=== PATIENT | male | born 1945 | race Caucasian/White ===

== ENCOUNTER 2016-07-24 05:51 | Inpatient (IN) | payer MEDICARE, OTHER ==
[2016-07-24] VITALS (7 sets, daily range): BP systolic 111–135; BP diastolic 58–72; PULSE 68–130; RESP 18–24; O2SAT 92–99
[~2016-07-24] VITALS: Ht 170.2 cm; Wt 80.7 kg
[~2016-07-24 05:51] MED LIST: ASPI-973 PO; CALC0.257 PO; CYCL25CA PO; ENAL5TAB PO; ERGO500050 PO; FUR20 PO; GABA-500 PO; MAGN133T3 PO; METO25TA6 PO; MULT-666 PO; MYCO250C4 PO; NORT10CA PO; OMEP20CA11 PO; PRD1T PO; PRD5T PO; PRV40T PO; ZYL100 PO
--- NOTE | 2016-07-24 06:07 | ED.REPORT ---
HPI-General Illness Date of Service Jul 24, 2016 ED Provider: Dr. Valadez Pt is a 70 y/o male on immunosuppressants w/ a hx of recurrent C. diff, renal transplant, CKD, presenting to the ED via EMS from [facility] due to dehydration and not feeling well. He was sent in with concern for sepsis due to tachycardia and fever of 38 C. He is unable to provide much history today due to somnolence. He is confused as to when he was last in the hospital. He states that he last received dialysis 23 years ago. He was recently admitted July 04- for acute on chronic kidney injury in the setting of kidney transplant as well as C. difficile and Norovirus diarrhea. During hospitalization, his creatinine improved to 2.03 on day of discharge which was near his regular baseline. He was treated with IV hydrocortisone which was tapered down. Cyclosporin and CellCept was also administered. It was felt that his acute on chronic kidney injury was related to pre-renal hypocalcemia in the setting of C. diff diarrhea nad dehydration. His diarrhea improved during hospitalization. His oral Vancomycin was stopped. He was discharged with plan for follow-up with Dr. Duenas. He was noted to have possible bilateral lower lobe pneumonia although clinically this did not seem to be the case. Nursing Notes Stated Complaint: LATHARGY,SEPSIS Chief Complaint: Male Abdominal Pain Nursing Notes Reviewed: Yes Allergies: Coded Allergies: iodine (Unverified Allergy, Severe, purple blistering, 07/24/16) povidone (Unverified Allergy, Severe, purple blistering, 07/24/16) Scheduled Allopurinol (Allopurinol) 100 Mg Tablet 200 MG PO QAM Aspirin (Aspirin) 81 Mg Tablet 81 MG PO HS Calcitriol (Rocaltrol) 0.25 Mcg Capsule 0.25 MCG PO QAM Cyclosporine, Modified (Gengraf) 25 Mg Cap 50 MG PO BID Enalapril Maleate (Enalapril Maleate) 5 Mg Tablet 2.5 MG PO DAILY Ergocalciferol (Vitamin D2) (Drisdol) 50,000 Unit Capsule 50,000 UNIT PO monthly Furosemide (Furosemide) 20 Mg Tab 10 MG PO DAILY Gabapentin (Gabapentin) 100 Mg Capsule 100 MG PO BID Magnesium Oxide/Mag Aa Chelate (uk-Vjrk-Kipfutu Tablet) 133 Mg Tablet 133 MG PO TID Metoprolol Tartrate (Metoprolol Tartrate) 25 Mg Tablet 12.5 MG PO BID Multivitamin (Once Daily) 1 Each Tablet 1 EACH PO HS Mycophenolate Mofetil (Mycophenolate Mofetil) 250 Mg Capsule 750 MG PO BID Nortriptyline (Nortriptyline) 10 Mg Capsule 10 MG PO BID Omeprazole (Omeprazole) 20 Mg Capsule.dr 20 MG PO HS Pravastatin (Pravachol) 40 Mg Tablet 40 MG PO HS PredniSONE (PredniSONE) 1 Mg Tab 3 MG PO QAM Prednisone (PredniSONE) 5 Mg Tab 5 MG PO QAM General Time Seen by MD: 06:06 Chief Complaint Not feeling well Hx Obtained From: Patient, EMS Unable to Obtain Hx: Patient condition Arrived By: Ambulance Sudden in Onset?: No Past Medical History Past Medical History Notes: Admitted September 2015 for volume depletion 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 diff Coma following splenectomy Hx Kidney cancer s/p transplant History renal insufficiency Immunosuppressant following kidney transplants [facility] Hx of Hemodialysis 23 years ago Anxiety Reports: Hyperlipidemia Past Surgical History Hernia Splenectomy kidney transplant x3 (last one 20 years ago) Hip replacement x7 Family History noncontributory Smoking History Current Every Day Smoker Social History Alcohol Use: Denies alcohol use Drug Use: Denies drug use Other Social History: Lives alone, Local resident Ambulatory Status Independent Review of Systems Unable to Obtain ROS Patient condition Full Review of Systems Constitutional: Reports: Fever, Lethargy Physical Exam Exam limited due to somnolence Vital Signs Vital Signs Date Time Temp Pulse Resp B/P Pulse Ox O2 Delivery O2 Flow Rate FiO2 07/24/16 06:07 38.2 130 24 114/58 99 Nasal Cannula 2 Initial VS: Reviewed, Vital signs abnormal Neck: Supple, Non-tender, Full range of motion Respiratory: Breath sounds normal, Clear to auscultation, No respiratory distress Extremities: Vascular intact, No swelling Skin: Warm, Dry Psychiatric: Behavior normal General/Constitutional: Awake, Alert Somnolent Confused as to when he was in the hospital last and in regards to his medical history Head / Eyes: Atraumatic, PERRL, EOMI 2x3 cm tumor-like growth on the left forehead ENT: Atraumatic, Airway patent Mouth: Positive: Mucous membranes dry Cardiovascular: Regular rhythm, Heart sounds NL, No gallop, No murmurs, No rubs , Cap refill not delayed, Peripheral circulation NL Heart Rate / Rhythm: Positive: Tachycardia Abdomen: Atraumatic, Soft, Non-tender, No guarding, No rebound, No distention Well healed midline surgical scar Back: Full range of motion, Painless range of motion Neurologic: Speech NL Mental Status: Positive: Confused Moving all extremities No obvious neurological deficits Interpretation & Diagnostics Lab Results Interpretation Result Diagram: 07/24/16 0605 07/24/16 0605 Test 07/24/16 06:05 07/24/16 07:32 07/24/16 08:07 White Blood Count 8.2th/mm3 (3.8-10.1) Red Blood Count 3.47mil/mm3 (4.40-5.80) Hemoglobin 10.5g/dL (13.8-17.2) Hematocrit 33.9% (41.0-50.0) Mean Corpuscular Volume 97.7fL (81-100) Mean Corpuscular Hemoglobin 30.3pg (27.0-35.0) Mean Corpuscular Hemoglobin Concent 31.0% (32.0-37.0) Red Cell Distribution Width 15.6% (12.3-15.4) Platelet Count 300bil/L (150-400) Neutrophils (%) (Auto) 60.9% (40-74) Lymphocytes (%) (Auto) 15.8% (14-46) Monocytes (%) (Auto) 21.5% (4-12) Eosinophils (%) (Auto) 0.9% (0-5) Basophils (%) (Auto) 0.2% (0-3) Hold Purple Top Tube Received (Received) Prothrombin Time 11.3sec (8.1-12.5) Prothromb Time International Ratio 1.05ratio Hold Blue Top Tube Received (Received) Sodium Level 133mEq/L (134-144) Potassium Level 4.5mEq/L (3.5-5.2) Chloride Level 94mEq/L (97-108) Carbon Dioxide Level 22mmol/L (18-29) Blood Urea Nitrogen 42mg/dL (8-27) Creatinine 2.79mg/dL (0.76-1.27) Estimat Glomerular Filtration Rate 24mL/min (>59) Glucose Level 55mg/dL (60-99) Calcium Level 8.5mg/dL (8.5-10.1) Magnesium Level 1.5mg/dL (1.6-2.6) Total Bilirubin 0.8mg/dL (0.0-1.2) Aspartate Amino Transf (AST/SGOT) 11U/L (0-50) Alanine Aminotransferase (ALT/SGPT) 6U/L (0-44) Alkaline Phosphatase 100U/L (25-160) Total Protein 5.6g/dL (6.4-8.4) Albumin 2.9g/dL (3.4-5.0) Hold Red Top Tube Received (Received) Hold Garrard Top Tube Received (Received) Urine Color Yellow (YELLOW) Urine Appearance Clear (CLEAR,HAZY) Urine pH 6.0 (5.0-8.0) Urine Specific [place] 1.010 (1.003-1.035) Urine Protein 30mg/dL (NEG,TRACE) Urine Glucose (UA) Negativemg/dL (NEGATIVE) Urine Ketones Tracemg/dL (NEGATIVE) Urine Occult Blood Negative (NEGATIVE) Urine Nitrite Negative (NEGATIVE) Urine Bilirubin Negative (NEGATIVE) Urine Urobilinogen Normalmg/dL (NORMAL) Urine Leukocyte Esterase Negative (NEGATIVE) Urine RBC 0-2/hpf (0-2) Urine WBC 0-5/hpf (0-5) Urine Epithelial Cells Occasional/hpf (NONE-MOD) Urine Crystals None seen (NONE SEEN) Urine Bacteria None/hpf (NONE-FEW) Urine Hyaline Casts None/lpf (NONE) Urine Granular Casts None seen (NONE SEEN) Urine Waxy Casts None seen (NONE SEEN) Urine Red Blood Cell Casts None seen (NONE SEEN) Urine White Blood Cell Casts None seen (NONE SEEN) Urine Mucus None seen (None Seen) Urine Trichomonas None seen (NONE SEEN) Urine Yeast None (NONE SEEN) Urinalysis Comment None Urine Culture Reflexed Not indicated Lactic Acid Level 0.8mmol/L (0.4-2.0) ECG Interpretation ECG Interpretation: A-fib vs flutter with a RBBB at a rate of 127 bpm Diffuse T wave abnormalities COmpared to prior 07/05/16, pt is now tachycardic and in atrial fibrillation. RBBB is not new. Time: 06:16 Interpreted by: ED physician Normal ECG Interpretation: No acute ischemic changes X-Ray Chest Interpretation Chest Xray Interpretation: IMPRESSION: Improved, although incompletely resolved appearance of bibasilar opacities suggestive of improving pneumonia. Minimal trace effusions are also noted. Dictated by: Mary Foote M.D. on 07/24/2016 at 8:33 Approved by: Mary Foote M.D. on 07/24/2016 at 8:33 View: Portable, 1 view Interpretation / Wet Read by: Interpret - Radiologist CT Head Interpretation Conclusion: Mild to moderate age-related change. No acute intracranial abnormality. Transmitted to the ED via night-shift radiologist Dr. Consuelo Santamaria 0710. Study: Head CT no contrast Interpretation / Wet Read by: Interpret - Radiologist Re-Eval/Medical Decision Med Decision/Clinical Course Pt is a 70 y/o male on immunosuppressants w/ a hx of recurrent C. diff, renal transplant, CKD, presenting to the ED via EMS from [facility] due to dehydration and not feeling well. He was sent in with concern for sepsis due to tachycardia and fever of 38 C. He is unable to provide much history today due to somnolence. He is confused as to when he was last in the hospital. Upon arrival he is febrile with a temperature of 38.3 and tachycardic with EKGs demonstrate atrial fibrillation with a rate in the 130s. He is hemodynamically stable though somnolent and unable to provide any significant history. EKG was obtained interpreted by myself as documented above. Chest x-ray: improved but incompletely resolved bibasilar opacities Labs notable as below: CBC: No leukocytosis, HCT of 33.9 CMP: BUN of 42, creatinine of 2.79 which is significantly elevated from discharge, potassium of 4.5, sodium of 133, lactate WNL UA: Unremarkable Given the patient's fever of unclear etiology we opted to initiate broad spectrum antibiotics. The patient was initially placed just on Zosyn due to concern about nephrotoxicity from vancomycin. Discussed with the admitting hospitalist and antibiotics will be broadened as needed in consultation with nephrology. The patient received IV fluids with improvement in his tachycardia. He reportedly still makes urine and at this time I am not immediately concerned about fluid overload. No other obvious source of infection at this time. Patient appears profoundly dehydrated with acutely elevated renal function testing. Patient was admitted in stable condition for further management and workup. Given his hemodynamic stability I have opted to not immediately attempt rate control and see how he responds to fluids. Time of Eval: 06:44 Re-Evaluation/Progress Note: Pt rechecked. Informed pt of need for admission. Pt understands and agrees with plan for admission. All questions addressed. 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: Will see patient, Agrees with eval, Agrees with plan, Accepts admit Counseled Regarding: Diagnosis, Lab results, Need for admission Discharge & Departure Primary Impression: Altered mental status Altered mental status type: unspecified Qualified Code: R41.82 - Altered mental status, unspecified Additional Impressions: Atrial fibrillation with RVR Renal failure Dehydration Disposition: ADMITTED TO HOSPITAL Discharge Condition All VS Reviewed: Yes Condition: Stable Referrals: Kobe Tom MD (PCP) Crit Care Except Billable Proc Time Spent: 105-134 minutes Services Performed: Patient management by me, Time spent at bedside, Reviewing test results, Reviewing imaging, Discussing patient care, Documentation in record, Time with fam/surrogate Scribe Attestation Portions of this note were transcribed by Cesar Kahn. I, Dr. Valadez personally performed the history, physical exam and medical decision-making; I reviewed and confirmed the accuracy of the information in the transcribed note. Signed by Cesar Kahn - Scribe - 07/24/16 - 0611 copies to: Kobe Tom MD, Beck O MD Jul 24, 2016 06:07 CESAR KAHN Jul 24, 2016 06:19
[2016-07-24] MEDS ORDERED: 0.9% Sodium Chloride 1,000 ML IV ONE ×2 (06:39→11:45)
[2016-07-24] MEDS ORDERED: Alum-Mag Hydrox-Simeth 30 mL Suspension PO PRN (06:40)
[2016-07-24] MEDS ORDERED: Ondansetron 2 mg/mL 2 mL Inj IVPUSH PRN (06:40)
[2016-07-24 07:08] LABS: INR 1.05 ratio
[2016-07-24] MEDS ORDERED: Lidocaine 2% 6mL Topical Jelly ONE (07:10)
[2016-07-24 07:15] LABS: BASOPHILS % (AUTO) 0.2 % (0-3); EOSINOPHILS % (AUTO) 0.9 % (0-5); MONOCYTES % (AUTO) 21.5 % (4-12); Mean Corpuscular Hemoglobin 30.3 pg (27.0-35.0); Mean Corpuscular Volume 97.7 fL (81-100); NEUTROPHILS % (AUTO) 60.9 % (40-74); Platelet Count 300 bil/L (150-400)
[2016-07-24 07:18] LABS: Magnesium 1.5 mg/dL (1.6-2.6)
[2016-07-24 08:13] LABS: APPEARANCE,URINE CLEAR (CLEAR,HAZY); COLOR,URINE YELLOW (YELLOW); OCCULT BLOOD,URINE NEGATIVE (NEGATIVE); UROBILINOGEN,URINE NORMAL (NORMAL)
--- NOTE | 2016-07-24 08:35 | DRSVH ---
PROCEDURE: X-RAY CHEST ONE VIEW, PORTABLE ([id number]) INDICATIONS: ALTERED MENTAL STATUS TECHNIQUE: One view of the chest was acquired. COMPARISON: [facility], CR, XR CHEST 1VW (PORTABLE), 07/08/2016, 10:42. FINDINGS: Surgical changes and devices: None. Lungs and pleura: There is mild residual opacity within the bases bilaterally, although improved comp ared to prior exam. Minimal trace effusions are noted. Mediastinum: Mediastinal contours appear normal. Heart size is normal. Bones and chest wall: No suspicious bony lesions. Overlying soft tissues appear unremarkable. IMPRESSION: Improved, although incompletely resolved appearance of bibasilar opacities suggestive of improving pneumonia. Minimal trace effusions are also noted. Dictated by: Mary Foote M.D. on 07/24/2016 at 8:33 Approved by: Mary Foote M.D. on 07/24/2016 at 8:33
[2016-07-24] MEDS ORDERED: Piperacillin-Tazo 3.375 Gm Inj 3.375 GM in Dextrose 5% Minibag Plus 50 ML IV ONE (09:00)
--- NOTE | 2016-07-24 10:11 | DRSVH ---
PROCEDURE: CT BRAIN WITHOUT CONTRAST ([id number]) INDICATIONS: Acute mental status changes. TECHNIQUE: Noncontrast 4.5 mm thick angled axial sections acquired from the foramen magnum to the vertex, with c oronal reformats. COMPARISON: None. FINDINGS: Image quality: Excellent. CSF spaces: Basal cisterns are patent. No extra-axial fluid collections. The ventricles are symmet lynda in size and shape. Brain: No intracranial bleeds or masses. There is cerebral volume loss for age, with resultant vent ricular and sulcal prominence. There are periventricular and deep white matter chronic small vessel ischemic changes. There is intracranial internal carotid artery atherosclerosis. Skull and face: Calvarium and visualized facial bones appear intact, without suspicious lesions. Irr egular density noted in the left frontal scalp history related to trauma or neoplastic process. Sinuses: Visualized sinuses and mastoids are clear. IMPRESSION: 1. No acute intracranial disease process. 2. Irregular density in the left frontal scalp which could be related to trauma versus neoplastic pro cess. Please correlate with clinical data. Dictated by: Yeni Haynes MD, PhD on 07/24/2016 at 10:09 Approved by: Yeni Haynes MD, PhD on 07/24/2016 at 10:09
[2016-07-24] MEDS ORDERED: Magnesium Sulf 2 Gm/50mL Water 2 GM in IV Premix 1 EACH IV ONE (11:20)
[2016-07-24] MEDS ORDERED: metroNIDAZOLE Inj 500 MG in IV Premix 1 EACH IV SCH ×2 (11:20→20:30)
--- NOTE | 2016-07-24 12:12 | DRSVH ---
PROCEDURE: X-RAY KUB ([id number]) INDICATIONS: recurrent c.diff r/o toxic megacolon TECHNIQUE: One view of the abdomen acquired. COMPARISON: [facility], CR, XR KUB, 04/21/2016, 16:20. FINDINGS: Surgical changes and devices: Bilateral hip arthroplasties are intact. Multiple surgical clips are pr ojected over the midabdomen. Bowel: Bowel gas pattern is normal. Soft tissues: No suspicious abdominal calcifications. Visualized solid organ contours appear normal in size. Calcified iliac vessels are present bilaterally. Bones: Severe degenerative changes are present the visualized portions of the spine. IMPRESSION: No bowel dilatation to suggest obstruction, ileus, or megacolon. Dictated by: Maryan Villagomez M.D. on 07/24/2016 at 12:10 Approved by: Maryan Villagomez M.D. on 07/24/2016 at 12:10
--- NOTE | 2016-07-24 12:33 | PCM.HPMED ---
Subjective Date of Service Jul 24, 2016 Primary Provider: Admitting Physician: Ekta Menendez MD Primary Care Physician: Kobe Tom MD Attending Physician: Ekta Menendez MD Chief Complaint: Loose stools, increasingly lethargy History of Present Illness: 70yo M w/ hx of KT/splenectomy on chronic steroid/immunosuppressives, hx of c.diff infection in treated with oral vanc, another hospitalization in [id number] for c.diff/noro virus infection, FLOYD on CKD Patient was sent from alf for loose stools, increasingly lethargic. Aspart a alf chart, patient developed loose stools on 07/23 and v/s were 101/56, [id number], 91% on Spo2, looked dehydrated, vancomycin 125mg po given for presumed recurrent c.diff. Today BP remained stable 130-150s, still [id number], had tiix802.6 at 5am, received third dose of po vanc. Pt was noted to be more lethargic so brought to the hospital. In ED, VS [id number], LE319d, EKG showed aflutter with known RBBB. CTH neg for bleeding, one dose of zosyn given, 1liter NS given. labs showed normal wbc8.2, h /h at baseline, FLOYD on CKD, low magnesium, procalcitonin0.75. During the interview on [facility], pt was drowsy, but oriented to place/name. Pt thinks he has "c.diff", admitted that he had multiple diarrhea, doesn't speak much, fell back to sleep. c/o RLQ pain, thinks it's similar to pain from previous c.diff. denied n/v. pt wants to drink water, c/o being thirsty ROS: denied dysuria/frequency, chest pain/palpitation Review of Systems: Pertinent positives as noted in history of present illness. All other systems were reviewed and are negative Allergies Coded Allergies: iodine (Unverified Allergy, Severe, purple blistering, 07/24/16) povidone (Unverified Allergy, Severe, purple blistering, 07/24/16) Home Medications VERIFIED WITH [place] MED LIST Allopurinol (Allopurinol) 100 Mg Tablet 200 MG PO QAM (Reported) Aspirin (Aspirin) 81 Mg Tablet 81 MG PO HS (Reported) Calcitriol (Rocaltrol) 0.25 Mcg Capsule 0.25 MCG PO QAM (Reported) Cyclosporine, Modified (Gengraf) 25 Mg Cap 50 MG PO BID (Reported) Enalapril Maleate (Enalapril Maleate) 5 Mg Tablet 2.5 MG PO DAILY d/codi Ergocalciferol (Vitamin D2) (Drisdol) 50,000 Unit Capsule 50,000 UNIT PO monthly (Reported) Furosemide (Furosemide) 20 Mg Tab 10 MG PO DAILY (Reported) Gabapentin (Gabapentin) 100 Mg Capsule 100 MG PO BID (Reported) Magnesium Oxide/Mag Aa Chelate (at-Jzgu-Xuchixn Tablet) 133 Mg Tablet 133 MG PO TID (Reported) Metoprolol Tartrate (Metoprolol Tartrate) 25 Mg Tablet 12.5 MG PO BID Prescribed by: CASSANDRA COUGHLIN, Multivitamin (Once Daily) 1 Each Tablet 1 EACH PO HS (Reported) Mycophenolate Mofetil (Mycophenolate Mofetil) 250 Mg Capsule 750 MG PO BID ( Reported) NOT ON THE LIST Nortriptyline (Nortriptyline) 10 Mg Capsule 10 MG PO BID ( Reported) Omeprazole (Omeprazole) 20 Mg Capsule.dr 20 MG PO HS (Reported) Pravastatin (Pravachol) 40 Mg Tablet 40 MG PO HS (Reported) PredniSONE (PredniSONE) 1 Mg Tab 3 MG PO QAM (Reported) Prednisone (PredniSONE) 5 Mg Tab 5 MG PO QAM (Reported) PMH FAMILY HX brother kidney disease SOCIAL HX smoking hx Past Medical/Surgical HX Pneumonia December 2015, diverticulitis/C. difficile February 2016 Chronic tachycardia Diverticulosis multiple kidney transplants 20 years ago, kidney failure. Kidney cancer Chronic kidney disease, stage 3. Immunosuppressed.Splenectomy Hypertension.Dyslipidemia Bilateral knee osteoarthritis. multiple hip replacements. Social History Hx Alcohol Use: No Hx Substance Use: No Hx Tobacco Use: Yes Smoking Status: Current Every Day Smoker Exam Vital Signs Vital Sign - Last Date Time Temp Pulse Resp B/P Pulse Ox O2 Delivery O2 Flow Rate FiO2 07/24/16 10:12 121 07/24/16 09:58 36.8 18 127/67 97 Nasal Cannula 3.00 Exam looked very weak, followed some commands, easily fell asleep no JVD, dry MM, no LAD RRR, nl s1, s2 no mrg CTAB, no w,c S,ND,mild RLQ td, hypoactive BS+ warm, no edema, pulses 2/2 Lab and Diagnostics Result Diagram: 07/24/1660407/24/16604 Assessment & Plan 70yo M w/ hx of KT/splenectomy on chronic steroid/immunosuppressives, hx of c.diff infection in Feb, treated with oral vanc, another hospitalization in [id number] for c.diff/noro virus infection, FLOYD on CKD p/w episode of loose stools, lethargy acute, active #Diarrhea, lethargy presumably due to recurrent c.diff colitis, POA, pt carry dx of Diverticulosis as well. it's possible other infectious organisms causing colitis given unremarkable wbc. Of note this tis four episode of similar presentation / treated for c.diff infection. flu swab neg. CXR unremarkable for new infiltrate. -appreciate ID input regarding abx regimen, started vanc po/flagy iv for now -IVF 1liters bolus followed by 150cc/hr -will send stool c.diff/PCR STAT -KUB stat to rule out toxic megacolon,although exam was benign addendum>[facility] reported later today that stool was positive for Noro virus #new onset aflutter RVR, POA, precipitated in the setting of dehydration/ infection, TTE showed EF 55-60, unchanged RWMA, moderate dilated LA, no severe valvular dz, mild AR/TR -will see whether pt needs AVN agent after hydration, consider cardiology consult if not controlled -will consider systemic AC [id number] :2, pt doesn't seem to be good candidate at the moment. -continue telemetry #Increased lethargy, POA, likely septic encephalopathy, CTH neg for stroke, will observe for now. 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, repeat CMP showed worsening eGFR -trends cr, avoid renal toxin, i/o, daily wt, adjust med renally -will consult nephrology AM chronic, stable Immunosuppressed state hx of KT/Splenectomy, will give stress dose of hydrocortisone then resume prednisone, continue other immunosuppressives Hypertension.Dyslipidemia , hold BP meds in the setting of infection Bilateral knee osteoarthritis, not active gout, continue allopurinol once pt is more stable vitD def, continue vitD, calcitriol once pt is more stable dispo:Patient will be admitted with inpatient status with expectation of inpatient therapy for more than 2 midnights diet:NPO for now dvt ppx:heparin SQ Full Code, will likely benefit from palliative care eval given recurrent hospitalization, multiple comorbidities Time spent 35min Ekta Menendez MD Jul 24, 2016 12:14
[2016-07-24] MEDS ORDERED: HYDROmorphone 1 mg/mL Inj IVPUSH PRN (14:00)
[2016-07-24] MEDS: Vancomycin 125 mg Oral Capsule PO SCH ×2 (14:12→14:30)
[2016-07-24] MEDS: 0.9% Sodium Chloride 1,000 ML IV SCH ×2 (14:14→22:31)
[2016-07-24] MEDS ORDERED: CHOL500050 PO (15:25)
[2016-07-24] MEDS ORDERED: VANC125C3 PO (15:32)
[2016-07-24 17:06] LABS: BASOPHILS % (AUTO) 0.3 % (0-3); EOSINOPHILS % (AUTO) 1.1 % (0-5); MONOCYTES % (AUTO) 18.5 % (4-12); Mean Corpuscular Hemoglobin 30.3 pg (27.0-35.0); Mean Corpuscular Volume 98.1 fL (81-100); NEUTROPHILS % (AUTO) 66.7 % (40-74); Platelet Count 270 bil/L (150-400)
[2016-07-24] MEDS: Hydrocortisone 50 mg/mL 2 mL Inj IVPUSH SCH (17:36)
[2016-07-24 17:40] LABS: Magnesium 2.1 mg/dL (1.6-2.6); Phosphorus 4.6 mg/dL (2.5-4.9)
--- NOTE | 2016-07-24 19:49 | CONS ---
[address] [address] CONSULTATION REPORT PATIENT: NINA VALENTIN : 1945 MR#: [id number] ADMIT: 07/24/2016 JOB ID: [id number] DATE OF SERVICE: 07/24/2016 INFECTIOUS DISEASE CONSULTATION: I thank Dr. Menendez for this timely consult. 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 HISTORY OF PRESENT ILLNESS: The patient is a 70-year-old gentleman well known to me from a number of visits over the past two years. The patient has had recurrent issues during the latter half of 2014 with C. difficile colitis. I saw this patient back in December of this year with pneumonia. Given the patient's underlying immunosuppression we treated him aggressively and he improved and resolved, but unfortunately then embarked on a long series of episodes of C. difficile colitis. The first of these C. difficile episodes was documented in February and he subsequently returned with C. difficile again in April and most recently in mid June. During both the june episodes and the April episodes his stool was also PCR positive for Norovirus, so it was a bit difficult to tell what was going on. Following his June admission, the patient was sent out without treatment apparently for C. diff because it was thought that his stool was simply chronically colonized with C. diff as his diarrhea rapidly resolved. Following his return to the longterm where he resides in late June, the patient did well for about two weeks, only to develop loose stools and a single fever within the past 48 hours. The longterm started him on vancomycin yesterday, but he only received a couple of doses of oral vanco before the decision was made to send him back to the hospital. This afternoon the patient is seen in his hospital room. He tells us that he has been quite sleepy and he is a little bit tough to arouse, but once he is aroused, he is awake, his usual self, and very lucid. He tells us he has not had any significant fever or chills, save that one temperature spike documented at the longterm. He is not having any significant pulmonary complaints and notes that aside the diarrhea he feels normal except fatigue. PAST MEDICAL HISTORY: 1. Left-sided pneumonia in January 2016. 2. Chronic renal insufficiency, status post three renal transplants, and currently on immunosuppressive drugs. 3. History of 7 hip transplants; four on the right and three on the left. 4. Cigarette smoking. 5. Bilateral knee arthritis. 6. Hypertension. 7. Status post splenectomy. SOCIAL HISTORY: The patient is a heavy cigarette smoker. He does not drink alcohol. FAMILY HISTORY: Negative for tuberculosis, but there are a number of people in his family who receive dialysis. REVIEW OF SYSTEMS: Was done. Today he has no significant headache. 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 No acute visual or oral symptoms. No cough, shortness of breath, chest pain. No nausea or vomiting. Some diarrhea. A single fever spike, without significant chills. He does note fatigue, which has been worse for the past few days. PHYSICAL EXAMINATION: Reveals an afebrile gentleman, temp 37, pulse 71, respiratory rate 19, blood pressure 112/59. He is saturating well on 3 L. As noted, he is awake and alert, and able to discuss events. He still has the exophytic lesion which is about 3 or 4 cm across. It appears to be in a shape generally of a mushroom or a cauliflower growing out of the left side of his skull and does not appear greatly changed from what I have seen before. On examination of the eyes, no conjunctivitis or scleral icterus. Oral cavity unremarkable. Lungs clear. Cardiac tones irregular rate and rhythm. Abdomen soft and nontender. He does have a Richey catheter; he did not come with one from the longterm, so I am not certain that it is actually indicated. His extremities without edema or cellulitis. LABORATORIES: Include white count 9800, platelet count 270,000. Creatinine 2.79, which is above his baseline. LFTs are normal. Procalcitonin 0.75, which is probably normal considering his renal insufficiency. Previous serologies were negative for CMV in the blood in June, interestingly. A BK virus was also negative. Micro studies include a recent influenza rapid screen negative and blood cultures obtained this morning which are negative so far. The PCR for stool that was ordered has not been collected yet. His last stool PCR was positive in June. There is a report that the longterm has a positive stool PCR for Norovirus, but it is unknown if that was also checked for C. diff. A KUB of the abdomen shows no megacolon. Brain CT shows the mass which we see, which seems to be invading the skull, but no change. A chest x-ray shows resolving pneumonia as compared to one done a month ago. IMPRESSION: 1. It is unclear to me if this patient has had a recurrence of his Clostridium difficile or not, but it has been confused over the past couple of months by the continued positivity of stool Clostridium difficile assays even at times when he has had a minimal amount of symptoms such as in June. This raises the possibility that some of these are falsely positive as he continues to have an organism capable of producing a Clostridium difficile toxin but is not actively producing it. Given the patient's fragilely compensated status, renal failure, immunosuppression, and other issues, I think it is appropriate to aggressively treat possible Clostridium difficile until we know that it is not a significant player here. Given his history of multiple recurrences, I think I would treat the patient with a fidaxomicin as there is some literature evidence to suggest this is associated with less recurrences and this patient could certainly benefit from avoiding future recurrences of Clostridium difficile. 2. I would withhold other antibiotics while we wait for the stool results and also just observe his progress.
[2016-07-24] MEDS: Pantoprazole 40 mg ER24 Tablet PO SCH (22:34)
[2016-07-25] VITALS (8 sets, daily range): BP systolic 108–144; BP diastolic 57–73; PULSE 50–104; RESP 18–21; O2SAT 92–98
[2016-07-25] MEDS: 0.9% Sodium Chloride 1,000 ML IV SCH ×2 (00:35→04:56)
[2016-07-25] MEDS: Hydrocortisone 50 mg/mL 2 mL Inj IVPUSH SCH ×2 (00:37→08:17)
[2016-07-25 06:05] LABS: BASOPHILS % (AUTO) 0.1 % (0-3); EOSINOPHILS % (AUTO) 0 % (0-5); MONOCYTES % (AUTO) 4.3 % (4-12); Mean Corpuscular Hemoglobin 30.4 pg (27.0-35.0); Mean Corpuscular Volume 97.7 fL (81-100); NEUTROPHILS % (AUTO) 91.5 % (40-74); Platelet Count 287 bil/L (150-400)
[2016-07-25 06:29] LABS: Phosphorus 6.2 mg/dL (2.5-4.9)
--- NOTE | 2016-07-25 11:24 | PCM.CONPAL ---
Date of Service Jul 25, 2016 Date of Hospital Admission: Jul 24, 2016 at 09:33 Date of Palliative Consult: Jul 25, 2016 Requesting Provider: Ekta Menendez MD Reason Palliative Care Consult: Goals of Care Discussion Reason for Consultation Palliative Care received verbal order from Dr Genie Menendez 07/25/16 to assist with goals of care. Patient is a 70 year old man with frequent admits (12/2015, 02/2016 , 04/2016, 06/2016, 07/2016/current admission). He was re-admitted 07/24/16 and is receiving care for lethargy, loose stools, Afib with RVR, AMS and renal failure. He discharged from [facility] to [facility] for rehab in 06/2016. Per RN, [facility] called [facility] 07/24/16 to report patient has + Norovirus test result. Patient is full code with recurrent hospitalizations and with multiple comorbidities. Patient has been living at [facility] for rehab recently. Was living home alone prior to SNF. Rolanda Rushing (sister) [phone] Maida Isaura (sister) [phone] Palliative Care Recommendation Patient has had frequent admits (12/2015, 02/2016, 04/2016, 06/2016, and current admission) and Palliative Care asked to discuss goals of care with him. Summary of palliative recommendations: Patient has had frequent admits (12/2015, 02/2016, 04/2016, 06/2016, and current admission) and Palliative Care asked to discuss goals of care with him. This will be the first time we have been involved in his care. Symptom management (Pain/other): per Attending Dr. Menendez ([facility] team) DPOA/Advanced Directives/POLST: 1. Code: Full per EMR. 2. POLST: no prior paperwork. He completed a POLST today with Dr. Crum. He confirms his wish to be FULL code with all interventions. It is important to him that he is not kept alive on machines if his brain is no longer awake and able to interact meaningfully with others. He values having a good brain. 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 He is content to be restricted to a wheelchair, but would abhor needing to be fed by others or fed (permanently) by a tube. 3. HCPOA: no prior paperwork. He has a good relationship with his sisters, but doesn't really want to pick one of them to be HCPOA. He would rather they follow his directives on a POLST and act as advisors to a medical team, using the POLST he signed today. Patient's Baseline Function: Pt states he lives in a single story home alone, and had no problems getting around his house with a W/C, but was at [facility] prior to admission for rehab. Pt states he is willing to return there at d/ c. Pt states he typically uses a wheel chair, does not drive. Family/emotional support: Rolanda Сергей (sister) [phone] Maida Isaura ( sister) [phone] As goals are now clear and POLST completed (and in paper chart), Palliative Care Team will sign off the case. Thank you for the consult with this eloquent gentleman. Problems: Pt History History of Present Illness This is a 70 year old man with past medical history significant for ESRD unknown etiology, status post donor kidney transplant x3, recurrent C. difficile infection, presented to the hospital due to weakness. The patient was sent to the ED from a [facility]pc due to loose stools and worsening lethargy and confusion. Per H and P the patient developed loose stools on 07/23 and subsequently developed tachycardia with HR into the 140s and appeared very dehydrated. The patient is taking prednisone 8 mg daily, cyclosporine 50 mg twice a day and CellCept 750 mg b.i.d. The patient reported having only one episode of rejection after transplant. 70yo M w/ hx of Kidney Transplant/splenectomy on chronic steroid/ immunosuppressives, hx of c.diff infection in treated with oral vancomycin, then another hospitalization in [id number] for c.diff/noro virus infection, FLOYD on chronic kidney dialysis admitted on 07/24 from [facility] for loose stools beginning 07/23, lethargy. Hospital Course: He was started on vancomycin 125mg po given for presumed recurrent c.diff. and subsequently his stool culture on admission was positive for norovirus. Subjective: Mr. Brar is awake and alert, finishing lunch when I stop in to see him. He feels much better, and knows that he has norovirus, is waiting to find out if C.difficile is back. He is mentally and cognitively fully intact and able to answer all questions on his past medical history. He has no pain or discomfort. He is breathing easily and has no problem with nausea, vomiting or lack of appetite. Past Medical History Significant PMH Noted: 1. End-stage renal disease, unknown etiology. 2. s/p Kidney Cancer 3. Chronic kidney disease stage 3 in the setting of kidney transplant. Baseline serum Cr is about 2. 4. Hypertension. 5. Dyslipidemia. 6. Bilateral knee osteoarthritis. 7. Diverticulosis. 8. Recent history of diverticulitis and C. difficile colitis. 9. Recent history of pneumonia. 10. Diverticulosis 11. Chronic tachycardia 12. Pneumonia December 2015, diverticulitis/C. difficile February 2016 Surgical History 1. Status post kidney transplant x3. 2. Multiple hip replacements x7 according to the patient due to osteoporosis. 3. Splenectomy. 4. The patient had three kidney transplants. First kidney transplant was in 1960s, lasted less than two months. The second kidney transplant was done in and the second one lasted quite some time. The patient received the third kidney transplant in 1993. Family History: Brother of kidney failure, Mother of cancer of billiary tract, Father of stomach cancer. Social History: was still working up to 9 months ago when he started to get frequent illness. 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 Medications Current Medications: Current Medications Al Hydrox/Mg Hydrox/Simethicone 30 ml Q6 PRN PO; Start 07/24/16 at 06:40 Ondansetron HCl Dose range: 4 mg to 8 mg Q4H PRN IVPUSH; Start 07/24/16 at 06:40 Acetaminophen 975 mg 975 mg Q6H PRN PO; Start 07/24/16 at 06:40 Sodium Chloride 1,000 ml @ 150 mls/hr Q6H40M IV Last administered on 07/25/16 04:56; Admin Dose 150 MLS/HR; Start 07/24/16 at 11:15; Stop 07/25/16 at 10:05; Status DC Vancomycin HCl 125 mg 125 mg Q6 PO Last administered on 07/24/16 14:12; Admin Dose 125 MG; Start 07/24/16 at 11:15; Stop 07/24/16 at 17:41; Status DC Metronidazole/ Sodium Chloride 500 mg/Premix 100 ml @ 200 mls/hr Q12 IV; Start 07/24/16 at 20:30; Stop 07/24/16 at 20:30; Status DC Metronidazole/ Sodium Chloride/ Premix 100 ml @ 200 mls/hr Q12 IV Last administered on 07/24/16 14:15; Admin Dose 200 MLS/HR; Start 07/24/16 at 11:20; Stop 07/24/16 at 17:41; Status DC Hydromorphone HCl 1 mg Q4H PRN IVPUSH; Start 07/24/16 at 14:00 Hydrocortisone Sodium Succinate 100 mg Q8H IVPUSH Last administered on 07/25/16 08:17; Admin Dose 100 MG; Start 07/24/16 at 15:40 Allopurinol 200 mg DAILY PO Last administered on 07/25/16 08:21; Admin Dose 200 MG; Start 07/25/16 at 08:30 Aspirin 81 mg HS PO Last administered on 07/24/16 22:33; Admin Dose 81 MG; Start 07/24/16 at 21:00 Calcitriol 0.25 mcg DAILY PO Last administered on 07/25/16 08:20; Admin Dose 0.25 MCG; Start 07/25/16 at 08:30 Cyclosporine 50 mg BID PO Last administered on 07/25/16 08:20; Admin Dose 50 MG ; Start 07/24/16 at 20:30; Stop 07/25/16 at 09:56; Status DC Metoprolol Tartrate 12.5 mg BID PO Last administered on 07/25/16 08:19; Admin Dose 12.5 MG; Start 07/24/16 at 20:30 Mycophenolate Mofetil 750 mg BID PO Last administered on 07/25/16 08:18; Admin Dose 750 MG; Start 07/24/16 at 20:30; Stop 07/25/16 at 09:56; Status DC Patient Own Medication 50,000 ea monthly PO; Start 08/10/16 at 08:30 Magnesium Oxide 400 mg TID PO Last administered on 07/25/16 08:19; Admin Dose 400 MG; Start 07/24/16 at 20:30 Multivitamins/ Minerals Therapeutic 1 tablet DAILY PO Last administered on 08:21; Admin Dose 1 TABLET; Start 07/25/16 at 08:30 Pantoprazole 40 mg HS PO Last administered on 07/24/16 22:34; Admin Dose 40 MG; Start 07/24/16 at 21:00 Pravastatin Sodium 40 mg HS PO Last administered on 07/24/16 22:35; Admin Dose 40 MG; Start 07/24/16 at 21:00 Nortriptyline HCl 10 mg BID PO Last administered on 07/25/16 08:20; Admin Dose 10 MG; Start 07/24/16 at 20:30 Fidaxomicin 200 mg BID PO Last administered on 07/25/16 08:18; Admin Dose 200 MG ; Start 07/24/16 at 17:40 Sodium Bicarbonate 650 mg 650 mg BID PO; Start 07/25/16 at 09:55; Stop 07/26/16 at 22:00 Sodium Chloride 1,000 ml @ 100 mls/hr Q10H IV; Start 07/25/16 at 10:05 Scheduled Allopurinol (Allopurinol) 100 Mg Tablet 200 MG PO QAM Aspirin (Aspirin) 81 Mg Tablet 81 MG PO HS Calcitriol (Rocaltrol) 0.25 Mcg Capsule 0.25 MCG PO QAM Cholecalciferol (Vitamin D3) (Vitamin D) 50,000 Unit Capsule 50,000 UNIT PO monthly Cyclosporine, Modified (Gengraf) 25 Mg Cap 50 MG PO BID Enalapril Maleate (Enalapril Maleate) 5 Mg Tablet 2.5 MG PO DAILY Furosemide (Furosemide) 20 Mg Tab 10 MG PO DAILY Gabapentin (Gabapentin) 100 Mg Capsule 100 MG PO BID Magnesium Oxide/Mag Aa Chelate (ut-Lvwd-Gclfjcd Tablet) 133 Mg Tablet 133 MG PO TID Metoprolol Tartrate (Metoprolol Tartrate) 25 Mg Tablet 12.5 MG PO BID Multivitamin (Once Daily) 1 Each Tablet 1 EACH PO HS Mycophenolate Mofetil (Mycophenolate Mofetil) 250 Mg Capsule 750 MG PO BID Nortriptyline (Nortriptyline) 10 Mg Capsule 10 MG PO BID Omeprazole (Omeprazole) 20 Mg Capsule.dr 20 MG PO HS Pravastatin (Pravachol) 40 Mg Tablet 40 MG PO HS PredniSONE (PredniSONE) 1 Mg Tab 3 MG PO QAM Prednisone (PredniSONE) 5 Mg Tab 5 MG PO QAM Vancomycin (Vancomycin) 125 Mg Capsule 125 MG PO Q6H Objective Findings Exam Vital Sign - Last Date Time Temp Pulse Resp B/P Pulse Ox O2 Delivery O2 Flow Rate FiO2 07/25/16 08:48 36.7 72 19 144/73 92 Room Air 07/24/16 16:23 3.00 Intake and Output 07/24/16 07/24/16 07/25/16 Cumulative From/Thru 15:00 23:00 07:00 07/24/16 06:07 - 07/25/16 06:57 Intake Total 1405 ml 1394 ml 2799 ml Output Total 500 ml 200 ml 700 ml Balance 905 ml 1194 ml 2099 ml Intake Oral 0 ml 0 ml 0 ml IV Total 1405 ml 1394 ml 2799 ml Output Urine Total 500 ml 200 ml 700 ml # Bowel Movements 2 1 3 General: Alert, Oriented, Person, Place, Time, Situation, No acute distress, Other (fungating mass on left forehead, 3x3 cm, no bleeding.) HEENT: Atraumatic, PERRLA, EOMI, Scleral Anicteric, Mucous Membr Moist/[place] Neuro: Exam Intact Lab/Diagnostics Lab and Diagnostics 07/25/16 0510 Patient/Family Conference Discussion/Goals of Care Please see PLAN section above for goals of care summary. Time spent Total time 70 minutes; >50% face to face with patient and/or family, providing counselling regarding plans and recommendations, and in care coordination with his/her medical teams. I also spent an additional 30 minutes counseling for advanced care planning with the patient. copies to: Kobe Tom MD, Cynthia MD Jul 25, 2016 11:24
--- NOTE | 2016-07-25 11:44 | PCM.CHPMED ---
Subjective Date of Service: Jul 25, 2016 Provider requesting consult: Ekta Menendez MD Primary Physician: Admitting Physician: Ekta Menendez MD Primary Care Physician: Kobe Tom MD Attending Physician: Ekta Menendez MD Chief Complaint: Chief Complaint: NEPHROLOGY CONSULTATION FLOYD on CKD in renal transplant patient History of Present Illness: This is a 70 year old man well known to the nephrology service with past medical history significant for ESRD unknown etiology, status post donor kidney transplant x3, recurrent C. difficile infection, presented to the hospital due to weakness. The patient was sent to the ED from a snf due to loose stools and worsening lethargy and confusion. Per H and P the patient developed loose stools on 07/23 and subsequently developed tachycardia with HR into the 140s and appeared very dehydrated and was started on PO vancomycin for presumed recurrent C Diff. The patient himself states the he does not remember feeling confused but does remember feeling very thirsty and feeling his mouth so dry that it was difficult to talk. The patient had three kidney transplants. First kidney transplant was in 1960s, lasted less than two months. The second kidney transplant was done in and the second one lasted quite some time. The patient received the third kidney transplant in 1993. He stated that his baseline serum creatinine is around 2. The patient is taking prednisone 8 mg daily, cyclosporine 50 mg twice a day and CellCept 750 mg b.i.d. The patient reported having only one episode of rejection after transplant. Review of Systems: A comprehensive review of systems was completed and is negative except as noted in the HPI. PMH Past Medical History 1. End-stage renal disease, unknown etiology. 2. Status post donor kidney transplant x3, last one was in 1993. 3. Chronic kidney disease stage 3 in the setting of kidney transplant. 4. Hypertension. 5. Dyslipidemia. 6. Bilateral knee osteoarthritis. 7. Diverticulosis. 8. Recent history of diverticulitis and C. difficile colitis. 9. Recent history of pneumonia. Bedside Blood Glucose: 51 Surgical History 1. Status post kidney transplant x3. 2. Multiple hip replacements x7 according to the patient due to osteoporosis. 3. Splenectomy. Home Medications Allopurinol (Allopurinol) 200 MG PO BID Aspirin (Aspirin) 81 Mg Tablet 81 MG PO DAILY Calcitriol (Rocaltrol) 0.25 Mcg Capsule 0.25 MCG PO QAM Cholecalciferol (Vitamin D3) (Vitamin D3) 50,000 Unit Capsule 50,000 UNIT PO monthly on the of each month Cyclosporine, Modified (Gengraf) 25 Mg Cap 50 MG PO BID Enalapril Maleate (Enalapril Maleate) 5 Mg Tablet 5 MG PO DAILY Furosemide (Furosemide) 20 Mg Tab 10 MG PO DAILY Gabapentin (Gabapentin) 100 Mg Capsule 100 MG PO BID Magnesium Oxide/Mag Aa Chelate (pb-Mryx-Azniyhq Tablet) 133 Mg Tablet 13 MG PO TID Multivitamin (Once Daily) 1 Each Tablet 1 EACH PO HS Mycophenolate Mofetil (Mycophenolate Mofetil) 250 Mg Capsule 750 MG PO BID Nortriptyline (Nortriptyline) 10 Mg Capsule 10 MG PO BID Omeprazole (Omeprazole) 20 Mg Capsule.dr 20 MG PO HS Pravastatin (Pravachol) 40 Mg Tablet 40 MG PO HS PredniSONE (PredniSONE) 1 Mg Tab 3 MG PO QAM Prednisone (PredniSONE) 5 Mg Tab 5 MG PO QAM Allergies: Coded Allergies: iodine (Unverified Allergy, Severe, purple blistering, 07/24/16) povidone (Unverified Allergy, Severe, purple blistering, 07/24/16) Family History Family History No history of kidney disease Social History Hx Alcohol Use: NoHx Substance Use: NoHx Tobacco Use: Yes Smoking Status: Current Every Day Smoker Exam Vital Signs Vital Sign - Last Date Time Temp Pulse Resp B/P Pulse Ox O2 Delivery O2 Flow Rate FiO2 07/25/16 08:48 36.7 72 19 144/73 92 Room Air 07/24/16 16:23 3.00 Intake and Output 07/24/16 07/24/16 07/25/16 Cumulative From/Thru 15:00 23:00 07:00 07/24/16 06:07 - 07/25/16 06:57 Intake Total 1405 ml 1394 ml 2799 ml Output Total 500 ml 200 ml 700 ml Balance 905 ml 1194 ml 2099 ml Intake Oral 0 ml 0 ml 0 ml IV Total 1405 ml 1394 ml 2799 ml Output Urine Total 500 ml 200 ml 700 ml # Bowel Movements 2 1 3 Additional Information: GEN: Chronically ill looking, in no acute distress, alert and oriented, cooperative HEENT: Dry mucous membranes. Mild pallor. No jaundice. No JVD. No lymphadenopathy. No thyroid enlargement. Atraumatic. PERRLA. CV: Regular rhythm. Normal S1, S2. No murmurs, rubs, or gallops. RESP: Clear to auscultation bilaterally. No wheezing. No rhonchi. Abdomen: Soft, nontender, nondistended. No hepatosplenomegaly. Bowel sounds present and normoactive. Extremities: No edema, cyanosis or clubbing of fingers. Skin: fungating mass on left frontal area, 3x3 cm, no bleeding. Lab and Diagnostics Result Diagram: 07/25/1650907/25/16509 Assessment & Plan Assessment 1. Acute kidney injury on chronic kidney disease stage 3 in the setting of kidney transplant. -Etiology is likely due to prerenal azotemia -hold cyclosporine and CellCept -check stat levels -continue IVF with 1/2 NS at 100 ml/hr. -Encourage PO fluid intake 2. Anion Gap Metabolic Acidosis -AG 23 -Likely due to CKD compounded with FLOYD -Sodium Bicarb PO 650 BID x 4 doses -Repeat BMP in AM 2. Watery diarrhea positive for Norovirus. 3. Status post donor kidney transplant x3, last one in 1993. 4. h/o hypertension. 5. Multiple hip replacement with history of osteoporosis. 6. Normocytic normochromic anemia, secondary to CKD -Once patient's renal function has stabilized will consider EPO for Hgb <10 7. Skin cancer on left frontal area, evaluated, pending for excision. Problems: Haley Webster DO Jul 25, 2016 11:44
--- NOTE | 2016-07-25 13:46 | PCM.PNMED ---
Subjective Date of Service Jul 25, 2016 Subjective pt is more awake, responsive, oriented had one BM yesterday diarrhea denied abdominal pain abx regimen changed per ID Exam Vital Signs Vital Sign - Last Date Time Temp Pulse Resp B/P Pulse Ox O2 Delivery O2 Flow Rate FiO2 07/25/16 13:26 36.6 97 21 119/70 95 Room Air 07/24/16 16:23 3.00 Intake and Output 07/24/16 07/24/16 07/25/16 Cumulative From/Thru 15:00 23:00 07:00 07/24/16 06:07 - 07/25/16 06:57 Intake Total 1405 ml 1394 ml 2799 ml Output Total 500 ml 200 ml 700 ml Balance 905 ml 1194 ml 2099 ml Intake Oral 0 ml 0 ml 0 ml IV Total 1405 ml 1394 ml 2799 ml Output Urine Total 500 ml 200 ml 700 ml # Bowel Movements 2 1 3 Exam NAD, comfortable, no JVD, dry MM, no LAD RRR, nl s1, s2 no mrg CTAB, no w,c S,ND,mild RLQ td, normoactive BS+ warm, no edema, pulses 2/2 IVs and Medications Medications Reviewed: Medications were reviewed in detail Lab and Diagnostics Result Diagram: 07/25/16 0510 07/25/16 0510 Assessment & Plan 70yo M w/ hx of KT/splenectomy on chronic steroid/immunosuppressives, hx of c.diff infection in Feb, treated with oral vanc, another hospitalization in [id number] for c.diff/noro virus infection, FLOYD on CKD p/w episode of loose stools, lethargy acute, active #Diarrhea, lethargy presumably due to recurrent c.diff colitis + Norovirus( positive in [place]), POA, pt carry dx of Diverticulosis as well. it's possible other infectious organisms causing colitis given unremarkable wbc. Of note this tis four episode of similar presentation Feb/Apr/ treated for c.diff infection. flu swab neg. CXR unremarkable for new infiltrate. KUB showed no signs of toxic megacolon, abdomen remained benign, -appreciate ID input regarding abx regimen, started vanc po/flagy iv on adm, switched to fidaxomicin 07/25 -s/p IVF 1liters bolus followed by 150cc/hr, stopped today changed to 1/2 100cc per renal -send stool c.diff/PCR #new onset aflutter RVR, POA, precipitated in the setting of dehydration/ infection, TTE showed EF 55-60, unchanged RWMA, moderate dilated LA, no severe valvular dz, mild AR/TR, converted to sinus 07/25 -will see whether pt needs AVN agent after hydration, consider cardiology consult if not controlled -will consider systemic AC [id number] :2, pt doesn't seem to be good candidate at the moment. 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 AAOx3 Immunosuppressed state hx of KT/Splenectomy, s/p stress dose of hydrocortisone, resume home dose prednisone, held other immunosuppressives per renal today Hypertension.Dyslipidemia , hold BP meds in the setting of infection Bilateral knee osteoarthritis, not active gout, continue allopurinol once pt is more stable vitD def, continue vitD, calcitriol once pt is more stable dispo:1-2more days diet:renal, advance as tolerate dvt ppx:heparin SQ Full CodeRAQUEL singed per palliative care, greatly appreciated Time spent 35min Ekta Menendez MD Jul 25, 2016 13:46
[2016-07-25] MEDS: Pantoprazole 40 mg ER24 Tablet PO SCH (20:18)
[2016-07-25] MEDS: predniSONE 5 mg Tablet PO SCH (20:24)
[2016-07-26] VITALS (8 sets, daily range): BP systolic 107–157; BP diastolic 63–83; PULSE 47–115; RESP 2–22; O2SAT 95–98
[2016-07-26 06:22] LABS: BASOPHILS % (AUTO) 0 % (0-3); EOSINOPHILS % (AUTO) 0 % (0-5); MONOCYTES % (AUTO) 7.2 % (4-12); Mean Corpuscular Hemoglobin 30.1 pg (27.0-35.0); Mean Corpuscular Volume 93.9 fL (81-100); NEUTROPHILS % (AUTO) 88.6 % (40-74); Platelet Count 287 bil/L (150-400)
[2016-07-26 06:28] LABS: Magnesium 2.1 mg/dL (1.6-2.6); Phosphorus 5.2 mg/dL (2.5-4.9)
[2016-07-26] MEDS: predniSONE 1 mg Tablet PO SCH (08:36)
--- NOTE | 2016-07-26 09:54 | PCM.PNMED ---
Subjective Date of Service Jul 26, 2016 Subjective Patient's diarrhea has lessened considerably however he has not had much urine output. His creatinine continues to rise and I feel that this is part lag in his recovery. He denies any nausea vomiting fever or chills. Exam Vital Signs Vital Sign - Last Date Time Temp Pulse Resp B/P Pulse Ox O2 Delivery O2 Flow Rate FiO2 07/26/16 05:53 115 07/26/16 05:24 36.7 18 136/83 97 Room Air 07/24/16 16:23 3.00 Intake and Output 07/25/16 07/25/16 07/26/16 Cumulative From/Thru 15:00 23:00 07:00 07/24/16 06:07 - 07/26/16 05:56 Intake Total 768 ml 768 ml 4335 ml Output Total 200 ml 900 ml Balance 568 ml 768 ml 3435 ml Intake Oral 768 ml 768 ml IV Total 768 ml 3567 ml Output Urine Total 200 ml 900 ml # Bowel Movements 6 9 Exam Neck is supple without adenopathy thyromegaly or jugular venous distention. Lungs clear to auscultation. Heart is regular rhythm with a soft systolic murmur. Abdomen soft without tenderness rebound guarding masses or hepatosplenomegaly. Extremities no transient clubbing cyanosis or edema. Skin turgor is slightly diminished and additional evidence of any rashes. Lab and Diagnostics Result Diagram: 07/26/16 0520 07/26/16 0520 Assessment & Plan Impression #1 acute kidney injury secondary to dehydration from diarrhea #2 status post renal transplant number metabolic acidosis Recommendations #1 I would like to continue to give IV hydration and closely follow his lab and I&O's. Kobe Marcos DO Jul 26, 2016 09:54
--- NOTE | 2016-07-26 12:02 | DRSVH ---
PROCEDURE: X-RAY CHEST ONE VIEW, PORTABLE ([id number]) INDICATIONS: pulmonary edema vs PNA TECHNIQUE: One view of the chest was acquired. COMPARISON: [facility], CR, XR CHEST 1VW (PORTABLE), 07/24/2016, 6:58. FINDINGS: Surgical changes and devices: None. Lungs and pleura: No pleural effusions or pneumothorax. . Patchy right midlung consolidation Mediastinum: Mediastinal contours appear normal. Heart size is normal. Bones and chest wall: No suspicious bony lesions. Overlying soft tissues appear unremarkable. IMPRESSION: Mild patchy right midlung consolidation possibly early/mild bronchopneumonia although rec ommend followup with chest radiographs to document resolution. Dictated by: Mark Santana M.D. on 07/26/2016 at 12:00 Approved by: Mark Santana M.D. on 07/26/2016 at 12:00
--- NOTE | 2016-07-26 12:32 | PCM.PNMED ---
Subjective Date of Service Jul 26, 2016 Subjective pt denied abdominal pain, had more formed stool this AM, no n/v however, started coughing with minimal sputum-swallowed, thinks it's thick c/o mild SOB, cough more on sitting up Exam Vital Signs Vital Sign - Last Date Time Temp Pulse Resp B/P Pulse Ox O2 Delivery O2 Flow Rate FiO2 07/26/16 11:24 36.3 47 22 109/64 95 Room Air 07/24/16 16:23 3.00 Intake and Output 07/25/16 07/25/16 07/26/16 Cumulative From/Thru 15:00 23:00 07:00 07/24/16 06:07 - 07/26/16 05:56 Intake Total 768 ml 768 ml 4335 ml Output Total 200 ml 900 ml Balance 568 ml 768 ml 3435 ml Intake Oral 768 ml 768 ml IV Total 768 ml 3567 ml Output Urine Total 200 ml 900 ml # Bowel Movements 6 9 Exam NAD, comfortable, no JVD, dry MM, no LAD RRR, nl s1, s2 no mrg diffuse wheezing, no crackles S,ND,mild RLQ td, normoactive BS+ warm, no edema, pulses 2/2 IVs and Medications Medications Reviewed: Medications were reviewed in detail Lab and Diagnostics Result Diagram: 07/26/16 0520 07/26/16 0520 Assessment & Plan 70yo M w/ hx of KT/splenectomy on chronic steroid/immunosuppressives, hx of c.diff infection in Feb, treated with oral vanc, another hospitalization in [id number] for c.diff/noro virus infection, FLOYD on CKD p/w episode of loose stools, lethargy acute, active #acute dyspnea, developed 07/25-, likely developing PNA, CXR 07/25-early consolidation in RML compared to on admission, wbc-increasing, neutrophil dominant. -will start zosyn for presumed HCAP -trends fever curve, procalcitonin, wbc, FU BCX, resp PCR, MRSA swab, sputum cx -O2 supplement target >95% #Diarrhea, lethargy presumably due to recurrent c.diff colitis + Norovirus( positive in [place]), POA, pt carry dx of Diverticulosis as well. it's possible other infectious organisms causing colitis given unremarkable wbc. Of note this tis four episode of similar presentation Feb/Apr/ treated for c.diff infection. flu swab neg. KUB showed no signs of toxic megacolon, abdomen remained benign, -appreciate ID input regarding abx regimen, started vanc po/flagy iv on adm, switched to fidaxomicin 07/25 -s/p IVF 1liters bolus followed by 150cc/hr, stopped 07/25 changed to 1/2 100cc per renal, monitor respiratory status closely #new onset aflutter RVR, POA, precipitated in the setting of dehydration/ infection, TTE showed EF 55-60, unchanged RWMA, moderate dilated LA, no severe valvular dz, mild AR/TR, converted to sinus 07/25 -will see whether pt needs AVN agent after hydration, consider cardiology consult if not controlled -will consider systemic AC [id number] :2, pt doesn't seem to be good candidate at the moment. -continue telemetry #FLOYD on CKDIII, POA, likely prerenal from GI loss vs ?cyclosporin toxicity given out of tx level, worsening -trends cr, avoid renal toxin, i/o, daily wt, adjust med renally -appreciate nephrology input, continue bicarb, IVF chronic, stable #Increased lethargy, POA, likely septic encephalopathy, CTH neg for stroke, greatly improved. AAOx3 Immunosuppressed state hx of KT/Splenectomy, s/p stress dose of hydrocortisone, resume home dose prednisone, held other immunosuppressives per renal today Hypertension.Dyslipidemia , hold BP meds in the setting of infection Bilateral knee osteoarthritis, not active gout, continue allopurinol once pt is more stable vitD def, continue vitD, calcitriol once pt is more stable dispo likely early -mid next week. diet:renal, advance as tolerate dvt ppx:heparin SQ Full Code, POLST singed per palliative care, greatly appreciated Time spent 35min Ekta Menendez MD Jul 26, 2016 12:25
[2016-07-26] MEDS: Piperacillin-Tazo 3.375 Gm Inj 3.375 GM in Dextrose 5% Minibag Plus 50 ML IV SCH ×2 (13:03→20:01)
[2016-07-26] MEDS: predniSONE 5 mg Tablet PO SCH (20:04)
[2016-07-26] MEDS: Pantoprazole 40 mg ER24 Tablet PO SCH (20:04)
[2016-07-27] VITALS (11 sets, daily range): BP systolic 92–156; BP diastolic 52–91; PULSE 69–125; RESP 16–24; O2SAT 93–99
[2016-07-27] MEDS ORDERED: MeTOProlol 1 mg/mL 5 mL Inj IV ONE (02:40)
[2016-07-27 06:49] LABS: Phosphorus 3.5 mg/dL (2.5-4.9)
[2016-07-27 06:50] LABS: BASOPHILS % (AUTO) 0.1 % (0-3); EOSINOPHILS % (AUTO) 0.1 % (0-5); MONOCYTES % (AUTO) 4.2 % (4-12); Mean Corpuscular Volume 94.1 fL (81-100); NEUTROPHILS % (AUTO) 92.6 % (40-74); Platelet Count 302 bil/L (150-400)
[2016-07-27] MEDS: Piperacillin-Tazo 3.375 Gm Inj 3.375 GM in Dextrose 5% Minibag Plus 50 ML IV SCH ×2 (07:57→20:46)
[2016-07-27] MEDS: predniSONE 1 mg Tablet PO SCH (07:57)
--- NOTE | 2016-07-27 09:41 | PCM.PNMED ---
Subjective Date of Service Jul 27, 2016 Subjective Patient's renal function is beginning to improve with reduction in his creatinine to 3.1 and also some increased urine output. She states this is much more formed and he denies any nausea or vomiting. Exam Vital Signs Vital Sign - Last Date Time Temp Pulse Resp B/P Pulse Ox O2 Delivery O2 Flow Rate FiO2 07/27/16 08:37 38.9 125 20 148/82 94 Nasal Cannula 3.00 Intake and Output 07/26/16 07/26/16 07/27/16 Cumulative From/Thru 15:00 23:00 07:00 07/24/16 06:07 - 07/27/16 06:46 Intake Total 729 ml 1634 ml 1517 ml 8215 ml Output Total 2 ml 700 ml 1000 ml 2602 ml Balance 727 ml 934 ml 517 ml 5613 ml Intake Oral 290 ml 636 ml 450 ml 2144 ml IV Total 439 ml 998 ml 1067 ml 6071 ml Output Urine Total 2 ml 700 ml 1000 ml 2602 ml # Bowel Movements 2 11 Exam Lungs are clear to auscultation. Heart is regular with soft systolic murmur. Abdomen soft without any tenderness or rebound guarding masses or hepatosplenomegaly. Extremities show significant clubbing cyanosis or edema. Skin turgor is good. Lab and Diagnostics Result Diagram: 07/27/16 0607 07/27/16 0607 Assessment & Plan Impression #1 acute kidney injury secondary to dehydration from diarrhea #2 status post renal transplant #3 metabolic acidosis Recommendations #1 over to continue his IV hydration and continue to follow his lab. Overall systolic to check a cyclosporine level today. Once his renal function is back to his baseline we can restart his cyclosporine and CellCept Kobe Marcos DO Jul 27, 2016 09:41
[2016-07-27] MEDS ORDERED: 0.9% Sodium Chloride 1,000 ML IV ONE (10:30)
[2016-07-27] MEDS: Vancomycin Dose per Pharmacist XX SCH (10:30)
--- NOTE | 2016-07-27 11:11 | PCM.CONPHA ---
Subjective Date of Service: Jul 27, 2016 Vancomycin Reason for Pharmacy Consult: Vancomycin Dosing Assessment/Plan Assessment/Plan Patient is a 70 y.o. male receiving vancomycin for pneumonia. Concurrent abx include: zosyn. WBC count is 9.6 and the patient is febrile. Patient is 77 kg, 67 inches tall with CKD, hx of renal transplant and currrent FLOYD Based on patient parameters vancomycin will be dosed at 1250mg one time then redosed based on daily random levels <20. Next random level will be 07/28 @0500. Pharmacy will follow daily and adjust as appropriate. Thank you for the consult in the care of this patient. P Javi Abbasi Jul 27, 2016 11:11
--- NOTE | 2016-07-27 11:12 | PCM.PNMED ---
Subjective Date of Service Jul 27, 2016 Subjective pt was anuric yesterday so checked PVR>700cc, only voided half so raphael was inserted UOP/Cr improved this AM pt looked lethargic, c/o warmness this AM, breathing fast, drowsy, developed fever38.9, also tachycardic to 120s bolus 1liter NS will be given intermittently coughing no sputum pt became tachy 120s with afib/aflutter, partially responded to metoprolol 5mg iv overnight Exam Vital Signs Vital Sign - Last Date Time Temp Pulse Resp B/P Pulse Ox O2 Delivery O2 Flow Rate FiO2 07/27/16 10:08 88 07/27/16 08:37 38.9 20 148/82 94 Nasal Cannula 3.00 Intake and Output 07/26/16 07/26/16 07/27/16 Cumulative From/Thru 15:00 23:00 07:00 07/24/16 06:07 - 07/27/16 06:46 Intake Total 729 ml 1634 ml 1517 ml 8215 ml Output Total 2 ml 700 ml 1000 ml 2602 ml Balance 727 ml 934 ml 517 ml 5613 ml Intake Oral 290 ml 636 ml 450 ml 2144 ml IV Total 439 ml 998 ml 1067 ml 6071 ml Output Urine Total 2 ml 700 ml 1000 ml 2602 ml # Bowel Movements 2 11 Exam NAD, comfortable, no JVD, dry MM, no LAD RRR, nl s1, s2 no mrg diffuse wheezing, no crackles S,ND,mild RLQ td, normoactive BS+ warm, no edema, pulses 2/2 IVs and Medications Medications Reviewed: Medications were reviewed in detail Lab and Diagnostics Result Diagram: 07/27/16 0607 07/27/16 0607 Assessment & Plan 70yo M w/ hx of KT/splenectomy on chronic steroid/immunosuppressives, hx of c.diff infection in Feb, treated with oral vanc, another hospitalization in [id number] for c.diff/noro virus infection, FLOYD on CKD p/w episode of loose stools, lethargy acute, active #sepsis, acute dyspnea, developed 07/25-, likely developing PNA, SIRS+wbc/fever/ RR/HR, CXR 07/25-early consolidation in RML compared to on admission, wbc- increasing, neutrophil dominant. Today procalcitonin /wbc trending down with zosyn. -continue zosyn for presumed HCAP, will add vancomycin iv until MRSA comes back. -trends fever curve, procalcitonin, wbc, FU BCX, resp PCR, MRSA swab, sputum cx -O2 supplement target >95% #Diarrhea, lethargy presumably due to recurrent c.diff colitis + Norovirus( positive in [place]), POA, pt carry dx of Diverticulosis as well. it's possible other infectious organisms causing colitis given unremarkable wbc. Of note this tis four episode of similar presentation Feb/Apr/ treated for c.diff infection. flu swab neg. KUB showed no signs of toxic megacolon, abdomen remained benign, reported multiple diarrhea. -appreciate ID input regarding abx regimen, started vanc po/flagy iv on adm, switched to fidaxomicin 07/25 -s/p IVF 1liters bolus followed by 150cc/hr, stopped 07/25 changed to 1/ 100cc per renal, given ongoing sepsis, will bolus 1liter now. #new onset aflutter RVR, POA, precipitated in the setting of dehydration/ infection, TTE showed EF 55-60, unchanged RWMA, moderate dilated LA, no severe valvular dz, mild AR/TR, converted to sinus 07/25, today pt still has paroxysmal afib/aflutter. -metoprolol increased from 12.5 to 50mg q12h, low threshold to hold given sepsis. -will consider systemic AC [id number] :2,although pt doesn't seem to be good candidate at the moment. -continue telemetry #FLOYD on CKDIII, POA, likely prerenal from GI loss vs ?cyclosporin toxicity given out of tx level, postobstructive uropathy given urinary retention, improving. -trends cr, avoid renal toxin, i/o, daily wt, adjust med renally -appreciate nephrology input, continue bicarb, IVF #Increased lethargy, POA, likely septic encephalopathy, CTH neg for stroke, greatly improved then worsen again with ongoing sepsis, monitor for now chronic, stable Immunosuppressed state hx of KT/Splenectomy, s/p stress dose of hydrocortisone, resume home dose prednisone, held other immunosuppressives per renal today Hypertension.Dyslipidemia , hold BP meds in the setting of infection Bilateral knee osteoarthritis, not active gout, continue allopurinol once pt is more stable vitD def, continue vitD, calcitriol once pt is more stable dispo likely 3-4more days at least, pt is not clinically doing well. diet:renal, advance as tolerate dvt ppx:heparin SQ Full Code, POLST singed per palliative care, greatly appreciated Time spent 35min Ekta Menendez MD Jul 27, 2016 11:12
[2016-07-27 16:11] LABS: BASOPHILS % (AUTO) 0.1 % (0-3); EOSINOPHILS % (AUTO) 0.2 % (0-5); MONOCYTES % (AUTO) 3.6 % (4-12); Mean Corpuscular Hemoglobin 29.9 pg (27.0-35.0); Mean Corpuscular Volume 95.8 fL (81-100); Platelet Count 224 bil/L (150-400)
[2016-07-27 16:36] LABS: Magnesium 1.9 mg/dL (1.6-2.6)
[2016-07-27] MEDS: Pantoprazole 40 mg ER24 Tablet PO SCH (20:47)
[2016-07-27] MEDS: predniSONE 5 mg Tablet PO SCH (20:51)
[2016-07-28] VITALS (9 sets, daily range): BP systolic 116–162; BP diastolic 76–89; PULSE 79–123; RESP 16–22; O2SAT 97–99
[2016-07-28 03:11] LABS: BASOPHILS % (AUTO) 0.1 % (0-3); EOSINOPHILS % (AUTO) 0.3 % (0-5); MONOCYTES % (AUTO) 2.1 % (4-12); Mean Corpuscular Hemoglobin 29.6 pg (27.0-35.0); Mean Corpuscular Volume 95.4 fL (81-100); Platelet Count 235 bil/L (150-400)
[2016-07-28 03:29] LABS: Magnesium 1.9 mg/dL (1.6-2.6); Phosphorus 4.4 mg/dL (2.5-4.9)
[2016-07-28] MEDS ORDERED: Vancomycin Serum Trough XX ONE (05:00)
[2016-07-28] MEDS: Vancomycin Dose per Pharmacist XX SCH (08:30)
[2016-07-28] MEDS: Piperacillin-Tazo 3.375 Gm Inj 3.375 GM in Dextrose 5% Minibag Plus 50 ML IV SCH (09:28)
[2016-07-28] MEDS: predniSONE 1 mg Tablet PO SCH (09:29)
--- NOTE | 2016-07-28 11:32 | PCM.PNMED ---
Subjective Date of Service Jul 28, 2016 Subjective Diarrhea is improving. He denies bowel pain fevers chills nausea or anorexia. He denies rhinorrhea throat. He has a dry cough but no dyspnea. Flu A+. No palpitations. Exam Vital Signs Vital Sign - Last Date Time Temp Pulse Resp B/P Pulse Ox O2 Delivery O2 Flow Rate FiO2 07/28/16 09:19 36.4 118 16 151/87 98 Nasal Cannula 3.00 Intake and Output 07/27/16 07/27/16 07/28/16 Cumulative From/Thru 15:00 23:00 07:00 07/24/16 06:07 - 07/28/16 05:54 Intake Total 1879 ml 1263 ml 12322 ml Output Total 500 ml 750 ml 3852 ml Balance 1379 ml 513 ml 7505 ml Intake Oral 200 ml 2344 ml IV Total 1879 ml 1063 ml 9013 ml Output Urine Total 500 ml 750 ml 3852 ml # Bowel Movements 2 1 14 Exam Alert oriented 3, fluent speech no distress Anicteric sclera. Neck is supple. Lungs are normal for expiratory wheezing but good air movement. Scattered rhonchi, normal effort right. Heart is regular without murmur gallop or rub. Nondistended focal tenderness. Extremities are free of edema. Skin is free of rash or lesions Good pedal pulses Lab and Diagnostics Result Diagram: 07/28/16 02407/28/16 0240 Assessment & Plan 70yo M w/ hx of KT/splenectomy on chronic steroid/immunosuppressives, hx of c.diff infection in Feb, treated with oral vanc, another hospitalization in [id number] for c.diff/noro virus infection, FLOYD on CKD p/w episode of loose stools, lethargy 1. Influenza A. POA. We will continue Tamiflu. 2. Possible healthcare associated pneumonia, with reactive airways. POA. Continue bronchodilators and empiric antibiotics. 3. C. 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 This is improving continue current therapy which is dictated by infectious disease. 4. Atrial fibrillation with rapid ventricular response, better rate control and current regimen. Will continue this without change. We expect that this will improve this patient's pulmonary status improves. 5. Nasal swab positive for MRSA. POA. Contact isolation.. 6. Acute kidney injury in context of chronic kidney disease stage III. POA. Patient is likely volume depleted as a contributor given his diarrhea secondary to C. difficile toxin colitis. Continue volume repletion recheck laboratories today. Avoid nephrotoxins. 7. Sepsis, likely secondary to patient's combination of flu a, possible pneumonia, and recurrent C. difficile toxin colitis. Patient is improving, will continue fluid resuscitation as well as reconsideration of reinstitution of stress dose hydrocortisone. Chronic and stable conditions Immunosuppressed state hx of KT/Splenectomy, s/p stress dose of hydrocortisone, resume home dose prednisone, held other immunosuppressives per renal today Hypertension.Dyslipidemia , hold BP meds in the setting of infection Bilateral knee osteoarthritis, not active gout, continue allopurinol once pt is more stable vitD def, continue vitD, calcitriol once pt is more stable dispo likely 3-4more days at least, pt is not clinically doing well. diet:renal, advance as tolerate dvt ppx:heparin SQ Full Code, POLST singed per palliative care, greatly appreciated Pain Evaluation: Adequate Pain Control Time spent 25 minutes Stiven Aguilera MD Jul 28, 2016 11:32
--- NOTE | 2016-07-28 11:50 | PROG NOTE ---
[address] [address] PROGRESS NOTE PATIENT: NINA VALENTIN : 1945 MR#: [id number] ADMIT: 07/24/2016 JOB ID: [id number] DATE: 07/28/2016 REASON FOR FOLLOWUP: C. difficile colitis with influenza A. INTERVAL HISTORY: Over the past couple days, the patient tells me he has actually felt somewhat better. His diarrhea has gradually resolved. He has continued to have a dry nonproductive cough without fever or chills. Overall, he states he is feeling better but still not well enough to go home and thinks he needs another day or two of inpatient care and close observation. PHYSICAL EXAMINATION: Reveals an afebrile gentleman, temperature 36.4. He did spike once since admission. Recall that he came in on July 24 with temperature of 38. He was then afebrile for three days and spiked to 38.9 early yesterday morning. Since that time, he has once again been afebrile. Pulse has bounced between 80 and 118. Respiratory rate is in the mid teens and unlabored. Blood pressure 151/87. Patient is saturating well on 3 L nasal cannula. Physical exam reveals an awake, alert, and very comfortable-looking gentleman. 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 His oral cavity without pharyngitis. Lungs notable for some crackles at the bases but without much focality. Cardiac tones without change. Abdomen is soft and nontender today. No skin rash noted. LABORATORIES: Include a white count of 12,200, which is relatively stable. Platelet count 235. He has 94% segs. His creatinine is 2.89, which is in keeping with his baseline since admission. LFTs are normal. Procalcitonin 2.06, which is down slightly. Micro studies include the admission blood cultures which were negative. Stool PCR on admission was positive for both C. diff and Norovirus. A respiratory multiplex PCR panel done on the was positive for influenza A, and a nasal swab for MRSA. Streptococcal urine antigen and Legionella were negative, and blood cultures were repeated yesterday and are negative. Chest x-ray done on the 7th shows some patchy right mid lung infiltrate which I do not think is impressive. In comparison to a film done some months ago, it does not look all that much different. 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 He comes in this time with what sounds like another episode of Clostridium difficile, but of course, it is difficult to tell that in that he also had Norovirus in his stool. In any event, he was started on Dificid, and we were attempting to avoid other antibiotics to avoid exacerbating his Clostridium difficile. Over the weekend, because of concerns he might have worsening bacterial pneumonia, vancomycin and Zosyn were added to his oral fidaxomicin for Clostridium difficile. In addition, once the PCR came back for flu, he was started on Tamiflu. The main issues here for this patient are recurrent Clostridium difficile which has been an ongoing problem and what appears to be a superimposed influenza A. I see little or no evidence that he has an acute bacterial pneumonia, as the patient appears nontoxic, he is afebrile, and he is nontoxic. His chest x-ray is not all that impressive, and he has no sputum production. His overall picture is much more consistent with a combination of influenza and Clostridium difficile than it is an acute or hospital-acquired nosocomial pneumonia. RECOMMENDATIONS: 1. I would discontinue vancomycin and Zosyn in this case. Vancomycin is especially problematic, as it is dangerous to use in a patient with impaired renal function such as this. I would discontinue the Zosyn because I do not think it adds much, and it will increase his risk of ongoing C. difficile. 2. Will continue with the oseltamivir and the Dificid at this point. 3. I will continue to closely follow this patient with you.
--- NOTE | 2016-07-28 13:35 | PCM.PNMED ---
Subjective Date of Service Jul 28, 2016 Subjective He stated that he is feeling better. Thus far, he has only one episode of BM. He has no N/V/F/C. Serum cr is trending down. Exam Vital Signs Vital Sign - Last Date Time Temp Pulse Resp B/P Pulse Ox O2 Delivery O2 Flow Rate FiO2 07/28/16 12:48 36.8 122 20 162/89 97 Room Air 07/28/16 09:19 3.00 Intake and Output 07/27/16 07/27/16 07/28/16 Cumulative From/Thru 15:00 23:00 07:00 07/24/16 06:07 - 07/28/16 05:54 Intake Total 1879 ml 1263 ml 95382 ml Output Total 500 ml 750 ml 3852 ml Balance 1379 ml 513 ml 7505 ml Intake Oral 200 ml 2344 ml IV Total 1879 ml 1063 ml 9013 ml Output Urine Total 500 ml 750 ml 3852 ml # Bowel Movements 2 1 14 Exam GA: AAOx3, NAD. HHENT: mild pallor, no icteric sclerae, no JVD, dry MM, no LAD. Heart: RRR, nl s1, s2, systolic murmur noted. Lungs: CTA B/L, no wheezing and rhonchi. Abd: soft, ND, NT, hypoactive BS+. Ext: warm, no edema, no rash. Lab and Diagnostics Result Diagram: 07/28/1623907/28/16239 Assessment & Plan 1. FLOYD on CKD in the setting of kidney transplant. - Ddx: intravascular volume depletion, ATN, CNI toxicity. - CMR PCR was negative. 2. Influenza A infection. 3. Recurrent C.diff colitis. 4. Afib. 5. Immunocompromised host. 6. HTN Plan: resume cyclosporine 25 mg BID tonight. continue prednisone. once more stable will resume MMF. continue 1/2 NS 60 ml/hr. Rosa Brown MD Jul 28, 2016 13:35
[2016-07-28] MEDS: Pantoprazole 40 mg ER24 Tablet PO SCH (20:54)
[2016-07-28] MEDS ORDERED: MeTOProlol 1 mg/mL 5 mL Inj IV ONE (22:00)
[2016-07-28] MEDS: predniSONE 5 mg Tablet PO SCH (22:20)
[2016-07-29] VITALS (7 sets, daily range): BP systolic 124–144; BP diastolic 80–91; PULSE 49–120; RESP 18–20; O2SAT 93–100
[2016-07-29 02:34] LABS: BASOPHILS % (AUTO) 0.1 % (0-3); EOSINOPHILS % (AUTO) 2.4 % (0-5); MONOCYTES % (AUTO) 1.6 % (4-12); Mean Corpuscular Hemoglobin 30.4 pg (27.0-35.0); Mean Corpuscular Volume 94.9 fL (81-100); NEUTROPHILS % (AUTO) 92.1 % (40-74); Platelet Count 242 bil/L (150-400)
[2016-07-29 08:14] LABS: Mycophenolic Acid 1.5 ug/mL (1.0-3.5)
[2016-07-29] MEDS: predniSONE 1 mg Tablet PO SCH (08:31)
--- NOTE | 2016-07-29 10:44 | PROG NOTE ---
[address] [address] PROGRESS NOTE PATIENT: NINA VALENTIN : 1945 MR#: [id number] ADMIT: 07/24/2016 JOB ID: [id number] DATE: 07/29/2016 INFECTIOUS DISEASE FOLLOW UP NOTE: REASON FOR FOLLOWUP: Influenza A, C difficile colitis recurrence and possible drug rash. INTERVAL HISTORY: Overnight, the patient reports his diarrhea has largely stopped. He has continued to have a dry cough without shortness of breath. No fevers, no chills. No sweats. Note that his vanc and Zosyn have been stopped and the patient is remaining on oseltamivir as well as fidaxomicin. PHYSICAL EXAMINATION: Reveals an afebrile gentleman, in no acute distress. Temperature 36.4. He has been afebrile now since July 27. Blood pressure 143/87, pulse 112, respiratory rate about 16, saturating well on 3 L. Examination of the oral cavity negative. Lungs: Scattered rhonchi at the bases. Abdomen is completely benign. The patient has a new diffuse erythematous rash and it has a typical appearance of a drug rash. It does not bother him in any way. LABORATORIES: Include a white count of 11,800. There is 2% eosinophilia. Creatinine 2.74. Liver function tests basically normal. Procalcitonin yesterday 2.06. Micro studies include nasal screen positive for MRSA. Blood cultures negative. Respiratory PCR positive for flu A. Stool positive for C. difficile. No recent imaging has been done. IMPRESSION: This is a complex patient with renal insufficiency and recurrent C. difficile. This seems to be improved from a clinical point of view. His diarrhea is now coming to a halt and his respiratory status is quite stable. We stopped the vanc and Zosyn just in the past 24 hours or so out of concern for renal impairment and the lack of evidence that he had in the underlying bacterial infection beyond the C. difficile colitis. At this point, the patient has developed a drug rash which is likely due to the vanc or Zosyn, both of which have been stopped. Drug rash due to oseltamivir has been reported though it is fairly uncommon. Likewise drug rash due to fidaxomicin would be even less likely as this would be a positively rare event. Note that the patient is being given very low doses of oseltamivir because of his impaired renal function. This was started at a dose of only 30 mg a day which would be continued for only five days because of his renal impairment rather than the 10 days which it was written for. RECOMMENDATIONS: 1. Will continue with the oseltamivir for one more day and then go ahead and discontinue it. 2. Will continue to observe the patient in the hospital given the development of this very significant rash. Even though he is fairly asymptomatic, I think we should watch him and make sure it improves or resolves. 3. Will continue with the fidaxomicin. No other antibiotics are indicated. MTDD
--- NOTE | 2016-07-29 11:38 | PCM.PNMED ---
Subjective Date of Service Jul 29, 2016 Subjective Aflutter noted, resolved, on metoprolol 50 mg BID. serum creatinine is trending down. skin rash noted. watery diarrhea has stopped. Exam Vital Signs Vital Sign - Last Date Time Temp Pulse Resp B/P Pulse Ox O2 Delivery O2 Flow Rate FiO2 07/29/16 08:26 36.4 112 18 143/87 94 Room Air 07/29/16 03:14 3.00 Intake and Output 07/28/16 07/28/16 07/29/16 Cumulative From/Thru 15:00 23:00 07:00 07/24/16 06:07 - 07/29/16 06:08 Intake Total 815 ml 619 ml 47086 ml Output Total 1000 ml 300 ml 5152 ml Balance -185 ml 319 ml 7639 ml Intake Oral 260 ml 0 ml 2604 ml IV Total 555 ml 619 ml 01046 ml Output Urine Total 1000 ml 300 ml 5152 ml # Bowel Movements 14 Exam GA: AAOx3, NAD. HHENT: mild pallor, no icteric sclerae, no JVD, dry MM, no LAD. Heart: RRR, nl s1, s2, systolic murmur noted. Lungs: wheezing and coarse crackles noted, B/L. Abd: soft, ND, NT, hypoactive BS+. Ext: warm, no edema, no rash. Lab and Diagnostics Result Diagram: 07/29/1622307/29/16223 Assessment & Plan 1. FLOYD on CKD in the setting of kidney transplant. - Ddx: intravascular volume depletion, ATN, CNI toxicity. - CMR PCR was negative. 2. Influenza A infection. 3. Recurrent C.diff colitis. 4. Afib. 5. Immunocompromised host. 6. HTN Plan: increase cyclosporine to 50 mg BID tonight. continue prednisone. d/c IVF. resume MMF in am. Rosa Brown MD Jul 29, 2016 11:37
[2016-07-29] MEDS: Mupirocin 2% 22 Gm Ointment TOPICAL SCH ×2 (13:02→21:10)
--- NOTE | 2016-07-29 15:27 | PCM.PNMED ---
Subjective Date of Service Jul 29, 2016 Subjective No rhinorrhea, or cough. No dyspnea. No abdomen pain, nausea, or vomiting. Better appetite No diarrhea No skin rash. Exam Vital Signs Vital Sign - Last Date Time Temp Pulse Resp B/P Pulse Ox O2 Delivery O2 Flow Rate FiO2 07/29/16 12:03 36.4 49 18 136/86 97 Room Air 07/29/16 03:14 3.00 Intake and Output 07/28/16 07/28/16 07/29/16 Cumulative From/Thru 15:00 23:00 07:00 07/24/16 06:07 - 07/29/16 06:08 Intake Total 815 ml 619 ml 11514 ml Output Total 1000 ml 300 ml 5152 ml Balance -185 ml 319 ml 7639 ml Intake Oral 260 ml 0 ml 2604 ml IV Total 555 ml 619 ml 74434 ml Output Urine Total 1000 ml 300 ml 5152 ml # Bowel Movements 14 Exam NAD, fluent speech Anicteric sclera Lungs clear with normal effort CV regular and no murmur Abdomen Soft, NT No edema. No rashes. IVs and Medications Medications Reviewed: Medications were reviewed in detail Lab and Diagnostics Result Diagram: 07/29/1622307/29/16223 Assessment & Plan 70yo M w/ hx of KT/splenectomy on chronic steroid/immunosuppressives, hx of c.diff infection in Feb, treated with oral vanc, another hospitalization in [id number] for c.diff/noro virus infection, FLOYD on CKD p/w episode of loose stools, lethargy 1. Influenza A. POA. We will continue Tamiflu.Clinically he is beter 2. Possible healthcare associated pneumonia, with reactive airways. POA. Continue bronchodilators and empiric antibiotics. All culture data negative. 3. C. 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 This is improving continue current therapy which is dictated by infectious disease. 4. Atrial fibrillation with rapid ventricular response, better rate control and current regimen. Will continue this without change. We expect that this will improve this patient's pulmonary status improves. 5. Nasal swab positive for MRSA. POA. Contact isolation. 6. Acute kidney injury in context of chronic kidney disease stage III. POA. Patient is likely volume depleted as a contributor given his diarrhea secondary to C. difficile toxin colitis. Continue volume repletion recheck laboratories today. Avoid nephrotoxins. 7. Sepsis, likely secondary to patient's combination of flu a, possible pneumonia, and recurrent C. difficile toxin colitis. Patient is improving, will continue fluid resuscitation as well as reconsideration of reinstitution of stress dose hydrocortisone. 8. Renal transplant. Increasing immunosuppressants per renal. Chronic and stable conditions Immunosuppressed state hx of KT/Splenectomy, s/p stress dose of hydrocortisone, resume home dose prednisone, held other immunosuppressives per renal today Hypertension.Dyslipidemia , hold BP meds in the setting of infection Bilateral knee osteoarthritis, not active gout, continue allopurinol once pt is more stable vitD def, continue vitD, calcitriol once pt is more stable dispo likely 3-4more days at least, pt is not clinically doing well. diet:renal, advance as tolerate dvt ppx:heparin SQ Full Code, POLST singed per palliative care, greatly appreciated Pain Evaluation: Adequate Pain Control Time spent 25 minutes Pain Evaluation: Adequate Pain Control Time spent 25 minutes Stiven Aguilera MD Jul 29, 2016 15:27
[2016-07-29] MEDS: Pantoprazole 40 mg ER24 Tablet PO SCH (21:11)
[2016-07-29] MEDS: predniSONE 5 mg Tablet PO SCH (21:11)
[2016-07-30] VITALS (8 sets, daily range): BP systolic 133–151; BP diastolic 79–101; PULSE 54–116; RESP 15–22; O2SAT 93–97
[2016-07-30 03:24] LABS: BASOPHILS % (AUTO) 0.1 % (0-3); EOSINOPHILS % (AUTO) 2.3 % (0-5); MONOCYTES % (AUTO) 1.8 % (4-12); Mean Corpuscular Hemoglobin 30.1 pg (27.0-35.0); Mean Corpuscular Volume 94.3 fL (81-100); NEUTROPHILS % (AUTO) 90.7 % (40-74); Platelet Count 258 bil/L (150-400)
[2016-07-30 03:42] LABS: Magnesium 2.1 mg/dL (1.6-2.6); Phosphorus 3.8 mg/dL (2.5-4.9)
[2016-07-30] MEDS: predniSONE 1 mg Tablet PO SCH (09:18)
[2016-07-30] MEDS: Mupirocin 2% 22 Gm Ointment TOPICAL SCH ×2 (09:18→19:47)
--- NOTE | 2016-07-30 10:41 | PROG NOTE ---
[address] [address] PROGRESS NOTE PATIENT: NINA VALENTIN : 1945 MR#: [id number] ADMIT: 07/24/2016 JOB ID: [id number] DATE: 07/30/2016 INFECTIOUS DISEASE FOLLOW UP NOTE: REASON FOR FOLLOWUP: Influenza A, recurrent C. difficile colitis and MRSA colonization. INTERVAL HISTORY: The nurses report that overnight the patient was confused at times which is unusual for him. This morning he is awake, bright and lucid. He denies significant shortness of breath or cough. No fevers, chills or sweats. He notes he is still having frequent bowel movements but they seem a bit better. He denies abdominal pain. PHYSICAL EXAMINATION: Reveals an afebrile gentleman, temperature 36.6, pulse 112, respiratory rate 16, blood pressure 151/88, saturating well on room air and in no acute distress. Oral cavity negative. Lungs: A few crackles at the bases but improving. Abdomen: Soft and nontender, though slightly distended. Extremities perfused and without abnormality. The rash which was so prominent yesterday over the entire torso has faded considerably overnight with our stopping of Zosyn. LABORATORIES: Include a white count now normal 9600, still with left shift, 90% segs, but, of course, he is on steroids and other immunosuppressives because of his transplanted kidney. Creatinine is down to 2.63, which is improving. Blood cultures have been negative. His stool panel was positive for C difficile as well as Norovirus. His respiratory viral panel positive for influenza A and his nasal screen positive for MRSA. IMPRESSION: This is a complex case of an elderly gentleman with multiple joint replacements, multiple kidney replacements and multiple episodes of C difficile. He now presents with a combined presentation of both influenza A and respiratory complaints as well as recurrent C. difficile. Both problems seem to be improving somewhat on a combination of oseltamivir and DIFICID with some additional nasal Bactroban. He was on broad-spectrum antibiotics earlier in his hospital stay but these were stopped because we felt there was no underlying severe bacterial pulmonary infection and also because of what appeared to be a drug rash. RECOMMENDATIONS: 1. Oseltamivir should end today and I have wrote the order to discontinue that as he has finished five days. It is possible though unlikely that some of his delirium is due to this agent and renal failure. 2. Will continue with the DIFICID for his C. difficile. 3. Will continue with nasal Bactroban for his colonization. 4. The patient is doing reasonably well and I think might be considered for discharge on DIFICID if he continues to improve over the next day or two. This case discussed in person with the nephrology attending.
--- NOTE | 2016-07-30 11:50 | PCM.DIMED ---
Stiven Aguilera MD 07/30/16 1150: Discharge Instructions Date of Service Jul 30, 2016 Dates of Hospitalization Jul 24, 2016 at 09:33 Discharge Diagnosis Discharge Diagnosis 1. Influenza A. Improved. 2. Possible healthcare associated pneumonia, resolved 3. C. difficile toxin colitis, POA. Improved 4. Atrial fibrillation with rapid ventricular response, better rate control and current regimen. Will continue this without change. We expect that this will improve this patient's pulmonary status improves. 5. Nasal swab positive for MRSA. Decolonize regimen 6. Acute kidney injury in context of chronic kidney disease stage III. Improved, 7. Sepsis, likely secondary to patient's combination of flu a, possible pneumonia, and recurrent C. difficile toxin colitis. Resolved. 8. Renal transplant. I. 9. Hypertension. 10. Previous splenectomy 11. Dyslipidemia , Diet Heart Healthy Activity No restrictions Call your provider Fever or Chills, Shortness of breath Patient Instructions BMP in 5 days and send to PCP and his regular [employer] Follow-up with PCP in: 2 weeks Luis Eduardo Cisse MD 08/02/16 1458: Stiven Aguilera MD Jul 30, 2016 11:50 Luis Eduardo Cisse MD Aug 02, 2016 14:58
--- NOTE | 2016-07-30 13:03 | PCM.PNMED ---
Subjective Date of Service Jul 30, 2016 Subjective loose BM x 3 yesterday. no fever/chills. feeling better overall. Exam Vital Signs Vital Sign - Last Date Time Temp Pulse Resp B/P Pulse Ox O2 Delivery O2 Flow Rate FiO2 07/30/16 11:25 36.9 78 15 133/101 95 Room Air 07/29/16 03:14 3.00 Intake and Output 07/29/16 07/29/16 07/30/16 Cumulative From/Thru 15:00 23:00 07:00 07/24/16 06:07 - 07/30/16 06:17 Intake Total 600 ml 400 ml 45996 ml Output Total 800 ml 400 ml 6352 ml Balance -200 ml 0 ml 7439 ml Intake Oral 360 ml 400 ml 3364 ml IV Total 240 ml 19817 ml Output Urine Total 800 ml 400 ml 6352 ml # Bowel Movements 2 16 Exam GA: AAOx3, NAD. HHENT: mild pallor, no icteric sclerae, no JVD, dry MM, no LAD. Heart: RRR, nl s1, s2, systolic murmur noted. Lungs: coarse crackles at bases. Abd: soft, ND, NT, hypoactive BS+. Ext: warm, no edema, no rash. Lab and Diagnostics Result Diagram: 07/30/16 0306 07/30/16 0306 Assessment & Plan 1. FLOYD on CKD in the setting of kidney transplant. - Ddx: intravascular volume depletion, ATN, CNI toxicity. - improving slowly. - 2. Influenza A infection. 3. Recurrent C.diff colitis. 4. Afib. 5. Immunocompromised host. 6. HTN. 7. Anemia of chronic kidney disease. Plan: cyclosporine to 50 mg BID. continue prednisone and cyclosporine. resume cellcept 250 mg BID. add aranesp 60 mcg subQ x1. VTE Mechanical Devices: Intermittant Pneumatic CD Rosa Brown MD Jul 30, 2016 13:03
[2016-07-30] MEDS ORDERED: Darbepoetin Alfa 60 mCg/0.3 mL Inj SUBQ ONE (13:05)
--- NOTE | 2016-07-30 14:31 | PCM.PNMED ---
Subjective Date of Service Jul 30, 2016 Subjective He is doing well. He denies any chest pain or dyspnea. He has a dry cough. No rhinorrhea. He also has had a multi multiple loose stools but overall is much improved. No abdominal pain, fevers or chills. He does have a positive nares MRSA is doing mupirocin twice a day. No difficulty with urination. He does have a Richey. This was placed for urinary retention is now on Flomax. Exam Vital Signs Vital Sign - Last Date Time Temp Pulse Resp B/P Pulse Ox O2 Delivery O2 Flow Rate FiO2 07/30/16 11:25 36.9 78 15 133/101 95 Room Air 07/29/16 03:14 3.00 Intake and Output 07/29/16 07/29/16 07/30/16 Cumulative From/Thru 15:00 23:00 07:00 07/24/16 06:07 - 07/30/16 06:17 Intake Total 600 ml 400 ml 36572 ml Output Total 800 ml 400 ml 6352 ml Balance -200 ml 0 ml 7439 ml Intake Oral 360 ml 400 ml 3364 ml IV Total 240 ml 09767 ml Output Urine Total 800 ml 400 ml 6352 ml # Bowel Movements 2 16 Exam Alert and oriented 3, in no distress. Fluent speech. Anicteric sclerae. Neck supple. Lungs are clear, normal effort. Heart is regular without murmur gallop or rub. Abdomen soft nondistended. Extremities are free of edema good pedal pulses. Patient does have a Richey catheter in place IVs and Medications Medications Reviewed: Medications were reviewed in detail Lab and Diagnostics Result Diagram: 07/30/16 0306 07/30/16 0306 Assessment & Plan 70yo M w/ hx of KT/splenectomy on chronic steroid/immunosuppressives, hx of c.diff infection in Feb, treated with oral vanc, another hospitalization in [id number] for c.diff/noro virus infection, FLOYD on CKD p/w episode of loose stools, lethargy 1. Influenza A. POA. We will continue Tamiflu.Clinically he is better. Today 's last day of Tamiflu. 2. Possible healthcare associated pneumonia, with reactive airways. POA. Bronchodilator bronchodilators, empiric antibiotics have been stopped per recommendation of ID. 3. C. 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 This is improving continue current therapy which is dictated by infectious disease. Fidaxomicin twice a day for a total of 10 days, which leaves about 3 more days. This drug costs about $3000 visit barrier to [facility] back [facility] from where he came. 4. Atrial fibrillation with rapid ventricular response, better rate control. Continue current regimen. 5. Nasal swab positive for MRSA. POA. Contact isolation. Sodium cream twice a day for 14 days for decolonization. 6. Acute kidney injury in context of chronic kidney disease stage III. POA. Patient is likely volume depleted as a contributor given his diarrhea secondary to C. difficile toxin colitis. Continue volume repletion recheck laboratories today. Avoid nephrotoxins. 7. Sepsis, likely secondary to patient's combination of flu a, possible pneumonia, and recurrent C. difficile toxin colitis. Patient is improving, will continue fluid resuscitation as well as reconsideration of reinstitution of stress dose hydrocortisone. 8. Renal transplant. Increasing immunosuppressants per renal. At this point the patient is back at his baseline immunosuppressive regimen with a normalization of his creatinine back daily 2.4 range. He is on prednisone 8 mg daily, Micophenolate 250 mg twice a day and cyclosporine at 50 mg twice a day. 9. Urinary retention. He has been on Flomax and had a Richey placed, taken out , and then replace. Will again take the Richey out today and see if he is able to urinate without difficulty or not. If he fails to have this replaced and follow up with urology after hospitalization likely. Chronic and stable conditions Immunosuppressed state hx of KT/Splenectomy, Hypertension.Dyslipidemia , hold BP meds in the setting of infection Bilateral knee osteoarthritis, not active gout, continue allopurinol once pt is more stable vitD def, continue vitD, calcitriol once pt is more stable V[employer] Mechanical Devices: Intermittant Pneumatic CD Time spent 35 minutes Stiven Aguilera MD Jul 30, 2016 14:31
[2016-07-30] MEDS: Pantoprazole 40 mg ER24 Tablet PO SCH (19:45)
[2016-07-30] MEDS: predniSONE 5 mg Tablet PO SCH (19:45)
[2016-07-31] VITALS (8 sets, daily range): BP systolic 138–156; BP diastolic 91–109; PULSE 55–125; RESP 16–20; O2SAT 93–98
[2016-07-31] MEDS: predniSONE 1 mg Tablet PO SCH (09:38)
[2016-07-31] MEDS: Mupirocin 2% 22 Gm Ointment TOPICAL SCH ×2 (09:40→21:19)
--- NOTE | 2016-07-31 10:27 | PROG NOTE ---
[address] [address] PROGRESS NOTE PATIENT: NINA VALENTIN : 1945 MR#: [id number] ADMIT: 07/24/2016 JOB ID: [id number] DATE: 07/31/2016 INFECTIOUS DISEASE FOLLOWUP NOTE: REASON FOR FOLLOWUP: Influenza, C. difficile colitis, and confusion. INTERVAL HISTORY: Yesterday, I was called again by the nurse to report that the patient had developed a sudden onset of delirium. This lasted for a period of hours and then resolved. The patient tells me this morning he awoke at 5 a.m. and was completely confused about who he was, what was going on and his circumstances. This gradually resolved and this morning the patient is completely appropriate and sitting up and having his breakfast. He read tells me that these recurrent episodes of confusion are not typical to him in any way. Additionally, this morning the patient tells me he has no fevers, chills, sweats, or headache. His breathing is returning to normal following his influenza, and his diarrhea has essentially resolved. PHYSICAL EXAMINATION: Reveals a gentleman sitting up having breakfast, in no acute distress. Temp 36.4, pulse varies between 80 and 120, blood pressure 151/91, respiratory rate about 16. He is saturating well on room air. He is awake and alert as noted. His lungs are relatively clear this morning. Cardiac tones are regular rate and rhythm. Abdomen is soft and nontender. No new skin rash. LABORATORIES: Include white count yesterday 9600, not repeated today. Creatinine 2.63 yesterday which is slowly improving, actually. Micro studies include negative blood cultures from July 27. He earlier had a positive MRSA screen, which is something he has chronically. Recall that his sputum on the was positive for influenza, and his stool on the positive for C. diff and norovirus. Blood cultures from admission on the were negative. IMAGING: No recent imaging has been performed. IMPRESSION: In multiple ways the patient seems improved over admission and the main problem now is the confusion. The patient was diagnosed with both Clostridium difficile recurrence, as well as influenza, and was treated with oseltamivir and is currently being treated with fidaxomicin for the recurrent Clostridium difficile. I had been concerned yesterday that oseltamivir might be contributing to his abnormal mental status even though he was receiving a renally adjusted dose. Oseltamivir has been associated with delirium, but this has been primarily been in young [place] people, which would not be this patient's demographic segment. Nonetheless, I think it is a reasonable possibility and for that reason, we wrapped up his oseltamivir therapy yesterday. Given his renal failure, it is possible some oseltamivir is still around and could be still contributing to his recurrent delirium but I think if the mental status changes persists through the night and tomorrow, then that is no longer a satisfactory explanation and we will have to look deeper. RECOMMENDATIONS: 1. Will continue fidaxomicin through August 02, the day after tomorrow, and that will complete his therapy for recurrent C. diff. 2. No additional treatment for flu at this time. 3. I would observe the patient at least a little bit longer in the hospital to make sure his mental status has returned to baseline. If not, a workup perhaps including additional imaging of the brain might be indicated.
--- NOTE | 2016-07-31 12:04 | PCM.PNMED ---
Subjective Date of Service Jul 31, 2016 Subjective reported not being himself last night. feeling better at the moment. having breakfast, regular BM x1 today. Exam Vital Signs Vital Sign - Last Date Time Temp Pulse Resp B/P Pulse Ox O2 Delivery O2 Flow Rate FiO2 07/31/16 11:49 36.4 55 20 154/92 96 Room Air 07/29/16 03:14 3.00 Intake and Output 07/30/16 07/30/16 07/31/16 Cumulative From/Thru 15:00 23:00 07:00 07/24/16 06:07 - 07/31/16 05:26 Intake Total 560 ml 0 ml 47933 ml Output Total 600 ml 300 ml 7252 ml Balance -40 ml -300 ml 7099 ml Intake Oral 560 ml 0 ml 3924 ml IV Total 36956 ml Output Urine Total 600 ml 300 ml 7252 ml # Bowel Movements 3 08 08 Exam GA: AAOx3, NAD, frail. HHENT: mild pallor, no icteric sclerae, no JVD, dry MM, no LAD. Heart: RRR, nl s1, s2, systolic murmur noted. Lungs: coarse crackles at bases. Abd: soft, ND, NT, hypoactive BS+. Ext: warm, no edema, no rash. Lab and Diagnostics Result Diagram: 07/30/16 03007/30/16 030 Assessment & Plan 1. FLOYD on CKD in the setting of kidney transplant. - Ddx: intravascular volume depletion, ATN, CNI toxicity. - improving slowly. 2. Influenza A infection. 3. Recurrent C.diff colitis. 4. Afib. 5. Immunocompromised host. 6. HTN. 7. Anemia of chronic kidney disease. Plan: continue current immunosuppressive meds. repeat CBC, renal panel in am. VTE Mechanical Devices: Intermittant Pneumatic CD Rosa Brown MD Jul 31, 2016 12:04
--- NOTE | 2016-07-31 13:27 | PCM.PNMED ---
Subjective Date of Service Jul 31, 2016 Subjective 70-year-old man on immunosuppression for renal transplant, status post splenectomy, with recent history of C. difficile and neurovirus presents with recurrent diarrhea, encephalopathy, acute kidney injury, and influenza. He has no significant complaints today. Reports transient confusion this morning and yesterday morning. States he was aware of feeling confused by activities around him. No visual disturbance. Seems alert and comfortable. Head is semi-formed stool last night. Feels weak. Exam Vital Signs Vital Sign - Last Date Time Temp Pulse Resp B/P Pulse Ox O2 Delivery O2 Flow Rate FiO2 07/31/16 11:49 36.4 55 20 154/92 96 Room Air 07/29/16 03:14 3.00 Intake and Output 07/30/16 07/30/16 07/31/16 Cumulative From/Thru 15:00 23:00 07:00 07/24/16 06:07 - 07/31/16 05:26 Intake Total 560 ml 0 ml 68573 ml Output Total 600 ml 300 ml 7252 ml Balance -40 ml -300 ml 7099 ml Intake Oral 560 ml 0 ml 3924 ml IV Total 08797 ml Output Urine Total 600 ml 300 ml 7252 ml # Bowel Movements 3 1 20 Exam General: Somewhat chronically ill,l obese gentleman in no acute distress HEENT: sclerae anicteric, oral mucosa moist, actinic keratosis left forehead Neck: no apparent JVD, no adenopathy, supple Chest: Generally clear to auscultation Cardiac: S1S2, no murmur Abdomen: BS normal, non-tender Extremities: 1+ edema mild erythema both calves to below knees no focal lesions Neuro: A&O, cranial nerves symmetric, motor strength and coordination are grossly normal IVs and Medications Medications Reviewed: Medications were reviewed in detail Lab and Diagnostics Result Diagram: 07/30/16 0306 07/30/16 0306 X-Rays, CTs and MRIs PROCEDURE: CT BRAIN WITHOUT CONTRAST ([id number]) FINDINGS: Image quality: Excellent. Brain: No intracranial bleeds or masses. There is cerebral volume loss for age , with resultant ventricular and sulcal prominence. There are periventricular and deep white matter chronic small vessel ischemic changes. There is intracranial internal carotid artery atherosclerosis. IMPRESSION: 1. No acute intracranial disease process. 2. Irregular density in the left frontal scalp which could be related to trauma versus neoplastic process. Please correlate with clinical data. Dictated by: Yeni Haynes MD, PhD on 07/24/2016 at 10:09 PROCEDURE: X-RAY CHEST ONE VIEW, PORTABLE ([id number]) IMPRESSION: Mild patchy right midlung consolidation possibly early/mild bronchopneumonia although recommend followup with chest radiographs to document resolution. Dictated by: Mark Santana M.D. on 07/26/2016 at 12:00 . Assessment & Plan 70yo M w/ hx of renal transplant and splenectomy on chronic steroid/ immunosuppressives, hx of c.diff infection in Feb, treated with oral vancomycin, another hospitalization in for c.diff/noro virus infection , FLOYD on CKD p/w episode of loose stools, lethargy Acute and or high-risk problems: #. Acute kidney injury in context of chronic kidney disease stage III. POA. Peak serum creatinine 3.58 on 07/26, declined to 2.6 as of 07/31. Patient is likely volume depleted as a contributor given his diarrhea secondary to C. difficile toxin colitis. - Daily renal panel - Avoid nephrotoxins. - Likely ready for discharge at end of antibiotics course in 2 days #. C. 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 This is improving continue current therapy which is dictated by infectious disease. - Fidaxomicin twice a day for a total of 10 days, which leaves about 2 more days. #. Transient encephalopathy. Likely metabolic encephalopathy due to his microvascular brain disease and stress of acute illness. - Follow clinically - Avoid benzodiazepines and anticholinergics #. Renal transplant. Increasing immunosuppressants per renal. At this point the patient is back at his baseline immunosuppressive regimen with a normalization of his creatinine back daily 2.4 range. He is on prednisone 8 mg daily, Micophenolate 250 mg twice a day and cyclosporine at 50 mg twice a day. #. Urinary retention. He has been on Flomax and had a Richey placed, taken out , and then replace. Will again take the Richey out today and see if he is able to urinate without difficulty or not. If he fails to have this replaced and follow up with urology after hospitalization likely. Resolved, chronic and stable conditions: #. Sepsis, likely secondary to patient's combination of flu a, possible pneumonia, and recurrent C. difficile toxin colitis. Patient is improving, will continue fluid resuscitation as well as reconsideration of reinstitution of stress dose hydrocortisone. #. Influenza A. POA. Finish full course of Tamiflu on 07/30.Clinically he is better. - Resolved #. Possible healthcare associated pneumonia, with reactive airways. POA. Bronchodilator bronchodilators, - empiric antibiotics have been stopped per recommendation of ID. #. Atrial fibrillation with rapid ventricular response, better rate control. Continue current regimen. #. Nasal swab positive for MRSA. POA. Contact isolation. - Mupirocin cream twice a day for 14 days for decolonization. Pain Evaluation: Adequate Pain Control VTE Mechanical Devices: Intermittant Pneumatic CD Resuscitation Status: CPR: Attempt Resuscitation Time spent 35 minutes Luis Eduardo Cisse MD Jul 31, 2016 13:27
[2016-07-31] MEDS: Pantoprazole 40 mg ER24 Tablet PO SCH (21:16)
[2016-07-31] MEDS: predniSONE 5 mg Tablet PO SCH (21:18)
[2016-08-01] VITALS (7 sets, daily range): BP systolic 109–154; BP diastolic 67–102; PULSE 51–83; RESP 14–18; O2SAT 95–97
[2016-08-01 03:56] LABS: BASOPHILS % (AUTO) 0.2 % (0-3); EOSINOPHILS % (AUTO) 3.2 % (0-5); MONOCYTES % (AUTO) 4.9 % (4-12); Mean Corpuscular Hemoglobin 29.6 pg (27.0-35.0); Mean Corpuscular Volume 94.5 fL (81-100); Platelet Count 273 bil/L (150-400)
[2016-08-01 04:10] LABS: Phosphorus 3.4 mg/dL (2.5-4.9)
[2016-08-01] MEDS: predniSONE 1 mg Tablet PO SCH (08:50)
[2016-08-01] MEDS: Mupirocin 2% 22 Gm Ointment TOPICAL SCH ×2 (08:54→21:14)
--- NOTE | 2016-08-01 11:57 | PROG NOTE ---
[address] [address] PROGRESS NOTE PATIENT: NINA VALENTIN : 1945 MR#: [id number] ADMIT: 07/24/2016 JOB ID: [id number] DATE: 08/01/2016 INFECTIOUS DISEASE FOLLOWUP NOTE: REASON FOR FOLLOWUP: Influenza A and simultaneous C. difficile colitis. INTERVAL HISTORY: The patient continues to feel better and better. He denies fever, chills. He states his diarrhea has essentially resolved and his respiratory status is back to baseline. He also notes, interestingly, that his confusion, which had troubled both he and the nursing staff, seems to have ended about 12 hours after his last dose of oseltamivir. PHYSICAL EXAMINATION: Reveals an afebrile comfortable gentleman lying in bed. Temp 36.5, pulse 81, respiratory rate 14, blood pressure 154/96. He is saturating well on room air, in no acute distress. His oral cavity is unremarkable. His lungs are fairly clear. Cardiac tones without change. Abdomen entirely benign. LABORATORIES: Include white count 8100, platelet count 273,000, creatinine 2.5. Albumin 2.7. No new micro is available. Recall that he was positive by nasal swab for MRSA, as well as influenza by PCR, as well as C. diff by stool PCR. IMPRESSION: This has been a complex case of a gentleman with multiple underlying medical problems including renal failure in a transplanted kidney and recurrent Clostridium difficile, who was admitted with a simultaneous recurrence of his Clostridium difficile and influenza. He was initially treated with some broad-spectrum antimicrobial agents which we stopped and we have recently been treating him just with oseltamivir and fidaxomicin. Interestingly, the patient appeared to develop delirium due to oseltamivir, which has mainly been reported in [place] teenagers, and I wonder if perhaps the oseltamivir dose was excessive in terms of his renal failure and this may have contributed to some central nervous system changes. In any event, he seems back to baseline now and I think he could reasonably be discharged. RECOMMENDATIONS: 1. Continue fidaxomicin through tomorrow, which will complete his therapy for C. diff. 2. Flu therapy has been concluded. 3. The patient's labs look fine and he looks to me to be about as good as he ever does during his multiple prior admissions and I think he could be discharged today or tomorrow. Thank you very much. ID will sign off.
--- NOTE | 2016-08-01 15:03 | PCM.PNMED ---
Subjective Date of Service Aug 01, 2016 Subjective no new complaint today, wants to go home. watery diarrhea resolved. Exam Vital Signs Vital Sign - Last Date Time Temp Pulse Resp B/P Pulse Ox O2 Delivery O2 Flow Rate FiO2 08/01/16 11:59 36.5 51 16 109/67 97 Room Air 07/29/16 03:14 3.00 Intake and Output 07/31/16 07/31/16 08/01/16 Cumulative From/Thru 15:00 23:00 07:00 07/24/16 06:07 - 08/01/16 05:17 Intake Total 200 ml 690 ml 53053 ml Output Total 751 ml 8003 ml Balance 200 ml -61 ml 7238 ml Intake Oral 200 ml 690 ml 4814 ml IV Total 0 ml 18044 ml Output Urine Total 750 ml 8002 ml Urine/Stool Mix 1 ml 1 ml # Voids 3 1 4 # Bowel Movements 1 21 Exam GA: AAOx3, NAD, frail. HHENT: mild pallor, no icteric sclerae, no JVD, dry MM, no LAD. Heart: RRR, nl s1, s2, systolic murmur noted. Lungs: no wheezing, no rhonchi. Abd: soft, ND, NT, hypoactive BS+. Ext: warm, no edema, no rash. Lab and Diagnostics Result Diagram: 08/01/16 0320 08/01/16 0320 X-Rays, CTs and MRIs PROCEDURE: CT BRAIN WITHOUT CONTRAST ([id number]) FINDINGS: Image quality: Excellent. Brain: No intracranial bleeds or masses. There is cerebral volume loss for age , with resultant ventricular and sulcal prominence. There are periventricular and deep white matter chronic small vessel ischemic changes. There is intracranial internal carotid artery atherosclerosis. IMPRESSION: 1. No acute intracranial disease process. 2. Irregular density in the left frontal scalp which could be related to trauma versus neoplastic process. Please correlate with clinical data. Dictated by: Yeni Haynes MD, PhD on 07/24/2016 at 10:09 PROCEDURE: X-RAY CHEST ONE VIEW, PORTABLE ([id number]) IMPRESSION: Mild patchy right midlung consolidation possibly early/mild bronchopneumonia although recommend followup with chest radiographs to document resolution. Dictated by: Mark Santana M.D. on 07/26/2016 at 12:00 . Assessment & Plan 1. FLOYD on CKD in the setting of kidney transplant. - Ddx: intravascular volume depletion, ATN, CNI toxicity. - improving slowly. 2. Influenza A infection. 3. Recurrent C.diff colitis. 4. Afib. 5. Immunocompromised host. 6. HTN. 7. Anemia of chronic kidney disease. Plan: continue current immunosuppressive meds (prednisone 8 mg daily, cyclosporine 50 mg BID and MMF 250 mg BID). 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
--- NOTE | 2016-08-01 16:32 | PCM.PNMED ---
Subjective Date of Service Aug 01, 2016 Subjective 70-year-old man on immunosuppression for renal transplant, status post splenectomy, with recent history of C. difficile and neurovirus presents with recurrent diarrhea, encephalopathy, acute kidney injury, and influenza. He has no significant complaints today. Some cough is noted. He had no recurrence of transient encephalopathy. Seems alert and comfortable. Diarrhea is resolved. Feels weak. Exam Vital Signs Vital Sign - Last Date Time Temp Pulse Resp B/P Pulse Ox O2 Delivery O2 Flow Rate FiO2 08/01/16 16:19 36.5 81 16 152/98 96 Room Air 07/29/16 03:14 3.00 Intake and Output 07/31/16 07/31/16 08/01/16 Cumulative From/Thru 15:00 23:00 07:00 07/24/16 06:07 - 08/01/16 05:17 Intake Total 200 ml 690 ml 55567 ml Output Total 751 ml 8003 ml Balance 200 ml -61 ml 7238 ml Intake Oral 200 ml 690 ml 4814 ml IV Total 0 ml 97776 ml Output Urine Total 750 ml 8002 ml Urine/Stool Mix 1 ml 1 ml # Voids 3 1 4 # Bowel Movements 1 21 Exam General: Somewhat chronically ill,l obese gentleman in no acute distress HEENT: sclerae anicteric, oral mucosa moist, actinic keratosis left forehead Neck: no apparent JVD, supple Chest: clear to auscultation Cardiac: S1S2, no murmur Abdomen: BS normal, non-tender Extremities: Trace edema, mild erythema both calves to below knees no focal lesions Neuro: A&O, cranial nerves symmetric, motor strength and coordination are grossly normal IVs and Medications Medications Reviewed: Medications were reviewed in detail Lab and Diagnostics Result Diagram: 08/01/16 0320 08/01/16 0320 X-Rays, CTs and MRIs PROCEDURE: CT BRAIN WITHOUT CONTRAST ([id number]) FINDINGS: Image quality: Excellent. Brain: No intracranial bleeds or masses. There is cerebral volume loss for age , with resultant ventricular and sulcal prominence. There are periventricular and deep white matter chronic small vessel ischemic changes. There is intracranial internal carotid artery atherosclerosis. IMPRESSION: 1. No acute intracranial disease process. 2. Irregular density in the left frontal scalp which could be related to trauma versus neoplastic process. Please correlate with clinical data. Dictated by: Yeni Haynes MD, PhD on 07/24/2016 at 10:09 PROCEDURE: X-RAY CHEST ONE VIEW, PORTABLE ([id number]) IMPRESSION: Mild patchy right midlung consolidation possibly early/mild bronchopneumonia although recommend followup with chest radiographs to document resolution. Dictated by: Mark Santana M.D. on 07/26/2016 at 12:00 . Assessment & Plan 70yo M w/ hx of renal transplant and splenectomy on chronic steroid/ immunosuppressives, hx of c.diff infection in Feb, treated with oral vancomycin, another hospitalization in for c.diff/noro virus infection , FLOYD on CKD p/w episode of loose stools, lethargy Acute and or high-risk problems: #. C. 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 This is improving continue current therapy which is dictated by infectious disease. - Fidaxomicin twice a day for a total of 10 days, to finish on 08/02. #. Transient encephalopathy. Likely metabolic encephalopathy due to his microvascular brain disease and stress of acute illness. - Follow clinically - Avoid benzodiazepines and anticholinergics #. Urinary retention. He has been on Flomax and had a Richey placed, taken out , and then replace. If he fails to have this replaced and follow up with urology after hospitalization likely. - Richey discontinued Resolved, chronic and stable conditions: #. Acute kidney injury in context of chronic kidney disease stage III. POA. Peak serum creatinine 3.58 on 07/26, declined to 2.6 as of 07/31. Patient was likely volume depleted as a contributor given his diarrhea secondary to C. difficile toxin colitis. A sling creatinine from late 2015 seems to be 2-3 range. - Daily renal panel - Avoid nephrotoxins. #. Sepsis, likely secondary to patient's combination of flu a, possible pneumonia, and recurrent C. difficile toxin colitis. Patient is improving, will continue fluid resuscitation as well as reconsideration of reinstitution of stress dose hydrocortisone. #. Influenza A. POA. Finish full course of Tamiflu on 07/30.Clinically he is better. - Resolved #. Possible healthcare associated pneumonia, with reactive airways. POA. Bronchodilator bronchodilators, - empiric antibiotics have been stopped per recommendation of ID #. Renal transplant. Increasing immunosuppressants per renal. At this point the patient is back at his baseline immunosuppressive regimen with a normalization of his creatinine back daily 2.4 range. He is on prednisone 8 mg daily, Micophenolate 250 mg twice a day and cyclosporine at 50 mg twice a day. #. Atrial fibrillation with rapid ventricular response, better rate control. Resolved. #. Nasal swab positive for MRSA. POA. Contact isolation. - Mupirocin cream twice a day for 14 days for decolonization. VTE Mechanical Devices: Intermittant Pneumatic CD Resuscitation Status: CPR: Attempt Resuscitation Time spent 35 minutes Luis Eduardo Cisse MD Aug 01, 2016 16:31
[2016-08-01] MEDS: predniSONE 5 mg Tablet PO SCH (21:13)
[2016-08-01] MEDS: Pantoprazole 40 mg ER24 Tablet PO SCH (21:13)
[2016-08-02 00:16] VITALS: BP 140/74; PULSE 80; RESP 16; O2SAT 94
[2016-08-02 03:24] VITALS: BP 153/105; PULSE 81; RESP 16; O2SAT 96
[2016-08-02 05:37] VITALS: PULSE 83
[2016-08-02 08:20] VITALS: BP 150/94; PULSE 55; RESP 24; O2SAT 96
[2016-08-02] MEDS: predniSONE 1 mg Tablet PO SCH (08:26)
[2016-08-02] MEDS: Mupirocin 2% 22 Gm Ointment TOPICAL SCH (08:27)
[2016-08-02 10:03] VITALS: PULSE 80
[2016-08-02 12:44] VITALS: BP 138/101; PULSE 82; RESP 20; O2SAT 97
[2016-08-02] MEDS ORDERED: METO25TA6 PO (14:55)
--- NOTE | 2016-08-02 15:03 | PCM.DIMED ---
Discharge Instructions Date of Service Aug 02, 2016 Dates of Hospitalization Jul 24, 2016 at 09:33 Discharge Diagnosis Discharge Diagnosis C. difficile colitis, recurrent; metabolic encephalopathy; influenza a; pneumonia; urinary retention Medication Instructions Due to your atrial fibrillation with fast heart rate we have increased your dose of metoprolol. This should be checked with your primary care provider regarding future dose adjustments. You have completed courses of antibiotics for influenza, pneumonia and C. difficile colitis. There have been no other changes in your medications at the time of discharge. Diet Renal Diet Activity Other (as per physical therapy staff at [facility] at bedtime and F) Call your provider Fever or Chills, Shortness of breath Patient Instructions BMP in 5 days and send to PCP and his regular internal specialist Follow-up Provider: Kobe Tom MD Follow-up with PCP in: 2 weeks Luis Eduardo Cisse MD Aug 02, 2016 15:02
--- NOTE | 2016-08-02 18:25 | PCM.DC.MED ---
Discharge Summary Date of Service Aug 02, 2016 Dates of Hospitalization Date of Hospital Admission Jul 24, 2016 at 09:33 Date of Discharge: Aug 02, 2016 Providers: Admitting Physician: Ekta Menendez MD Primary Care Physician: Kobe Tom MD Attending Physician: Ekta Menendez MD Diagnosis at Time of Discharge Diagnosis at Time of Discharge C. difficile colitis, recurrent; metabolic encephalopathy; influenza a; pneumonia; urinary retention Consultations Infectious disease: IMPRESSION: 1. It is unclear to me if this patient has had a recurrence of his Clostridium difficile or not, but it has been confused over the past couple of months by the continued positivity of stool Clostridium difficile assays even at times when he has had a minimal amount of symptoms such as in June. This raises the possibility that some of these are falsely positive as he continues to have an organism capable of producing a Clostridium difficile toxin but is not actively producing it. Given the patient's fragilely compensated status, renal failure, immunosuppression, and other issues, I think it is appropriate to aggressively treat possible Clostridium difficile until we know that it is not a significant player here. Given his history of multiple recurrences, I think I would treat the patient with a fidaxomicin as there is some literature evidence to suggest this is associated with less recurrences and this patient could certainly benefit from avoiding future recurrences of Clostridium difficile. 2. I would withhold other antibiotics while we wait for the stool results and also just observe his progress. Kobe Duenas MD 07/24/16 1822 Nephrology: Dr. Kobe Marcos Palliative care: Dr. Adriana Burns Summary of palliative recommendations: Patient has had frequent admits (12/2015, 02/2016, 04/2016, 06/2016, and current admission) and Palliative Care asked to discuss goals of care with him. This will be the first time we have been involved in his care. DPOA/Advanced Directives/POLST: 1. Code: Full per EMR. 2. POLST: no prior paperwork. He completed a POLST today with Dr. Crum. He confirms his wish to be FULL code with all interventions. It is important to him that he is not kept alive on machines if his brain is no longer awake and able to interact meaningfully with others. He values having a good brain. 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 He is content to be restricted to a wheelchair, but would abhor needing to be fed by others or fed (permanently) by a tube. 3. HCPOA: no prior paperwork. He has a good relationship with his sisters, but doesn't really want to pick one of them to be HCPOA. He would rather they follow his directives on a POLST and act as advisors to a medical team, using the POLST he signed today. Patient's Baseline Function: Pt states he lives in a single story home alone, and had no problems getting around his house with a W/C, but was at [facility] prior to admission for rehab. Pt states he is willing to return there at d/ c. Pt states he typically uses a wheel chair, does not drive. Family/emotional support: Rolanda Rushing (sister) [phone] Maida Delarosa ( sister) [phone] . Procedures XRay, CTs & MRIs PROCEDURE: CT BRAIN WITHOUT CONTRAST ([id number]) FINDINGS: Image quality: Excellent. Brain: No intracranial bleeds or masses. There is cerebral volume loss for age , with resultant ventricular and sulcal prominence. There are periventricular and deep white matter chronic small vessel ischemic changes. There is intracranial internal carotid artery atherosclerosis. IMPRESSION: 1. No acute intracranial disease process. 2. Irregular density in the left frontal scalp which could be related to trauma versus neoplastic process. Please correlate with clinical data. Dictated by: Yeni Haynes MD, PhD on 07/24/2016 at 10:09 PROCEDURE: X-RAY CHEST ONE VIEW, PORTABLE ([id number]) IMPRESSION: Mild patchy right midlung consolidation possibly early/mild bronchopneumonia although recommend followup with chest radiographs to document resolution. Dictated by: Mark Santana M.D. on 07/26/2016 at 12:00 . Brief History History of Present Illness (per admission note): This is a 70 year old man with past medical history significant for ESRD unknown etiology, status post donor kidney transplant x3 on immunosuppression, recent episodes of recurrent C. difficile infection, who presented to the hospital due to weakness. The patient was sent to the ED from a detention due to loose stools and worsening lethargy and confusion. Per H and P the patient developed loose stools on 07/23 and subsequently developed tachycardia with HR into the 140s and appeared very dehydrated. The patient is taking prednisone 8 mg daily, cyclosporine 50 mg twice a day and CellCept 750 mg b.i.d. The patient reported having only one episode of rejection after transplant. 70yo M w/ hx of Kidney Transplant/splenectomy on chronic steroid/ immunosuppressives, hx of c.diff infection in treated with oral vancomycin, then another hospitalization in for c.diff/noro virus infection, FLOYD on chronic kidney dialysis admitted on 07/24 from detention for loose stools beginning 07/23, lethargy. Upon admission this time he was started on vancomycin 125mg po given for presumed recurrent c.diff. and subsequently his stool culture on admission was positive for norovirus. . Hospital Course #. C. difficile toxin colitis, POA. Infectious disease was consulted and recommended fidaxomicin therapy. This was completed as an inpatient due to difficulty transferring this medicine to the SNF Diarrhea resolved 2 days prior to discharge - He completed Fidaxomicin twice a day for a total of 10 days, to finish on . #. Transient encephalopathy. Likely metabolic encephalopathy due to his microvascular brain disease and stress of acute illness. - Resolved #. Urinary retention. He has been on Flomax and had a Richey placed, taken out , and then replace. - Richey discontinued; no further voiding difficulties #. Deconditioning and critical illness myopathy. Patient was significantly weakened with limited ability to ambulate. - Plan rehabilitation physical therapy at [facility] then eventual discharge home. #. Acute kidney injury in context of chronic kidney disease stage III. POA. Peak serum creatinine 3.58 on 07/26, declined to 2.6 as of 07/31. Patient was likely volume depleted as a contributor given his diarrhea secondary to C. difficile toxin colitis. His baseline creatinine from late 2015 seems to be 2- 3 range. - Continue current renal medications #. Sepsis, likely secondary to patient's combination of flu a, possible pneumonia, and recurrent C. difficile toxin colitis. - Resolved. #. Influenza A. POA. Finish full course of Tamiflu on 07/30.Clinically he is better. - Resolved #. Possible healthcare associated pneumonia, with reactive airways. POA. Bronchodilator bronchodilators, - empiric antibiotics were started briefly but stopped per recommendation of ID #. Renal transplant. Increasing immunosuppressants per renal. At this point the patient is back at his baseline immunosuppressive regimen with a normalization of his creatinine back daily 2.4 range. He is on prednisone 8 mg daily, Micophenolate 250 mg twice a day and cyclosporine at 50 mg twice a day. #. Atrial fibrillation with rapid ventricular response, better rate control. Resolved. #. Nasal swab positive for MRSA. POA. Contact isolation. - Mupirocin cream twice a day was administered. Exam Vital Signs (Last) Date Time Temp Pulse Resp B/P Pulse Ox O2 Delivery O2 Flow Rate FiO2 08/02/16 12:44 36.5 82 20 138/101 97 Room Air 07/29/16 03:14 3.00 Exam General: obese gentleman in no acute distress HEENT: sclerae anicteric, oral mucosa moist, actinic keratosis left forehead Neck: no apparent JVD, supple Chest: clear to auscultation Cardiac: S1S2, no murmur Abdomen: BS normal, non-tender Extremities: Trace edema, mild erythema both calves to below knees no focal lesions Neuro: A&O, cranial nerves symmetric, motor strength and coordination are grossly normal Test 07/24/16 06:05 07/24/16 07:32 07/24/16 16:56 07/24/16 18:01 Hold Purple Top Tube Received (Received) Prothrombin Time 11.3sec (8.1-12.5) Prothromb Time International Ratio 1.05ratio Hold Blue Top Tube Received (Received) Hold Red Top Tube Received (Received) Hold [place] Top Tube Received (Received) Urine Color Yellow (YELLOW) Urine Appearance Clear (CLEAR,HAZY) Urine pH 6.0 (5.0-8.0) Urine Specific [place] 1.010 (1.003-1.035) Urine Protein 30mg/dL (NEG,TRACE) Urine Glucose (UA) Negativemg/dL (NEGATIVE) Urine Ketones Tracemg/dL (NEGATIVE) Urine Occult Blood Negative (NEGATIVE) Urine Nitrite Negative (NEGATIVE) Urine Bilirubin Negative (NEGATIVE) Urine Urobilinogen Normalmg/dL (NORMAL) Urine Leukocyte Esterase Negative (NEGATIVE) Urine RBC 0-2/hpf (0-2) Urine WBC 0-5/hpf (0-5) Urine Epithelial Cells Occasional/hpf (NONE-MOD) Urine Crystals None seen (NONE SEEN) Urine Bacteria None/hpf (NONE-FEW) Urine Hyaline Casts None/lpf (NONE) Urine Granular Casts None seen (NONE SEEN) Urine Waxy Casts None seen (NONE SEEN) Urine Red Blood Cell Casts None seen (NONE SEEN) Urine White Blood Cell Casts None seen (NONE SEEN) Urine Mucus None seen (None Seen) Urine Trichomonas None seen (NONE SEEN) Urine Yeast None (NONE SEEN) Urinalysis Comment None Urine Culture Reflexed Not indicated Urine Random Sodium 66mEq/L Urine Urea Nitrogen 372mg/dL (Not Estab.) Thyroid Stimulating Hormone (TSH) 1.770uIU/mL (0.450-4.500) Free Thyroxine 1.18ng/dL (0.82-1.77) Urine Random Creatinine 77mg/dL (22-328) Test 07/25/16 10:20 07/27/16 06:07 07/27/16 16:05 07/28/16 02:40 Mycophenolic Acid Level 1.5ug/mL (1.0-3.5) Mycophenolic Acid Glucuronide Level 2ug/mL (15-125) Cyclosporine Level 48ng/mL (100-400) Lactic Acid Level 1.0mmol/L (0.4-2.0) Total Bilirubin 0.3mg/dL (0.0-1.2) Aspartate Amino Transf (AST/SGOT) 15U/L (0-50) Alanine Aminotransferase (ALT/SGPT) 6U/L (0-44) Alkaline Phosphatase 73U/L (25-160) Total Protein 4.5g/dL (6.4-8.4) Procalcitonin 2.06ng/mL (See Comment) Random Vancomycin Level 10.1ug/mL Rx Test 07/30/16 03:06 08/01/16 03:20 Estimat Glomerular Filtration Rate 26mL/min (>59) Magnesium Level 2.1mg/dL (1.6-2.6) White Blood Count 8.1th/mm3 (3.8-10.1) Red Blood Count 3.11mil/mm3 (4.40-5.80) Hemoglobin 9.2g/dL (13.8-17.2) Hematocrit 29.4% (41.0-50.0) Mean Corpuscular Volume 94.5fL (81-100) Mean Corpuscular Hemoglobin 29.6pg (27.0-35.0) Mean Corpuscular Hemoglobin Concent 31.3% (32.0-37.0) Red Cell Distribution Width 15.6% (12.3-15.4) Platelet Count 273bil/L (150-400) Neutrophils (%) (Auto) 76.0% (40-74) Lymphocytes (%) (Auto) 13.6% (14-46) Monocytes (%) (Auto) 4.9% (4-12) Eosinophils (%) (Auto) 3.2% (0-5) Basophils (%) (Auto) 0.2% (0-3) Sodium Level 141mEq/L (134-144) Potassium Level 4.4mEq/L (3.5-5.2) Chloride Level 106mEq/L (97-108) Carbon Dioxide Level 21mmol/L (18-29) Blood Urea Nitrogen 45mg/dL (8-27) Creatinine 2.50mg/dL (0.76-1.27) Glucose Level 106mg/dL (60-99) Calcium Level 8.7mg/dL (8.5-10.1) Phosphorus Level 3.4mg/dL (2.5-4.9) Albumin 2.7g/dL (3.4-5.0) Discharge Medications Discharge Medications Allopurinol (Allopurinol) 100 Mg Tablet 200 MG PO QAM (Reported) Aspirin (Aspirin) 81 Mg Tablet 81 MG PO HS (Reported) Calcitriol (Rocaltrol) 0.25 Mcg Capsule 0.25 MCG PO QAM (Reported) Cholecalciferol (Vitamin D3) (Vitamin D) 50,000 Unit Capsule 50,000 UNIT PO monthly (Reported) Cyclosporine, Modified (Gengraf) 25 Mg Cap 50 MG PO BID (Reported) Enalapril Maleate (Enalapril Maleate) 5 Mg Tablet 2.5 MG PO DAILY Prescribed by: SHAISTA SMITH MD Furosemide (Furosemide) 20 Mg Tab 10 MG PO DAILY (Reported) Gabapentin (Gabapentin) 100 Mg Capsule 100 MG PO BID (Reported) Magnesium Oxide/Mag Aa Chelate (pt-Nuba-Frbrpwz Tablet) 133 Mg Tablet 133 MG PO TID (Reported) Metoprolol Tartrate (Metoprolol Tartrate) 25 Mg Tablet 50 MG PO BID Prescribed by: JOANNA MONTOYA MD Multivitamin (Once Daily) 1 Each Tablet 1 EACH PO HS (Reported) Mycophenolate Mofetil (Mycophenolate Mofetil) 250 Mg Capsule 750 MG PO BID ( Reported) Nortriptyline (Nortriptyline) 10 Mg Capsule 10 MG PO BID (Reported) Omeprazole (Omeprazole) 20 Mg Capsule.dr 20 MG PO HS (Reported) Pravastatin (Pravachol) 40 Mg Tablet 40 MG PO HS (Reported) PredniSONE (PredniSONE) 1 Mg Tab 3 MG PO QAM (Reported) Prednisone (PredniSONE) 5 Mg Tab 5 MG PO QAM (Reported) Additional med instructions Due to your atrial fibrillation with fast heart rate we have increased your dose of metoprolol. This should be checked with your primary care provider regarding future dose adjustments. You have completed courses of antibiotics for influenza, pneumonia and C. difficile colitis. There have been no other changes in your medications at the time of discharge. 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
[2016-08-10] MEDS ORDERED: VITAMIN D PO SCH (08:30)
== END 2016-08-02 19:00 | DRG 371 ==
LOC: EDBD 05:51 → SED 05:51 → MPC 09:33 → PCC 07-27 14:28
PROVIDERS: ADMIT Internal Medicine; ATTEND Internal Medicine
DX: A04.7 Enterocolitis due to Clostridium difficile (principal); A41.9 Sepsis, unspecified organism; J18.9 Pneumonia, unspecified organism; N17.0 Acute kidney failure with tubular necrosis; G93.41 Metabolic encephalopathy; Z94.0 Kidney transplant status; I48.92 Unspecified atrial flutter; E87.2 Acidosis; G72.81 Critical illness myopathy; I48.91 Unspecified atrial fibrillation; Z85.528 Personal history of other malignant neoplasm of kidney; Z96.649 Presence of unspecified artificial hip joint; F17.210 Nicotine dependence, cigarettes, uncomplicated; Z90.81 Acquired absence of spleen; Z79.52 Long term (current) use of systemic steroids; N18.3 Chronic kidney disease, stage 3 (moderate); I12.9 Hypertensive chronic kidney disease with stage 1 through stage 4 chronic kidney disease, or unspecified chronic kidney disease; A08.11 Acute gastroenteropathy due to Norwalk agent; D63.1 Anemia in chronic kidney disease; E86.0 Dehydration; J11.1 Influenza due to unidentified influenza virus with other respiratory manifestations; Y95 Nosocomial condition; Z22.322 Carrier or suspected carrier of Methicillin resistant Staphylococcus aureus; R33.9 Retention of urine, unspecified; L27.1 Localized skin eruption due to drugs and medicaments taken internally; T36.0X5A Adverse effect of penicillins, initial encounter; Y92.230 Patient room in hospital as the place of occurrence of the external cause

== ENCOUNTER 2016-08-24 02:59 | Inpatient (IN) | payer MEDICARE, OTHER ==
[~2016-08-24] VITALS: Ht 177.8 cm; Wt 106.7 kg
[2016-08-24] VITALS (13 sets, daily range): BP systolic 95–144; BP diastolic 54–91; PULSE 107–138; RESP 12–18; O2SAT 92–100
[~2016-08-24 02:59] MED LIST changes: +CHOL500050 PO; -ERGO500050 PO
--- NOTE | 2016-08-24 03:00 | ED.REPORT ---
HPI-Altered Mental Status Date of Service Aug 24, 2016 ED Provider: Prakash Starks MD Pt is a 70 y/o male on immunosuppressants w/ a hx of recurrent C. diff, renal transplant, CKD, presenting to the ED via EMS from [facility] due to decreased LOC. Pt is intubated upon arrival. Via medics, he was found unresponsive but has a radial pulse. He was last seen in the ED a month ago for tachycardia and high fever. Nursing Notes Stated Complaint: DECREASED LOC Nursing Notes Reviewed: Yes Allergies: Coded Allergies: iodine (Unverified Allergy, Severe, purple blistering, 07/24/16) povidone (Unverified Allergy, Severe, purple blistering, 07/24/16) Scheduled Allopurinol (Allopurinol) 100 Mg Tablet 200 MG PO QAM Aspirin (Aspirin) 81 Mg Tablet 81 MG PO HS Calcitriol (Rocaltrol) 0.25 Mcg Capsule 0.25 MCG PO QAM Cholecalciferol (Vitamin D3) (Vitamin D) 50,000 Unit Capsule 50,000 UNIT PO monthly Cyclosporine, Modified (Gengraf) 25 Mg Cap 50 MG PO BID Enalapril Maleate (Enalapril Maleate) 5 Mg Tablet 2.5 MG PO DAILY Furosemide (Furosemide) 20 Mg Tab 10 MG PO DAILY Gabapentin (Gabapentin) 100 Mg Capsule 100 MG PO BID Magnesium Oxide/Mag Aa Chelate (gu-Ebsb-Pjpivhu Tablet) 133 Mg Tablet 133 MG PO TID Metoprolol Tartrate (Metoprolol Tartrate) 25 Mg Tablet 50 MG PO BID Multivitamin (Once Daily) 1 Each Tablet 1 EACH PO HS Mycophenolate Mofetil (Mycophenolate Mofetil) 250 Mg Capsule 750 MG PO BID Nortriptyline (Nortriptyline) 10 Mg Capsule 10 MG PO BID Omeprazole (Omeprazole) 20 Mg Capsule.dr 20 MG PO HS Pravastatin (Pravachol) 40 Mg Tablet 40 MG PO HS PredniSONE (PredniSONE) 1 Mg Tab 3 MG PO QAM Prednisone (PredniSONE) 5 Mg Tab 5 MG PO QAM General Time Seen by MD: 02:59 Transferred From: halfway Chief Complaint Decreased responsiveness Hx Obtained From: EMS Unable to Obtain Hx: Patient condition (intubated) Arrived By: Ambulance Sudden in Onset?: Yes Onset Occurred: Just prior to arrival Symptom Duration: Since onset Recent Healthcare: Recent doctor visit, Recent hospitalization Similar Sx Previous: Yes Past Medical History Past Medical History Notes: Admitted September 2015 for volume depletion 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 diff Coma following splenectomy Hx Kidney cancer s/p transplant History renal insufficiency Immunosuppressant following kidney transplants [facility] Hx of Hemodialysis 23 years ago Anxiety Reports: Hyperlipidemia Past Surgical History Hernia Splenectomy kidney transplant x3 (last one 20 years ago) Hip replacement x7 Family History noncontributory Smoking History Current Every Day Smoker Social History Alcohol Use: Denies alcohol use Drug Use: Denies drug use Other Social History: Lives alone, Local resident Ambulatory Status Independent Review of Systems Unable to Obtain ROS Intubated Physical Exam Initial Vital Signs Vital Signs (First) Date Time Temp Pulse Resp B/P Pulse Ox O2 Delivery O2 Flow Rate FiO2 08/24/16 04:27 100 08/24/16 05:30 138 16 95/63 Mechanical Ventilator Initial VS: Reviewed, Vital signs abnormal Interpretation & Diagnostics Lab Results Interpretation Result Diagram: 08/24/16 0330 08/24/16 0330 Test 08/24/16 03:30 08/24/16 04:10 08/24/16 04:25 White Blood Count 18.2th/mm3 (3.8-10.1) Red Blood Count 3.19mil/mm3 (4.40-5.80) Hemoglobin 9.8g/dL (13.8-17.2) Hematocrit 31.9% (41.0-50.0) Mean Corpuscular Volume 100.0fL (81-100) Mean Corpuscular Hemoglobin 30.7pg (27.0-35.0) Mean Corpuscular Hemoglobin Concent 30.7% (32.0-37.0) Red Cell Distribution Width 17.2% (12.3-15.4) Platelet Count 239bil/L (150-400) Neutrophils (%) (Auto) 89.4% (40-74) Lymphocytes (%) (Auto) 5.0% (14-46) Monocytes (%) (Auto) 4.4% (4-12) Eosinophils (%) (Auto) 0.4% (0-5) Basophils (%) (Auto) 0.1% (0-3) Sodium Level 141mEq/L (134-144) Potassium Level 4.5mEq/L (3.5-5.2) Chloride Level 101mEq/L (97-108) Carbon Dioxide Level 23mmol/L (18-29) Blood Urea Nitrogen 62mg/dL (8-27) Creatinine 2.98mg/dL (0.76-1.27) Estimat Glomerular Filtration Rate 22mL/min (>59) Glucose Level 83mg/dL (60-99) Calcium Level 8.7mg/dL (8.5-10.1) Total Bilirubin 0.6mg/dL (0.0-1.2) Aspartate Amino Transf (AST/SGOT) 21U/L (0-50) Alanine Aminotransferase (ALT/SGPT) 9U/L (0-44) Alkaline Phosphatase 93U/L (25-160) Troponin T 0.242ug/L (0.0-0.011) Total Protein 5.4g/dL (6.4-8.4) Albumin 2.7g/dL (3.4-5.0) Triglycerides Level 69mg/dL (0-149) Urine Color Yellow (YELLOW) Urine Appearance Slightly cloudy Urine pH 8.5 (5.0-8.0) Urine Specific [place] 1.010 (1.003-1.035) Urine Protein 30mg/dL (NEG,TRACE) Urine Glucose (UA) Negativemg/dL (NEGATIVE) Urine Ketones Negativemg/dL (NEGATIVE) Urine Occult Blood Small (NEGATIVE) Urine Nitrite Positive (NEGATIVE) Urine Bilirubin Negative (NEGATIVE) Urine Urobilinogen Normalmg/dL (NORMAL) Urine Leukocyte Esterase Moderate (NEGATIVE) Urine RBC 3-10/hpf (0-2) Urine WBC 11-50/hpf (0-5) Urine Epithelial Cells Occasional/hpf (NONE-MOD) Urine Crystals Triple phosphate Urine Bacteria Many/hpf (NONE-FEW) Urine Hyaline Casts None/lpf (NONE) Urine Granular Casts None seen (NONE SEEN) Urine Waxy Casts None seen (NONE SEEN) Urine Red Blood Cell Casts None seen (NONE SEEN) Urine White Blood Cell Casts None seen (NONE SEEN) Urine Mucus None seen (None Seen) Urine Trichomonas None seen (NONE SEEN) Urine Yeast None (NONE SEEN) Urine Culture Reflexed Indicated Lactic Acid Level 2.3mmol/L (0.4-2.0) Lab Results Interpretation: Elevated white blood count, chronic kidney disease, chronic anemia, chronically elevated troponin, elevated lactic acid X-Ray Chest Interpretation Chest Xray Interpretation: Impression: trace adalexis in the right base no other abnormalities seen View: Portable Interpretation / Wet Read by: Wet read ED physician CT Head Interpretation IMPRESSION: Generalized mild involutinoal changes and likely chronic ischemic microangiopathic and/or demyelinating leukoencephalopathy, statistically. No acute intracranial abnormality. Study: Head CT no contrast Interpretation / Wet Read by: Wet read ED physician CT Abd / Pelvis Interpretation IMPRESSION: left upper lobe pneumonia Study type: Abdominal CT no contrast Interpretation / Wet Read by: Wet read ED physician Re-Eval/Medical Decision Med Decision/Clinical Course 70-year-old male with a long history of chronic kidney disease and previous transplants presents now with collapse, respiratory failure, and hypertension. He did not at any time require CPR. The low systolic pressure noted in the field was 41. He was intubated by paramedics. He was started on fluids and an epinephrine drip by the paramedics. Upon arrival his pressor was switched from epinephrine to Levophed. To position was confirmed on physical examination. Examination revealed a fungating scalp mass but no other significant abnormalities. He did not appear to be significantly dehydrated. He required minimal sedation with first said. Stronger sedation was not used secondary to his hypotension. He was given 3 L of fluid, blood cultures were obtained, Richey catheter was placed with urine cultures. Chest x-ray was unremarkable with no obvious pneumonia and with good tube position. Antibiotics including levofloxacin, Zosyn, and vancomycin were started. Head CT scan showed degenerative changes but no acute bleed or mass effect. CT scan of the chest abdomen and pelvis was done without contrast because of the chronic kidney disease. This showed left upper lobe pneumonia, right lower lobe atelectasis, and diverticulitis. Urinalysis showed urinary tract infection. White blood count was elevated at 18,200, lactic acid was elevated at 2.3. 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 The period ST elevation was likely related to the block and represented the final worsening of the QRS. The EKGs were discussed with Dr. Mora who did not feel that this was a STEMI. Troponin was elevated but it has been chronically elevated in the same range on previous admissions, likely related to his renal failure. The patient continued to require pressors and fluid. IJ central line was placed by Dr. Valadez, please see his note for details. Case was discussed with Dr. Holden and the patient will be admitted to the CCU. Re-Evaluation/Progress : Time of Eval: 03:11 Patient Status: Condition unchanged Re-Evaluation/Progress Note: Pt rechecked. Pt is unresponsive and critical. Consultation : Referral / Consult Name: Aidee Holden DO Consulted With: Hospitalist Call Returned at: 05:38 Terminal Make Up Operator: Agrees with eval, Agrees with plan Note: Case discussed. Dr. Holden agrees with plan. Counseled Regarding: Need for admission Patient Discharge & Departure Impression: Primary Impression: Altered mental status Altered mental status type: unspecified Qualified Code: R41.82 - Altered mental status, unspecified Additional Impressions: Diverticulitis of sigmoid colon Sepsis Sepsis type: sepsis due to unspecified organism Qualified Code: A41.9 - Sepsis, unspecified organism Community acquired pneumonia Urinary tract infection Urinary tract infection type: site unspecified Hematuria presence: with hematuria Qualified Code: N39.0 - Urinary tract infection, site not specified Respiratory failure Chronicity: acute Respiratory failure complication: unspecified whether with hypoxia or hypercapnia Qualified Code: J96.00 - Acute respiratory failure , unspecified whether with hypoxia or hypercapnia Hypotension Hypotension type: unspecified hypotension type Qualified Code: I95.9 - Hypotension, unspecified Disposition: ADMITTED TO HOSPITAL Discharge Condition Condition: Critical Referrals: Kobe Tom MD (PCP) Crit Care Except Billable Proc Time Spent: 105-134 minutes Services Performed: Patient management by me, Time spent at bedside, Reviewing test results, Reviewing imaging, Discussing patient care, Documentation in record Critical Care Notes: 70-year-old male in septic shock requiring intubation, multiple interventions including pressors, central line, antibiotics and admission to the CCU. Scribe Attestation Portions of this note were transcribed by Meet Mills. I, Dr. Starks personally performed the history, physical exam and medical decision-making; I reviewed and confirmed the accuracy of the information in the transcribed note. Signed by: Migel Ortega, 08/24/16 0601 copies to: Kobe Tom MD, Prakash Felipe MD Aug 24, 2016 03:00 MEET MILLS Aug 24, 2016 03:12
[2016-08-24] MEDS ORDERED: 0.9% Sodium Chloride 1,000 ML IV ONE ×3 (03:06→13:30)
[2016-08-24] MEDS ORDERED: Norepinephrine 8,000 mCg/250 mL NS Premix IV ONE ×2 (03:10→05:54)
[2016-08-24 03:34] LABS: BASOPHILS % (AUTO) 0.1 % (0-3); EOSINOPHILS % (AUTO) 0.4 % (0-5); MONOCYTES % (AUTO) 4.4 % (4-12); Mean Corpuscular Hemoglobin 30.7 pg (27.0-35.0); NEUTROPHILS % (AUTO) 89.4 % (40-74); Platelet Count 239 bil/L (150-400)
[2016-08-24] MEDS ORDERED: Piperacillin-Tazo 3.375 Gm Inj 3.375 GM in Dextrose 5% Minibag Plus 50 ML IV ONE (04:00)
[2016-08-24] MEDS ORDERED: levoFLOXacin Inj 750 MG in IV Premix 1 EACH IV ONE (04:00)
[2016-08-24] MEDS ORDERED: Vancomycin Dose per Pharmacist XX ONE (04:00)
--- NOTE | 2016-08-24 04:03 | ABG ---
DateTimeAnalyzed 03:57:00 -_ pH ____7.353 - 7.350 7.450 pCO2 ___42.6__ -mmHg 35.0 45.0 pO2 100 -mmHg 69.0 116 HCO3- ___23.1__ -mmol/L 22.0 26.0 ABE ___-1.8__ -mmol/L -2.0 2.0 tHb ___10.3__ -g/dL O2Hb ___95.1__ -% COHb ____1.3__ -% MetHb ____1.2__ -% sO2 ___97.5__ -% 25.0 FIO2 ___50.0__ -% PEEP ____5.0__ -cmH2O Set_RR ___18.0__ -b/min Vt __560.0__ -L Drawn By LT - Date/Time Notified____ 04:03:00 -_ Spontaneous_RR ___20.0__ -b/min Notified By LT - Notified Whom _LEIBRAND - B 749 -mmHg tO2 ___13.9__ -Vol% Stiven test _Positive -
[2016-08-24 04:27] LABS: APPEARANCE,URINE SLIGHTLY CLOUDY (CLEAR,HAZY); COLOR,URINE YELLOW (YELLOW); PH,URINE 8.5 (5.0-8.0); UROBILINOGEN,URINE NORMAL (NORMAL)
[2016-08-24 04:28] LABS: OCCULT BLOOD,URINE SMALL (NEGATIVE)
[2016-08-24] MEDS ORDERED: fentaNYL-PF 50 mCg/mL 2 mL Inj IVPUSH ONE (04:50)
[2016-08-24] MEDS ORDERED: Alum-Mag Hydrox-Simeth 30 mL Suspension PO PRN (05:25)
[2016-08-24] MEDS ORDERED: Polyethylene Glycol (PEG) 17 Gm Powder PO PRN (05:25)
[2016-08-24] MEDS ORDERED: Ondansetron 2 mg/mL 2 mL Inj IVPUSH PRN (05:25)
[2016-08-24] MEDS ORDERED: Senna-Docusate 8.6-50 mg Tablet PO PRN (05:25)
[2016-08-24] MEDS: Norepineph 8,000 mCg/250 mL NS 8,000 MCG in IV Premix 1 EACH IV SCH ×6 (05:55→20:57)
--- NOTE | 2016-08-24 06:21 | PCM.EDPN ---
ED Note Date of Service Aug 24, 2016 The patient was seen and evaluated by Dr. Starks and will be admitted to the hospitalist. I completed the central line placement. ED Scribe Statement Portions of this note were transcribed by Vanessa De La Rosa. I, Dr. Valadez personally performed the history, physical exam and medical decision-making; I reviewed and confirmed the accuracy of the information in the transcribed note. Signed by: Vanessa De La Rosa, Migel, 08/23/2015 and 0700. Central Line Placement Time: 06:34 Procedure Performed by: ED physician Consent / Setup / Site Prep: No consent - emergent, Time-out performed, Oxygen administered, Pulse oximeter applied, groundwater monitoring technician applied, Hand hygiene observed, Standard surgical scrub, Max barrier precaution, Sterile drapes applied, Position Trendelenburg Skin Preparation Agent: Hibiclens - Chlorhexidine Procedural Sedation/Analgesia: Sedation: Versed Side / Location / Ultrasound: Internal jugular right, Ultrasound assisted Catheter / Lumen / Technique: Triple lumen, Seldinger technique, Good blood return, Secured w catheter device Post-Procedure / Complications: Antibiotic oint applied, Dressing placed, CXR neg for pneumothorax, Condition improved, Tolerated procedure well, Patient stable Lab Results Interpretation Result Diagram: 08/24/16 0330 08/24/16 0330 Test 08/24/16 03:30 08/24/16 04:10 08/24/16 04:25 White Blood Count 18.2th/mm3 (3.8-10.1) Red Blood Count 3.19mil/mm3 (4.40-5.80) Hemoglobin 9.8g/dL (13.8-17.2) Hematocrit 31.9% (41.0-50.0) Mean Corpuscular Volume 100.0fL (81-100) Mean Corpuscular Hemoglobin 30.7pg (27.0-35.0) Mean Corpuscular Hemoglobin Concent 30.7% (32.0-37.0) Red Cell Distribution Width 17.2% (12.3-15.4) Platelet Count 239bil/L (150-400) Neutrophils (%) (Auto) 89.4% (40-74) Lymphocytes (%) (Auto) 5.0% (14-46) Monocytes (%) (Auto) 4.4% (4-12) Eosinophils (%) (Auto) 0.4% (0-5) Basophils (%) (Auto) 0.1% (0-3) Sodium Level 141mEq/L (134-144) Potassium Level 4.5mEq/L (3.5-5.2) Chloride Level 101mEq/L (97-108) Carbon Dioxide Level 23mmol/L (18-29) Blood Urea Nitrogen 62mg/dL (8-27) Creatinine 2.98mg/dL (0.76-1.27) Estimat Glomerular Filtration Rate 22mL/min (>59) Glucose Level 83mg/dL (60-99) Calcium Level 8.7mg/dL (8.5-10.1) Total Bilirubin 0.6mg/dL (0.0-1.2) Aspartate Amino Transf (AST/SGOT) 21U/L (0-50) Alanine Aminotransferase (ALT/SGPT) 9U/L (0-44) Alkaline Phosphatase 93U/L (25-160) Troponin T 0.242ug/L (0.0-0.011) Total Protein 5.4g/dL (6.4-8.4) Albumin 2.7g/dL (3.4-5.0) Triglycerides Level 69mg/dL (0-149) Urine Color Yellow (YELLOW) Urine Appearance Slightly cloudy Urine pH 8.5 (5.0-8.0) Urine Specific [place]well 1.010 (1.003-1.035) Urine Protein 30mg/dL (NEG,TRACE) Urine Glucose (UA) Negativemg/dL (NEGATIVE) Urine Ketones Negativemg/dL (NEGATIVE) Urine Occult Blood Small (NEGATIVE) Urine Nitrite Positive (NEGATIVE) Urine Bilirubin Negative (NEGATIVE) Urine Urobilinogen Normalmg/dL (NORMAL) Urine Leukocyte Esterase Moderate (NEGATIVE) Urine RBC 3-10/hpf (0-2) Urine WBC 11-50/hpf (0-5) Urine Epithelial Cells Occasional/hpf (NONE-MOD) Urine Crystals Triple phosphate Urine Bacteria Many/hpf (NONE-FEW) Urine Hyaline Casts None/lpf (NONE) Urine Granular Casts None seen (NONE SEEN) Urine Waxy Casts None seen (NONE SEEN) Urine Red Blood Cell Casts None seen (NONE SEEN) Urine White Blood Cell Casts None seen (NONE SEEN) Urine Mucus None seen (None Seen) Urine Trichomonas None seen (NONE SEEN) Urine Yeast None (NONE SEEN) Urine Culture Reflexed Indicated Lactic Acid Level 2.3mmol/L (0.4-2.0) X-Ray Chest Interpretation Chest Xray Interpretation: The central line is appropriately placed View: Portable Interpretation / Wet Read by: Wet read ED physician Moise Valadez MD Aug 24, 2016 06:21 Vanessa De La Rosa Aug 24, 2016 06:41
[2016-08-24] MEDS ORDERED: Cisatracurium 2,000 mCg/mL 10 mL Inj ONE (06:41)
[2016-08-24] MEDS ORDERED: Propofol 10,000 mCg/mL 20 mL Inj ONE (06:41)
--- NOTE | 2016-08-24 06:54 | DRSVH ---
PROCEDURE: CT BRAIN WITHOUT CONTRAST ([id number]) INDICATIONS: 70 year-old intubated male found down. TECHNIQUE: Noncontrast 4.5 mm thick angled axial sections acquired from the foramen magnum to the vertex, with c oronal reformats. COMPARISON: [facility], CT, CT BRAIN WO CON, 07/24/2016, 6:56. [facility], C T, CT BRAIN WO CON, 07/04/2016, 13:26. [facility], CT, CT BRAIN WO CON, 10/18/2015, 16:30 . FINDINGS: Preliminary interpretation rendered by [facility]. Image quality: Excellent. CSF spaces: Basal cisterns are patent. No extra-axial fluid collections. Ventricles are normal in size and shape. Brain: No midline shift. No intracranial masses or hemorrhage. There is moderate periventricular an d deep white matter chronic small vessel ischemic change. Nonacute posterior right cerebellar hemisph ere infarct is again noted. There is intracranial internal carotid artery atherosclerosis. Skull and face: Calvarium and visualized facial bones are intact, without suspicious lesions. There is left frontal scalp lobular soft tissue mass, decreased in size since September 2015. Sinuses: Visualized sinuses and mastoids are clear. IMPRESSION: 1. No acute intracranial abnormalities. Moderate periventricular and deep white matter chronic small vessel ischemic change. 2. 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 3. Left frontal scalp soft tissue mass is of uncertain etiology, smaller since September 2015. Dictated by: Farzad Sanchez M.D. on 08/24/2016 at 6:46 Approved by: Farzad Sanchez M.D. on 08/24/2016 at 6:53
--- NOTE | 2016-08-24 07:36 | DRSVH ---
PROCEDURE: CT CHEST, ABDOMEN AND PELVIS WITHOUT CONTRAST ([id number]) INDICATIONS: 70 year-old male with hypotension and respiratory arrest. TECHNIQUE: After the administration of oral contrast, 5 mm thick sections acquired from the lung apices to the s ymphysis pubis. 5 mm thick coronal and sagittal reformats acquired, with additional 7 mm coronal MIP reformats through the lungs. For radiation dose reduction, the following was used: automated expos ure control, adjustment of mA and/or kV according to patient size. COMPARISON: [facility], CT, CT KUB, 04/19/2016, 16:40. [facility], CT, CT K UB, 02/18/2016, 2:53. FINDINGS: [facility] interpretation [facility]. Image quality: Metallic streak artifact from bilateral hip arthroplasty hardware obscures adjacent neal ny and soft tissue structures. CHEST: Lungs and pleura: There is asymmetric airspace opacity involving the superior segment of the left low er lobe. There is minimal dependent right lung base atelectasis. No pleural effusions or pneumothora x. Central and peripheral airways are patent are normal in caliber. Endotracheal tube is in expecte d position. Mediastinum: There is mild cardiomegaly, along with widespread coronary artery atherosclerosis. No p ericardial effusion. No mediastinal adenopathy by CT size criteria. Thoracic aorta and central pulm onary arteries are normal in size. Esophagus is normal in caliber. No hiatal hernia. Nasogastric tu be is in expected position. Chest wall: No axillary or supraclavicular adenopathy by size criteria. Thyroid gland is normal in size. ABDOMEN: Solid organs: Liver and spleen are normal in size. Gallbladder is surgically absent. Pancreas is n ormal in contours. No adrenal nodules. Right iliac fossa renal transplant is normal in noncontrast appearance. Both cantwell kidneys are severely atrophic, without hydronephrosis or nephrolithiasis. Peritoneum and bowel: Small and large bowel loops are normal in caliber and wall thickness. There i s ascending, descending and sigmoid colon diverticulosis, with localized inflammatory fat stranding a round the proximal sigmoid colon on axial image 82. There is nearby small extraluminal air, without f luid collections to suggest abscess. Nodes and vessels: No retroperitoneal or mesenteric adenopathy by size criteria. Aorta and inferior vena cava are normal in size, with widespread aortoiliac atherosclerosis. Miscellaneous: No ventral hernias. PELVIS: Genitourinary: The bladder is largely obscured by metallic streak artifact, as well as the distal ure ters and prostate gland. Richey catheter is present. Miscellaneous: No inguinal hernias or adenopathy. Bones: No suspicious bony lesions. No vertebral body compression fractures. There is lumbar and th oracic spine disc degeneration. IMPRESSION: 1. Asymmetric opacity involves the superior segment of the left lower lobe, suspicious for aspiration or early pneumonia. 2. Findings consistent with proximal sigmoid colon diverticulitis, with microperforation. No findings to suggest associated abscess. 3. Status post renal transplant, with atrophic cantwell kidneys. No significant discrepancy with preliminary [facility] report. Dictated by: Farzad Sanchez M.D. on 08/24/2016 at 6:53 Approved by: Farzad Sanchez M.D. on 08/24/2016 at 7:34
[2016-08-24] MEDS ORDERED: 0.9% Sodium Chloride 1,000 ML IV SCH (07:45)
[2016-08-24] MEDS ORDERED: Vancomycin Dose per Pharmacist XX SCH (08:30)
--- NOTE | 2016-08-24 08:33 | DRSVH ---
PROCEDURE: X-RAY CHEST ONE VIEW, PORTABLE ([id number]) INDICATIONS: 70 year-old male with cardiac arrest. TECHNIQUE: One view of the chest was acquired. COMPARISON: [facility], CR, XR CHEST 1VW (PORTABLE), 07/26/2016, 10:30. [facility], CR, XR CHEST 1VW (PORTABLE), 07/24/2016, 6:58. [facility], CR, XR CHEST 1VW (PORT ABLE), 07/08/2016, 10:42. FINDINGS: Surgical changes and devices: New endotracheal tube, esophagogastric tube, and cutaneous pacer pads a re present. Cholecystectomy clips are again noted. Lungs and pleura: No pleural effusions or pneumothorax. Lungs are clear. Mediastinum: Mediastinal contours appear normal. Heart size is normal. There is aortic atheroscler osis. Bones and chest wall: No suspicious bony lesions. There is superior left humeral head migration wit h narrowed acromiohumeral interval as before. Overlying soft tissues appear unremarkable. IMPRESSION: 1. No acute cardiopulmonary disease. Endotracheal tube and esophagogastric tube are in expected posit ions. 2. Left shoulder rotator cuff arthropathy again noted. Dictated by: Farzad Sanchez M.D. on 08/24/2016 at 8:30 Approved by: Farzad Sanchez M.D. on 08/24/2016 at 8:31
--- NOTE | 2016-08-24 08:38 | DRSVH ---
PROCEDURE: X-RAY CHEST ONE VIEW, PORTABLE ([id number]) INDICATIONS: 70-year-old male with central line placement. TECHNIQUE: One view of the chest was acquired. COMPARISON: [facility], CR, XR CHEST 1VW (PORTABLE), 08/24/2016, 3:29. [facility], CR, XR CHEST 1VW (PORTABLE), 07/26/2016, 10:30. [facility], CR, XR CHEST 1VW (PORT ABLE), 07/24/2016, 6:58. FINDINGS: Surgical changes and devices: New right internal jugular central venous catheter is present, with tip in the mid superior vena cava. Endotracheal tube, esophagogastric tube, and cutaneous pacer pads are again noted. Lungs and pleura: No pleural effusions or pneumothorax. Lungs are clear. Mediastinum: Mediastinal contours appear normal. Heart size is normal. Bones and chest wall: No suspicious bony lesions. Overlying soft tissues appear unremarkable. There is superior left humeral head migration with narrowed acromiohumeral interval as before. IMPRESSION: 1. New right internal jugular central venous catheter is in expected position. No pneumothorax. 2. Endotracheal tube and esophagogastric tube remain in expected positions. Dictated by: Farzad Sanchez M.D. on 08/24/2016 at 8:35 Approved by: Farzad Sanchez M.D. on 08/24/2016 at 8:36
[2016-08-24 08:39] LABS: Mean Corpuscular Volume 100.6 fL (81-100)
[2016-08-24] MEDS: Propofol Inj 1,000,000 MCG in IV Premix 1 EACH IV SCH ×3 (08:44→20:57)
[2016-08-24] MEDS: fentaNYL 2,500 mCg/250 mL 2,500 MCG in IV Premix 1 EACH IV PRN (08:45)
[2016-08-24] MEDS: Chlorhexidine 0.12% 15 mL Oral Solution MT SCH ×4 (08:54→21:02)
[2016-08-24] MEDS ORDERED: Cefepime Inj 2 GM in IV Premix 1 EACH IV SCH ×2 (09:12→09:41)
[2016-08-24] MEDS: Vasopressin Inj 20 UNIT in 0.9% Sodium Chloride 100 ML IV SCH ×3 (10:19→22:29)
[2016-08-24] MEDS: Lactated Ringer's 1,000 ML IV SCH ×3 (10:19→22:29)
[2016-08-24] MEDS: 0.9% Sodium Chloride 1,000 ML IV SCH ×8 (10:19→23:39)
[2016-08-24] MEDS ORDERED: Lactated Ringer's 1,000 ML IV PRN (10:19)
[2016-08-24] MEDS ORDERED: DOBUTamine 500 mg/250 D5W 500,000 MCG in IV Premix 1 EACH IV PRN (10:19)
[2016-08-24] MEDS ORDERED: Acetaminophen IV 1,000 MG in IV Premix 1 EACH IV PRN (10:20)
[2016-08-24] MEDS: Vancomycin 100 mg/mL Oral Solution TUBE SCH ×2 (10:43→14:54)
[2016-08-24] MEDS ORDERED: 0.9% Sodium Chloride 500 ML ONE (10:45)
--- NOTE | 2016-08-24 11:17 | ABG ---
DateTimeAnalyzed 11:11:00 -_ pH ____7.416 - pCO2 ___31.8__ -mmHg pO2 ___34.8__ -mmHg HCO3- ___20.0__ -mmol/L ABE ___-3.4__ -mmol/L tHb ____9.2__ -g/dL O2Hb ___68.1__ -% COHb ____1.1__ -% MetHb ____1.1__ -% sO2 ___69.6__ -% FIO2 ___40.0__ -% PEEP ____5.0__ -cmH2O Set_RR ___18.0__ -b/min Vt __510.0__ -L Drawn By MT - Date/Time Notified____ 11:16:00 -_ Oxygen Device 1 VENTILATOR - Notified By MT - Notified Whom Dr Willy - B 748 -mmHg tO2 ____8.8__ -Vol%
--- NOTE | 2016-08-24 11:30 | ABG ---
DateTimeAnalyzed 11:24:00 -_ pH ____7.460 - 7.350 7.450 pCO2 ___27.3__ -mmHg 35.0 45.0 pO2 ___60.3__ -mmHg 69.0 116 HCO3- ___19.2__ -mmol/L 22.0 26.0 ABE ___-3.4__ -mmol/L -2.0 2.0 tHb ____9.3__ -g/dL O2Hb ___91.1__ -% COHb ____1.2__ -% MetHb ____1.2__ -% sO2 ___93.3__ -% 25.0 FIO2 ___40.0__ -% PEEP ____5.0__ -cmH2O Set_RR ___18.0__ -b/min Vt __510.0__ -L Drawn By MT - Date/Time Notified____ 11:30:00 -_ Oxygen Device 1 VENTILATOR - Notified By MT - Notified Whom ___Dr. Willy - B 748 -mmHg tO2 ___11.9__ -Vol%
[2016-08-24 12:46] LABS: Phosphorus 3.7 mg/dL (2.5-4.9)
[2016-08-24] MEDS ORDERED: Tigecycline Inj 100 MG in 0.9% Sodium Chloride 100 ML IV ONE (14:05)
[2016-08-24] MEDS: metroNIDAZOLE Inj 500 MG in IV Premix 1 EACH IV SCH (14:17)
--- NOTE | 2016-08-24 14:21 | PCM.HPMED ---
Subjective Date of Service Aug 24, 2016 Primary Provider: Admitting Physician: Aidee Holden DO Primary Care Physician: Kobe Tom MD Attending Physician: Aidee Holden DO Admit Status: From the Emergency Department, Full Admit, Admit to Yellow Team, Critical Care Chief Complaint: Altered mental status, possible respiratory failure with field intubation. Sepsis. History of Present Illness: History is not available. This patient was at [facility]. Called because of confusion. There they found him to have evidence of probable acute hypercarbic respiratory failure and intubated him. The patient is brought to the emergency department where he is found to have evidence of sepsis with profound hypotension. He has a recent hospitalization for C. difficile toxin colitis. There is no clear report of recurrent diarrhea or abdominal pain. He also has a history of MRSA. He also had a positive flu a July 26 of this year. The patient recently met with palliative care and did outline a full resuscitation. We will care and signed a post. The patient also has a history of a renal transplant and is on chronic prednisone and cyclosporine. There was evidence of acute kidney injury as well today. The patient is intubated therefore review systems and subjective are not obtainable. Review of Systems: Not obtainable Allergies Coded Allergies: iodine (Unverified Allergy, Severe, purple blistering, 07/24/16) povidone (Unverified Allergy, Severe, purple blistering, 07/24/16) Home Medications Allopurinol (Allopurinol) 100 Mg Tablet 200 MG PO QAM Aspirin (Aspirin) 81 Mg Tablet 81 MG PO HS Calcitriol (Rocaltrol) 0.25 Mcg Capsule 0.25 MCG PO QAM Cholecalciferol (Vitamin D3) (Vitamin D) 50,000 Unit Capsule 50,000 UNIT PO monthly Cyclosporine, Modified (Gengraf) 25 Mg Cap 50 MG PO BID Enalapril Maleate (Enalapril Maleate) 5 Mg Tablet 2.5 MG PO DAILY Furosemide (Furosemide) 20 Mg Tab 10 MG PO DAILY Gabapentin (Gabapentin) 100 Mg Capsule 100 MG PO BID Magnesium Oxide/Mag Aa Chelate (ld-Yhdy-Aslunyw Tablet) 133 Mg Tablet 133 MG PO TID Metoprolol Tartrate (Metoprolol Tartrate) 25 Mg Tablet 50 MG PO BID Multivitamin (Once Daily) 1 Each Tablet 1 EACH PO HS Mycophenolate Mofetil (Mycophenolate Mofetil) 250 Mg Capsule 750 MG PO BID Nortriptyline (Nortriptyline) 10 Mg Capsule 10 MG PO BID Omeprazole (Omeprazole) 20 Mg Capsule.dr 20 MG PO HS Pravastatin (Pravachol) 40 Mg Tablet 40 MG PO HS PredniSONE (PredniSONE) 1 Mg Tab 3 MG PO QAM Prednisone (PredniSONE) 5 Mg Tab 5 MG PO QAM PMH 1. Recent C. difficile toxin colitis, 2. Recent influenza A. 3. Recent. Transient encephalopathy. 4.. Recent Urinary retention, resolved. 5. Recent Acute kidney injury in context of chronic kidney disease stage III. 6. Recent Possible healthcare associated pneumonia, with reactive airways. 7. Remote Renal transplant. 8. Paroxysmal Atrial fibrillation with rapid ventricular response, better rate control. Resolved. 9. Nasal swab positive for MRSA. Surgical History Kidney transplant Family History Not obtainable Social History Occupation: None Hx Alcohol Use: Yes Hx Substance Use: No Hx Tobacco Use: Yes Smoking Status: Current Every Day Smoker Exam Vital Signs Vital Sign - Last Date Time Temp Pulse Resp B/P Pulse Ox O2 Delivery O2 Flow Rate FiO2 08/24/16 12:30 36.6 115 18 130/74 92 Mechanical Ventilator 40 Intake and Output 08/23/16 08/23/16 08/24/16 Cumulative From/Thru 15:00 23:00 07:00 08/24/16 04:11 - 08/24/16 05:45 Intake Total 1000 ml 1000 ml Balance 1000 ml 1000 ml Intake IV Total 1000 ml 1000 ml Exam Patient is intubated. He is sedated. No spontaneous movements. Normal scale with a large skin mass in the left aspect of the scalp. Pupils Oropharynx no droop Neck is supple normal thyroid no adenopathy Lungs is being actively ventilated no adventitious sounds or wheezing. Heart is regular without murmur gallop or rub Abdomen is nondistended nontender not rigid. Extremities with 1+ edema good pedal pulses. Past history of rash or lesions, muscles with normal tone Joints appear normal no obvious deformity or swelling. Lab and Diagnostics Labs Lactic acid 2.3, glucose 141 and creatinine 2.93 Result Diagram: 08/24/1680408/24/16804 X-Rays, CTs and MRIs Initial chest x-ray is unremarkable. 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 Asymmetric opacity involves the superior segment of the left lower lobe, suspicious for aspiration or early pneumonia. 2. Findings consistent with proximal sigmoid colon diverticulitis, with microperforation. No findings to suggest associated abscess. 3. Status post renal transplant, with atrophic rosebud kidneys. No significant discrepancy with preliminary [facility] report. Additional Diagnostics: DateTimeAnalyzed 03:57:00 -_ pH ____7.353 - 7.350 7.450 pCO2 ___42.6__ -mmHg 35.0 45.0 pO2 100 -mmHg 69.0 116 HCO3- ___23.1__ -mmol/L 22.0 26.0 ABE ___-1.8__ -mmol/L -2.0 2.0 tHb ___10.3__ -g/dL O2Hb ___95.1__ -% COHb ____1.3__ -% MetHb ____1.2__ -% sO2 ___97.5__ -% 25.0 FIO2 ___50.0__ -% PEEP ____5.0__ -cmH2O Set_RR ___18.0__ -b/min Vt __560.0__ -L Drawn By LT - Date/Time Notified____ 04:03:00 -_ Spontaneous_RR ___20.0__ -b/min Notified By LT - Notified Whom _LEIBRAND - B 749 -mmHg tO2 ___13.9__ -Vol% Stiven test _Positive - Assessment & Plan 1. Acute hypoxic respiratory failure, by mouth 8. Intubated in field. The patient will be sedated with fentanyl and propofol today and on the ventilator. 2. Septic shock, POA. We will continue empiric antibiotics. We will cover for C. difficile toxin colitis with vancomycin by mouth per PEG, IV metronidazole and cefepime. We will also cover the possibility of an MRSA infection with 1 dose of vancomycin and do a nares swab. The CT scan indicates possible diverticulitis and have discussed this with pulmonary critical care. We will consult general surgery for their input as well. There was evidence of microperforation. 3. Acute renal failure. POA. Chronic kidney disease stage III. Patient has a history of renal transplant. Fluid resuscitation and pressors to maintain maintain map of greater than 65 the patient will escalate from norepinephrine to norepinephrine plus vasopressin shortly after arrival to the ICU. We will hold cyclosporine today and escalate chronic prednisone to stress dose steroids. 4. Probable adrenal insufficiency, POA. Stress dose steroids, hydrocortisone 100 mg every 8 hours. 5. Renal transplant, POA. 6. Previous C. difficile toxin colitis infection. Management is as above. PCR for C. difficile toxin. DVT prophylaxis will be provided as well GI prophylaxis. He will be placed on the sepsis order set He is full resuscitation Assessment length of stay is over 2 nights. Pain Evaluation: Adequate Pain Control VTE Mechanical Devices: Intermittant Pneumatic CD Resuscitation Status: CPR: Attempt Resuscitation Time spent 69 Stiven Aguilera MD Aug 24, 2016 14:21
--- NOTE | 2016-08-24 14:37 | NUR ---
P: Respiratory Status I: Pt from ED intubated. Norepinephrine 0.4mcqs/kg/min. nurses report indicated 1800cc of NS bolus given. ST. NS 3Liters given now. LR 150cc/hr. OGT to LCS and draining light green fluid. No BM. Small smear on pad when he first arrived from ED. SCD's on. Norepinephrine 0.5mcqs/kg/min. Vasopressin 0.03 units. Fentanyl 25mcqs/hr and propofol 30 mcqs/kg/min. RIJ TLC patent and infusing well. Richey patent and draining minimal urine output. Blood cultures and nasal swabs sent. + flu A. Turned Q 2 hours. Family here and updated on pt's plan of care and condition. Family meeting with Dr. De La Rosa to discuss surgery. E:Stable S:Restraints on for pt safety. Frequent rounding.
[2016-08-24] MEDS: Hydrocortisone 50 mg/mL 2 mL Inj IVPUSH SCH (14:53)
[2016-08-24] MEDS ORDERED: SODIUM CHLORIDE 0.9% IV ONE (15:15)
[2016-08-24] MEDS ORDERED: PERAMIVIR IV ONE (15:15)
--- NOTE | 2016-08-24 15:50 | NUR ---
Report given to Maria De Jesus in OR. Norepinephrine remains at 0.5mcqs/kg/min. Vasopressin 0.03units/min. Propofol 30 mcqs/kg/min and fentanyl 25mcqs/hr. Family at bedside. Surgical consent signed after Dr. De La Rosa discussed surgery with the pt's sister. OGT clamped. SCD's on. Richey patent. LR 150cc/hr. Afebrile.
[2016-08-24] MEDS ORDERED: Piperacillin-Tazo 3.375 Gm Inj 3.375 GM in Dextrose 5% Minibag Plus 50 ML IV SCH (16:00)
--- NOTE | 2016-08-24 16:10 | PCM.HPANE ---
Patient Data Surgeon Admitting Provider:Aidee Holden DO Attending Provider:Aidee Holden DO Primary Care Physician:Kobe Tom MD Other Provider: Reason for Visit Diverticulitis,Pneumonia,Uti Ht/WT & BMI Height (Feet): 5 Height (Inches): 10.00 Weight (Kilograms): 78.500 Body Mass Index 24.78 Allergies Coded Allergies: iodine (Unverified Allergy, Severe, purple blistering, 07/24/16) povidone (Unverified Allergy, Severe, purple blistering, 07/24/16) Past Anesthesia History Anesthesia History: Denies:: Anesthesia Reactions Diabetes History Hx Diabetes?: No MRSA MRSA: Yes Medications Active Scripts Metoprolol Tartrate 25 Mg Cgknjk40 Mg PO BID #60 TABLET Prov:Luis Eduardo Cisse MD 08/02/16 Enalapril Maleate 5 Mg Tablet2.5 Mg PO DAILY 30 Days Prov:Tahir Joe 02/26/16 Reported Medications Cholecalciferol (Vitamin D3) (Vitamin D)50,000 Unit Fqlvnuf54,000 Unit PO monthly 07/24/16 Furosemide 20 Mg Tab10 Mg PO DAILY #45 10/18/15 Aspirin 81 Mg Cgtowo85 Mg PO HS Ref 0 10/18/15 Multivitamin (Once Daily)1 Each Tablet1 Each PO HS 10/18/15 Omeprazole 20 Mg Capsule.dr20 Mg PO HS #180 10/18/15 Gabapentin 100 Mg Wuyobxg208 Mg PO BID #180 10/18/15 Pravastatin (Pravachol)40 Mg Hrhfly94 Mg PO HS #90 10/18/15 Calcitriol (Rocaltrol)0.25 Mcg Capsule0.25 Mcg PO QAM #90 10/18/15 Magnesium Oxide/Mag Aa Chelate (qc-Jjfx-Apijpwe Tablet)133 Mg Itusyu054 Mg PO TID #270 10/18/15 Nortriptyline 10 Mg Vtwuook40 Mg PO BID #180 10/18/15 Cyclosporine, Modified (Gengraf)25 Mg Cap50 Mg PO BID #120 10/18/15 Mycophenolate Mofetil 250 Mg Kcnktzn298 Mg PO BID #180 10/18/15 Prednisone (PredniSONE)5 Mg Tab5 Mg PO QAM #30 10/18/15 PredniSONE 1 Mg Tab3 Mg PO QAM #90 10/18/15 Allopurinol 100 Mg Fkkbly188 Mg PO QAM #180 10/18/15 History History of ENT Problems?: Yes HEENT History: Positive for:: Cataracts (lens replaced) Denies:: Dysphagia Sinus Problem Hx of Heart Problems?: Yes Cardiovascular History: Positive for:: Atrial Fibrillation (rate controlled) Hypertension Irregular Heartbeat ("skips a beat once in a while") Denies:: Cardiac Surgery Chest Pain Congestive Heart Failure Edema Heart Murmur Pacemaker Thrombophlebitis Other Cardiac History: Pt intubated at this time Septic shock on pressors Hx of Respiratory Problem?: Yes Respiratory History: Positive for:: Dyspnea Denies:: Asthma COPD Chest Surgery Emphysema Hemoptysis Pneumonia Tuberculosis Other Resp Pertinent History: Pt intubated at this time possible early aspiration pneumonitis Hx Neurologic Problems?: Yes Neurological History: Positive for:: Headaches Denies:: Alzheimer's Disease CVA Dementia Dizziness Parkinson's Disease Seizures Other Neurological Pertinent: Pt intubated at this time. No family available Hx of GI Problems?: Yes Gastrointestinal History: Positive for:: Gastroesphageal Reflux Heartburn Denies:: Diverticulitis Gastrointestinal Bleeding Hepatitis Hiatal Hernia Rectal Bleeding Other GI Pertinent History: Diverticulitis with possible microperforation. C. diff colitis Hx of Problems?: Yes Genitourinary History: Positive for:: HX of Hemodialysis (secondary to renal cancer and transplantation) Urinary Tract Infection Denies:: Kidney Stones HX of Peritoneal Dialysis: No Other Pertinent History: Pt intubated at this time Male Hx: Denies:: Prostate Problems Scrotal Mass Testicular Surgery Hx Musculoskeletal Problems?: Yes Musculoskeletal History: Positive for:: Back Injury ("four bad discs") Joint Replacement (bilateral hips) Denies:: Musculoskeletal Trauma Hx of Psycho/Social Problems?: No Psycho Social History: Positive for:: Anxiety Hx Depression Denies:: Bipolar Disorder Suicide Attempt Other Psych Pertinent History: Pt intubated Hx Surgeries?: Yes (joint replacements, kidney transplants) Hx Any Other Health Problems?: Yes Other History: Positive for:: Cancer (renal cancer, skin cancer) Hospitalization (joint replacements, kidney transplants) Denies:: Thyroid Disease History Blood Transfusions: Positive for:: Accept Blood Products? Blood Transfusions Denies:: Blood Transfuse Reaction Hx Diabetes: No Other Pertinent History: Pt intubated at this time. no family with pt. Occupation: None Hx Alcohol Use: YesHx Substance Use: No Smoking Status: Current Every Day Smoker Have You Smoked inLast 12 mo: Yes Stop/Bang Treated for Sleep Apnea?: No (Unable to assess at this time. Intubated.no family) Risk Assessment Category Category 1A: Patient has history of documented sleep apnea, and HAS NOT received any narcotic, sedative or anesthesia administration during this stay. Category 1B: Patient has history of documented sleep apnea, and HAS received any narcotic , sedative or anesthesia administration during this stay Category 2: Patient has SUSPECTED Obstructive Sleep Apnea, and HAS received any narcotic , sedative or anesthesia administration during this stay. Category 3: Patient has SUSPECTED Obstructive Sleep Apnea and HAS NOT received narcotic, sedative or anesthesia administration during this stay. Category 4: Outpatient in Procedural Areas with known sleep apnea or who screen positive for High Risk via the STOP/BANG questionnaire. Exam Exam Vital Signs Vital Signs Date Time Temp Pulse Resp B/P Pulse Ox O2 Delivery O2 Flow Rate FiO2 08/24/16 15:25 119 144/70 50 08/24/16 12:30 36.6 115 18 130/74 92 Mechanical Ventilator 40 08/24/16 12:12 50 08/24/16 11:32 112 96 40 08/24/16 08:30 37.1 114 18 138/78 98 Mechanical Ventilator 40 08/24/16 08:30 Ventilator 08/24/16 08:23 119 96 40 General Appearance: Other (intubated on vent) HEENT/AIRWAY: Other (intubated) Lungs: Clear to Auscultation, Normal Air Movement Heart: Exam Unremarkable, Regular Rate/Rhythm, No Murmurs/Rubs/Gallops Additional Information intubated and sedated on vent. Meds/Labs/Diagnostics Admission Meds Current Medications Midazolam HCl 2 mg 2 mg STK-MED ONCE .ROUTE Last administered on 08/24/16 03:05 ; Start 08/24/16 at 03:05; Stop 08/24/16 at 03:07; Status DC Sodium Chloride (Normal Saline) 1,000 ml @ 0 mls/hr Q0M ONCE IV Last administered on 08/24/16 03:00; Start 08/24/16 at 03:06; Stop 08/24/16 at 03:09; Status DC Norepinephrine 8000 mcg 8,000 mcg STK-MED ONCE IV Last administered on 03:10; Start 08/24/16 at 03:10; Stop 08/24/16 at 03:13; Status DC Sodium Chloride (Normal Saline) 1,000 ml @ 0 mls/hr Q0M ONCE IV Last administered on 08/24/16 04:25; Start 08/24/16 at 03:59; Stop 08/24/16 at 04:04; Status DC Pharmacy Consult 1 ea 1 ea ONCE ONCE XX Last administered on 08/24/16 05:33; Start 08/24/16 at 04:00; Stop 08/24/16 at 04:28; Status DC Levofloxacin/ Dextrose 750 mg/ Premix 150 ml @ 150 mls/hr ONCE ONCE IV Last administered on 08/24/16 06:19; Start 08/24/16 at 04:00; Stop 08/24/16 at 04:59; Status DC Piperacillin Sod/ Tazobactam Sod 3.375 gm/Dextrose/ Water 50 ml @ 150 mls/hr ONCE ONCE IV Last administered on 08/24/16 04:45; Start 08/24/16 at 04:00; Stop 08/24/16 at 04:19; Status DC Vancomycin HCl/ Dextrose/Water (Vancocin Inj/ D5W) 500 ml @ 250 mls/hr ONCE ONCE IV Last administered on 08/24/16 05:10; Start 08/24/16 at 04:30; Stop at 06:29; Status DC Fentanyl Citrate (Sublimaze Inj) 25 mcg ONCE ONCE IVPUSH Last administered on 08/24/16 06:19; Start 08/24/16 at 04:50; Stop 08/24/16 at 04:51; Status DC Chlorhexidine Gluconate 5 ml 5 ml Q4 MT Last administered on 08/24/16 13:00; Start 08/24/16 at 08:30 Propofol 2806033 mcg/Premix 100 ml @ 2.79 mls/hr Q24H IV Last administered on 08/24/16 13:10; Start 08/24/16 at 05:25 Norepinephrine 8000 mcg/Premix 250 ml @ 8.71 mls/hr Q24H IV Last administered on 08/24/16 14:54; Start 08/24/16 at 05:42 Norepinephrine/ Premix (Norepineph 8,000 mCg/250 mL NS/IV Premix) 250 ml @ 8.71 mls/hr Q24H IV Last administered on 08/24/16 08:59; Start 08/24/16 at 05:55 Norepinephrine (Norepineph 8,000 mCg/250 mL NS) 8,000 mcg STK-MED ONCE IV Last administered on 08/24/16 06:21; Start 08/24/16 at 05:54; Stop 08/24/16 at 05:56; Status DC Pharmacy Consult (Pharmacist Managed Vancomcyin) 1 ea DAILY XX Last administered on 08/24/16 08:30; Start 08/24/16 at 08:30; Stop 08/24/16 at 14:03; Status DC Vancomycin HCl 125 mg 125 mg Q6 TUBE Last administered on 08/24/16 14:54; Start 08/24/16 at 09:14 Sodium Chloride 1,000 ml @ 150 mls/hr Q6H40M IV Last administered on 08/24/16 08:44; Start 08/24/16 at 07:45; Stop 08/24/16 at 12:06; Status DC Cefepime HCl 2 gm/ Premix 50 ml @ 12.5 mls/hr Q24 IV Last administered on 10:43; Start 08/24/16 at 09:41; Stop 08/24/16 at 14:03; Status DC Sodium Chloride 1,000 ml @ 500 mls/hr Q2H IV Last administered on 08/24/16 12: 55; Start 08/24/16 at 10:19; Stop 08/24/16 at 20:18 Sodium Chloride 1,000 ml @ 150 mls/hr Q6H40M IV Last administered on 08/24/16 13:10; Start 08/24/16 at 10:19 Lactated Ringer's 1,000 ml @ 150 mls/hr Q6H40M IV Last administered on 14:58; Start 08/24/16 at 10:19 Vasopressin 20 unit/Sodium Chloride 101 ml @ 9.09 mls/hr Q11H7M IV Last administered on 08/24/16 12:12; Start 08/24/16 at 10:19 Sodium Chloride 500 ml @ ud STK-MED ONCE .ROUTE Last administered on 08/24/16 11:14; Start 08/24/16 at 10:45; Stop 08/24/16 at 10:48; Status DC Metronidazole/ Sodium Chloride/ Premix (Flagyl Inj/IV Premix) 100 ml @ 200 mls/ hr Q12H IV Last administered on 08/24/16 14:17; Start 08/24/16 at 12:30 Hydrocortisone Sodium Succinate 100 mg 100 mg Q8 IVPUSH Last administered on 14:53; Start 08/24/16 at 16:30 Sodium Chloride 1,000 ml @ 0 mls/hr Q0M ONCE IV Last administered on 08/24/16 13:49; Start 08/24/16 at 13:30; Stop 08/24/16 at 13:31; Status DC Tigecycline/ Sodium Chloride (Tygacil Inj/ Normal Saline) 110 ml @ 220 mls/hr ONCE ONCE IV Last administered on 08/24/16 14:53; Start 08/24/16 at 14:05; Stop 08/24/16 at 14:34; Status DC Labs Test 08/24/16 03:30 08/24/16 04:10 08/24/16 08:05 08/24/16 14:01 Neutrophils (%) (Auto) 89.4% (40-74) Lymphocytes (%) (Auto) 5.0% (14-46) Monocytes (%) (Auto) 4.4% (4-12) Eosinophils (%) (Auto) 0.4% (0-5) Basophils (%) (Auto) 0.1% (0-3) Triglycerides Level 69mg/dL (0-149) Urine Color Yellow (YELLOW) Urine Appearance Slightly cloudy Urine pH 8.5 (5.0-8.0) Urine Specific [place] 1.010 (1.003-1.035) Urine Protein 30mg/dL (NEG,TRACE) Urine Glucose (UA) Negativemg/dL (NEGATIVE) Urine Ketones Negativemg/dL (NEGATIVE) Urine Occult Blood Small (NEGATIVE) Urine Nitrite Positive (NEGATIVE) Urine Bilirubin Negative (NEGATIVE) Urine Urobilinogen Normalmg/dL (NORMAL) Urine Leukocyte Esterase Moderate (NEGATIVE) Urine RBC 3-10/hpf (0-2) Urine WBC 11-50/hpf (0-5) Urine Epithelial Cells Occasional/hpf (NONE-MOD) Urine Crystals Triple phosphate Urine Bacteria Many/hpf (NONE-FEW) Urine Hyaline Casts None/lpf (NONE) Urine Granular Casts None seen (NONE SEEN) Urine Waxy Casts None seen (NONE SEEN) Urine Red Blood Cell Casts None seen (NONE SEEN) Urine White Blood Cell Casts None seen (NONE SEEN) Urine Mucus None seen (None Seen) Urine Trichomonas None seen (NONE SEEN) Urine Yeast None (NONE SEEN) Urine Culture Reflexed Indicated White Blood Count 19.1th/mm3 (3.8-10.1) Red Blood Count 3.23mil/mm3 (4.40-5.80) Hemoglobin 9.7g/dL (13.8-17.2) Hematocrit 32.5% (41.0-50.0) Mean Corpuscular Volume 100.6fL (81-100) Mean Corpuscular Hemoglobin 30.0pg (27.0-35.0) Mean Corpuscular Hemoglobin Concent 29.8% (32.0-37.0) Red Cell Distribution Width 17.3% (12.3-15.4) Platelet Count 247bil/L (150-400) Sodium Level 141mEq/L (134-144) Potassium Level 4.6mEq/L (3.5-5.2) Chloride Level 104mEq/L (97-108) Carbon Dioxide Level 20mmol/L (18-29) Blood Urea Nitrogen 60mg/dL (8-27) Creatinine 2.93mg/dL (0.76-1.27) Estimat Glomerular Filtration Rate 23mL/min (>59) Glucose Level 141mg/dL (60-99) Calcium Level 7.7mg/dL (8.5-10.1) Phosphorus Level 3.7mg/dL (2.5-4.9) Total Bilirubin 0.6mg/dL (0.0-1.2) Aspartate Amino Transf (AST/SGOT) 25U/L (0-50) Alanine Aminotransferase (ALT/SGPT) 14U/L (0-44) Alkaline Phosphatase 104U/L (25-160) Troponin T 0.296ug/L (0.0-0.011) Total Protein 4.6g/dL (6.4-8.4) Albumin 2.7g/dL (3.4-5.0) Prealbumin 21mg/dL (20-40) Lipase 18U/L (13-60) Procalcitonin 16.15ng/mL (0.00-0.08) Lactic Acid Level 2.6mmol/L (0.4-2.0) Plan Impression Patient chart reviewed, patient interviewed and anesthestic plan with risks, benefits, and alternatives discussed, and informed consent obtained. ASA Physical Status: ASA4 Plus Emergency Anesthetic Support Modalities: Arterial Line Anesthetic Plan: GA Bene/Risks/Altern/Consents: Yes HP Complete Prior to Induction: Yes Other Critically ill patient found down at [facility] with septic shock from possible c. diff colitis vs. diverticulits with perforation. ON multiple pressors intubated and sedated on vent. Patient has a central line but no a- line at present. Javi Overton MD Aug 24, 2016 16:09
[2016-08-24] MEDS: Heparin 5,000 Unit/mL Inj SUBQ SCH (16:30)
--- NOTE | 2016-08-24 16:48 | CONS ---
[address] [address] CONSULTATION REPORT PATIENT: NINA VALENTIN : 1945 MR#: [id number] ADMIT: 08/24/2016 JOB ID: [id number] DATE OF SERVICE: 08/24/2016 PHYSICIAN REQUESTING PULMONARY CRITICAL CARE CONSULTATION: Stiven Aguilera MD REASON FOR CONSULTATION: The patient is a 70-year-old man seen in consultation at the request of Dr. Tuttle for evaluation of septic shock and acute hypoxic respiratory failure. HISTORY OF PRESENT ILLNESS: The patient is intubated, sedated by the time I met him so all of the history is per review of medical records. The patient has a history of renal failure status post kidney transplant on immunosuppression and was brought in for hypotension and respiratory failure. He was apparently found unresponsive, with a blood pressure as low as the 40s and intubated in the field. In the emergency department, he remained hypotensive and was placed on vasopressors after a central line was placed. He had a CT of the chest, abdomen and pelvis which showed an infiltrate in the chest as well as evidence of diverticulitis and potentially microperforation. Past medical history, social history, review of systems and family history could not be obtained from the patient because he is intubated. PAST MEDICAL HISTORY: Reportedly per medical records: 1. Recurrent C. diff. 2. Recent influenza infection in July. 3. History of splenectomy. 4. History of renal cancer. 5. History of renal transplant. 6. Immunocompromised with renal transplant-reportedly 20 years ago. MEDICATIONS: Reportedly include cyclosporine and mycophenolate which have been held currently. PHYSICAL EXAMINATION: Vital signs reviewed. T-max 37.1, pulse 112, respirations 18, BP 111/91, sats 98% on 40% FiO2, 5 cm of PEEP. General: Intubated, sedated. Pupils equal. HEENT: ET tube in mouth. Chest: Clear to auscultation bilaterally. Heart: Regular rate, rhythm. No murmurs. Abdomen: Soft, nontender. No organomegaly. No rebound or guarding. Extremities: No cyanosis, clubbing, or edema. Skin: No rashes. LABORATORIES: Reviewed WBC 19, hemoglobin 9.7, platelets 247. Chemistry reviewed and notable for creatinine up to 2.93. BUN 60, Serum bicarbonate of 20. Procalcitonin still pending. Troponin of 0.29. Cultures: No growth yet. Respiratory: Viral PCR is pending. Arterial blood gas shows pH 7.46, pCO2 of 27, pO2 of 60, bicarb 19. CT chest, abdomen and pelvis was reviewed notable for ground-glass/consolidation in the superior segment of the left lower lobe. This could be aspiration as the radiologist mentioned. Certainly, remaining lung parenchyma is completely normal. Abdominal CT is notable for areas of inflammation along the sigmoid colon. ASSESSMENT/RECOMMENDATIONS: 1. Septic shock. 2. Acute hypoxic respiratory failure. 3. Sigmoid diverticulitis with microperforation. 4. Aspiration pneumonia versus pneumonitis. 5. Acute on chronic kidney injury. IMPRESSION: A 70-year-old man with a distant history of renal transplant, on immunosuppression with cyclosporine and mycophenolate, recent Clostridium difficile colitis and reported recent influenza admitted with septic shock and acute hypoxic respiratory failure. Possible etiologies include aspiration pneumonia and diverticulitis with micro perforation. I am not very impressed with his pulmonary infiltrate. It is pretty minimal, only involving the superior segment of the left lower lobe and while this could certainly be aspiration or pneumonia, I doubt that it is the cause of respiratory failure in isolation. With regards to his abdominal findings, at this point he is getting IV fluids for resuscitation, antibiotic therapy as well as the vasopressors. Spoke with Dr. Aguilera regarding asking the surgical service for their opinion. From an antibiotic standpoint, we currently have him on vancomycin, cefepime and Flagyl. I stopped the Zosyn and started Flagyl instead because I was concerned about the combination of vancomycin and Zosyn in this patient with kidney injury and renal transplant. Agree with holding all of his immunosuppressive meds-cyclosporine and mycophenolate. He is getting an echocardiogram right now. Will see what the findings are and then follow up and have an arterial line placed since he is on pressors. Another thing to consider would be stress dose steroids in this patient who has been on chronic immunosuppression, although this does not seem to include prednisone. I am going to start subcu heparin for DVT prophylaxis and famotidine for gastrointestinal prophylaxis. CRITICAL CARE TIME: 60 minutes. [facility]
[2016-08-24] MEDS ORDERED: Lactated Ringer's 1,000 ML IV ONE (17:00)
--- NOTE | 2016-08-24 17:08 | DRSVH ---
[facility] [address] [place] [address] Echocardiogram Report Name: NINA VALENTIN RStudy Date: 08/24/2016 Height: 67 in Hospital Exam Location: [facility] Weight: 174 lb Gender: Male BSA: 1.9 m2 : 1945 Age: 70 yrs BP: 138/78 mmHg Reason For Study: EVAL VENTRICULAR FUNCTION/VALVES Ordering Physician: HOSPITALIST [facility] Performed By: Elsy babin Referring Physician: DR. TOMMY LOZANO, DR. Juliana MORRIS Interpretation Summary Afib with RVR. Normal LV size; moderate concentric LVH; normal wall motion and LV systolic function. EF is 60-65%. Moderate MAC; mitral valve leaflets are normal; there is mild MR. Aortic valve leaflets are normal; there is mild AI. There is mild TR; estimated PA systolic pressure is 35 mm Hg assuming RA pressure of 10 mm Hg. Compared to prior study performed 07/05/2016 afib is newly described. Heart rate is faster (up from 105 bpm to around 120 bpm). Otherwise no changes have occurredx. Procedure: A two-dimensional transthoracic echocardiogram with color flow and Doppler was performed. The study quality was technically adequate. Comparison is made with the echocardiogram of 07-05-2016. The patient was in a tachycardic rhythm during the exam. Left Ventricle: The left ventricle is normal in size. Left ventricular wall thickness is mild-moderately increased. Left ventricular systolic function is mildly reduced. Right Ventricle: The right ventricle is normal in size and function. Atria: Both atria are mildly dilated. There is no Doppler evidence for an atrial septal defect. Mitral Valve: There is mild mitral annular calcification. The mitral valve leaflets appear mildly thickened, but open well. There is mild mitral regurgitation. Aortic Valve: The aortic valve is trileaflet. The aortic valve opens well. There is mild aortic regurgitation. Tricuspid Valve: The tricuspid valve leaflets are thin and pliable. There is mild tricuspid regurgitation. Right ventricular systolic pressure is estimated to be 24 mmHg plus the clinically estimated CVP which cannot be estimated on this exam. Pulmonic Valve: The pulmonic valve leaflets are thin and pliable; valve motion is normal. There is a trace or physiologic amount of pulmonic regurgitation. Great Vessels: The aortic root is mildly dilated. The dimensions of the ascending aorta are normal. The pulmonary artery is normal size. The IVC was not well visualized secondary to technical limitations making central venous pressures difficult to estimate. Pericardium/ Pleura There is no pericardial effusion. There is no pleural effusion. MMode/2D Measurements & Calculations LVIDd: 4.8 cm LA dimension: 5.1 cm RA long axis LVOT diam: 2.1 cm LVIDs: 4.0 cm AoV Opening FS: 18.0 % LA A2 area: 26.1 cm RA area EPSS: 0.68 cm LA A4 area: 22.3 cm Ao root diam IVSd: 1.6 cm LA length (vol) : 21.6 cm LVPWd: 1.3 cm RA vol Aortic Jxn: 3.1 cm LA vol: 77.2 ml : 71.6 ml asc Aorta Diam LA vol index RA : 37.6 mm/ Ao Arch Diam (Prox : 40.5 ml/m2 RVDd major Trans): 3.1 cm : 6.5 cm LV moise. diameter/BSA LV sys. diameter/BSA RVD2 (mid) (cm/m^2): 2.5 (cm/m^2): 2.1 : 3.3 cm Doppler Measurements & Calculations Ao V2 max MV E max hiram Med Peak E' Hiram TR max hiram : 163.3 cm/sec : 81.0 cm/sec : 243.3 cm/sec Ao max PG E/E' med: 11.7 TR max P.7 mmHg : 10.7 mmHg Lat Peak E' Hiram PA V2 max Ao mean PG : 115.4 cm/sec E/E' lat: 8.5 PA mean P.7 mmHg LVOT Max Hiram E/e' average PA Accel Time : 128.9 cm/sec : 0.05 sec JAYE(I,D): 2.6 cm sev ratio Ao V2 mean LV V1 max PG PA V2 mean JAYE indexed to BSA : 123.5 cm/sec : 77.3 cm/sec (cm^2/m^2): 1.4 Ao V2 VTI: 21.6 cmLV V1 VTI : 16.1 cm JAYE(V,D): 2.8 cm2 Reading Physician:05:07 PM
--- NOTE | 2016-08-24 17:21 | CONS ---
[address] [address] CONSULTATION REPORT PATIENT: NINA VALENTIN : 1945 MR#: [id number] ADMIT: 08/24/2016 JOB ID: [id number] DATE OF SERVICE: 08/24/2016 REASON FOR CONSULTATION: The patient is seen in consultation at the request of Dr. Tuttle regarding further evaluation and management with septic shock and CT findings suggestive of diverticulitis. HISTORY OF PRESENT ILLNESS: The patient is a 70-year-old man who is immunosuppressed with prednisone, mycophenolate, and cyclosporine for history of renal transplantation. He has had multiple recent hospitalizations for C. difficile colitis and was most recently discharged on August 02 to a nursing facility after one of those hospitalizations. He also had H. flu during the hospitalization. Today, he was brought in by EMS from [facility] due to decreased level of consciousness. He was intubated in the field as he was found unresponsive but had a radial pulse. Per the ER physician's note, he received 3 L of fluid in the ED and then was admitted to the ICU. He has received ongoing fluid resuscitation. He is currently on both Levophed and vasopressin for blood pressure support. He is currently receiving stress dose steroids. Prior to coming out to the ICU, a noncontrast CT scan of the chest, abdomen and pelvis was obtained. I have personally reviewed this. It shows a little asymmetric opacity involving the left lower lobe suspicious for aspiration or early pneumonia. There are also findings consistent with proximal sigmoid colon diverticulitis possibly with a microperforation. The rest of the colon shows normal wall thickness. The influenza A PCR was positive again during this admission. I was consulted regarding the CT scan findings of possible diverticulitis. PAST MEDICAL HISTORY: 1. Chronic renal insufficiency status post three renal transplants and currently on immunosuppressive therapy. 2. C. difficile colitis. 3. Hypertension. 4. History of splenectomy. PAST SURGICAL HISTORY: 1. Renal transplants. 2. Seven hip surgeries. 3. Bilateral knee surgery. 4. Splenectomy. MEDICATIONS: Current medications reviewed and include immunosuppression with steroids, cyclosporine and mycophenolate. ALLERGIES: He has allergies listed to IODINE probably POVIDONE IODINE. FAMILY HISTORY: Family history is reviewed and unremarkable. SOCIAL HISTORY: The patient is a reported heavy cigarette smoker but does not drink alcohol. REVIEW OF SYSTEMS: Review of systems unable to be obtained due to the patient's current intubated and sedated state. PHYSICAL EXAMINATION: The patient remains on blood pressure support with Levophed and vasopressin. He is tachycardic in the one teens to 120s. His blood pressures in the 120s-130s systolic over 70s. He is currently satting in the upper 80s to low 90s on 40% FiO2. He is afebrile with temperature 36.6. He is currently intubated and sedated. His breath sounds are clear. He has a tachycardia. His abdomen is soft and nondistended. There are no palpable masses. The skin is cool but without significant abnormalities other than he has a fungating lesion on his left scalp that looks like a squamous cell carcinoma. Vascular: He has no carotid bruit. Neuro: He is sedated. His white blood cell count early this morning was 18.2. Later this morning it was 19.1. His hematocrit is 32.5. His creatinine was 2.93 this morning. His lactic acid at 2 p.m. was 2.6. A procalcitonin was 16.15. IMAGING: CT scan is personally reviewed and does show a little bit of fat stranding around the sigmoid colon. He has a lot of diverticulosis. The read was that there was a microperforation. It was hard to see if there was any air versus just diverticula. 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 This is a difficult case and I spent quite some time talking with Dr. Castro, our dog warden regarding appropriate management. He is positive for influenza A on PCR. However, she does not feel that the radiographic findings suggest that this is significant enough to be causing septic shock. She believes that, regardless of his immune suppression, if he were this sick from influenza that we would be able to see significant pulmonary changes, specifically acute respiratory distress syndrome. Reportedly he has had an echocardiogram, the results are pending but per the ED notes it was not felt that his picture was likely cardiac in origin. This leads to a more likely candidate. 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 The CT scan does not show diffuse thickening of the colon, therefore, limiting its utility. The other possibility is that his sigmoid diverticulitis is contributing to his picture of sepsis. I spoke with his sister on the phone. I think that, were we to be aggressive in his management, then it would be appropriate to take him into the operating room and at least stick a laparoscope in his belly to assess his colon. If he did have significant sigmoid diverticulitis, I would plan on doing a resection with Patrick's. If his entire colon looks bad, likely from C. difficile colitis, then he would need a total abdominal colectomy. If the colon looked normal, then it may be reasonable to do a loop ileostomy, colonic lavage and then vancomycin through his ileostomy to treat presumptive recurrent C. diff. At this point, his family has taken the time to discuss this. He is supposed to give me a call back as soon as they have come to a decision. I will continue to follow along.
[2016-08-24] MEDS ORDERED: Bupivacaine-MPF 0.5% W/EPI 30 mL Inj INFILTRATE ONE (17:31)
[2016-08-24] MEDS ORDERED: Vancomycin 100 mg/mL Oral Solution TUBE SCH (19:05)
--- NOTE | 2016-08-24 19:09 | OP ---
[address] [address] OPERATIVE REPORT PATIENT: NINA VALENTIN : 1945 MR#: [id number] ADMIT: 08/24/2016 JOB ID: [id number] DATE OF SURGERY: 08/24/2016 ANESTHESIA: General. PREOPERATIVE DIAGNOSIS(ES): 1. Sepsis. 2. 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 POSTOPERATIVE DIAGNOSIS(ES): 1. Sepsis. 2. 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 OPERATION: Diagnostic laparoscopy with laparoscopic loop ileostomy and colonic lavage. SURGEON: Dr. Misha De La Rosa. PRINTING SCREEN ASSEMBLER: Saul Guerrero PA-C, (the commercial assistant was required for safe completion of the case). COMPLICATIONS: None. ESTIMATED BLOOD LOSS: None. CONDITION: Critical. SPECIMENS: Peritoneal fluid was sent for cultures. FINDINGS: The colon appeared relatively healthy. There was no evidence of sigmoid diverticulitis with perforation. Therefore a loop ileostomy was made and the colon lavaged with 8 L of warmed PEG solution. INDICATIONS/SIGNIFICANT HISTORY: The patient is a 70-year-old man with a history of renal transplant on immunosuppression who has had three recent hospitalizations for recurrent C. difficile infections. He was brought in early this morning from his snf in septic shock. He was requiring blood pressure with both Levophed and vasopressin. Extensive workup revealed findings suggestive of possible sigmoid diverticulitis by CT scan. C. difficile assay was pending. After extensive discussion with the Critical Care team as well as the patient's next of kin, the decision was made to taken him to the operating room for diagnostic laparoscopy with plans for a sigmoid colectomy with Rach's if he did have diverticulitis versus colectomy or loop ileostomy with lavage for possible C. diff. Given that the colon appeared healthy, I proceeded with sigmoid colectomy. OPERATIVE TECHNIQUE: The patient was brought from the ICU in critical condition intubated and sedated on Levophed and vasopressin. An arterial line was placed in the operating room. His abdomen was prepped and draped in standard fashion and a procedural pause was performed. I gained entry into the abdomen using open Timothy technique and a supraumbilical incision and a 10 mm trocar was inserted. Pneumoperitoneum was achieved. It was noted that almost the entire omentum was plastered to the anterior abdominal wall and so was underneath the omentum. However, I was able to visualize the colon adequately in this position. Local anesthetic was injected followed by insertion of two 5 mm ports in the left abdomen. I quickly abandoned any hopes of taking down the omentum and decided to just work underneath it. The colon was inspected and appeared viable. There was no significant inflammation. There was a tiny little bit of murky fluid down in the left lower quadrant. Some of this was aspirated and cultures sent. I then identified the terminal ileum and brought a loop up to the abdominal wall where I had previously marked an ostomy location. A stoma was then created and ostomy matured. A 24-Tamazight three-way Richey was then inserted through the distal limb of the stoma and into the cecum. This was confirmed laparoscopically. The balloon was then inflated. I then commenced to lavage the colon with 8 L of warm PEG solution. The abdomen was inspected while this was initially running to ensure there were no problems. The umbilical fascial site was then closed using 0 PDS suture and the remaining ports removed. Skin was closed using Monocryl and Dermabond applied. The patient was then back taken back to the ICU in critical condition.
--- NOTE | 2016-08-24 19:50 | PCM.ANEP1 ---
Post Anesthesia Phase 1 PACU Phase 1 Assessment Vital Signs Vital Signs Date Time Temp Pulse Resp B/P Pulse Ox O2 Delivery O2 Flow Rate FiO2 08/24/16 19:35 104 129/58 50 08/24/16 16:30 36.5 117 18 102/54 97 Mechanical Ventilator 40 08/24/16 15:25 119 144/70 50 08/24/16 12:30 36.6 115 18 130/74 92 Mechanical Ventilator 40 08/24/16 12:12 50 Anesthetic Administered: GA GILLETTE's with Equal Strength: No Pain: No Nausea or Vomiting: No Airway Device: Endotrachial Tube Oxygen Delivery: Mechanical Ventilator Lungs: Clear to Auscultation, Normal Air Movement Summary Patient transferred intubated and sedated to ICU. Patient remains on propofol and fentanyl for sedation Javi Overton MD Aug 24, 2016 19:50
--- NOTE | 2016-08-24 19:52 | PCM.ANEP2 ---
Post Anesthesia Evaluation ASA/CMS Post Anesthesia Date of Service: Aug 24, 2016 VS in Patient's Normal Range?: No Resp Stable; Airway Patent?: Yes (patient remains intubated and sedated on ventilator) CV Function & Hydration Stable: No (BP stable on norepinephrine and vasopressin support) Mental Status Recovered?: No (sedated on ventilator) Pain control Satisfactory?: Yes N/V Control Satisfactory?: Yes Javi Overton MD Aug 24, 2016 19:52
[2016-08-24] MEDS: LACTATED RINGER S IRRIGATION SCH (21:02)
[2016-08-24] MEDS: VANCOMYCIN IRRIGATION SCH (21:02)
[2016-08-24] MEDS: Famotidine Inj 20 MG in IV Premix 1 EACH IV SCH (21:02)
--- NOTE | 2016-08-24 21:51 | ABG ---
DateTimeAnalyzed 21:44:46 -_ pH ____7.288 - pCO2 ___34.2__ -mmHg pO2 143 -mmHg HCO3- ___16.4__ -mmol/L ABE ___-9.4__ -mmol/L tHb ____9.7__ -g/dL O2Hb ___98.1__ -% COHb ____0.8__ -% MetHb ____0.5__ -% sO2 ___99.4__ -% FIO2 ___21.0__ -% PRVC 577 - PEEP ____5.0__ -cmH2O Set_RR 12 -b/min Vt __510.0__ -L Drawn By RB - Date/Time Notified____ 21:51:00 -_ Spontaneous_RR 12 -b/min Oxygen Device 1 VENTILATOR - Notified Whom RN - B 737 -mmHg K+ ____4.6__ -mmol/L tO2 ___13.6__ -Vol% Stiven test N/A -
[2016-08-24] MEDS: Tigecycline Inj 50 MG in 0.9% Sodium Chloride 100 ML IV SCH (23:41)
[2016-08-25] VITALS (13 sets, daily range): BP systolic 108–145; BP diastolic 49–75; PULSE 63–117; RESP 12; O2SAT 97–100
--- NOTE | 2016-08-25 01:00 | NUR ---
1800 Restraint check not done as patient was in the OR.
[2016-08-25] MEDS: metroNIDAZOLE Inj 500 MG in IV Premix 1 EACH IV SCH ×2 (01:22→12:12)
[2016-08-25] MEDS: Heparin 5,000 Unit/mL Inj SUBQ SCH ×3 (01:22→16:39)
[2016-08-25] MEDS: Hydrocortisone 50 mg/mL 2 mL Inj IVPUSH SCH ×3 (01:22→16:38)
[2016-08-25] MEDS: Chlorhexidine 0.12% 15 mL Oral Solution MT SCH ×6 (01:23→20:30)
[2016-08-25] MEDS: Propofol Inj 1,000,000 MCG in IV Premix 1 EACH IV SCH ×4 (03:28→17:16)
[2016-08-25] MEDS: VANCOMYCIN IRRIGATION SCH ×3 (04:20→20:25)
[2016-08-25] MEDS: LACTATED RINGER S IRRIGATION SCH ×3 (04:20→20:25)
[2016-08-25] MEDS: Lactated Ringer's 1,000 ML IV SCH ×3 (04:48→16:42)
[2016-08-25] MEDS: Norepineph 8,000 mCg/250 mL NS 8,000 MCG in IV Premix 1 EACH IV SCH (04:48)
[2016-08-25] MEDS: 0.9% Sodium Chloride 1,000 ML IV SCH ×3 (04:49→16:42)
--- NOTE | 2016-08-25 05:46 | ABG ---
DateTimeAnalyzed 05:39:00 -_ pH ____7.297 - 7.350 7.450 pCO2 ___31.7__ -mmHg 35.0 45.0 pO2 123 -mmHg 69.0 116 HCO3- ___15.0__ -mmol/L 22.0 26.0 ABE __-10.0__ -mmol/L -2.0 2.0 tHb ____9.4__ -g/dL O2Hb ___96.6__ -% COHb ____0.8__ -% MetHb ____1.3__ -% sO2 ___98.7__ -% 25.0 FIO2 ___40.0__ -% PRVC 577 - PEEP ____5.0__ -cmH2O Set_RR ___12.0__ -b/min Vt __510.0__ -L Drawn By RB - Spontaneous_RR ___12.0__ -b/min Oxygen Device 1 VENTILATOR - Notified By RB - Notified Whom ABU zohaib, RN - B 742 -mmHg tO2 ___13.0__ -Vol% Stiven test N/A -
[2016-08-25 06:55] LABS: EOSINOPHILS % (AUTO) 0 % (0-5); Mean Corpuscular Hemoglobin 30.6 pg (27.0-35.0); Mean Corpuscular Volume 100.3 fL (81-100); Platelet Count 212 bil/L (150-400)
[2016-08-25 07:01] LABS: INR 1.45 ratio
[2016-08-25 07:34] LABS: Magnesium 1.4 mg/dL (1.6-2.6); Phosphorus 5.3 mg/dL (2.5-4.9)
--- NOTE | 2016-08-25 07:37 | NUR ---
Post-op / Hemodynamics Pt returned from OR to CCU approx at 1920 accompanied by OR crew and anesthesiologist. Pt is sedated and intubated. RT line in situ. Pt has Right ileostomy with 3 way Richey cath inerted by surgeon through ileostomy opening for colonic lavage. Irrigated with Vancomycin per order. Pt remains pressores dependent. Requires Levophed and Vasopressin. Blood pressure drops when pressores bags changed. Pt tolerating vent settings well. VSS. No vert complications noted.
[2016-08-25 07:43] LABS: MONOCYTES % (AUTO) 2 % (4-12); NEUTROPHILS % (AUTO) 83 % (40-74)
[2016-08-25 07:44] LABS: BASOPHILS % (AUTO) 0 % (0-3)
[2016-08-25] MEDS: Famotidine Inj 20 MG in IV Premix 1 EACH IV SCH (07:46)
[2016-08-25] MEDS: Tigecycline Inj 50 MG in 0.9% Sodium Chloride 100 ML IV SCH (07:47)
[2016-08-25] MEDS ORDERED: fentaNYL-PF 50 mCg/mL 2 mL Inj ONE (09:16)
--- NOTE | 2016-08-25 10:20 | DRSVH ---
PROCEDURE: X-RAY CHEST ONE VIEW, PORTABLE ([id number]) INDICATIONS: intubated/pneumo TECHNIQUE: One view of the chest was acquired. COMPARISON: [facility], CR, XR CHEST 1VW (PORTABLE), 08/24/2016, 6:49. [facility], CT, CT CHEST ABD PELVIS WO CON, 08/24/2016, 4:55. FINDINGS: Surgical changes and devices: None. Lungs and pleura: Persistent airspace opacity present within the in the left lower lung where broncho grams are present. Small bilateral pleural effusions persist. No pneumothorax. Mediastinum: Mediastinal contours appear normal. Heart size is normal. Bones and chest wall: No suspicious bony lesions. Overlying soft tissues appear unremarkable. IMPRESSION: 1. Suspect left lower lobe pneumonia with interval increase in airspace infiltrate and consolidation at the left lung base. 2. Persistent small bilateral pleural effusions. Dictated by: Carter FELTON Interpreted: Rich Romero MD on 08/25/2016 at 10:18 Transcribed by: ERICA on 08/25/2016 at 10:19 Approved by: Rich Romero M.D. on 08/25/2016 at 12:13
[2016-08-25] MEDS ORDERED: Magnesium Sulf 4 Gm/100 mL H2O 4 GM in IV Premix 1 EACH IV ONE (11:00)
--- NOTE | 2016-08-25 11:18 | PCM.PNMED ---
Subjective Date of Service Aug 25, 2016 Subjective ICU/pulmonary 70-year-old male with recurrent history of C. difficile infections who presented to the hospital confused on August 24. Patient is sedated and intubated this morning and no review of systems is available. He was taken to the OR last night for laparoscopic assessment is colon. There was no diverticulitis seen. He currently is on norepinephrine only has vasopressin was stopped yesterday. Exam Vital Signs Vital Sign - Last Date Time Temp Pulse Resp B/P Pulse Ox O2 Delivery O2 Flow Rate FiO2 08/25/16 08:30 Ventilator 08/25/16 08:30 36.5 115 12 124/62 97 50 Intake and Output 08/24/16 08/24/16 08/25/16 Cumulative From/Thru 15:00 23:00 07:00 08/24/16 04:11 - 08/25/16 06:30 Intake Total 500 ml 7433 ml 8933 ml Output Total 870 ml 870 ml Balance 500 ml 6563 ml 8063 ml Intake IV Total 500 ml 7433 ml 8933 ml Output Urine Total 400 ml 400 ml Stool Total 340 ml 340 ml Gastric Drainage Total 130 ml 130 ml Exam GEN: Sedated HEENT: No JVD, central line in place on the right IJ Cardio: Irregular rate and rhythm no murmurs rubs or gallops Respiratory: Clear throughout with some coarse breath sounds diffusely Abdomen: Ostomy bag in place with tubes coming from the stoma; incision is clean dry and intact Extremities: Mild edema; skin is very flaky and dry Psych: Unable to assess Neuro: Unable to assess Skin: Very dry and flaky IVs and Medications Medications Reviewed: Medications were reviewed in detail Lab and Diagnostics Result Diagram: 08/25/1661708/25/16617 X-Rays, CTs and MRIs Initial chest x-ray is unremarkable. 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 Asymmetric opacity involves the superior segment of the left lower lobe, suspicious for aspiration or early pneumonia. 2. Findings consistent with proximal sigmoid colon diverticulitis, with microperforation. No findings to suggest associated abscess. 3. Status post renal transplant, with atrophic [place] kidneys. No significant discrepancy with preliminary [facility] report. Additional Diagnostics DateTimeAnalyzed 03:57:00 -_ pH ____7.353 - 7.350 7.450 pCO2 ___42.6__ -mmHg 35.0 45.0 pO2 100 -mmHg 69.0 116 HCO3- ___23.1__ -mmol/L 22.0 26.0 ABE ___-1.8__ -mmol/L -2.0 2.0 tHb ___10.3__ -g/dL O2Hb ___95.1__ -% COHb ____1.3__ -% MetHb ____1.2__ -% sO2 ___97.5__ -% 25.0 FIO2 ___50.0__ -% PEEP ____5.0__ -cmH2O Set_RR ___18.0__ -b/min Vt __560.0__ -L Drawn By LT - Date/Time Notified____ 04:03:00 -_ Spontaneous_RR ___20.0__ -b/min Notified By LT - Notified Whom _LEIBRAND - B 749 -mmHg tO2 ___13.9__ -Vol% Stiven test _Positive - Assessment & Plan 1. Acute hypoxic respiratory failure 2. Septic shock second to probable UTI 3. Acute renal failure; resolved 4. Probable adrenal insufficiency 5. Renal transplant 6. Previous C. difficile toxin colitis infection 7. History of multiple renal transplants and CKD 8. Questionable left lower lobe pneumonia Neuro: Patient presented confused with some reported baseline confusion/ dementia. Is consistent with the sepsis picture. He is currently sedated Cardiovascular: Patient was placed on vasopressin and norepinephrine was first admitted in the vasopressin is able to be removed yesterday after surgery. He still remained somewhat high norepinephrine dose of 0.15. So far has received 5 L of fluid with LR running at 150 mL an hour. CVP 20. Continue to get fluids at 150 mL an hour of lactated Ringer's. Processes afternoon for stability weaning down on the norepinephrine. Last echo showing ejection fraction 60-65% without focal hypokinesis. Respiratory: Patient is doing well on the vent settings currently. ABG this morning was 7.29 pH, 31 CO2. We will continue to wean down Abdomen: Incisions are clean and intact. Surgery did not see any evidence of colitis. Infection: Patient was thought to have a possible microperforation of his colon , however after evaluation by surgery cyst appeared to be the cause of his infection. Blood cultures isolated gram-negative sanjay in both aerobic and anaerobic bottles. Patient's last urinalysis was positive for nitrites, leukocyte esterase, and bacteria. He was sent for culture and we will await those results. Patient is currently on metronidazole, vancomycin, and tigecycline and we will continue these for the current time. Is also questionable lower lobe pneumonia and will continue to follow and the patient's pro calcitonin jump from 16.15 to 51.42 this morning. Repeat chest x-ray in a.m. MRSA screen pending. Influenza was also positive although the patient had a recent positive influenza infection. : Probably UTI. We will consider replacing the Richey. The patient has a history of renal transplants 3 and was on immunosuppression with cyclosporine which is currently being held due to his infection. His acute kidney injury appears to be within range of his baseline as his baseline is usually around 2. Disposition Patient remains in the ICU pending his current work-up. VTE Mechanical Devices: Intermittant Pneumatic CD Resuscitation Status: CPR: Attempt Resuscitation Attending Statement The patient was seen and examined together with Dr. Harvey on 08/25/2016 and I agree with the history, exam and plan as outlined in the note above. Slade Harvey DO Aug 25, 2016 11:18 Baljeet Torres MD Sep 01, 2016 12:23
--- NOTE | 2016-08-25 11:19 | PROG NOTE ---
[address] [address] PROGRESS NOTE PATIENT: NINA VALENTIN : 1945 MR#: [id number] ADMIT: 08/24/2016 JOB ID: [id number] DATE: 08/25/2016 SUBJECTIVE: The patient was seen postoperative day one from his diagnostic laparoscopy with loop ileostomy and colonic lavage. He is doing a little bit better this morning. He has been weaned off the vasopressin and is on a low dose of norepinephrine. Stool PCR is negative for C. diff. Blood cultures are now growing gram-negative rods. His ostomy appears pink and healthy. He has received vancomycin flushes through the ostomy. ASSESSMENT AND PLAN: This is a 70-year-old man, immunosuppressed, admitted with profound sepsis with a history of recurrent Clostridium difficile infections, postoperative day one from diagnostic laparoscopy with loop ileostomy and colonic lavage. It seems apparent that his colon is not the source of his sepsis. Specifically, there was no significant diverticulitis seen at diagnostic laparoscopy, and I am told his C. diff is negative, though in the computer is still showing up as pending. At this point, it seems safe to assume that his colon is not the source of his sepsis. The gram negative rods in his blood are probably the more likely culprit. However, I still believe it was the appropriate course to take him to the OR and take a look. It seems reasonable to continue with the vancomycin flushes through the ileostomy. I will continue to follow along for the time being, but do not anticipate any acute surgical issues.
[2016-08-25] MEDS ORDERED: Piperacillin-Tazo 3.375 Gm Inj 3.375 GM in Dextrose 5% Minibag Plus 50 ML IV SCH (12:00)
[2016-08-25] MEDS ORDERED: 0.9% Sodium Chloride 500 ML IV ONE (12:10)
[2016-08-25] MEDS ORDERED: Piper-Tazo 3.375 Gm/50 mL D5W Minibag Plus - Q8H over 4 hrs IV ONE ×2 (12:10)
[2016-08-25] MEDS ORDERED: Piperacillin-Tazo 3.375 Gm Inj 3.375 GM in Dextrose 5% Minibag Plus 50 ML IV ONE (12:17)
--- NOTE | 2016-08-25 12:55 | PCM.PNMED ---
Subjective Date of Service Aug 25, 2016 Subjective Yesterday/overnight: Patient was taken to OR by Dr. De La Rosa; received loop ileostomy and colonic lavage. Today: Remains intubated and sedated. Vasopressin off; norepi remains 0.14. Exam Vital Signs Vital Sign - Last Date Time Temp Pulse Resp B/P Pulse Ox O2 Delivery O2 Flow Rate FiO2 08/25/16 08:30 Ventilator 08/25/16 08:30 36.5 115 12 124/62 97 50 Intake and Output 08/24/16 08/24/16 08/25/16 Cumulative From/Thru 15:00 23:00 07:00 08/24/16 04:11 - 08/25/16 06:30 Intake Total 500 ml 7433 ml 8933 ml Output Total 870 ml 870 ml Balance 500 ml 6563 ml 8063 ml Intake IV Total 500 ml 7433 ml 8933 ml Output Urine Total 400 ml 400 ml Stool Total 340 ml 340 ml Gastric Drainage Total 130 ml 130 ml Exam General: Intubated and sedated; no acute distress HENT: Atraumatic; sclera anicteric; ETT in place; mucus membranes moist Neck: Soft, trachea midline Cardiac: Irregular, tachycardic at time of examination; no murmurs appreciated Respiratory: Adequate air flow all jama; no coarse sounds appreciated Abdomen: Soft, nondistended; ileostomy bag secured on right with drain in place for irrigation Extremities: No edema Pulses: Radial equal and bilateral Skin: Warm, dry; scaly and dry Neuro: Cannot obtain secondary to sedation and intubation Psych: Cannot obtain secondary to sedation and intubation Lab and Diagnostics Result Diagram: 08/25/1661708/25/1618 X-Rays, CTs and MRIs Initial chest x-ray is unremarkable. 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 Asymmetric opacity involves the superior segment of the left lower lobe, suspicious for aspiration or early pneumonia. 2. Findings consistent with proximal sigmoid colon diverticulitis, with microperforation. No findings to suggest associated abscess. 3. Status post renal transplant, with atrophic shoalwater kidneys. No significant discrepancy with preliminary Night[employer] report. Additional Diagnostics DateTimeAnalyzed 03:57:00 -_ pH ____7.353 - 7.350 7.450 pCO2 ___42.6__ -mmHg 35.0 45.0 pO2 100 -mmHg 69.0 116 HCO3- ___23.1__ -mmol/L 22.0 26.0 ABE ___-1.8__ -mmol/L -2.0 2.0 tHb ___10.3__ -g/dL O2Hb ___95.1__ -% COHb ____1.3__ -% MetHb ____1.2__ -% sO2 ___97.5__ -% 25.0 FIO2 ___50.0__ -% PEEP ____5.0__ -cmH2O Set_RR ___18.0__ -b/min Vt __560.0__ -L Drawn By LT - Date/Time Notified____ 04:03:00 -_ Spontaneous_RR ___20.0__ -b/min Notified By LT - Notified Whom _LEIBRAND - B 749 -mmHg tO2 ___13.9__ -Vol% Stiven test _Positive - Assessment & Plan Mr. 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 difficile, suspected colonic microperforation, and/or UTI. He was admitted for evaluation and treatment of septic shock secondary to reasons discussed, acute hypoxemic respiratory failure, and acute on chronic kidney disease. - Hospital day 2 - Ventilator day 2 Acute hypoxemic respiratory failure, present on admission. Ongoing - Secondary to septic shock - Remains intubated and sedated - Pulmonary/ICU consulted; appreciate time and recommendations Septic shock, acute, present on admission. Ongoing - On admit: WBC 18.2, HR 138; LA 2.3 - Treat underlying cause(s) - Continue to wean norepi as tolerated - Continue LR 125 - Bolus 500mL x1 given Septicemia, acute, present on admission. Under therapy - Blood Cx 08/24: + GNR - Awaiting final cultures/sensitivities - Abx: Zosyn, tigecycline - ID has been consulted, appreciate time and recommendations - Monitor labs, PCT Acute on chronic kidney disease, present on admission. Stable - On admit: Cr 2.98; baseline reported to be approx 2 - Avoid nephrotoxic meds when possible Suspected UTI, acute, present on admission. Under evaluation - On admit: UA + nitrite, moderate leuk est, + WBC, with many bacteria - Cx pending Suspected C. difficile infection with resultant sepsis, acute, present on admission. Under investigation - Recent stool PCR July 2016 + C. diff - Difficult to discern if active infection as PCR can remain positive as long as one year - S/p loop ileostomy placement 08/24 with irrigation drain - Tx: Vancomycin irrigation through ileostomy per general surgery - General surgery following; appreciate time and recommendations - Precautions in place - ID consulted, as noted above Influenza A H3 infection, acute, present on admission. Treated - Peramivir completed Suspected LLL PNA, acute, present on admission. Under evaluation - Likely secondary to influenza, noted above - Monitor with CXR, labs, PCT History of renal transplant and long-term immunosuppression, chronic. Presumed stable - Holding cyclosporine Suspected adrenal insufficiency, chronic. Under therapy - Secondary to transplants and detention glucocorticoid use - Stress dose steroids: SoluCortef 100mg q8h; continue History of positive MRSA screen - Screen 08/24: NEGATIVE - No treatment/precautions indicated for MRSA at this time - DVT: Hep q8 - GI: H2B - Diet: NPO at this time; will re-eval for feeds appropriateness daily - PRN fever/bowel/antiemetics/pain - Code: FULL CODE Dispo: Likely to remain > 2d, as he remains intubated and sedated. Will likely return to [facility] when stable for DC. 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 Pain Evaluation: Adequate Pain Control GI Prophylaxis: H2 mary ann VTE Prophylaxis: Sub-Q Heparin (Unfractionated) VTE Mechanical Devices: Intermittant Pneumatic CD Resuscitation Status: CPR: Attempt Resuscitation Time spent 60 minutes Attending Statement Patient seen and examined with resident, agree with all attached documentation Maude Boyd DO Aug 25, 2016 10:57 Stiven Aguilera MD Aug 26, 2016 18:34
--- NOTE | 2016-08-25 14:38 | NUR ---
P: Hypotension I: Norepinephrine 0.10mcqs/kg/min. Vasopressin off since 729. Propofol 30 mcqs/kg/min. Fentanyl 25mcqs/hr. RIJ TLC. Rt wrist arterial line. Turn Q 2 hours. OGT to LCS. Ileostomy patent with vanco infused. Richey patent and draining minimal cloudy urine. LR 10cc/hr. FMS patent and draining liquid stool. Stool sent for c-diff. Magnesium 1.4 and replacement. Vigileo glendy WNL and aware of the numbers. CVP 12. E: Stable S: Restraints on for pt safety. Frequent rounding.
--- NOTE | 2016-08-25 15:54 | NUR ---
NUTRITION ASSESSMENT Assess: Pt is a 70 yo male admitted w/ sepsis and hypotension d/t probable acute hypercarbic respiratory failure. Pt was intubated at [facility] where he resides, and remains intubated and sedated. Pt has CKD Stage III, and history of[address] scan showed possible diverticulitis, but surgeon found no evidence of colitis during diagnostic laparoscopy. An ileostomy was placed at that time. PMHx: Full medical hx unavailable d/t pt status at time of admission. Recent C diff colitis, influenza A, transient encephalopathy, urinary retention, FLOYD on CKD Stage III, possible healthcare acquired pneumonia, renal transplant, A fib, MRSA. LABS: CO2 13, BUN 59, Bowling Or Skating Front Desk Clerk 2.8, Gluc 138, Lactic Acid 2.7, Ca 7.1, Phos 5.3, Mg 1.4, Alb 2.1, TG 391, Procalcitonin 51.42 MEDICATIONS: Heparin, Norepinephrine, Propofol, Fentanyl CURRENT DIET: NPO x 1 day GI symptoms/stool: Ileostomy placed 2/5 340 ml stool output recorded. OG tube to LCS. SKIN: Eze 9 WC evaluation pending ANTHROPOMETRICS: Current Wt: 83.2 kg BMI: 26.3 kg/m2 IBW: 73 kg ESTIMATED NEEDS: vented Calories: 0963-6082 kcal/day (20-25 kcal/kg BW) Protein: 65-85 g/day (0.8-1.0 g/kg BW) Fluids: ~2200 ml/day (Approx 1 ml/kcal/d) NUTRITION DIAGNOSIS: 1) Inadequate oral intake related to inability to consume sufficient energy as evidenced by current NPO status. 2) Altered nutrition related lab values related to Stage III CKD as evidenced by elevated BUN, Creatinine and Phosphorous lab values and low Magnesium levels. INTERVENTION: 1) Recommend starting nutrition support if pt remains NPO another 24-28 hours. 2) If extubated and diet advanced, will consider adding supplement to ensure adequate calorie and protein intake. MONITOR/EVALUATE: NPO status, labs, wt, GI, nutrition status, POC. Will continue to monitor per high nutritional risk guidelines. Addendum: 08/25/16 at [address] Auxiliary student documentation reviewed. I agree with above documentation. Alex Stuart, ASHLEY, CD
[2016-08-25 16:18] LABS: Magnesium 2.4 mg/dL (1.6-2.6)
--- NOTE | 2016-08-25 16:18 | NUR ---
Wound Pressure ulcer protocol received pt seen at bedside. Admitted to hospital with sepsis with profound hypotension 08/24/16. Pt is intubated on a CCU bed, he has small Deep tissue injuries at his left and right lateral heels, which are 2 cm L x 0.5 cm W by flush. These are not open and heels are being floated at this time, no other pressure issues noted at this time.
[2016-08-25] MEDS: Ertapenem Inj 1,000 MG in 0.9% Sodium Chloride 50 ML IV SCH (17:15)
--- NOTE | 2016-08-25 18:56 | PROG NOTE ---
[address] [address] PROGRESS NOTE PATIENT: NINA VALENTIN : 1945 MR#: [id number] ADMIT: 08/24/2016 JOB ID: [id number] DATE: 08/25/[address] Muade Boyd for this timely consult. HISTORY OF PRESENT ILLNESS: The patient is an unfortunate, 70-year-old gentleman who resides in a snf facility. He is well known to me from numerous admissions during which I have had the opportunity to see him during the past couple of years. Most recently, he was in this facility in early July 2016 with recurrent C. diff as well as influenza. He was treated with a variety of antimicrobial agents until we established these diagnoses and eventually finished with oseltamivir and fidaxomicin. Interestingly, he developed delirium due to oseltamivir which is quite rare. He had almost completed his flu therapy and he looked well, so we simply stopped his anti-influence drug and sent him out to complete his 10 days of fidaxomicin. The patient returned yesterday, August 24, to the ED. He had been back at [facility] in [place] and paramedics were called because he had developed confusion and respiratory failure. He was intubated in the field, and brought to the ED where he was found to be in septic shock with hypotension and evidence of sepsis. I was contacted yesterday by Dr. Castro and we discussed this case in detail by telephone. The differential diagnosis was a possible acute abdomen due to perforation related to possible diverticulitis and/or recurrence of C diff. We discussed a wide variety of issues but decided on antibiotics that would cover bowel perforation as well as especially C. diff and the antibiotics chosen were IV tigecycline, IV Flagyl and vancomycin down the NG tube. Dr. Misha De La Rosa was consulted and I also spoke to him yesterday. He took the patient to the operating room to do a loop ileostomy to look at the bowel and irrigate it with vancomycin for possible recurrent C. diff. He also evaluated the sigmoid colon for possible diverticular or other disease during that surgery. During surgery, he found there was no significant inflammation of the colon. He did find some murky fluid in the left lower quadrant consented for cultures. He then identified the terminal ileum and made a loop in an ostomy so that his colon could be irrigated with vancomycin. During his first 24 hours in the hospital, in addition to the surgery, the patient has been in the ICU requiring at times two separate vasopressors to maintain his blood pressure. He has also been continuously intubated, sedated and mechanically ventilated. His urine output has been very poor. His extremities have been at times quite cool. Because of a possibility of adrenal insufficiency, he was given stress doses of hydrocortisone. This afternoon, I reviewed the case at the bedside with Nursing. Patient's vasopressors have been weaned a bit during the day, but he still in deep shock on the ventilator, sedated, intubated and with minimal urine output. No additional history is available from the patient, of course. PAST MEDICAL HISTORY: 1. Chronic renal insufficiency status post three renal transplants on immunosuppressive drugs. 2. 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 3. Longstanding heavy cigarette smoking. 4. Bilateral knee arthritis. 5. Hypertension. 6. Status post splenectomy. 7. Left-sided pneumonia January 2016. 8. Recurrent C. diff. 9. Debility requiring senior care residence. 10. 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 SOCIAL HISTORY: The patient lives at the [facility]. He is a heavy cigarette smoker. Does not drink alcohol. FAMILY HISTORY: Positive for numerous 1st and second-degree relatives who are on dialysis. None of his relatives including his parents, siblings or children has ever had tuberculosis. REVIEW OF SYSTEMS: Is not possible. The patient is intubated and sedated in the ICU. The social history and family history I just provided were from my earlier notes of July 2016 when he was here last month. PHYSICAL EXAMINATION: Reveals an afebrile gentleman, temperature 36.4, he has been afebrile since admission. Pulse is currently 103, blood pressure 126/80 requiring moderate doses of norepinephrine. He is saturating well on 50% FiO2 on the vent. Examination of the head reveals a large exophytic lesion projecting from the left frontal skull. This almost certainly represents some large skin malignancy but has not yet been resected and has been there for more than a year. Eyes: Without conjunctival or scleral abnormalities. Nose normal. Oral endotracheal tube oral gastric tube in good position. The patient's neck is supple and without notable adenopathy. A central line is present in the right neck. The patient's right antecubital fossa is erythematous, indurated and ischemic as an earlier peripheral IV with a vasopressor agent infiltrated there. He also has an A line present in the right wrist. The left arm has a peripheral IV. The lungs are notable for decreased breath sounds and some coarse rales at the bases bilaterally. Cardiac tones: Regular rate and rhythm this afternoon. The abdomen is slightly distended, soft, and without apparent organomegaly. An ileostomy is present which was done yesterday. The Richey is present. Penis and scrotum looked relatively normal. No inguinal adenopathy. The patient's heels both show evidence of pressure wounds but these are well circumscribed and appear to be uninfected. His hands and feet are quite cool to the touch. No significant skin rash is present. He has an FMS which is draining some odd-colored stool which I think is the function of the fact we are lavaging his colon continuously with the Vanco solution through the loop ileostomy. Richey catheter has minimal output. LABORATORIES: Include white count 24,000 which has risen from 18 yesterday, neutrophils 84%, 14% bands, platelets 212, creatinine is 2.8, note that his normal is around 2 so this is not that far off his baseline. Lactic acid is 2.7. LFTs basically normal including a normal alk phos. CRP has not been done during this admission. His albumin 2.1. Pro calcitonin is 51, yesterday it was 16. The stool PCR has been in the lab all day, but the lab is backed up in terms of the multiplex PCR machines. They promised answers within the next 30 minutes from now. This will include the C. difficile PCR. A sample of peritoneal fluid was obtained yesterday during surgery and this is the fluid I believe that Dr. De La Rosa described in the OP note from around the left colon. This has a few polys and no micro organisms. A nasopharyngeal PCR is positive for influenza A. Four separate sets of blood cultures are all growing gram-negative rods at this point, and the lab reports this is a mucoid organism consistent with Klebsiella or Enterobacter. Final ID and susceptibilities should be out by tomorrow. IMAGING: Includes a chest x-ray done today which shows small bilateral pleural effusions and an infiltrate at the left base. CT scan of chest, abdomen and pelvis yesterday was notable for asymmetric opacity in the left lower lobe consistent with possible early pneumonia. Also seen were changes consistent with diverticulitis with micro perforation though this was not seen in the OR. IMPRESSION: This is an unfortunate gentleman who in the past year has had a life-threatening pneumonia as well as Clostridium difficile colitis and influenza. He now presents with classic fulminant gram-negative septic shock. His blood cultures are all growing gram-negative rods which are in the Klebsiella, Enterobacter family and we will know more about them tomorrow. The most likely source is probably somewhere within the left colon, though it is of course possible this could be a urinary tract process as well given that he did have some [id number] pyuria with 11-50 white cells. It is also possible that the organisms were allowed access to his blood through colon inflamed with C. diff but Dr. De La Rosa yesterday noted his colon to not look all that inflamed, and I suspect that C. diff is not the main factor here, though we should certainly "cover" for C. diff while we administered broad-spectrum antibiotics for his Klebsiella/Enterobacter sepsis. I doubt that the patient has significant pneumonia, though the possibility of an aspiration cannot be overlooked in this critically ill gentleman. RECOMMENDATIONS: 1. Will discontinue the Tygacil he has been receiving as well as the IV Flagyl. 2. Will continue with the Vanco which is being irrigated through the colon. 3. Will give the patient ertapenem as his sole antibiotic for the gram-negative sepsis, and it is almost certain that the Enterobacter Klebsiella would be susceptible as well as provide some anaerobic coverage as well should he have some degree of aspiration pneumonia. 4. Will continue to closely follow this patient with you and I will be monitoring the lab results including especially the C. diff PCR. 5. Note that his flu PCR is still positive. This is a curious finding given that his flu PCR was positive a month ago and we thought he had acute influenza then. It is conceivable, I suppose, that this could represent a 2nd attack or that he has just failed to completely clear the influenza from his airway given his immunosuppressed state. In any event, I would not give the patient oseltamivir as we discussed yesterday and instead would give him a single dose of peramivir while we monitor his progress. 6. The overwhelmingly important issue here is the Klebsiella/Enterobacter sepsis which we must address most aggressively and I suspect the C. diff and influenza are not primary factors, though we will be watching him closely. MTDD
[2016-08-25] MEDS: Vasopressin Inj 20 UNIT in 0.9% Sodium Chloride 100 ML IV SCH (19:40)
[2016-08-26] VITALS (12 sets, daily range): BP systolic 80–131; BP diastolic 47–66; PULSE 65–80; RESP 12–15; O2SAT 98–100
[2016-08-26] MEDS: Hydrocortisone 50 mg/mL 2 mL Inj IVPUSH SCH ×3 (00:41→17:36)
[2016-08-26] MEDS: metroNIDAZOLE Inj 500 MG in IV Premix 1 EACH IV SCH ×2 (00:41→13:52)
[2016-08-26] MEDS: Chlorhexidine 0.12% 15 mL Oral Solution MT SCH ×6 (00:41→21:25)
[2016-08-26] MEDS: Heparin 5,000 Unit/mL Inj SUBQ SCH ×3 (00:41→17:37)
[2016-08-26] MEDS: Lactated Ringer's 1,000 ML IV SCH ×4 (00:42→17:37)
[2016-08-26] MEDS: 0.9% Sodium Chloride 1,000 ML IV SCH ×4 (02:19→22:19)
[2016-08-26] MEDS: VANCOMYCIN IRRIGATION SCH ×3 (04:39→21:25)
[2016-08-26] MEDS: LACTATED RINGER S IRRIGATION SCH ×3 (04:39→21:25)
[2016-08-26 05:29] LABS: BASOPHILS % (AUTO) 0.1 % (0-3); EOSINOPHILS % (AUTO) 0 % (0-5); MONOCYTES % (AUTO) 2.8 % (4-12); Mean Corpuscular Hemoglobin 30.2 pg (27.0-35.0); Mean Corpuscular Volume 95.3 fL (81-100); NEUTROPHILS % (AUTO) 94.2 % (40-74); Platelet Count 163 bil/L (150-400)
[2016-08-26] MEDS: Norepineph 8,000 mCg/250 mL NS 8,000 MCG in IV Premix 1 EACH IV SCH ×2 (05:42→18:21)
--- NOTE | 2016-08-26 05:45 | ABG ---
DateTimeAnalyzed 05:38:00 -_ pH ____7.355 - 7.350 7.450 pCO2 ___29.7__ -mmHg 35.0 45.0 pO2 ___79.4__ -mmHg 69.0 116 HCO3- ___16.2__ -mmol/L 22.0 26.0 ABE ___-8.0__ -mmol/L -2.0 2.0 tHb ____8.4__ -g/dL O2Hb ___93.8__ -% COHb ____1.1__ -% MetHb ____1.1__ -% sO2 ___95.9__ -% 25.0 FIO2 ___40.0__ -% PRVC 12 - PEEP ____5.0__ -cmH2O Set_RR ___12.0__ -b/min Vt __510.0__ -L Drawn By MM - Date/Time Notified____ 05:44:00 -_ Spontaneous_RR ___12.0__ -b/min Oxygen Device 1 VENTILATOR - Notified By MM - Notified Whom RN - B 749 -mmHg tO2 ___11.2__ -Vol% Stiven test N/A -
--- NOTE | 2016-08-26 06:25 | NUR ---
P: hypothermia I: warm blankets changing over to bear hugger E: Unable to obtain PO, AX, WA temperatures. Finally PO 34.7 temperature. Warm blankets w/ no change. Bear Hugger. Current AM temperatures 35.7, 35.8 temporal. Continues not to read PO or AX. Hypotension. Norepinephrine gtt wean from 0.07mcg to 0.05mcg w/ SBP 90-100s, DBP 50s. Tele SR, IVCD. Pt convert from A fib approx 1730. CVP 11-12. Decrease UOP. FMS. Ventilated at 45% FI02. Sats in the mid 90s. Does not overbreathe vent rate. RASS -4 on propofol at 30mcg and fentanyl at 25mcg. Titrate propofol down to 5mcg and fentanyl continues at 25mcg w/ RASS -2 during CXR. Does not make eye contact for follow cues.
[2016-08-26 06:46] LABS: Magnesium 2.1 mg/dL (1.6-2.6); Phosphorus 6.3 mg/dL (2.5-4.9)
[2016-08-26] MEDS: Vasopressin Inj 20 UNIT in 0.9% Sodium Chloride 100 ML IV SCH ×2 (06:47→17:54)
[2016-08-26] MEDS: Ertapenem Inj 1,000 MG in 0.9% Sodium Chloride 50 ML IV SCH (08:22)
--- NOTE | 2016-08-26 09:26 | DRSVH ---
PROCEDURE: X-RAY CHEST ONE VIEW, PORTABLE ([id number]) INDICATIONS: intubated/poss PNA TECHNIQUE: One view of the chest was acquired. COMPARISON: [facility], CR, XR CHEST 1VW (PORTABLE), 08/25/2016, 9:48. FINDINGS: Surgical changes and devices: Stable position ETT, nasogastric tube and right IJ CVL. Lungs and pleura: Persistent bibasilar pleural effusions and airspace opacities are present with no s ignificant change. Mediastinum: Mediastinal contours appear normal. Heart size is normal. Bones and chest wall: No suspicious bony lesions. Overlying soft tissues appear unremarkable. IMPRESSION: Persistent bilateral pulmonary airspace opacities suggestive of bilateral pneumonia, left greater than right. Dictated by: Carter Apple [facility] Interpreted: Rich Romero MD on 08/26/2016 at 9:24 Transcribed by: ERICA on 08/26/2016 at 9:25 Approved by: Rich Romero M.D. on 08/26/2016 at 19:07
[2016-08-26] MEDS: Famotidine Inj 20 MG in IV Premix 1 EACH IV SCH (09:33)
--- NOTE | 2016-08-26 09:34 | PCM.PNMED ---
Subjective Date of Service Aug 26, 2016 Subjective Overnight: Noted to be hypothermic, with multiple attempts at multiple sites to obtain temps. PO temp 34.7. Marycarmen hugger applied. No acute events. Today: Remains intubated and sedated. Norepi continues at 0.05, propofol 20, fentanyl 25. Vent: PRVC FiO2 0.45 PEEP 5 RR12 Vt 510 Info WBC 25.5, increasing; Cr 2.83, steady; PCT 71.17, increasing, LA 2.3, steady Net IO + approx 13L; 24hUOP 600mL Exam Vital Signs Vital Sign - Last Date Time Temp Pulse Resp B/P Pulse Ox O2 Delivery O2 Flow Rate FiO2 08/26/16 05:34 71 98/52 99 08/26/16 04:30 35.8 12 99 Mechanical Ventilator Intake and Output 08/25/16 08/25/16 08/26/16 Cumulative From/Thru 14:59 22:59 06:59 08/24/16 04:11 - 08/26/16 05:23 Intake Total 2656 ml 2980 ml 49853 ml Output Total 500 ml 350 ml 1720 ml Balance 2156 ml 2630 ml 60585 ml Intake IV Total 2656 ml 2980 ml 01361 ml Output Urine Total 200 ml 175 ml 775 ml Stool Total 300 ml 175 ml 815 ml Gastric Drainage Total 0 ml 130 ml Exam General: Intubated and sedated; no acute distress HENT: Atraumatic; sclera anicteric; ETT in place; mucus membranes moist Neck: Soft, obese Cardiac: regular rate and rhythm at time of examination; no murmurs appreciated Respiratory: Adequate air flow all jama; faint coarse sounds appreciated Abdomen: Soft, nondistended; ileostomy bag secured on right with drain in place for irrigation Extremities: No edema Pulses: Radial equal and bilateral Skin: Warm, dry; scaly and dry Neuro: Cannot obtain secondary to sedation and intubation Psych: Cannot obtain secondary to sedation and intubation Lab and Diagnostics Result Diagram: 08/26/1652408/26/16524 X-Rays, CTs and MRIs Initial chest x-ray is unremarkable. 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 Asymmetric opacity involves the superior segment of the left lower lobe, suspicious for aspiration or early pneumonia. 2. Findings consistent with proximal sigmoid colon diverticulitis, with microperforation. No findings to suggest associated abscess. 3. Status post renal transplant, with atrophic [place] kidneys. No significant discrepancy with preliminary [facility] report. Additional Diagnostics DateTimeAnalyzed 03:57:00 -_ pH ____7.353 - 7.350 7.450 pCO2 ___42.6__ -mmHg 35.0 45.0 pO2 100 -mmHg 69.0 116 HCO3- ___23.1__ -mmol/L 22.0 26.0 ABE ___-1.8__ -mmol/L -2.0 2.0 tHb ___10.3__ -g/dL O2Hb ___95.1__ -% COHb ____1.3__ -% MetHb ____1.2__ -% sO2 ___97.5__ -% 25.0 FIO2 ___50.0__ -% PEEP ____5.0__ -cmH2O Set_RR ___18.0__ -b/min Vt __560.0__ -L Drawn By LT - Date/Time Notified____ 04:03:00 -_ Spontaneous_RR ___20.0__ -b/min Notified By LT - Notified Whom _LEIBRAND - B 749 -mmHg tO2 ___13.9__ -Vol% Stiven test _Positive - Assessment & Plan Mr. Brar is a 70 year old gentleman with a complex medical history including a reported x3 renal transplants, recipient of chronic immunosuppressants and fpc glucocorticoid use, in addition to numerous hip replacements, that was found to be confused at [facility], and was intubated secondary to presumed acute hypercarbic respiratory failure resulting from septic shock likely thought to be due to C. difficile, suspected colonic microperforation, and/or UTI. He was admitted for evaluation and treatment of septic shock secondary to reasons discussed, acute hypoxemic respiratory failure, and acute on chronic kidney disease. - Hospital day 3 - Ventilator day 3 Acute hypoxemic respiratory failure, present on admission. Ongoing - Secondary to septic shock - Remains intubated and sedated - Pulmonary/ICU consulted; appreciate time and recommendations Septic shock, acute, present on admission. Ongoing - On admit: WBC 18.2, HR 138; LA 2.3 - Treat underlying cause(s) - Continue to wean norepi as tolerated - Continue LR 125 Septicemia, acute, present on admission. Under therapy - Blood Cx 08/24: + GNR - Awaiting final cultures/sensitivities; suspicious for Klebsiella/Enterobacter - Abx: Ertapenem - ID has been consulted, appreciate time and recommendations - Monitor labs, PCT Acute on chronic kidney disease, present on admission. Stable - On admit: Cr 2.98; baseline reported to be approx 2 - Avoid nephrotoxic meds when possible Suspected UTI, acute, present on admission. Under evaluation - On admit: UA + nitrite, moderate leuk est, + WBC, with many bacteria - Cx pending - Repeat ordered Suspected C. difficile infection with resultant sepsis, acute, present on admission. Under investigation - Recent stool PCR July 2016 + C. diff - Stool PCR 08/25: + C. diff, + norovirus - Difficult to discern if active infection as C. diff PCR can remain positive as long as one year - S/p loop ileostomy placement 08/24 with irrigation drain - Tx: Vancomycin irrigation through ileostomy per general surgery - General surgery following; appreciate time and recommendations - Precautions in place - ID consulted, as noted above Influenza A H3 infection, acute, present on admission. Treated - Peramivir completed Suspected LLL PNA, acute, present on admission. Under evaluation - Likely secondary to influenza, noted above - Monitor with CXR, labs, PCT History of renal transplant and long-term immunosuppression, chronic. Presumed stable - Holding cyclosporine Suspected adrenal insufficiency, chronic. 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 Will likely return to [facility] when stable for DC. Abx needs are uncertain at this time, will keep [facility] updated on any needs for continued IV abx. Pain Evaluation: Adequate Pain Control GI Prophylaxis: H2 mary ann VTE Prophylaxis: Sub-Q Heparin (Unfractionated) VTE Mechanical Devices: Intermittant Pneumatic CD Resuscitation Status: CPR: Attempt Resuscitation Time spent 60 minutes Attending Statement Patient was seen and examined with resident, agree with all attached documentation. Maude Boyd DO Aug 26, 2016 07:38 Stiven Aguilera MD Aug 26, 2016 18:34
[2016-08-26] MEDS ORDERED: Lactated Ringer's 500 ML IV ONE (10:00)
[2016-08-26 10:10] LABS: COLOR,URINE YELLOW (YELLOW)
[2016-08-26 10:11] LABS: APPEARANCE,URINE SLIGHTLY CLOUDY (CLEAR,HAZY); OCCULT BLOOD,URINE TRACE (NEGATIVE)
[2016-08-26 10:12] LABS: UROBILINOGEN,URINE NORMAL (NORMAL)
[2016-08-26] MEDS ORDERED: Albumin 25% 50 GM in IV Premix 1 EACH IV ONE (10:15)
--- NOTE | 2016-08-26 11:43 | PROG NOTE ---
[address] [address] PROGRESS NOTE PATIENT: NINA VALENTIN : 1945 MR#: [id number] ADMIT: 08/24/2016 JOB ID: [id number] DATE: 08/26/2016 SUBJECTIVE: The patient is seen in followup for his diagnostic laparoscopy with loop ileostomy and colonic lavage. We had been erroneously informed that his C. diff was negative. However, his labs have come back and he is indeed positive for C. diff. He is also positive for Norovirus influenza A, and has blood cultures that are growing gram-negative rods. He remains critically ill, on the ventilator and blood pressure support. His white blood cell count remains very elevated at 25.5. His creatinine is 2.83. His lactic acid has remained in the 2.5-2.3 range. His abdomen remains soft and nondistended. Incisions look fine. His ileostomy remains pink. There is no output. He continues to receive vancomycin flushes through the distal limb. ASSESSMENT AND PLAN: This is a 70-year-old man, critically ill, with a history of immunosuppression for a kidney transplant who has a complicated picture with sepsis, likely related to his gram-negative bacteremia, but also potentially contributed to by his chronic recurrent Clostridium diff. At this point, I recommend ongoing vancomycin flushes to complete at least a 10 day course. I will continue to follow along.
--- NOTE | 2016-08-26 13:35 | PROG NOTE ---
[address] [address] PROGRESS NOTE PATIENT: NINA VALENTIN : 1945 MR#: [id number] ADMIT: 08/24/2016 JOB ID: [id number] DATE: 08/26/2016 INFECTIOUS DISEASE FOLLOW UP NOTE: REASON FOR FOLLOW UP: Gram-negative septic shock with ventilator dependent respiratory failure secondary to complicated urinary tract infection. INTERVAL HISTORY: Overnight, the patient has remained critically ill in the ICU on vasopressor agents and on the ventilator. He has been sedated and is, of course, able to offer no additional history. His urine output has diminished considerably and is negligible at this point. This case was discussed during ICU rounds and at the bedside with the nursing staff. PHYSICAL EXAMINATION: Reveals an afebrile gentleman, temperature 36.3, pulse 80, respiratory rate 12, blood pressure 93/51. He is saturating 100% on 45% FiO2. Examination of the head reveals no evidence of trauma. The eyes are without scleral icterus. Oral endotracheal tube, oral gastric tube in good position. Lungs fairly clear anteriorly. Cardiac tones were regular rate and rhythm but otherwise distant he is on moderate doses of norepinephrine and supporting a blood pressure of 93/51. His abdomen is soft and nontender. His urine output is minimal and as was noted he has a Richey catheter. His extremities are reasonably well perfused despite his ongoing shock. LABORATORIES: Labs include a white count 25,500, which is stable. Platelets 163, also stable. Creatinine 2.83. Lactic acid 2.3. LFTs negative. Procalcitonin 71.72. Micro studies include urine negative, stool positive for C. difficile and Rupali virus. Peritoneal fluid cultures negative. Respiratory PCR positive for influenza. Multiple blood cultures positive for gram-negative rods, at least one of which is a Klebsiella oxytoca susceptible to ertapenem which he is receiving. The other blood culture may or may not be the same organism but it is an enteric gram-negative sanjay. Likewise his urine culture appears to be growing two separate organisms, one of which is Klebsiella and the other of which is not yet identified. Today's chest x-ray shows persistent bibasilar infiltrates. IMPRESSION: This is an unfortunate gentleman with a complicated urinary tract infection and septic shock due to an enteric gram-negative sanjay or perhaps multiple gram-negative rods. The patient was admitted within the past couple months for C difficile colitis complicated by pneumonia and now interestingly his PCR studies of the airway and stool were positive for all those same organisms. RECOMMENDATIONS: 1. Will continue with the ertapenem IV as a sole antibiotic for gram-negative sepsis. There is no possibility that the blood or urine organisms or Pseudomonas and ertapenem should provide excellent coverage. 2. Will continue with the vanco which is being irrigated through the colon for C. difficile. 3. The patient has received additional therapy for influenza. 4. Will continue to follow this patient closely with you. 5. This case discussed in detail during ICU rounds.
[2016-08-26] MEDS: Propofol Inj 1,000,000 MCG in IV Premix 1 EACH IV SCH (14:34)
--- NOTE | 2016-08-26 15:57 | NUR ---
Hypotension/Urine Output: P: Arterial BP 74/44 (MAP 55) notified. I: Norepinephrine gtt infusing at 0.055mcg/kg/min. LR 500ml IV bolus given (second this shift). Fentanyl gtt 25mcg/hr, Propofol 20mcg/kg/hr infusing. Minimal urine output total urine this shift so far = 140ml. MD Aware. E: Current arterial BP 97/51 (66). Will continue to monitor.
--- NOTE | 2016-08-26 16:36 | PCM.PNMED ---
Subjective Date of Service Aug 26, 2016 Subjective ICU/pulmonary Patient remains sedated on fentanyl and propofol. Blood gases improved from yesterday with pH 7.33 and CO2 of 30. Reduced sensation the patient becomes more agitated but is not waking up. Continues to need pressor support and is also responsive to fluid bolus. Exam Vital Signs Vital Sign - Last Date Time Temp Pulse Resp B/P Pulse Ox O2 Delivery O2 Flow Rate FiO2 08/26/16 15:42 80 98/50 98 45 08/26/16 12:54 36.3 12 Mechanical Ventilator Intake and Output 08/25/16 08/25/16 08/26/16 Cumulative From/Thru 15:00 23:00 07:00 08/24/16 04:11 - 08/26/16 05:23 Intake Total 2656 ml 2980 ml 78404 ml Output Total 500 ml 350 ml 1720 ml Balance 2156 ml 2630 ml 27849 ml Intake IV Total 2656 ml 2980 ml 00960 ml Output Urine Total 200 ml 175 ml 775 ml Stool Total 300 ml 175 ml 815 ml Gastric Drainage Total 0 ml 130 ml Exam GEN: Sedated HEENT: central line in place on the right IJ Cardio: Regular rate and rhythm no murmurs rubs or gallops Respiratory: Clear throughout with some coarse breath sounds diffusely Abdomen: Ostomy bag in place with tubes coming from the stoma; incision is clean dry and intact Extremities: Mild edema; skin is very flaky and dry Psych: Unable to assess Neuro: Unable to assess Skin: Very dry and flaky IVs and Medications Medications Reviewed: Medications were reviewed in detail Lab and Diagnostics Result Diagram: 08/26/1652408/26/16524 X-Rays, CTs and MRIs Initial chest x-ray is unremarkable. 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 Asymmetric opacity involves the superior segment of the left lower lobe, suspicious for aspiration or early pneumonia. 2. Findings consistent with proximal sigmoid colon diverticulitis, with microperforation. No findings to suggest associated abscess. 3. Status post renal transplant, with atrophic [place] kidneys. No significant discrepancy with preliminary [facility] report. Additional Diagnostics DateTimeAnalyzed 03:57:00 -_ pH ____7.353 - 7.350 7.450 pCO2 ___42.6__ -mmHg 35.0 45.0 pO2 100 -mmHg 69.0 116 HCO3- ___23.1__ -mmol/L 22.0 26.0 ABE ___-1.8__ -mmol/L -2.0 2.0 tHb ___10.3__ -g/dL O2Hb ___95.1__ -% COHb ____1.3__ -% MetHb ____1.2__ -% sO2 ___97.5__ -% 25.0 FIO2 ___50.0__ -% PEEP ____5.0__ -cmH2O Set_RR ___18.0__ -b/min Vt __560.0__ -L Drawn By LT - Date/Time Notified____ 04:03:00 -_ Spontaneous_RR ___20.0__ -b/min Notified By LT - Notified Whom _LEIBRAND - B 749 -mmHg tO2 ___13.9__ -Vol% Stiven test _Positive - Assessment & Plan 1. Acute hypoxic respiratory failure 2. Septic shock second to probable UTI 3. Acute renal failure; resolved 4. Probable adrenal insufficiency 5. Renal transplant 6. Previous C. difficile toxin colitis infection 7. History of multiple renal transplants and CKD 8. Questionable left lower lobe pneumonia Neuro: Continues on sedation. When sedation is laying the patient is agitated not noticeably responsive. Questionable this is due to uremia. Plan tomorrow to lying sedation and assess neurological function. Cardiovascular: Patient is currently on norepinephrine is 0.05 and seems to responsive to 500 mL bolus of LR. Respiratory: Patient is doing well on the vent settings currently. Images this morning is 7.355 with his PCO2 of 30. Will not change that sentence today. Repeat ABG in a.m. Abdomen: Incisions are clean and intact. Infection: Patient seems to be advancing in his sepsis with Klebsiella identified in procalcitonin continues to increase . He is currently on ertapenem IV per ID recommendations. Also receiving vancomycin irrigation through a loop ileostomy for questionable C. difficile. Patient had multiple episodes of C. difficile hence no surprises PCR was positive. Patient was also positive for influenza a which was also positive for 1 month ago. It is unclear as to whether this is new infection or continuation of the previous infection, orifice is playing any role in the patient's sepsis. Continue with fluid resuscitation and pressor support. Repeat labs in the a.m. Renal: UTI identified. Patient is currently producing approximate 1400 mL a day urinary output. There is a anion gap metabolic acidosis of 25 with an elevated BUN of 60 and a lactic acid of 2.3. 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 Patient's albumin is also extremely low and is been replaced today. Repeat mag and phosphorus in a.m. along with BMP. We will reevaluate tomorrow for continuing albumin 25 every 8 hours Disposition: Patient remains in critical condition in the ICU. I will assess tomorrow for any responsive antibiotics. Currently his vent settings are appropriate. Time spent: 45 minutes. GI Prophylaxis: H2 mary ann VTE Prophylaxis: Sub-Q Heparin (Unfractionated) VTE Mechanical Devices: Intermittant Pneumatic CD Resuscitation Status: CPR: Attempt Resuscitation Attending Statement The patient was seen and examined together with Dr. Harvey on 08/26/2016 and I agree with the history, exam and plan as outlined in the note above. Slade Harvey DO Aug 26, 2016 16:36 Baljeet Torres MD Sep 05, 2016 10:06
[2016-08-26] MEDS: Albumin 25% 25 GM in IV Premix 1 EACH IV SCH (18:19)
[2016-08-27] VITALS (19 sets, daily range): BP systolic 95–185; BP diastolic 52–96; PULSE 51–78; RESP 12; O2SAT 100
[2016-08-27] MEDS: Heparin 5,000 Unit/mL Inj SUBQ SCH ×2 (00:21→09:32)
[2016-08-27] MEDS: Chlorhexidine 0.12% 15 mL Oral Solution MT SCH ×6 (00:22→20:35)
[2016-08-27] MEDS: Hydrocortisone 50 mg/mL 2 mL Inj IVPUSH SCH ×3 (00:22→17:43)
[2016-08-27] MEDS: Albumin 25% 25 GM in IV Premix 1 EACH IV SCH ×3 (00:23→16:30)
[2016-08-27] MEDS: Lactated Ringer's 1,000 ML IV SCH ×2 (02:52→09:28)
[2016-08-27] MEDS: Propofol Inj 1,000,000 MCG in IV Premix 1 EACH IV SCH ×2 (02:53→10:25)
[2016-08-27] MEDS: LACTATED RINGER S IRRIGATION SCH ×3 (04:21→20:36)
[2016-08-27] MEDS: VANCOMYCIN IRRIGATION SCH ×3 (04:21→20:36)
--- NOTE | 2016-08-27 04:50 | NUR ---
P: Labile BP I: norepinephrine drip E: SBP 80-150s, DBPs 40-60s. MAPs 50-80s. Adjusting norepinephrine drip from hold to 0.05mcg. Tele SR w/ IVCD. Oliguria. CVP 10-11. FMS. Vent at 45%. Sats high 90s. Does not breath above vent rate. Propofol and fentanyl for sedation and comfort. Lighten propofol yesterday AM and pt thrashing head back and forth, eyes open, unable to follow cues, pulling on restraints. RASS -3 as night before and before weaning down propofol. Addendum: 08/27/16 at 0502 by MICHELE NAPIER RN Bear Hugger to keep temperature up. MAX temp 36.4 temporal.
[2016-08-27] MEDS: 0.9% Sodium Chloride 1,000 ML IV SCH ×3 (04:59→21:31)
[2016-08-27] MEDS: Vasopressin Inj 20 UNIT in 0.9% Sodium Chloride 100 ML IV SCH ×3 (05:01→22:44)
--- NOTE | 2016-08-27 05:47 | ABG ---
DateTimeAnalyzed 05:42:00 -_ pH ____7.373 - 7.350 7.450 pCO2 ___29.0__ -mmHg 35.0 45.0 pO2 119 -mmHg 69.0 116 HCO3- ___16.5__ -mmol/L 22.0 26.0 ABE ___-7.5__ -mmol/L -2.0 2.0 tHb ____7.3__ -g/dL O2Hb ___96.5__ -% COHb ____0.8__ -% MetHb ____1.2__ -% sO2 ___98.5__ -% 25.0 FIO2 ___45.0__ -% PRVC 577 - PEEP ____5.0__ -cmH2O Set_RR ___12.0__ -b/min Vt __510.0__ -L Drawn By RB - Spontaneous_RR ___12.0__ -b/min Oxygen Device 1 VENTILATOR - Notified By RB - Notified Whom Maritza K, RN - B 757 -mmHg tO2 ___10.1__ -Vol% Stiven test N/A -
[2016-08-27 06:08] LABS: BASOPHILS % (AUTO) 0 % (0-3); EOSINOPHILS % (AUTO) 0 % (0-5); MONOCYTES % (AUTO) 2.2 % (4-12); Mean Corpuscular Hemoglobin 30.6 pg (27.0-35.0); Mean Corpuscular Volume 91.9 fL (81-100); NEUTROPHILS % (AUTO) 95.7 % (40-74); Platelet Count 114 bil/L (150-400)
[2016-08-27 06:50] LABS: Magnesium 2.1 mg/dL (1.6-2.6)
--- NOTE | 2016-08-27 08:40 | PROG NOTE ---
[address] [address] PROGRESS NOTE PATIENT: NINA VALENTIN : 1945 MR#: [id number] ADMIT: 08/24/2016 JOB ID: [id number] DATE: 08/27/2016 REASON FOR FOLLOWUP: Polymicrobial gram-negative septic shock. INTERVAL HISTORY: Overnight, the patient has stabilized somewhat. There been efforts to reduce his vasopressor agents and he is now still on norepinephrine, but at much lower doses. His urine output which had been essentially nil has increased, though is still inadequate. The patient's ventilator settings have also been reduced and he is oxygenating quite well. This case was discussed in detail with the ICU nurse. The patient is obviously intubated, sedated, and cannot provide any additional history. PHYSICAL EXAMINATION: Reveals an intubated, sedated gentleman, lying in the ICU. His temperature is 36.4, pulse 70, respiratory rate is ventilator dependent, blood pressure 158/62 on 0.01 mcg/kg norepinephrine. He is saturating 100% on 40% FiO2. Examination of the eyes reveals no scleral icterus. He has oral endotracheal and orogastric tubes in place. A right neck central line appears benign. His lungs are notable for a few crackles at the bases but largely clear. Cardiac tones without significant new murmur. Abdomen completely soft and apparently nontender, though the patient is basically unresponsive. Richey catheter is present and the patient has made about 250 cc of urine through the night, which is better than yesterday's minimal performance. No significant new skin rashes noted. LABORATORY: Include a white count which has dropped a bit to 21,000, still with major left shift. His creatinine is 2.82, which has not changed at all since yesterday. His LFTs are normal. Albumin is 2.7. Procalcitonin is down to 50, from 71 yesterday, which was its peak. Urinalysis packed with white cells on admission. The urine grew both Proteus and Klebsiella oxytoca. One blood culture also grew Klebsiella, which was a fairly sensitive isolate and quite sensitive to ertapenem we have been using. The other blood cultures, though, and there been five of them, have grown a quite resistant Providencia stuartii. This organism is sensitive only to cefepime, meropenem and Zosyn. Ertapenem would presumably also work for this organism, though was not tested, and I have asked the lab to set that up. The patient's chest x-rays have bibasilar infiltrates which could be pneumonia, CHF or atelectasis. IMPRESSION: This patient has an odd polymicrobial bacteremia. It seems clear that the Klebsiella arose from the urinary tract, and therefore, is a bacteremic manifestation of a complicated urinary tract infection. The Providencia stuartii in the blood cultures, however, was not found in the urine, and raises the possibility of an intra-abdominal source of this more resistant pathogen. Additional efforts to re-evaluate the patient's abdomen may be indicated as his condition continues to improve. Note that the patient also has Clostridium difficile colitis which we are actively treating, as well as a positive respiratory PCR for influenza which we are treating but which is likely a residual from his prior episode last month. RECOMMENDATIONS: 1. Will continue with the ertapenem at a rather hefty dose of 1 g once a day considering his impaired renal function. 2. Vancomycin irrigation of the colon will continue using the ileal loop setup in place. 3. The patient has already received peramivir for his influenza. 4. Will continue to closely follow this complex patient with you.
[2016-08-27] MEDS ORDERED: Calcium GLUCO 10% (Gm) 1 Gm/10 mL 50 mL Inj IV ONE (08:45)
[2016-08-27] MEDS ORDERED: Calcium GLUCO 10% (Gm) Inj 1 GM in Dextrose 5% 50 ML IV ONE (09:00)
[2016-08-27] MEDS: Famotidine Inj 20 MG in IV Premix 1 EACH IV SCH (09:31)
[2016-08-27] MEDS: Ertapenem Inj 1,000 MG in 0.9% Sodium Chloride 50 ML IV SCH ×2 (09:32→11:22)
--- NOTE | 2016-08-27 09:56 | DRSVH ---
PROCEDURE: X-RAY CHEST ONE VIEW, PORTABLE ([id number]) INDICATIONS: intubated TECHNIQUE: One view of the chest was acquired. COMPARISON: [facility], CR, XR CHEST 1VW (PORTABLE), 08/26/2016, 5:35. FINDINGS: Surgical changes and devices: ETT tip projected 4.9 cm by the vinny. Stable positioning of nasogast lynda tube and right IJ CVL. Lungs and pleura: Pulmonary venous congestion present and there has been interval increase in mid/bas ilar consolidation. Small layering pleural effusions. Mediastinum: Mediastinal contours appear normal. Heart size is normal. Bones and chest wall: No suspicious bony lesions. Overlying soft tissues appear unremarkable. IMPRESSION: 1. Port lines and tubes as above. 2. Pulmonary edema and/or bilateral pneumonia increased from prior examination involving the mid lung and the lung bases. Dictated by: Carter Apple RRA Interpreted: Yeni Haynes MD on 08/27/2016 at 9:55 Transcribed by: SHANTEL on 08/27/2016 at 9:56 Approved by: Yeni Haynes MD, PhD on 08/27/2016 at 17:07
--- NOTE | 2016-08-27 11:01 | PCM.PNMED ---
Subjective Date of Service Aug 27, 2016 Subjective Overnight: Labile BP with difficulty stabilizing; agitated with decreases in propofol. Propofol was turned back up to 20. Today: On initial examination, no acute distress, BP was stable, levophed at 0.01, fentanyl 25. Subsequently, he became extremely tachycardic and hypertensive without identifiable cause; levophed was stopped, and LR decreased to 100 from 150. Remained tachycardic and hypertensive for approx 30 minutes. Spontaneous resolution. Vent: FiO2 0.4, P5, R 12, Vt 510 Labs: Hb 7.2; Cr 2.82, WBC 21.2; LA 1.3; PCT 49.85 Net IO + 18L; 24hUOP 315mL; UOP today 240mL Exam Vital Signs Vital Sign - Last Date Time Temp Pulse Resp B/P Pulse Ox O2 Delivery O2 Flow Rate FiO2 08/27/16 08:12 64 104/57 100 40 08/27/16 07:30 36.1 12 Mechanical Ventilator Intake and Output 08/26/16 08/26/16 08/27/16 Cumulative From/Thru 15:00 23:00 07:00 08/24/16 04:11 - 08/27/16 05:07 Intake Total 3408 ml 2825 ml 69571 ml Output Total 165 ml 465 ml 2350 ml Balance 3243 ml 2360 ml 37108 ml Intake Oral 0 ml 0 ml IV Total 3408 ml 2825 ml 87219 ml Output Urine Total 140 ml 240 ml 1155 ml Stool Total 100 ml 915 ml Gastric Drainage Total 25 ml 125 ml 280 ml # Bowel Movements 1 1 Exam General: Intubated and sedated; no acute distress HENT: Atraumatic; sclera anicteric; ETT in place; mucus membranes moist Neck: Soft, obese Cardiac: Regular rate and rhythm at time of initial examination; no murmurs appreciated Respiratory: Adequate air flow all jama; faint coarse sounds appreciated Abdomen: Soft, nondistended; ileostomy bag secured on right with drain in place for irrigation Extremities: No edema Pulses: Radial equal and bilateral Skin: Warm, dry; scaly and dry Neuro: Cannot obtain secondary to sedation and intubation Psych: Cannot obtain secondary to sedation and intubation Lab and Diagnostics Result Diagram: 08/27/16 0550 08/27/16 0550 X-Rays, CTs and MRIs Initial chest x-ray is unremarkable. 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 Asymmetric opacity involves the superior segment of the left lower lobe, suspicious for aspiration or early pneumonia. 2. Findings consistent with proximal sigmoid colon diverticulitis, with microperforation. No findings to suggest associated abscess. 3. Status post renal transplant, with atrophic [place] kidneys. No significant discrepancy with preliminary Nightshift report. Additional Diagnostics DateTimeAnalyzed 03:57:00 -_ pH ____7.353 - 7.350 7.450 pCO2 ___42.6__ -mmHg 35.0 45.0 pO2 100 -mmHg 69.0 116 HCO3- ___23.1__ -mmol/L 22.0 26.0 ABE ___-1.8__ -mmol/L -2.0 2.0 tHb ___10.3__ -g/dL O2Hb ___95.1__ -% COHb ____1.3__ -% MetHb ____1.2__ -% sO2 ___97.5__ -% 25.0 FIO2 ___50.0__ -% PEEP ____5.0__ -cmH2O Set_RR ___18.0__ -b/min Vt __560.0__ -L Drawn By LT - Date/Time Notified____ 04:03:00 -_ Spontaneous_RR ___20.0__ -b/min Notified By LT - Notified Whom _LEIBRAND - B 749 -mmHg tO2 ___13.9__ -Vol% Stiven test _Positive - Assessment & Plan Mr. 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 difficile, suspected colonic microperforation, and/or UTI. He was admitted for evaluation and treatment of septic shock secondary to reasons discussed, acute hypoxemic respiratory failure, and acute on chronic kidney disease. - Hospital day 4 - Ventilator day 4 - POD 3: loop ileostomy Acute hypoxemic respiratory failure, present on admission. Ongoing - Secondary to septic shock - Remains intubated and sedated - Pulmonary/ICU consulted; appreciate time and recommendations Septic shock, acute, present on admission. Ongoing - On admit: WBC 18.2, HR 138; LA 2.3 - Treat underlying cause(s) - Continue to wean norepi as tolerated - Continue LR 100 Septicemia, acute, present on admission. Under therapy - Blood Cx 08/24: + Klebsiella oxytoca, Providencia stuartii - Abx: Ertapenem; awaiting ID recs for any changes - ID has been consulted, appreciate time and recommendations - Monitor labs, PCT Acute on chronic kidney disease, present on admission. Stable - On admit: Cr 2.98; baseline reported to be approx 2 - Avoid nephrotoxic meds when possible - Oliguric; discussion of lasix push/gtt if BP can tolerate - Nephrology has been consulted, appreciate time and recs Suspected UTI, acute, present on admission. Under evaluation - On admit: UA + nitrite, moderate leuk est, + WBC, with many bacteria - Repeat UA 08/26: Cloudy, mod LE, > 50 WBC, mod bacteria - Cx pending Suspected C. difficile infection with resultant sepsis, acute, present on admission. Under investigation - Recent stool PCR July 2016 + C. diff - Stool PCR 08/25: + C. diff, + norovirus - Difficult to discern if active infection as C. diff PCR can remain positive as long as one year - S/p loop ileostomy placement 08/24 with irrigation drain - Tx: Vancomycin irrigation through ileostomy per general surgery - General surgery following; appreciate time and recommendations; recommend approx 10d course of irrigation - Irrigation start date: 08/24 - Precautions in place - ID consulted, as noted above Anemia, acute, present on admission. Under evaluation - Normocytic, normochromic - Drop in Hb noted 08/27 to 7.2 - Repeat HH in am - Transfuse threshold Hb 7.0 Hypocalcemia, acute, not present on admission. Under therapy - Initially corrected with decreased albumin - Correction 08/27: 7.7, still low - 1g calcium gluco given - Monitor Influenza A H3 infection, acute, present on admission. Treated - Peramivir completed Suspected LLL PNA, acute, present on admission. Under evaluation - Likely secondary to influenza, noted above - Monitor with CXR, labs, PCT History of renal transplant and long-term immunosuppression, chronic. Presumed stable - Holding cyclosporine - Nephro consulted, as noted above Suspected adrenal insufficiency, chronic. 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 Will likely return to [facility] when stable for DC. 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 Pain Evaluation: Adequate Pain Control GI Prophylaxis: H2 mary ann VTE Prophylaxis: Sub-Q Heparin (Unfractionated) VTE Mechanical Devices: Intermittant Pneumatic CD Resuscitation Status: CPR: Attempt Resuscitation Attending Statement The patient was seen and examined together with Dr. Boyd on 08/27/16 and I agree with the history, exam and plan as outlined in the note above. Patient later in the day had a hemoglobin of 6.5. Patient's sister who is the next of kin Juana Horne was contacted and consented for the patient to have a transfusion of 2 units of blood. Maude Boyd DO Aug 27, 2016 11:01 Chika Cornejo DO Aug 27, 2016 17:09
[2016-08-27] MEDS ORDERED: Furosemide 10 mg/mL 4 mL Inj IVPUSH ONE (11:55)
--- NOTE | 2016-08-27 13:27 | NUR ---
NUTRITION FOLLOW UP Assess: Pt is a 70 yo male admitted w/ sepsis and hypotension d/t probable acute hypercarbic respiratory failure. Pt was intubated at [facility] where he resides, and remains intubated and sedated. Pt has CKD Stage III, and history of 3 renal transplants. A loop ileostomy was placed on 08/24. Pt remains hypothermic w/ Marycarmen hugger. Pt tested positive for C diff and Norovirus. Per verbal order from MD at rounds, start trickle TF. PMHx: Full medical hx unavailable d/t pt status at time of admission. Recent C diff colitis, influenza A, transient encephalopathy, urinary retention, FLOYD on CKD Stage III, possible healthcare acquired pneumonia, renal transplant, A fib, MRSA. LABS: CO2 15, BUN 69, Epic Professional 2.82, Lactic Acid 2.3, Ca 6.7, Phos 6.0, Alb 2.7, Prealbumin 10, Procalcitonin 49.85 MEDICATIONS: Heparin, Norepinephrine, Propofol @ 9.4 ml/hr providing 248 kcal, Fentanyl, Albumin CURRENT DIET: NPO x 3 days GI symptoms/stool: Ileostomy 100 ml output (08/27). 125 ml gastric drainage SKIN: Eze 9 deep tissue injuries to L & R heels per WC. Heels elevated. ANTHROPOMETRICS: Current Wt: 96.4 kg BMI: 30.5 kg/m2 IBW: 73 kg Admit Wt: 83.2 kg (BMI 26.3 kg/m2) ESTIMATED NEEDS: vented Calories: 3702-2778 kcal/day (20-25 kcal/kg Admit BW) Protein: 65-85 g/day (0.8-1.0 g/kg Admit BW) Fluids: ~2200 ml/day (Approx 1 ml/kcal/d) NUTRITION DIAGNOSIS: 1) Inadequate oral intake related to inability to consume sufficient energy as evidenced by current NPO status. ---PERSISTS AT NPO X 3 DAYS 2) Altered nutrition related lab values related to Stage III CKD as evidenced by elevated BUN, Creatinine and Phosphorous lab values and low Magnesium levels. ---IMPROVED, PHOS REMAINS ELEVATED, MG WNL INTERVENTION: 1) Per verbal orders from MD, start trickle TF of Nepro @ 10 ml/hr. Hold at trickle until orders to advance. 2) If orders to advance rate, recommend advancing Nepro @ 10 ml q 6 hrs until goal rate of 45 ml/hr, providing a total of 2030 kcal (1782 formula + 248 propofol) and 80g protein, meeting 100% of protein and calorie needs. 3) Adjust TF rate as needed based on propofol rate. MONITOR/EVALUATE: TF shereen/adv, labs, wt, GI, nutrition status, POC. Will continue to monitor per high nutritional risk guidelines. Addendum: 08/27/16 at [address] Student documentation reviewed and I agree with the above assessment. Marcella Bojorquez, MS, RDN, CD
--- NOTE | 2016-08-27 15:25 | PCM.PNMED ---
Subjective Date of Service Aug 27, 2016 Subjective 70-year-old male presenting with severe septic shock. Patient remained sedated today with some head movement overnight when propofol is reduced 25. Blood pressures have been very difficult to control with norepinephrine 0.02 and 0.05. Affective, both in increased 0.07 patient's blood pressure increases to 250/120. He has also had some reported short duration missed beats on his telemetry strip of approximately 1.5 seconds. Once pressors were removed patient resorts back to amount of 50-55. Exam Vital Signs Vital Sign - Last Date Time Temp Pulse Resp B/P Pulse Ox O2 Delivery O2 Flow Rate FiO2 08/27/16 12:30 Ventilator 08/27/16 11:48 80 157/83 100 40 08/27/16 11:30 35.9 12 Intake and Output 08/26/16 08/26/16 08/27/16 Cumulative From/Thru 15:00 23:00 07:00 08/24/16 04:11 - 08/27/16 05:07 Intake Total 3408 ml 2825 ml 37170 ml Output Total 165 ml 465 ml 2350 ml Balance 3243 ml 2360 ml 18087 ml Intake Oral 0 ml 0 ml IV Total 3408 ml 2825 ml 33688 ml Output Urine Total 140 ml 240 ml 1155 ml Stool Total 100 ml 915 ml Gastric Drainage Total 25 ml 125 ml 280 ml # Bowel Movements 1 1 Exam Gen: Intubated and sedated. HEENT: ET tube in place, IJ on the right, pupils reactive Cardiac: regular rate and rhythm no murmurs rubs or gallops Respiratory: Coarse breath sounds throughout, no wheezing, mild crackles in the bases bilateral lateral jama. Abdomen: Soft nondistended, incisions are clean dry and intact; pupils and sclerae Extremities: No edema noted, healing ulcer on the right she will Skin: Warm, no rashes Neuro: Sedated Psych: Sedated IVs and Medications Medications Reviewed: Medications were reviewed in detail Lab and Diagnostics Result Diagram: 08/27/16 1345 08/27/16 0550 X-Rays, CTs and MRIs Initial chest x-ray is unremarkable. 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 Asymmetric opacity involves the superior segment of the left lower lobe, suspicious for aspiration or early pneumonia. 2. Findings consistent with proximal sigmoid colon diverticulitis, with microperforation. No findings to suggest associated abscess. 3. Status post renal transplant, with atrophic [place] kidneys. No significant discrepancy with preliminary Nightshift report. Additional Diagnostics DateTimeAnalyzed 03:57:00 -_ pH ____7.353 - 7.350 7.450 pCO2 ___42.6__ -mmHg 35.0 45.0 pO2 100 -mmHg 69.0 116 HCO3- ___23.1__ -mmol/L 22.0 26.0 ABE ___-1.8__ -mmol/L -2.0 2.0 tHb ___10.3__ -g/dL O2Hb ___95.1__ -% COHb ____1.3__ -% MetHb ____1.2__ -% sO2 ___97.5__ -% 25.0 FIO2 ___50.0__ -% PEEP ____5.0__ -cmH2O Set_RR ___18.0__ -b/min Vt __560.0__ -L Drawn By LT - Date/Time Notified____ 04:03:00 -_ Spontaneous_RR ___20.0__ -b/min Notified By LT - Notified Whom _LEIBRAND - B 749 -mmHg tO2 ___13.9__ -Vol% Stiven test _Positive - Assessment & Plan 1. Acute hypoxic respiratory failure 2. Septic shock secondary to Klebsiella and Providencia; also urine revealed Klebsiella and Proteus 3. Probable adrenal insufficiency 4. Renal transplant 5. Questionably less likely active C. difficile toxin colitis infection 6. History of multiple renal transplants and CKD 7. Questionable progressive left lower lobe pneumonia 8. Anion gap metabolic acidosis 9. Bilateral pleural effusions left greater than right 10. Acute anemia, suspected blood loss 11. Hypocalcemia; corrected to 7.44 12. Questionable active influenza A Neuro: Patient remains sedated on the 20 propofol; propofol being decrease the patient shows agitation with rotation of the head back and forth but unresponsive to stimulus and currently not communicating. He has remained on sedation today. We would like to remove the sedation and evaluate the patient today, it appears that this will have to wait until tomorrow. Cardiovascular: Patient remains on pressors intermittently. Currently he is being maintained on 0.02 nor epinephrine and vasopressin 0.03. Vasopressin was added today due to what appears to be autonomic instability. This occurs on the patient's norepinephrine was titrated up of 0.05 and the patient develops severe hypertension of 250/120. Removal of pressor support resolves the hypertension and drops patient's map below 55. Is questionable whether these were true blood pressures patient has been measured with an arterial line and the waveform is appropriate. Currently we are attempting to use vasopressin instead of increase in alpha receptor effects of norepinephrine. Our goal for today is to stabilize patient and keep him in a stable, not necessarily progressed, condition. Hypotension has been blamed on the current ongoing sepsis which seems to be somewhat resolving at this point. Patient's hemoglobin and hematocrit have continues to trouble the last 2 days from the mid nines down to 6.5 this afternoon. 2 units of packed red blood cells are being transfused. Currently include site is unidentified. Stool will be sent for Hemoccult, although whether this patient is stable enough to be scoped is unlikely. Patient is currently on heparin as DVT prophylaxis and on famotidine IV. We will discontinue heparin and famotidine at this time and start patient on Protonix 40 twice a day. Respiratory: Patient's blood gas this morning revealed pH of 7.37, PCO2 of 29, PO2 of 119, and bicarbonate of 16.5, with a saturation of 98.5. Patient's peak and plateau pressures are appropriate. This point he is oxygenating and ventilating well will continue to watch this with ABG in the morning and a repeat chest x-ray. Of note the chest x-ray does reveal bilateral pleural effusions that are mildly worse versus unchanged from yesterday. The position of the chest x-rays making it difficult to determine whether or not these effusions are advancing. Consider tapping the pleural effusions and no source for bleeding is identified. Abdominal: Patient's loop ileostomy is clean and intact. Vancomycin continues to be run through the ostomy. Rectal tube is in place and stool in the bag although this does not appear to be bloody or melena. Currently really questionable whether the source of the bleeding is coming from my thought is since most likely coming from ulcer due to the high stress demands on the patient. Infectious disease: Patient has positive PCR for C. difficile and/or virus; positive urine culture for Proteus and Klebsiella; and positive blood cultures for Klebsiella in [place]. Infectious disease is following and recommends ertapenem 1 g once a day. Patient is also being continued on vancomycin irrigations of the colon through the loop ileostomy. Patient has already received parameter for his influenza and due to his nearing end-stage kidney disease should not need an additional dose. Patient remains to be hypothermic due to the sepsis but this seems to be better controlled with the warm Bear hugger. Renal: Patient has only put out 2.3 L since admission all receiving 20.8 L. This gives a total fluid balance of thousand 452 mL net positive. Patient is a renal transplant patient is producing treated with cyclosporine was held on admission. Discussion with nephrology team this afternoon and decision to continue to withhold cyclosporine was reached. His goal is to use Lasix pushes versus drips however the blood pressure has been uncooperative this has not been started. Overall picture shows a creatinine that is only mildly improved since admission and patient who is oliguric. It is of concern that the patient' s kidney is no longer functioning and that she will need dialysis to remove the fluid overload once he is stable. Disposition: Patient's critical condition and the ICU with no timeline for stepdown. Currently the blood pressure is tenuous at best and nurse has been most helpful in starting and stopping the blood pressure medications. Time spent: 1 hour GI Prophylaxis: H2 mary ann VTE Prophylaxis: Sub-Q Heparin (Unfractionated) VTE Mechanical Devices: Intermittant Pneumatic CD Resuscitation Status: CPR: Attempt Resuscitation Attending Statement The patient was seen and examined together with Dr. Harvey on 08/27/2016 and I agree with the history, exam and plan as outlined in the note above. Slade Harvey DO Aug 27, 2016 15:25 Baljeet Torres MD Sep 19, 2016 09:02
[2016-08-27] MEDS ORDERED: 0.9% Sodium Chloride 250 ML ONE (15:57)
[2016-08-27] MEDS: Pantoprazole 4 mg/mL 10 mL Inj IVPUSH SCH (17:43)
[2016-08-27] MEDS ORDERED: Bumetanide 0.25 mg/mL 4 mL Inj IV ONE (18:00)
--- NOTE | 2016-08-27 18:52 | CONS ---
[address] [address] CONSULTATION REPORT PATIENT: NINA VALENTIN : 1945 MR#: [id number] ADMIT: 08/24/2016 JOB ID: [id number] DATE OF SERVICE: 08/27/2016 NEPHROLOGY CONSULTATION: REQUESTING PHYSICIAN: Baljeet Torres MD REASON FOR CONSULTATION: Management of acute kidney injury and immunosuppressive medications. CHIEF COMPLAINT: Unresponsive. HISTORY OF PRESENT ILLNESS: This is a 70-year-old male with significant past medical history of end-stage renal disease, unknown etiology, status post donor kidney transplant x3, recurrent C. difficile colitis infection, presented to the hospital due to unresponsiveness. The patient was recently hospitalized between July 24 and August 02, 2016, due to C. difficile colitis, influenza infection, and acute kidney injury. The patient completed fidaxomicin. He also received Tamiflu treating for influenza infection. He also had an episode of acute kidney injury. Peak serum creatinine was 3.58 and trended down to 2.6 prior to discharge. At the [facility] the patient was found unresponsive, with profound hypotension and systolic blood pressure was 40. He was then intubated in the field. The patient was brought to the hospital for further management. Septic workup was done. The patient received IV fluid resuscitation, IV vasopressors. The patient was evaluated by the general surgeon due to possible sigmoid diverticulitis versus recurrent C. difficile colitis. He underwent diagnostic laparoscopy with laparoscopic loop ileostomy and colonic lavage on August 24, 2016. The patient has been under the care of the ICU team, Dr. Duenas, and General surgery. Currently he is on vancomycin 500 mg irrigation every 8 hours and ertapenem 1 g every 24 hours. The patient remains in a critical condition. His blood pressure has been low. He required vasopressors to support his blood pressure. He came in with a serum creatinine of 2.93. The current value is 2.8-2. His urine output has been low over the past 24 hours, which was about 315 mL. The patient is not on any immunosuppressive medication. He is on the stress dose steroids. PAST MEDICAL HISTORY: 1. End-stage renal disease, unknown etiology. 2. Status post donor kidney transplant x3, last one was in 1993. 3. Chronic kidney disease stage 4 in the setting of kidney transplant. 4. Hypertension. 5. Dyslipidemia. 6. Recurrent C. difficile colitis. 7. Recent history of influenza A infection. 8. Recent history of pneumonia. 9. Diverticulosis. PAST SURGICAL HISTORY: 1. Status post donor kidney transplant x3. 2. Multiple hip replacements. 3. Osteoporosis. 4. Status post splenectomy next. ALLERGIES: POVIDONE-IODINE. SOCIAL HISTORY: The patient is an active smoker. He is a [facility] resident. FAMILY HISTORY: Noncontributory. REVIEW OF SYSTEMS: Unable to obtain. PHYSICAL EXAMINATION: Vitals: Temperature 35.9, pulse 62, respiratory rate 20, blood pressure 105/61. General appearance: Intubated, sedated. HEENT: Atraumatic. Anicteric sclerae. ET tube in place. Moist mucous membranes. Neck: Supple. No lymphadenopathy. Heart: Regular rhythm. Normal S1 and S2. No murmurs, rubs, or gallops. Lungs: Equal breath sounds bilaterally. Diffuse coarse crackles. Abdomen: Soft. Ileostomy bag secured on the right lower quadrant. Mild distention. Decreased bowel sounds. Extremities: 1+ edema on the lower extremity with sacral swelling. LABORATORY: Sodium 136, potassium 4.6, chloride 101, bicarb 15, BUN 69, creatinine 2.82. Hemoglobin 7.2. INR 1.45. Urine WBC more than 50, RBCs 0-2. Stool positive for C. diff toxin and Norovirus. Viral respiratory panel positive for influenza. Blood culture positive for Providencia and Klebsiella and Proteus. ASSESSMENT: 1. Acute kidney injury on chronic kidney disease in the setting of kidney transplant. 2. Severe septic shock. 3. Acute hypoxic respiratory failure. 4. Klebsiella and providencia bacteremia, and Klebsiella and proteus complicated urinary tract infection. 5. 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 6. Status post laparoscopic ileostomy. 7. Anion gap metabolic acidosis secondary to uremia and lactic acidosis. PLAN: 1. At this point I will continue only stress dose steroid. I will not resume cyclosporine and CellCept given ongoing profound septic shock. The patient will be continued on normal saline at 100 mL/hour. I will discontinue lactated Ringer's. Will continue albumin 25% every 8 hours. 2. Adjust all the medications per GFR. Will try one dose of Lasix 40 mg x1. If patient does not respond, we will increase the dose to 80 mg x1 tonight. 3. Overall prognosis is guarded. The patient has had multiple hospitalizations due to infections over the past six months. 4. There is no indication for urgent dialysis at this moment. We will monitor along with you. MTDD
--- NOTE | 2016-08-27 19:08 | NUR ---
Cardiac: Vented pt with vigileo monitor in place, see CCU flow sheet for details. BP very labile, 70s/40s to 250s/150s, MD aware, pressors titrated as needed. Q2h turns, CLRT in place, heels floated. Hgb/Hct 6.5/20.1, pt received 2 units PRBCS, second unit infusing now, no s/s of adverse reactions. Telephone consent for blood products obtained by and witnessed by this nurse. Care ongoing.
[2016-08-27] MEDS ORDERED: 0.9% Sodium Chloride 500 ML ONE (23:59)
[2016-08-28] VITALS (12 sets, daily range): BP systolic 109–145; BP diastolic 56–83; PULSE 56–66; RESP 12; O2SAT 99–100
[2016-08-28] MEDS: Hydrocortisone 50 mg/mL 2 mL Inj IVPUSH SCH ×3 (00:05→17:03)
[2016-08-28] MEDS: Chlorhexidine 0.12% 15 mL Oral Solution MT SCH ×6 (00:40→22:20)
[2016-08-28] MEDS: Albumin 25% 25 GM in IV Premix 1 EACH IV SCH ×3 (00:57→17:03)
[2016-08-28] MEDS ORDERED: 0.9% Sodium Chloride 500 ML ONE (02:43)
[2016-08-28] MEDS: LACTATED RINGER S IRRIGATION SCH ×3 (04:35→22:21)
[2016-08-28] MEDS: VANCOMYCIN IRRIGATION SCH ×3 (04:35→22:21)
--- NOTE | 2016-08-28 04:56 | NUR ---
P: labile BP I: on and off norepinephrine drip, 2 units PRBCs, albumin E: Norepinephrine on hold to 0.02mcg. BP all the sudden drop to 80-90s/50s from 120-160s/50-60s. Tele SR/SB, IVCD. HR dropping to high 30s in AM but not sustaining. Generally BP just up during HR in the 30s. Making more urine, buminex IV given. CVP 10-13. FMS. Propofol at 15mcg, fentanyl at 25mcg for RASS -3. Thrashing head noted x 1. Sats in the high 90s on FI02 40%. Does not overbreathe vent rate
[2016-08-28] MEDS: fentaNYL 2,500 mCg/250 mL 2,500 MCG in IV Premix 1 EACH IV PRN (05:31)
[2016-08-28] MEDS: Norepineph 8,000 mCg/250 mL NS 8,000 MCG in IV Premix 1 EACH IV SCH (05:42)
--- NOTE | 2016-08-28 06:12 | ABG ---
DateTimeAnalyzed 06:05:00 -_ pH ____7.366 - 7.350 7.450 pCO2 ___28.1__ -mmHg 35.0 45.0 pO2 126 -mmHg 69.0 116 HCO3- ___15.7__ -mmol/L 22.0 26.0 ABE ___-8.2__ -mmol/L -2.0 2.0 tHb ____8.9__ -g/dL O2Hb ___96.4__ -% COHb ____1.1__ -% MetHb ____1.1__ -% sO2 ___98.6__ -% 25.0 FIO2 ___40.0__ -% PRVC 12 - PEEP ____5.0__ -cmH2O Vt __510.0__ -L Drawn By RB - Date/Time Notified____ 06:11:00 -_ Spontaneous_RR ___12.0__ -b/min Oxygen Device 1 VENTILATOR - Notified By RB - Notified Whom Maritza, K RN - B 739 -mmHg tO2 ___12.4__ -Vol% Stiven test N/A -
[2016-08-28 06:25] LABS: BASOPHILS % (AUTO) 0 % (0-3); EOSINOPHILS % (AUTO) 0 % (0-5); Mean Corpuscular Hemoglobin 30.3 pg (27.0-35.0); Mean Corpuscular Volume 89.1 fL (81-100); NEUTROPHILS % (AUTO) 94.4 % (40-74); Platelet Count 88 bil/L (150-400)
[2016-08-28 07:17] LABS: Phosphorus 6.9 mg/dL (2.5-4.9)
[2016-08-28] MEDS ORDERED: Calcium Chl 10% (Gm) Inj 1 GM in Dextrose 5% 100 ML IV ONE (07:45)
[2016-08-28] MEDS: Ertapenem Inj 1,000 MG in 0.9% Sodium Chloride 50 ML IV SCH (07:50)
[2016-08-28] MEDS: Pantoprazole 4 mg/mL 10 mL Inj IVPUSH SCH ×2 (07:50→17:03)
[2016-08-28] MEDS ORDERED: Calcium GLUCO 10% (Gm) Inj 1 GM in Dextrose 5% 100 ML IV ONE (08:20)
--- NOTE | 2016-08-28 08:36 | PROG NOTE ---
[address] [address] PROGRESS NOTE PATIENT: NIAN VALENTIN : 1945 MR#: [id number] ADMIT: 08/24/2016 JOB ID: [id number] DATE: 08/28/2016 INFECTIOUS DISEASE FOLLOW UP NOTE: REASON FOR FOLLOWUP: Polymicrobial gram-negative septic shock with ventilatory dependent respiratory failure. INTERVAL HISTORY: Overnight, the patient is perhaps slightly improved. Efforts to wean his pressors have been successful and this morning he is no longer on any vasopressor agent. His ventilator status is relatively stable with 40% FiO2 and 5 of PEEP and his urine output has picked up considerably. The patient remains though heavily sedated and unresponsive in the ICU. I discussed him and examined the patient at the bedside with the ICU nurse. PHYSICAL EXAMINATION: Reveals an afebrile gentleman lying supine in his ICU bed sedated and orally intubated. He also has an oral gastric tube. Eyes without notable abnormality. Oral cavity and lips as far as can be seen appear normal. Central line in good position. Lungs with a few crackles bilaterally but unchanged from yesterday. Cardiac tones: Bradycardic and are regular with the monitor showing what appears to be AFib. Abdomen: Soft and nontender. The ileal loop is present and the nurses are using it for irrigating with vanco. The patient is not having significant diarrhea. In fact, he is having very little in the way of stool output. His extremities are warm and well perfused today. No skin rashes noted. LABORATORIES: Include white count 12,000, hematocrit 26, platelet count 88, creatinine 2.72. LFTs are normal. Albumin 2.9. Procalcitonin continues to drop. It is 32 today, down from 50 yesterday, down from a peak of 71 two days ago. Micro studies are as previously noted. His urine grew Klebsiella and Proteus. His blood group the same Klebsiella plus a Providencia which is a completely different organism from those isolated in the urine. We still await the ertapenem susceptibility on the Providencia but it is sensitive to meropenem. The patient also has influenza as determined by a multiplex respiratory PCR and both C difficile and Rupali virus in stool. Chest x-ray shows bilateral infiltrates consistent with CHF presumably. IMPRESSION: This is a patient with longstanding and recurrent C difficile and multiple medical problems, who presented with septic shock requiring sustained vasopressor support and intubation with mechanical ventilation. He has a polymicrobial bacteremia. One of these organisms, the Klebsiella, is present in both blood and urine and presumably this is a bacteremic urinary tract infection. The other, however, is not seen in urine and this raises the possibility of an intra-abdominal process as was suggested by his admission CT scan. During surgery, however, Dr. De La Rosa did not find evidence of diverticulitis nor did he find much evidence of colitis despite the positive stool for C difficile, so it is not exactly clear how the Providencia arrived in the blood stream. RECOMMENDATIONS: 1. Will continue with ertapenem with a dose of 1 g once a day. 2. Will continue to closely watch the patient's progress. 3. Was discussed this morning with the micro lab again the susceptibilities of the various organisms. 4. Vancomycin irrigation of the colon will continue using the ileal loop at the discretion of Dr. De La Rosa of Surgery. 5. Will continue to follow this very complex patient with you.
--- NOTE | 2016-08-28 08:37 | DRSVH ---
PROCEDURE: X-RAY CHEST ONE VIEW, PORTABLE ([id number]) INDICATIONS: intubated TECHNIQUE: One view of the chest was acquired. COMPARISON: [facility], CR, XR CHEST 1VW (PORTABLE), 08/27/2016, 5:09. FINDINGS: Surgical changes and devices: ETT tip projected 4.9 cm by the vinny. Stable positioning of nasogast lynda tube and right IJ CVL. Lungs and pleura: Pulmonary venous congestion present and there has been no change in mid/basilar con solidation. Small layering pleural effusions. Mediastinum: Mediastinal contours appear normal. Heart size is normal. Bones and chest wall: No suspicious bony lesions. Overlying soft tissues appear unremarkable. IMPRESSION: 1. Support lines and tubes as above. 2. Pulmonary edema and/or bilateral pneumonia with no significant prior examination. Dictated by: Carter Apple [facility] Interpreted: Maryan Villagomez MD on 08/28/2016 at 8:35 Transcribed by: RICHY on 08/28/2016 at 8:36 Approved by: Maryan Villagomez M.D. on 08/28/2016 at 16:44
[2016-08-28] MEDS: Vasopressin Inj 20 UNIT in 0.9% Sodium Chloride 100 ML IV SCH ×2 (09:51→20:58)
[2016-08-28] MEDS: Propofol Inj 1,000,000 MCG in IV Premix 1 EACH IV SCH (10:03)
[2016-08-28] MEDS: 0.9% Sodium Chloride 1,000 ML IV SCH (10:04)
--- NOTE | 2016-08-28 11:49 | PCM.PNMED ---
Subjective Date of Service Aug 28, 2016 Subjective He has responded with IV loop diuretics. Urine output has improved overnight. Vasopressors has been on hold. sedated, on full vent support. Exam Vital Signs Vital Sign - Last Date Time Temp Pulse Resp B/P Pulse Ox O2 Delivery O2 Flow Rate FiO2 08/28/16 08:10 56 113/61 100 30 08/28/16 08:00 35.3 12 Mechanical Ventilator Intake and Output 08/27/16 08/27/16 08/28/16 Cumulative From/Thru 15:00 23:00 07:00 08/24/16 04:11 - 08/28/16 06:07 Intake Total 2560 ml 1279 ml 67306 ml Output Total 600 ml 850 ml 3800 ml Balance 1960 ml 429 ml 62799 ml Intake Oral 0 ml IV Total 1951 ml 1262 ml 67115 ml Tube Feeding 17 ml 17 ml Packed Cells 609 ml 609 ml Tube Irrigant 0 ml 0 ml Output Urine Total 500 ml 675 ml 2330 ml Stool Total 150 ml 1065 ml Gastric Drainage Total 100 ml 25 ml 405 ml # Bowel Movements 1 Exam General appearance: Intubated, sedated. HEENT: Atraumatic. Anicteric sclerae. ET tube in place. Moist mucous membranes. Neck: Supple. No lymphadenopathy. Heart: Regular rhythm. Normal S1 and S2. No murmurs, rubs, or gallops. Lungs: Equal breath sounds bilaterally. Diffuse coarse crackles. Abdomen: Soft. Ileostomy bag secured on the right lower quadrant. Mild distention. Decreased bowel sounds. Extremities: no edema on the lower extremity. Lab and Diagnostics Result Diagram: 08/28/16 1020 08/28/16 0600 X-Rays, CTs and MRIs Initial chest x-ray is unremarkable. 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 Asymmetric opacity involves the superior segment of the left lower lobe, suspicious for aspiration or early pneumonia. 2. Findings consistent with proximal sigmoid colon diverticulitis, with microperforation. No findings to suggest associated abscess. 3. Status post renal transplant, with atrophic [place] kidneys. No significant discrepancy with preliminary [facility] report. Additional Diagnostics DateTimeAnalyzed 03:57:00 -_ pH ____7.353 - 7.350 7.450 pCO2 ___42.6__ -mmHg 35.0 45.0 pO2 100 -mmHg 69.0 116 HCO3- ___23.1__ -mmol/L 22.0 26.0 ABE ___-1.8__ -mmol/L -2.0 2.0 tHb ___10.3__ -g/dL O2Hb ___95.1__ -% COHb ____1.3__ -% MetHb ____1.2__ -% sO2 ___97.5__ -% 25.0 FIO2 ___50.0__ -% PEEP ____5.0__ -cmH2O Set_RR ___18.0__ -b/min Vt __560.0__ -L Drawn By LT - Date/Time Notified____ 04:03:00 -_ Spontaneous_RR ___20.0__ -b/min Notified By LT - Notified Whom _LEIBRAND - B 749 -mmHg tO2 ___13.9__ -Vol% Stiven test _Positive - Assessment & Plan 1. Acute kidney injury on chronic kidney disease in the setting of kidney transplant. 2. Severe septic shock. 3. Acute hypoxic respiratory failure. 4. Klebsiella and providencia bacteremia, 5. Klebsiella and proteus complicated urinary tract infection. 5. 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 6. Status post laparoscopic ileostomy on 08/24/16. 7. Anion gap metabolic acidosis secondary to uremia and lactic acidosis. PLAN: Continue IV hydrocortisone. Hold cyclosporine and cellcept. check CMV PCR. d/c NS. continue IV alb for another day. IV bumex 1 mg q 12 hr x 2 doses. GI Prophylaxis: H2 mary ann VTE Prophylaxis: Sub-Q Heparin (Unfractionated) VTE Mechanical Devices: Intermittant Pneumatic CD Resuscitation Status: CPR: Attempt Resuscitation Rosa Brown MD Aug 28, 2016 11:49
--- NOTE | 2016-08-28 13:35 | DRSVH ---
PROCEDURE: CT BRAIN WITHOUT CONTRAST ([id number]) INDICATIONS: 70 year-old male with unexplained encephalopathy. TECHNIQUE: Noncontrast 4.5 mm thick angled axial sections acquired from the foramen magnum to the vertex, with c oronal reformats. COMPARISON: [facility], CT, CT BRAIN WO CON, 07/24/2016, 6:56. [facility], C T, CT BRAIN WO CON, 08/24/2016, 3:37. FINDINGS: Image quality: Excellent. CSF spaces: Basal cisterns are patent. No extra-axial fluid collections. The ventricles are symmet lynda in size and shape. Brain: No intracranial bleeds or masses. There is cerebral volume loss for age, with resultant vent ricular and sulcal prominence. There are periventricular and deep white matter chronic small vessel ischemic changes. There is intracranial internal carotid artery atherosclerosis. Skull and face: Calvarium and visualized facial bones appear intact, without suspicious lesions. Th e left frontal scalp soft tissue mass is unchanged. Sinuses: Visualized sinuses and mastoids are clear. IMPRESSION: 1. No acute intracranial abnormalities. 2. Cerebral volume loss and chronic microvascular ischemic changes. 3. Left frontal scalp soft tissue mass unchanged. Dictated by: Rich Romero M.D. on 08/28/2016 at 13:30 Approved by: Rich Romero M.D. on 08/28/2016 at 13:34
[2016-08-28] MEDS: Bumetanide 0.25 mg/mL 4 mL Inj IV SCH (14:29)
--- NOTE | 2016-08-28 14:39 | DRSVH ---
PROCEDURE: CT CHEST, ABDOMEN AND PELVIS WITHOUT CONTRAST ([id number]) INDICATIONS: pleural effusions; colitis? blood loss? TECHNIQUE: 5 mm thick sections acquired from the lung apices to the symphysis pubis. 5 mm thick coronal and sag ittal reformats acquired, with additional 7 mm coronal MIP reformats through the lungs. For radiatio n dose reduction, the following was used: automated exposure control, adjustment of mA and/or kV acc ording to patient size. COMPARISON: [facility], CR, XR CHEST 1VW (PORTABLE), 08/28/2016, 5:09. [facility], CT, CT CHEST ABD PELVIS WO CON, 08/24/2016, 4:55. FINDINGS: Image quality: Excellent. CHEST: Lungs and pleura: There is a small right pneumothorax. Bilateral moderate effusions and bibasilar co nsolidations and/or atelectasis. No acute pulmonary opacities. No pleural effusions or pneumothorax. Central and peripheral airways are patent are normal in caliber. Mediastinum: There is an endotracheal tube above vinny. A nasogastric is noted with the tip in the stomach. Heart size is normal. No pericardial effusion. Severe coronary artery calcification consis tent with atherosclerosis. No mediastinal adenopathy by CT size criteria. Thoracic aorta and central pulmonary arteries are normal in size. Esophagus is normal in caliber. No hiatal hernia. Chest wall: No axillary or supraclavicular adenopathy by size criteria. Thyroid gland is normal. ABDOMEN: Solid organs: Liver is normal in size. The spleen is small. The left kidney is absent. Right kidney is severely atrophic. There is a transplant kidney in the right iliac fossa. No hydronephrosis intens maximilian kidney. Gallbladder is surgically absent. Pancreas is normal in contours. No adrenal nodules. Both kidneys are normal in size, without hydronephrosis or nephrolithiasis. Peritoneum and bowel: Small and large bowel loops are normal in caliber and wall thickness. There is partial colon resection. There is a percutaneous colostomy in the right lower quadrant. There are nu merous diverticula in distal colon. No free air. Small to moderate amount of free fluid. No organize d fluid collections to suggest intra-abdominal abscess but pelvis is obscured by external metallic ar tifacts. A rectal probe is noted. Nodes and vessels: No retroperitoneal or mesenteric adenopathy by size criteria. Aorta and inferior vena cava are normal in size. Severe atherosclerotic calcification. Miscellaneous: No ventral hernias. There is diffuse body wall edema. PELVIS: Genitourinary: Bladder is contracted. There is a Richey catheter within the bladder. Miscellaneous: No inguinal hernias or adenopathy. Bones: No suspicious bony lesions. No vertebral body compression fractures. IMPRESSION: 1. A small right pneumothorax. 2. Moderate bilateral effusions with bibasilar consolidation and/or atelectasis. 3. Left kidney is absent. The right kidney is severely atrophic. There is a transplant kidney in the right iliac fossa. No hydronephrosis in the transplant kidney. 4. Small to moderate amount free fluid. No free air. 5. Diffuse body wall edema likely secondary to anasarca. 6. The examination is suboptimal because of absence of IV and oral contrast. Result was discussed with Dr. Cornejo on 08/28/2016 at 1415 hrs. Dictated by: Rich Romero M.D. on 08/28/2016 at 13:43 Approved by: Rich Romero M.D. on 08/28/2016 at 14:38
--- NOTE | 2016-08-28 15:40 | PCM.PNMED ---
Subjective Date of Service Aug 28, 2016 Subjective Yesterday/Overnight: Multiple episodes of spontaneous increases in HR and BP, with readings of BP as high as 250s/150s; HR later became labile with 30s-60s. Hb also dropped to 6.5, received 2U pRBC. No source of bleeding identified. Today: Repeat Hb levels 9.5 overnight, to 8.9 this am; no blood noted from ETT suction or through FMS. Remains hypothermic despite Marycarmen hugger. LA normalized at 1.0, PCT continuing to decline to 31. Propofol 15, fentanyl 25; norepi remains off. Net IO + 21k; 24h UOP 740mL, today UOP 675mL. Exam Vital Signs Vital Sign - Last Date Time Temp Pulse Resp B/P Pulse Ox O2 Delivery O2 Flow Rate FiO2 08/28/16 04:30 Ventilator 08/28/16 04:30 35.6 61 12 109/59 100 40 Intake and Output 08/27/16 08/27/16 08/28/16 Cumulative From/Thru 15:00 23:00 07:00 08/24/16 04:11 - 08/28/16 06:07 Intake Total 2560 ml 1279 ml 59647 ml Output Total 600 ml 850 ml 3800 ml Balance 1960 ml 429 ml 85561 ml Intake Oral 0 ml IV Total 1951 ml 1262 ml 39199 ml Tube Feeding 17 ml 17 ml Packed Cells 609 ml 609 ml Tube Irrigant 0 ml 0 ml Output Urine Total 500 ml 675 ml 2330 ml Stool Total 150 ml 1065 ml Gastric Drainage Total 100 ml 25 ml 405 ml # Bowel Movements 1 Exam General: Intubated and sedated; no acute distress HENT: Atraumatic; sclera anicteric; ETT in place; mucus membranes moist Neck: Soft, obese Cardiac: Bradley rate at time of initial examination; no murmurs appreciated Respiratory: Adequate air flow all jama; faint coarse sounds appreciated Abdomen: Soft, nondistended; ileostomy bag secured on right with drain in place for irrigation Extremities: No edema Pulses: Radial equal and bilateral Skin: Warm, dry; scaly and dry Neuro: Cannot obtain secondary to sedation and intubation Psych: Cannot obtain secondary to sedation and intubation Lab and Diagnostics Result Diagram: 08/28/16 0600 08/27/16 0550 X-Rays, CTs and MRIs Initial chest x-ray is unremarkable. 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 Asymmetric opacity involves the superior segment of the left lower lobe, suspicious for aspiration or early pneumonia. 2. Findings consistent with proximal sigmoid colon diverticulitis, with microperforation. No findings to suggest associated abscess. 3. Status post renal transplant, with atrophic [place] kidneys. No significant discrepancy with preliminary [facility] report. Additional Diagnostics DateTimeAnalyzed 03:57:00 -_ pH ____7.353 - 7.350 7.450 pCO2 ___42.6__ -mmHg 35.0 45.0 pO2 100 -mmHg 69.0 116 HCO3- ___23.1__ -mmol/L 22.0 26.0 ABE ___-1.8__ -mmol/L -2.0 2.0 tHb ___10.3__ -g/dL O2Hb ___95.1__ -% COHb ____1.3__ -% MetHb ____1.2__ -% sO2 ___97.5__ -% 25.0 FIO2 ___50.0__ -% PEEP ____5.0__ -cmH2O Set_RR ___18.0__ -b/min Vt __560.0__ -L Drawn By LT - Date/Time Notified____ 04:03:00 -_ Spontaneous_RR ___20.0__ -b/min Notified By LT - Notified Whom _LEIBRAND - B 749 -mmHg tO2 ___13.9__ -Vol% Stiven test _Positive - Assessment & Plan Mr. 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 difficile, suspected colonic microperforation, and/or UTI. He was admitted for evaluation and treatment of septic shock secondary to reasons discussed, acute hypoxemic respiratory failure, and acute on chronic kidney disease. - Hospital day 5 - Ventilator day 5 - POD 4: loop ileostomy Acute hypoxemic respiratory failure, present on admission. Ongoing - Secondary to septic shock - Remains intubated and sedated - Pulmonary/ICU consulted; appreciate time and recommendations Anemia, acute, present on admission. Under evaluation - Normocytic, normochromic - Drop in Hb noted 08/27 to 7.2; repeat 6.5 - s/p 2U pRBC 08/27 - Repeat HH in pm @1800 - Transfuse threshold Hb 7.0 - CT brain, C/A/P wo contrast to eval - Guaiac stat Septic shock with encephalopathy, acute, present on admission. Ongoing - On admit: WBC 18.2, HR 138; LA 2.3 + reported AMS - Treat underlying cause(s) - DC NS 100 Septicemia, acute, present on admission. Under therapy - Blood Cx 08/24: + Klebsiella oxytoca, Providencia stuartii - Abx: Ertapenem - ID has been consulted, appreciate time and recommendations - Monitor labs, PCT Acute on chronic kidney disease, present on admission. Stable - On admit: Cr 2.98; baseline reported to be approx 2 - Avoid nephrotoxic meds when possible - Nephrology has been consulted, appreciate time and recs - Oliguric; Bumex IV x2 doses ordered - Albumin stop date 08/29 UTI, acute, present on admission. Under evaluation - On admit: UA + nitrite, moderate leuk est, + WBC, with many bacteria - Repeat UA 08/26: Cloudy, mod LE, > 50 WBC, mod bacteria - UCx: + Klebsiella, + Proteus - ID as above Suspected C. difficile infection with resultant sepsis, acute, present on admission. Under investigation - Recent stool PCR July 2016 + C. diff - Stool PCR 08/25: + C. diff, + norovirus - Difficult to discern if active infection as C. diff PCR can remain positive as long as one year - S/p loop ileostomy placement 08/24 with irrigation drain - Tx: Vancomycin irrigation through ileostomy per general surgery - General surgery following; appreciate time and recommendations; recommend approx 10d course of irrigation - Irrigation start date: 08/24 - Precautions in place - ID consulted, as noted above Hypocalcemia, acute, not present on admission. Under therapy - Initially corrected with decreased albumin - Correction 08/27: 7.7, still low - 1g calcium gluco given - Monitor Influenza A H3 infection, acute, present on admission. Treated - Peramivir completed Suspected LLL PNA, acute, present on admission. Under evaluation - Likely secondary to influenza, noted above - Monitor with CXR, labs, PCT History of renal transplant and long-term immunosuppression, chronic. Presumed stable - Holding cyclosporine and CellCept - Nephro consulted, as noted above Suspected adrenal insufficiency, chronic. Under therapy - Secondary to transplants and intermediate glucocorticoid use - Stress dose steroids: SoluCortef 100mg q8h; continue - Consideration of taper when stabilized History of positive MRSA screen - Screen 08/24: NEGATIVE - No treatment/precautions indicated for MRSA at this time - DVT: None secondary to acute anemia - GI: PPI - Diet: Initiate trickle feeds 08/27; maintain trickle - PRN fever/bowel/antiemetics/pain - Code: FULL CODE Dispo: Likely to remain > 2d, as he remains intubated and sedated. Will likely return to [facility] when stable for DC. 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 Pain Evaluation: Adequate Pain Control GI Prophylaxis: H2 mary ann VTE Prophylaxis: Sub-Q Heparin (Unfractionated) VTE Mechanical Devices: Intermittant Pneumatic CD Resuscitation Status: CPR: Attempt Resuscitation Attending Statement The patient was seen and examined together with Dr. Boyd on 08/28/16 and I agree with the history, exam and plan as outlined in the note above. Maude Boyd DO Aug 28, 2016 07:54 Chika Cornejo DO Aug 28, 2016 17:13
--- NOTE | 2016-08-28 15:47 | PCM.PNMED ---
Subjective Date of Service Aug 28, 2016 Subjective Overnight patient's blood pressures were labile with on-and-off pressure requirement. Patient's hemoglobin yesterday afternoon dropped to 6.5 and patient was transfused 2 units of packed red blood cells last night. Urine output so far this morning has been 150 mL which is substantially more than his 1 day total. Patient is currently on propofol at 15 mcg, fentanyl at 25 mcg. Patient is not awaking although last night appears to be some head thrashing with lower sedation. Exam Vital Signs Vital Sign - Last Date Time Temp Pulse Resp B/P Pulse Ox O2 Delivery O2 Flow Rate FiO2 08/28/16 04:30 Ventilator 08/28/16 04:30 35.6 61 12 109/59 100 40 Intake and Output 08/27/16 08/27/16 08/28/16 Cumulative From/Thru 15:00 23:00 07:00 08/24/16 04:11 - 08/28/16 06:07 Intake Total 2560 ml 1279 ml 35153 ml Output Total 600 ml 850 ml 3800 ml Balance 1960 ml 429 ml 27320 ml Intake Oral 0 ml IV Total 1951 ml 1262 ml 11490 ml Tube Feeding 17 ml 17 ml Packed Cells 609 ml 609 ml Tube Irrigant 0 ml 0 ml Output Urine Total 500 ml 675 ml 2330 ml Stool Total 150 ml 1065 ml Gastric Drainage Total 100 ml 25 ml 405 ml # Bowel Movements 1 Exam General: Sedated and intubated HEENT: Pupils are pinpoint and nonreactive, IJ in place Cardio: Very difficult to hear with the contact precaution stethoscope but appears to sound regular rate and rhythm Respiratory: Coarse breath sounds but otherwise no focal consolidations, wheezing, crackles. Abdomen: Incisions look clean and dry Extremities: Patient strained, edema Skin: Warm Neuro: Pupils as above; sedated Psych: Sedated Lab and Diagnostics Result Diagram: 08/28/16 0600 08/28/16 0600 X-Rays, CTs and MRIs Initial chest x-ray is unremarkable. 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 Asymmetric opacity involves the superior segment of the left lower lobe, suspicious for aspiration or early pneumonia. 2. Findings consistent with proximal sigmoid colon diverticulitis, with microperforation. No findings to suggest associated abscess. 3. Status post renal transplant, with atrophic [place] kidneys. No significant discrepancy with preliminary [facility] report. Additional Diagnostics DateTimeAnalyzed 03:57:00 -_ pH ____7.353 - 7.350 7.450 pCO2 ___42.6__ -mmHg 35.0 45.0 pO2 100 -mmHg 69.0 116 HCO3- ___23.1__ -mmol/L 22.0 26.0 ABE ___-1.8__ -mmol/L -2.0 2.0 tHb ___10.3__ -g/dL O2Hb ___95.1__ -% COHb ____1.3__ -% MetHb ____1.2__ -% sO2 ___97.5__ -% 25.0 FIO2 ___50.0__ -% PEEP ____5.0__ -cmH2O Set_RR ___18.0__ -b/min Vt __560.0__ -L Drawn By LT - Date/Time Notified____ 04:03:00 -_ Spontaneous_RR ___20.0__ -b/min Notified By LT - Notified Whom _LEIBRAND - B 749 -mmHg tO2 ___13.9__ -Vol% Stiven test _Positive - Assessment & Plan 1. Acute hypoxic respiratory failure 2. Septic shock secondary to Klebsiella and Providencia; also urine revealed Klebsiella and Proteus 3. Probable adrenal insufficiency 4. Renal transplant 5. Questionably less likely active C. difficile toxin colitis infection 6. History of multiple renal transplants and CKD 7. Questionable progressive left lower lobe pneumonia 8. Anion gap metabolic acidosis 9. Bilateral pleural effusions left greater than right 10. Acute anemia, suspected blood loss 11. Hypocalcemia; corrected to 7.44 12. Questionable active influenza A Neuro: Patient maintained sedated on propofol. He also shows autonomic instability this time we feel is likely from a MENTAL HEALTH CLINICIAN etiology. Reducing sedation causes patient to thrash his head back and forth. Plan for today as CT scan of the head. Evaluation of any new pathology. We will also attempt to lighten sedation but will attempt to control the patient's movements. Cardiovascular: Patient had was thought to be acute blood loss anemia over the last 2 days. Hemoccult was ordered but is yet to be done, but examination of his rectal tube does not appear to be bloody on signs of melena. Concern for patient bleeding into his abdomen or into the pleural effusions that he has on x -ray. Repeat H&H this evening. Respiratory: ABG this a.m. was pH of 7.366, PCO2 of 28.1, PO2 of 126, bicarbonate 15.7, and saturation 98.6. From a ventilation standpoint the patient is doing very well. On x-ray. Bilateral pleural effusions that appear to be stable, however with the recent acute blood loss there is concern that perhaps his bleed and his effusions. CT of the chest will be performed today. Abdominal: Patient's loop ileostomy is clean and intact. Vancomycin continues to be run through the ostomy. Rectal tube is in place and stool in the bag although this does not appear to be bloody or melena. CT of the abdomen to be obtained. Infectious disease: Patient has positive PCR for C. difficile and bird virus; positive urine culture for Proteus and Klebsiella; and positive blood cultures for Klebsiella in [place]. Infectious disease is following and recommends ertapenem 1 g once a day. Patient is also being continued on vancomycin irrigations of the colon through the loop ileostomy. Patient has already received peramivir. White count is normalizing and pro-calcitonin is down another 18 points. Renal: Acute on chronic kidney injury with nephrology following. Current plans with nephrology to continue the IV hydrocortisone, holding the cyclosporine and CellCept, check CMV PCR, and they will manage fluids. We will also continue Bumex and IV albumin for another day. Disposition: Patient's critical condition and the ICU with no timeline for stepdown. Blood pressure seems to be stabilizing somewhat however the patient appears to be making no progress except for improvements in his white count pro- calcitonin. Time spent: 1 hour GI Prophylaxis: H2 mary ann VTE Prophylaxis: Sub-Q Heparin (Unfractionated) VTE Mechanical Devices: Intermittant Pneumatic CD Resuscitation Status: CPR: Attempt Resuscitation Attending Statement The patient was seen and examined together with Dr. Harvey on 08/28/2016 and I agree with the history, exam and plan as outlined in the note above. Slade Harvey DO Aug 28, 2016 07:51 Baljeet Torres MD Oct 01, 2016 10:29
[2016-08-28] MEDS ORDERED: 0.9% Sodium Chloride 1,000 ML ONE (16:03)
--- NOTE | 2016-08-28 17:00 | NUR ---
CT imaging: P: pt was taken for brain, chest and pelvic CT without issues at 1200 and returned to unit @ about 1220. was informed by Radiologist of R pleural effusion. I: Dr De La Rosa was notified by Hospitalist team. Pt was sedated with Propofol 20mg IV and Fentanyl 100mcg IV. Chest tube was placed by Dr De La Rosa. Chest tube is connected to suction. E:250ml of sero-sanguinous drainage has collected at this time. Radiology has been called for chest X-ray to confirm placement.
--- NOTE | 2016-08-28 17:35 | DRSVH ---
PROCEDURE: X-RAY CHEST ONE VIEW, PORTABLE ([id number]) INDICATIONS: 70 year-old male with right chest tube placement. TECHNIQUE: One view of the chest was acquired. COMPARISON: [facility], CT, CT CHEST ABD PELVIS WO CON, 08/28/2016, 12:10. [facility], CR, XR CHEST 1VW (PORTABLE), 08/28/2016, 5:09. [facility], CR, XR CHEST 1VW (P ORTABLE), 08/27/2016, 5:09. [facility], CR, XR CHEST 1VW (PORTABLE), 08/26/2016, 5:35. FINDINGS: Surgical changes and devices: Basal right pleural drain is now present and in expected position. Endo tracheal tube and nasogastric tube are again noted, as well as right internal jugular central venous catheter. Patient is status post cholecystectomy. Lungs and pleura: No pleural effusions or pneumothorax. Lung volumes are decreased, with persistent bibasilar airspace opacities. There is dependent small left pleural effusion. The previously noted de pendent right pleural effusion is no longer apparent. No pneumothorax. Mediastinum: Mediastinal contours appear normal. Cardiomegaly is unchanged. There is aortic atheros clerosis. Bones and chest wall: No suspicious bony lesions. Overlying soft tissues appear unremarkable. IMPRESSION: 1. Basal right chest tube is now present and in expected position. No pneumothorax. Previously noted dependent right pleural effusion has decreased. 2. Persistent dependent left pleural effusion, as well as bibasilar atelectasis, aspiration, or bronc hopneumonia. Dictated by: Farzad Sanchez M.D. on 08/28/2016 at 17:25 Approved by: Farzad Sanchez M.D. on 08/28/2016 at 17:29
--- NOTE | 2016-08-28 17:54 | OP ---
[address] [address] OPERATIVE REPORT PATIENT: NINA VALENTIN : 1945 MR#: [id number] ADMIT: 08/24/2016 JOB ID: [id number] DATE OF SURGERY: 08/28/2016 PREOPERATIVE DIAGNOSIS(ES): Right pneumothorax. POSTOPERATIVE DIAGNOSIS(ES): Right pneumothorax. OPERATIVE PROCEDURE: Insertion of right thoracostomy tube. SURGEON: Misha De La Rosa MD TIRE REPAIR MECHANIC: None. COMPLICATIONS: None. ESTIMATED BLOOD LOSS: None. CONDITION: Satisfactory. INDICATIONS: The patient is a critically ill man who is in the ICU, sedated and intubated on a ventilator. He had imaging today as part of his evaluation which demonstrated a right pneumothorax. Given that he had remains on positive pressure ventilation, I elected to place a right thoracostomy tube. TECHNICAL DETAILS: The patient is intubated and sedated. The right chest was prepped and draped. A procedural pause was performed. An incision was made at the line of the nipple in the mid axillary line. The chest was bluntly opened and a finger sweep performed. There was a gush of air as well as some clear fluid. A 24-Sami straight tube was then inserted in the chest. This was secured in place using 2-0 nylon sutures. This was hooked up to a Pleur-evac and placed to -20 cm water suction. Chest x-ray was ordered.
[2016-08-29] VITALS (12 sets, daily range): BP systolic 129–154; BP diastolic 63–74; PULSE 58–81; RESP 12–15; O2SAT 97–100
[2016-08-29] MEDS: Hydrocortisone 50 mg/mL 2 mL Inj IVPUSH SCH ×3 (00:43→16:29)
[2016-08-29] MEDS: Bumetanide 0.25 mg/mL 4 mL Inj IV SCH (00:43)
[2016-08-29] MEDS: Chlorhexidine 0.12% 15 mL Oral Solution MT SCH ×6 (00:44→20:48)
[2016-08-29] MEDS: Albumin 25% 25 GM in IV Premix 1 EACH IV SCH ×3 (00:44→16:28)
[2016-08-29] MEDS: Norepineph 8,000 mCg/250 mL NS 8,000 MCG in IV Premix 1 EACH IV SCH ×2 (00:44→20:49)
[2016-08-29] MEDS: Propofol Inj 1,000,000 MCG in IV Premix 1 EACH IV SCH ×2 (00:51→10:42)
[2016-08-29 02:15] LABS: BASOPHILS % (AUTO) 0 % (0-3); EOSINOPHILS % (AUTO) 0 % (0-5); MONOCYTES % (AUTO) 3.8 % (4-12); Mean Corpuscular Hemoglobin 29.7 pg (27.0-35.0); Mean Corpuscular Volume 88.5 fL (81-100); NEUTROPHILS % (AUTO) 91.9 % (40-74); Platelet Count 69 bil/L (150-400)
[2016-08-29 03:19] LABS: Magnesium 2.1 mg/dL (1.6-2.6); Phosphorus 7.4 mg/dL (2.5-4.9)
[2016-08-29] MEDS ORDERED: KCl 20 mEq/100 mL IV Premix (K 3 - 3.7 & Cr 2.1 - 2.9) IV ONE ×2 (04:10→12:40)
[2016-08-29] MEDS: VANCOMYCIN IRRIGATION SCH ×3 (04:41→20:49)
[2016-08-29] MEDS: LACTATED RINGER S IRRIGATION SCH ×3 (04:41→20:49)
[2016-08-29] MEDS: Sodium Chloride LOK Flush 10 mL Syringe IVFLUSH PRN ×2 (04:42)
--- NOTE | 2016-08-29 04:54 | ABG ---
DateTimeAnalyzed 04:48:00 -_ pH ____7.386 - 7.350 7.450 pCO2 ___29.0__ -mmHg 35.0 45.0 pO2 115 -mmHg 69.0 116 HCO3- ___17.0__ -mmol/L 22.0 26.0 ABE ___-6.7__ -mmol/L -2.0 2.0 tHb ____8.2__ -g/dL O2Hb ___96.5__ -% COHb ____1.0__ -% MetHb ____1.0__ -% sO2 ___98.5__ -% 25.0 FIO2 ___30.0__ -% Drawn By LT - Date/Time Notified____ 04:53:00 -_ Notified By LT - Notified Whom _RN, ROMAINE - B 748 -mmHg tO2 ___11.4__ -Vol% Stiven test N/A -
--- NOTE | 2016-08-29 05:57 | NUR ---
Critical Labs/Chest Tube Critical Lab: BUN=81. Chest tube outputted 120ml of serosanguineous fluid. Chest tube has no air leaks present. Richey outputted 1400 of pale colored urine. FMS only put on 20ml of stool despite vancomycin infusion of 1000ml into loop ileostomy. Pt remains sedated on propofol and fentanyl.
[2016-08-29] MEDS: Vasopressin Inj 20 UNIT in 0.9% Sodium Chloride 100 ML IV SCH ×3 (07:36→20:49)
[2016-08-29] MEDS: Ertapenem Inj 1,000 MG in 0.9% Sodium Chloride 50 ML IV SCH (09:28)
[2016-08-29] MEDS: Pantoprazole 4 mg/mL 10 mL Inj IVPUSH SCH ×2 (09:28→16:29)
--- NOTE | 2016-08-29 10:23 | DRSVH ---
PROCEDURE: X-RAY CHEST ONE VIEW, PORTABLE ([id number]) INDICATIONS: intubated + chest tube TECHNIQUE: One view of the chest was acquired. COMPARISON: [facility], CR, XR CHEST 1VW (PORTABLE), 08/28/2016, 16:52. FINDINGS: Surgical changes and devices: Stable position a right pleural drain. Lungs and pleura: Small pleural effusions persist and bibasilar airspace opacity, left greater than r ight. No pneumothorax. Mediastinum: Mediastinal contours appear normal. Heart size is normal. Bones and chest wall: No suspicious bony lesions. Overlying soft tissues appear unremarkable. IMPRESSION: No significant change from prior exam. Dictated by: Carter Apple RR Interpreted: Serjio Murillo MD on 08/29/2016 at 10:20 Transcribed by: EDWARDO on 08/29/2016 at 10:22 Approved by: Serjio Murillo M.D. on 08/29/2016 at 13:45
--- NOTE | 2016-08-29 10:49 | PCM.CONPAL ---
Date of Service Aug 29, 2016 Date of Hospital Admission: Aug 24, 2016 at 06:13 Date of Palliative Consult: Aug 29, 2016 Requesting Provider: Chika Cornejo DO Reason Palliative Care Consult: Goals of Care Discussion Hospital Unit @time of consult: Critical Care (Room 2020) Palliative Care Recommendation Summary of palliative recommendations: Pt last seen by Palliative Care team on Jul 25, 2016 to clarify goals as he had had frequent admits (12/2015, 02/2016, 04/2016, 06/2016, and Jul 2016 admission) At that time, we completed a POLST -Symptom management (Pain/other): per Attending and CCU Audiovisual Librarian Dr. Torres -DPOA/Advanced Directives/POLST: 1. Current Code: FULL in chart, HOWEVER, 2. The Patient completed a POLST 07/25/[address] Crum. AT that time, he confirmed his wish to be FULL code with all interventions. He also stated that it is important to him that he is not kept alive on machines if his brain is no longer awake and able to interact meaningfully with others. He values having a good brain. 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 He is content to be restricted to a wheelchair, but would abhor needing to be fed by others or fed (permanently) by a tube. 3. HCPOA: no prior paperwork. He has a good relationship with his sisters, but doesn't really want to pick one of them to be HCPOA. He would rather they follow his directives on a POLST and act as advisors to a medical team, using the POLST he signed 07/25/2016. 3. Patient is not capacitated to make his health care decision due to severe illness, therefore his sisters must look to his directive and make decisions based on what his stated wishes were. Family Conference Team Meeting (FCTM): To be scheduled with family on ThursdaySep 01. Left message on Rolanda's phone today, asking for a time. -Family/emotional support: Rolanda Rushing (sister) at [phone] or and Maida Delarosa (sister) at [phone] Patient's prior stated goals (in his own words on Jul 25 2016): 1. It is important to him that he is not kept alive on machines if his brain is no longer awake and able to interact meaningfully with others. He values having a good brain. 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 2. He would be content to be restricted to a wheelchair, but would abhor needing to be fed by others or fed (permanently) by a tube. Additional Medical Diagnoses with primary management by Hospitalist team include : 1. Acute hypoxic respiratory failure, still intubated and sedated 2/2 septic shock 2. Septic shock with encephalopathy, secondary to Klebsiella and Providencia; also urine revealed Klebsiella and Proteus 3. Probable adrenal insufficiency 4. Renal transplant 5. Questionably less likely active C. difficile toxin colitis infection 6. History of multiple renal transplants and CKD 7. Questionable progressive left lower lobe pneumonia 8. Anion gap metabolic acidosis 9. Bilateral pleural effusions left greater than right 10. Acute anemia, suspected blood loss, s/p 2 u PRBCs on 08/27, [place] 08/28 +, transuse threshold 7.0 11. Hypocalcemia; corrected to 7.44 12. Questionable active influenza A 13. Right sided pneumothorax, acute, unknown chronicity. CT placed 08/28 14. Acute on chronic kidney disease, present on admission. Stable On admit: Cr 2.98; baseline reported to be approx 2 15. UTI, acute, present on admission. UCx: + Klebsiella, + Proteus Suspected C. difficile infection with resultant sepsis, acute, present on admission. Under investigation - Recent stool PCR July 2016 + C. diff - Stool PCR 08/25: + C. diff, + norovirus - Difficult to discern if active infection as C. diff PCR can remain positive as long as one year - S/p loop ileostomy placement 08/24 with irrigation drain - Tx: Vancomycin irrigation through ileostomy per general surgery - General surgery following; appreciate time and recommendations; recommend approx 10d course of irrigation - Irrigation start date: 08/24--> 09/03 stop date - Precautions in place - ID consulted, as noted above Hypocalcemia, acute, not present on admission. Under therapy - Initially corrected with decreased albumin - Correction 08/27: 7.7, still low - 1g calcium gluco given - Monitor Influenza A H3 infection, acute, present on admission. Treated - Peramivir completed Suspected LLL PNA, acute, present on admission. Under evaluation - Likely secondary to influenza, noted above - Monitor with CXR, labs, PCT History of renal transplant and long-term immunosuppression, chronic. Presumed stable - Holding cyclosporine and CellCept - Nephro consulted, as noted above Suspected adrenal insufficiency, chronic. Under therapy - Secondary to transplants and detention glucocorticoid use - Stress dose steroids: SoluCortef 100mg q8h; continue - Consideration of taper when stabilized History of positive MRSA screen - Screen 08/24: NEGATIVE - No treatment/precautions indicated for MRSA at this time - DVT: None secondary to acute anemia - GI: PPI - Diet: Initiate trickle feeds 08/27; maintain trickle - PRN fever/bowel/antiemetics/pain - Code: FULL CODE Problems: Resuscitation Status Resuscitation Status: CPR: Attempt Resuscitation POLST Updates/Changes Previous POLST?: Yes POLST Last Review Date: Jul 25, 2016 POLST Review Outcome: No Change . Advanced Care Planning Address: POLST Symptom management: Dyspnea Pt History History of Present Illness Mr. 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 difficile, suspected colonic microperforation, and/or UTI. He was admitted for evaluation and treatment of septic shock secondary to reasons discussed, acute hypoxemic respiratory failure, and acute on chronic kidney disease. Hospital Course: Today is Hospital day 6, Ventilator day 6, POD 5 s/p loop ileostomy, POD 1 chest tube placement for R pneumothorax (drained 500cc overnight serosanguineous fluid), he has had acute blood loss from unknown source in last 48 hours with no site found after mitchell-scanning him on 08/28. He is being treated for C. difficile in stool, Proteus and Klebsiella in urine, Klebsiella in blood. Infectious disease is following and recommends ertapenem 1 g once a day. Patient is also on vancomycin irrigations of the colon through the loop ileostomy. Patient has already received peramivir. White count is normalizing and pro-calcitonin is down another 27 points today (08/29). His clinical situation was discussed extensively in CCU rounds today with Pulmonary Assistant Professor Of Philosophy, Hospitalist Attending Dr. Cornejo, ID and PC. He is not on any vasopressors. . Past Medical History Significant PMH Noted: 1. End-stage renal disease, unknown etiology. 2. s/p Kidney Cancer 3. Chronic kidney disease stage 3 in the setting of kidney transplant. Baseline serum Cr is about 2. 4. Hypertension. 5. Dyslipidemia. 6. Bilateral knee osteoarthritis. 7. Diverticulosis. 8. Recent history of diverticulitis and C. difficile colitis. 9. Recent history of pneumonia. 10. Diverticulosis 11. Chronic tachycardia 12. Recent influenza A. 13. Recent. Transient encephalopathy. 14. Recent Urinary retention, resolved. 15. Recent Possible healthcare associated pneumonia, with reactive airways. 16. Chronic Renal Insufficiency s/p three renal transplants and currently on immunosuppressive therapy. 17. Paroxysmal Atrial fibrillation with rapid ventricular response, better rate control. Resolved. 18. Nasal swab positive for MRSA. 19. Hypertension Surgical History 1. Status post kidney transplant x3. 2. Multiple hip replacements x7 according to the patient due to osteoporosis. 3. Splenectomy. 4. The patient had three kidney transplants. First kidney transplant was in 1960s, lasted less than two months. The second kidney transplant was done in and the second one lasted quite some time. The patient received the third kidney transplant in 1993. Family History: Brother of kidney failure, Mother of cancer of billiary tract, Father of stomach cancer. Social History: was still working up to 9 months ago when he started to get frequent illness. 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 Patient has been living at [facility] for rehab recently. Was living home alone prior to SNF. Current daily smoker, used alcohol. Patient's Baseline Function: In Jul 2016, pt stated to Palliative Care's Dr. Crum that prior to going to [facility] for rehab at end of 2015, he was living in a single story home alone, and had no problems getting around his house with a W/C. Pt stated he typically uses a wheel chair, does not drive. Allergy Allergies Reviewed: Yes Medications Current Medications: Current Medications Vasopressin/ Sodium Chloride 101 ml @ 9.09 mls/hr Q11H7M IV Last administered on 2/8/17at 14:23; Admin Dose 9.09 MLS/HR; Start 08/27/16 at 11:37 Pantoprazole 40 mg BIDAC IVPUSH Last administered on 08/29/16 09:28; Admin Dose 40 MG; Start 08/27/16 at 16:30 Bumetanide 1 mg Q12H IV Last administered on 08/29/16 00:43; Admin Dose 1 MG; Start 08/28/16 at 11:45; Stop 08/28/16 at 23:46; Status DC Scheduled Allopurinol (Allopurinol) 100 Mg Tablet 200 MG PO QAM Aspirin (Aspirin) 81 Mg Tablet 81 MG PO HS Calcitriol (Rocaltrol) 0.25 Mcg Capsule 0.25 MCG PO QAM Cholecalciferol (Vitamin D3) (Vitamin D) 50,000 Unit Capsule 50,000 UNIT PO monthly Cyclosporine, Modified (Gengraf) 25 Mg Cap 50 MG PO BID Enalapril Maleate (Enalapril Maleate) 5 Mg Tablet 2.5 MG PO DAILY Furosemide (Furosemide) 20 Mg Tab 10 MG PO DAILY Gabapentin (Gabapentin) 100 Mg Capsule 100 MG PO BID Magnesium Oxide/Mag Aa Chelate (er-Zbzt-Dzvqwbk Tablet) 133 Mg Tablet 133 MG PO TID Metoprolol Tartrate (Metoprolol Tartrate) 25 Mg Tablet 50 MG PO BID Multivitamin (Once Daily) 1 Each Tablet 1 EACH PO HS Mycophenolate Mofetil (Mycophenolate Mofetil) 250 Mg Capsule 750 MG PO BID Nortriptyline (Nortriptyline) 10 Mg Capsule 10 MG PO BID Omeprazole (Omeprazole) 20 Mg Capsule.dr 20 MG PO HS Pravastatin (Pravachol) 40 Mg Tablet 40 MG PO HS PredniSONE (PredniSONE) 1 Mg Tab 3 MG PO QAM Prednisone (PredniSONE) 5 Mg Tab 5 MG PO QAM Objective Findings Exam Vital Sign - Last Date Time Temp Pulse Resp B/P Pulse Ox O2 Delivery O2 Flow Rate FiO2 08/29/16 05:50 63 139/67 100 30 08/29/16 04:38 35.9 12 Mechanical Ventilator Intake and Output 08/28/16 08/28/16 08/29/16 Cumulative From/Thru 15:00 23:00 07:00 08/24/16 04:11 - 08/29/16 05:34 Intake Total 1921 ml 1450 ml 66166 ml Output Total 1735 ml 1540 ml 7075 ml Balance 186 ml -90 ml 59667 ml Intake Oral 0 ml IV Total 1734 ml 1257 ml 98383 ml Tube Feeding 127 ml 103 ml 247 ml Packed Cells 609 ml Tube Irrigant 60 ml 90 ml 150 ml Output Urine Total 1375 ml 1400 ml 5105 ml Stool Total 60 ml 20 ml 1145 ml Gastric Drainage Total 405 ml Drainage Total 300 ml 120 ml 420 ml # Bowel Movements 1 Objective Vent Settings: On tidal volume of 510, respiratory rate of 12, FiO2 of 30%, PEEP of 5 shows a pO2 of 115, pCO2 of 29, pH of 7.38. Bicarbonate 17. With tidal volume of 510 and PEEP of 5, peak inspiratory pressure 21, plateau 16. PEEP is set at 5, measured at 5. General: Sedated and intubated, does not awaken to touch or suctioning of ETT. HEENT: Exophytic mass on left side of skull. Pupils are pinpoint and nonreactive , IJ in place Chest Wall: CT on right Cardio: Very difficult to hear with the contact precaution stethoscope but appears to sound regular rate and rhythm Respiratory: decreased breath sounds on right, no wheezing, Abdomen: soft, NT, Incisions look clean and dry, device in LLQ (to instill vanco ) Extremities: Patient strained, edema : sl edema of scrotum, raphael catheter in place. Skin: Warm, no rashes. Neuro: Pupils as above; sedated Psych: Sedated . Lab/Diagnostics 08/29/16 0200 08/29/16 0200 X-Rays, CTs and MRIs Initial chest x-ray is unremarkable. 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 Asymmetric opacity involves the superior segment of the left lower lobe, suspicious for aspiration or early pneumonia. 2. Findings consistent with proximal sigmoid colon diverticulitis, with microperforation. No findings to suggest associated abscess. 3. Status post renal transplant, with atrophic nenana kidneys. Time spent Total time 70 minutes; >50% face to face with patient and/or family, providing counselling regarding plans and recommendations, and in care coordination with his/her medical teams. Adriana Crum MD Aug 29, 2016 10:49
--- NOTE | 2016-08-29 11:15 | PCM.PNMED ---
Subjective Date of Service Aug 29, 2016 Subjective Overnight: No acute events reported. Remains off pressor agents. Today: No acute distress noted. Continues OFF pressors. Fentanyl at 40, propofol at 15. Info: Approx 500cc in chest tube canister, serosanguinous. Increase in 24h UOP to 2049, UOP this am 1400. Net + 20L. Labs: K 3.3, replaced; WBC 8.0, decreased. HH 8.3/24.7, stable. Cr increased to 2.99; PCT decrease to 22 Vent: PRVC FiO2 0.3, P5, R12, Vt 510 Exam Vital Signs Vital Sign - Last Date Time Temp Pulse Resp B/P Pulse Ox O2 Delivery O2 Flow Rate FiO2 08/29/16 05:50 63 139/67 100 30 08/29/16 04:38 35.9 12 Mechanical Ventilator Intake and Output 08/28/16 08/28/16 08/29/16 Cumulative From/Thru 15:00 23:00 07:00 08/24/16 04:11 - 08/29/16 05:34 Intake Total 1921 ml 1450 ml 86530 ml Output Total 1735 ml 1540 ml 7075 ml Balance 186 ml -90 ml 21815 ml Intake Oral 0 ml IV Total 1734 ml 1257 ml 30826 ml Tube Feeding 127 ml 103 ml 247 ml Packed Cells 609 ml Tube Irrigant 60 ml 90 ml 150 ml Output Urine Total 1375 ml 1400 ml 5105 ml Stool Total 60 ml 20 ml 1145 ml Gastric Drainage Total 405 ml Drainage Total 300 ml 120 ml 420 ml # Bowel Movements 1 Exam General: Intubated and sedated; no acute distress HENT: Atraumatic; sclera anicteric; ETT in place; mucus membranes moist Neck: Soft, obese Cardiac: Bradley rate at time of initial examination; no murmurs appreciated Respiratory: Adequate air flow all jama; faint coarse sounds appreciated; difficult to appreciate secondary to habitus Chest: Right chest tube in place and secured; serosanginous drainage at entry site bandages Abdomen: Soft, nondistended; ileostomy bag secured on right with drain in place for irrigation Extremities: No edema with scattered areas of breakdown resultant from previous edema Pulses: Radial equal and bilateral Skin: Warm, dry; scaly and dry Neuro: Cannot obtain secondary to sedation and intubation; nonresponsive Psych: Cannot obtain secondary to sedation and intubation Lab and Diagnostics Result Diagram: 2/10/17 02008/29/16 0200 X-Rays, CTs and MRIs Initial chest x-ray is unremarkable. 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 Asymmetric opacity involves the superior segment of the left lower lobe, suspicious for aspiration or early pneumonia. 2. Findings consistent with proximal sigmoid colon diverticulitis, with microperforation. No findings to suggest associated abscess. 3. Status post renal transplant, with atrophic chitina kidneys. No significant discrepancy with preliminary Nightshift report. Additional Diagnostics DateTimeAnalyzed 03:57:00 -_ pH ____7.353 - 7.350 7.450 pCO2 ___42.6__ -mmHg 35.0 45.0 pO2 100 -mmHg 69.0 116 HCO3- ___23.1__ -mmol/L 22.0 26.0 ABE ___-1.8__ -mmol/L -2.0 2.0 tHb ___10.3__ -g/dL O2Hb ___95.1__ -% COHb ____1.3__ -% MetHb ____1.2__ -% sO2 ___97.5__ -% 25.0 FIO2 ___50.0__ -% PEEP ____5.0__ -cmH2O Set_RR ___18.0__ -b/min Vt __560.0__ -L Drawn By LT - Date/Time Notified____ 04:03:00 -_ Spontaneous_RR ___20.0__ -b/min Notified By LT - Notified Whom _LEIBRAND - B 749 -mmHg tO2 ___13.9__ -Vol% Stiven test _Positive - Assessment & Plan Mr. 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 difficile, suspected colonic microperforation, and/or UTI. He was admitted for evaluation and treatment of septic shock secondary to reasons discussed, acute hypoxemic respiratory failure, and acute on chronic kidney disease. - Hospital day 6 - Ventilator day 6 - POD 5: loop ileostomy - POD 1: Chest tube Acute hypoxemic respiratory failure, present on admission. Ongoing - Secondary to septic shock - Remains intubated and sedated - Pulmonary/ICU consulted; appreciate time and recommendations Anemia, acute, present on admission. Under evaluation - Normocytic, normochromic - Drop in Hb noted 08/27 to 7.2; repeat 6.5 - s/p 2U pRBC 08/27 - Guaiac stat 08/28: POSITIVE - CT brain 08/28: No acute abnormalities - CT C/A/P 08/28: Moderate b/l pleural effusions and bibasilar consolidations; small right PTX; anasarca - Repeat HH in pm @1600 - Transfuse threshold Hb 7.0 Septic shock with encephalopathy, acute, present on admission. Ongoing - On admit: WBC 18.2, HR 138; LA 2.3 + reported AMS - Treat underlying cause(s) - DC NS 100 Septicemia, acute, present on admission. Under therapy - Blood Cx 08/24: + Klebsiella oxytoca, Providencia stuartii - Abx: Ertapenem - ID has been consulted, appreciate time and recommendations - Monitor labs, PCT Right sided pneumothorax, acute, unknown chronicity. Monitor - CT C/A/P with small R PTX - Chest tube placed 08/28 - Monitor - May need to remain until extubation Acute on chronic kidney disease, present on admission. Stable - On admit: Cr 2.98; baseline reported to be approx 2 - Avoid nephrotoxic meds when possible - Nephrology has been consulted, appreciate time and recs - Oliguric; Bumex IV x2 doses ordered for 08/28 - Albumin stop date 08/29 UTI, acute, present on admission. Under evaluation - On admit: UA + nitrite, moderate leuk est, + WBC, with many bacteria - Repeat UA 08/26: Cloudy, mod LE, > 50 WBC, mod bacteria - UCx: + Klebsiella, + Proteus - ID as above Suspected C. difficile infection with resultant sepsis, acute, present on admission. Under investigation - Recent stool PCR July 2016 + C. diff - Stool PCR 08/25: + C. diff, + norovirus - Difficult to discern if active infection as C. diff PCR can remain positive as long as one year - S/p loop ileostomy placement 08/24 with irrigation drain - Tx: Vancomycin irrigation through ileostomy per general surgery - General surgery following; appreciate time and recommendations; recommend approx 10d course of irrigation - Irrigation start date: 08/24--> 09/03 stop date - Precautions in place - ID consulted, as noted above Hypocalcemia, acute, not present on admission. Under therapy - Initially corrected with decreased albumin - Correction 08/27: 7.7, still low - 1g calcium gluco given - Monitor Influenza A H3 infection, acute, present on admission. Treated - Peramivir completed Suspected LLL PNA, acute, present on admission. Under evaluation - Likely secondary to influenza, noted above - Monitor with CXR, labs, PCT History of renal transplant and long-term immunosuppression, chronic. Presumed stable - Holding cyclosporine and CellCept - Nephro consulted, as noted above Suspected adrenal insufficiency, chronic. Under therapy - Secondary to transplants and intermediate glucocorticoid use - Stress dose steroids: SoluCortef 100mg q8h; continue - Consideration of taper when stabilized History of positive MRSA screen - Screen 08/24: NEGATIVE - No treatment/precautions indicated for MRSA at this time - DVT: None secondary to acute anemia - GI: PPI - Diet: Initiate trickle feeds 08/27; maintain trickle - PRN fever/bowel/antiemetics/pain - Code: FULL CODE Dispo: Likely to remain > 2d, as he remains intubated and sedated. Will likely return to [facility] when stable for DC, if survives hospitalization. Abx needs are uncertain at this time, will keep SPOTLIGHT OPERATOR updated on any needs for continued IV abx. Palliative was consulted to again discuss intermediate goals of care with family. If he were to stabilize, decisions Pain Evaluation: Adequate Pain Control GI Prophylaxis: H2 mary ann VTE Prophylaxis: Sub-Q Heparin (Unfractionated) VTE Mechanical Devices: Intermittant Pneumatic CD Resuscitation Status: CPR: Attempt Resuscitation Attending Statement The patient was seen and examined together with Dr. Boyd on 08/29/16 I agree with the history, exam and plan as outlined in the note above. Maude Boyd DO Aug 29, 2016 08:56 Chika Cornejo DO Aug 29, 2016 14:48
--- NOTE | 2016-08-29 11:23 | PCM.PNMED ---
Subjective Date of Service Aug 29, 2016 Subjective off vasopressors. sedated, intubated. full vent support. good UOP, hypokalemia noted. Exam Vital Signs Vital Sign - Last Date Time Temp Pulse Resp B/P Pulse Ox O2 Delivery O2 Flow Rate FiO2 08/29/16 08:30 63 145/69 100 30 08/29/16 04:38 35.9 12 Mechanical Ventilator Intake and Output 08/28/16 08/28/16 08/29/16 Cumulative From/Thru 15:00 23:00 07:00 08/24/16 04:11 - 08/29/16 05:34 Intake Total 1921 ml 1450 ml 94524 ml Output Total 1735 ml 1540 ml 7075 ml Balance 186 ml -90 ml 12256 ml Intake Oral 0 ml IV Total 1734 ml 1257 ml 73941 ml Tube Feeding 127 ml 103 ml 247 ml Packed Cells 609 ml Tube Irrigant 60 ml 90 ml 150 ml Output Urine Total 1375 ml 1400 ml 5105 ml Stool Total 60 ml 20 ml 1145 ml Gastric Drainage Total 405 ml Drainage Total 300 ml 120 ml 420 ml # Bowel Movements 1 Exam General appearance: Intubated, sedated. HEENT: Atraumatic. Anicteric sclerae. ET tube in place. Moist mucous membranes. Neck: Supple. No lymphadenopathy. Heart: Regular rhythm. Normal S1 and S2. No murmurs, rubs, or gallops. Lungs: Equal breath sounds bilaterally. Diffuse coarse crackles. Abdomen: Soft. Ileostomy bag secured on the right lower quadrant. Mild distention. Decreased bowel sounds. Extremities: no edema on the lower extremity. Lab and Diagnostics Result Diagram: 08/29/16 0200 08/29/16 0945 X-Rays, CTs and MRIs Initial chest x-ray is unremarkable. 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 Asymmetric opacity involves the superior segment of the left lower lobe, suspicious for aspiration or early pneumonia. 2. Findings consistent with proximal sigmoid colon diverticulitis, with microperforation. No findings to suggest associated abscess. 3. Status post renal transplant, with atrophic [place] kidneys. No significant discrepancy with preliminary [facility] report. Additional Diagnostics DateTimeAnalyzed 03:57:00 -_ pH ____7.353 - 7.350 7.450 pCO2 ___42.6__ -mmHg 35.0 45.0 pO2 100 -mmHg 69.0 116 HCO3- ___23.1__ -mmol/L 22.0 26.0 ABE ___-1.8__ -mmol/L -2.0 2.0 tHb ___10.3__ -g/dL O2Hb ___95.1__ -% COHb ____1.3__ -% MetHb ____1.2__ -% sO2 ___97.5__ -% 25.0 FIO2 ___50.0__ -% PEEP ____5.0__ -cmH2O Set_RR ___18.0__ -b/min Vt __560.0__ -L Drawn By LT - Date/Time Notified____ 04:03:00 -_ Spontaneous_RR ___20.0__ -b/min Notified By LT - Notified Whom _LEIBRAND - B 749 -mmHg tO2 ___13.9__ -Vol% Stiven test _Positive - Assessment & Plan 1. Acute kidney injury on chronic kidney disease in the setting of kidney transplant. 2. Severe septic shock. 3. Acute hypoxic respiratory failure. 4. Klebsiella and providencia bacteremia, 5. Klebsiella and proteus complicated urinary tract infection. 5. 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 6. Status post laparoscopic ileostomy on 08/24/16. 7. Anion gap metabolic acidosis secondary to uremia and lactic acidosis. 8. Hypokalemia. PLAN: Continue IV hydrocortisone. continue to hold cyclosporine and cellcept. d/c IV bumex. Add KCL 40 meq solution via tube. Start calcium acetate 667 mg Q 8 hr. repeat BMP in am, monitor volume status on the daily basis. GI Prophylaxis: H2 mary ann VTE Prophylaxis: Sub-Q Heparin (Unfractionated) VTE Mechanical Devices: Intermittant Pneumatic CD Resuscitation Status: CPR: Attempt Resuscitation Rosa Brown MD Aug 29, 2016 11:23
[2016-08-29] MEDS ORDERED: Potassium Chloride 20 mEq/15 mL 15mL Oral Soln TUBE ONE ×2 (11:50→14:00)
--- NOTE | 2016-08-29 11:51 | NUR ---
Palliative Care Palliative Care received verbal order from Dr Cornejo 08/29/16 to assist with goals of care. Patient is a 70 year old man with a complex medical history including reported renal transplants x3, recipient of chronic immunosuppressants and senior living glucocorticoid use, in addition to numerous hip replacements. He was found to be confused at [facility], and was intubated in the field secondary to presumed acute hypercarbic respiratory failure resulting from septic shock likely thought to be due to C. difficile, suspected colonic microperforation and/or UTI. He was admitted 08/24/16 for evaluation and treatment of septic shock, acute hypoxemic respiratory failure and acute on chronic kidney disease. Today is ventilator day 6. Patient is a resident at [facility]. Rolanda Rushing (sister) [phone], Maida Delarosa (sister) [phone] Palliative Care to follow. Promise Burch Addendum: 08/29/16 at 1216 by PROMISE BURCH SS Patient with frequent admissions in 12/2015, 02/2016, 04/2016, 06/2016, 07/2016 and this admission 08/2016. The Palliative Care Team saw patient during 07/2016 admission. Promise Burch
--- NOTE | 2016-08-29 13:34 | PROG NOTE ---
[address] [address] PROGRESS NOTE PATIENT: NINA VALENTIN : 1945 MR#: [id number] ADMIT: 08/24/2016 JOB ID: [id number] DATE: 08/29/2016 INFECTIOUS DISEASE FOLLOWUP NOTE: REASON FOR FOLLOWUP: Septic shock with ventilator dependent respiratory failure as well as possible C. difficile colitis. INTERVAL HISTORY: Recall that this is our critically ill gentleman who was admitted with septic shock. He has polymicrobial gram-negative bacteremia as well as a stool positive for C. diff and airway positive for influenza. Overnight, he was discovered to have a pneumothorax which required a chest tube, which was found as part of a series of CT scans. The patient remains intubated and sedated. This case was discussed in detail in person with Dr. Misha De La Rosa of Surgery and Dr. Baljeet Torres of Pulmonary. PHYSICAL EXAMINATION: Reveals a critically ill gentleman, lying intubated and sedated in the ICU. He is completely unresponsive. Temperature 35.2, pulse 63, blood pressure 145/69, and he is not on any vasopressor agents. He is saturating well on 30% FiO2 and 5 of PEEP. 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 The exophytic mass is seen on the left side of the skull. The eyes without change. The patient does not awaken to tactile or oral stimulation. His oral endotracheal tube and orogastric tube are in good position. The new chest tube on the left is noted. The patient's lungs are notable for decreased breath sounds on the left and this is quite pronounced today. The remainder of the lung jama are fairly clear. Cardiac tones notable for an absence of murmur, and a regular rate and rhythm is also noted. The patient's abdomen is soft and nontender. The device is present in the left lower quadrant which is part of an ileal loop that allows installation of vancomycin and this seems to be working well. The scrotum slightly swollen. Penis normal with Richey catheter in place. No skin rash noted. LABORATORIES: Include white count down to 8000, neutrophil count 92%. Creatinine 2.99. Procalcitonin is 22, down from 71 three days ago. Urinalysis on admission, of course, had more than 50 white cells. His blood cultures are positive as noted for both Providencia and Klebsiella. The urine was positive for Klebsiella and Proteus, but not Providencia. Respiratory viral PCR panel positive for flu. Stool PCR positive for Norovirus and C. diff. We have no new positive blood or urine cultures. The CT scan done yesterday was done to get a better picture of his lungs as well as look at his colon again. That CT scan showed a small right pneumothorax which eventually required a chest tube. Additionally noted was bibasilar atelectasis, as well as an atrophic right kidney and a transplant kidney in the right iliac fossa without hydronephrosis. There were no notable abnormalities of the bowel, though there were numerous diverticula in the distal colon. No free air was seen. Today's chest x-ray shows the new right chest tube without pneumothorax. Small pleural effusions and bibasilar infiltrates are seen. IMPRESSION: This patient remains critically ill but I think his overall course is one of slow improvement. He is currently afebrile and without any vasopressor agents. His bacteremia seems controlled, as his blood pressure has stabilized and his procalcitonin is declining. His respiratory status remains tenuous, of course, as he is still on the ventilator, but at least his settings are not excessive. The small pneumothorax that was detected was largely asymptomatic and has been corrected with the chest tube. Overall it seems like we are slowly proceeded in the right direction in this frequently hospitalized critically ill gentleman with a multiplicity of infections including polymicrobial gram-negative bacteremia which have resulted in septic shock. RECOMMENDATIONS: 1. Will continue with ertapenem, though after discussion with the pharmacist we decided to move to a 500 mg a day dose. The total duration of this will probably be on the order of two weeks, which would take us to about September 08. 2. Will continue with the vanco instillation to the colon as per Dr. De La Rosa. Per my discussion with Dr. De La Rosa today, we will probably do that for 10 days or so. Will continue to closely monitor this patient with you going forward. Note that I will be out of town the next three days, back on September 02, and you can call me any time or text me.
--- NOTE | 2016-08-29 13:43 | NUR ---
Social Work Note: Initial Assessment Attempt Data& Assessment: EMR reviewed. Remberto Brar is a 70 year old male admitted on 08/24/2016 for Pneumonia, UTI and Diverticulitis. Pt has Medicare for primary insurance coverage and [facility] for secondary insurance and sees Kobe Tom MD for primary care. Pt is a resident at [email or web address] Pt is currently vented. SW will follow up with patient for discharge needs when medically stable. SW attempted to call patient's NOK, Rolanda Rushing [phone], to complete initial assessment, but there was no answer and no voicemail. SW to continue to follow if any needs arise. Plan: SW will continue to try and contact NOK. SW will follow-up with patient when medically stable. SW to continue to follow if any needs arise. Radha Wilhelm LMSW, ACM
--- NOTE | 2016-08-29 14:05 | PROG NOTE ---
[address] [address] PROGRESS NOTE PATIENT: NINA VALENTIN : 1945 MR#: [id number] ADMIT: 08/24/2016 JOB ID: [id number] DATE: 08/29/2016 PULMONARY CRITICAL CARE FOLLOWUP NOTE: PROBLEM: 1. Acute hypoxic respiratory failure. 2. Septic shock secondary to klebsiella and proteus urinary tract infections and providencia bacteremia. 3. Status post renal transplant x3. 4. Recurrent Clostridium difficile colitis. 5. Left lower lobe pneumonia. 6. Right pneumothorax secondary to mechanical ventilation. SUBJECTIVE: None. OBJECTIVE: Blood pressure 130-150/65-75, pulse about 60-70. I and O shows 3.2 liters in, 2.5 liters out. General appearance: Sedated on the ventilator. Minimal to no response. Chest: Moderately decreased breath sounds with almost absent breath sounds at the bases. Maybe a little bit better breath sounds at the left base than the right base. No pulmonary adventitial sounds. Heart: Regular rhythm. Heart tones seem normal. Abdomen is soft. Bowel tones present. Ileostomy loop being irrigated with vancomycin. Vancomycin returned relatively clear. Extremities: Anasarca. LABORATORY: White count is 8000 with a significant neutrophilia. White count down from 12.2 yesterday. Hemoglobin slowly drifting down. Currently 8.3, having received blood 48 hours ago. Platelet count slowly decreasing, currently 69,000, with a steady decrease during his admission. Sodium 144, potassium 3.3 receiving supplemental potassium via protocol, chloride 106, CO2 of 16, BUN 81, creatinine 2.9, calcium 7.8, phosphorus 7.4, magnesium 2.1. Procalcitonin 22 and decreasing in the face of renal failure. Heparin antibodies pending. DIAGNOSTIC STUDIES: Chest x-ray shows persistent small pleural effusions and bibasilar airspace opacity left greater than right. No evidence of pneumothorax. Chest tube draining a small amount of serosanguineous fluid. No air leak apparent. VENTILATOR SETTINGS: On tidal volume of 510, respiratory rate of 12, FiO2 of 30%, PEEP of 5 shows a pO2 of 115, pCO2 of 29, pH of 7.38. Bicarbonate 17. With tidal volume of 510 and PEEP of 5, peak inspiratory pressure 21, plateau 16. PEEP is set at 5, measured at 5. Flow volume loop shows good inspiratory and expiratory flow. Volume time curve normal. ASSESSMENT: 1. Acute hypoxemic respiratory failure. Doing better. Oxygenation is reasonable. Still with a continued acid base problem that appears to be a metabolic acidosis with lab suggesting anion gap along with a respiratory alkalosis presumably due to his ventilator settings. The acidosis has been investigated. Etiology not forthcoming. 2. Urinary tract infection. 3. Providencia bacteremia. Being expertly managed by Dr. Duenas of the infectious disease service. Complicated by the concern about underlying Clostridium difficile enterocolitis. Getting intraluminal vancomycin via ileal loop. 4. Arrhythmias. Panoply of various arrhythmias. More reactive response to his arrhythmias. Currently not on any antiarrhythmic. 5. Hypertension. Coming off pressors. Currently on norepinephrine. This is being slowly decreased. Vasopressin he has been off for the last three days, norepinephrine for the past two days. Currently off all pressors. PLAN: 1. Consider increasing the PEEP to maybe give a quasi recruitment maneuver. With his pneumothorax, do not want to use the usual suggestions for recruitment. 2. Continue present regimen. 3. Potassium supplementation. TIME SPENT ON CRITICAL CARE: 35 minutes.
--- NOTE | 2016-08-29 14:12 | PROG NOTE ---
[address] [address] PROGRESS NOTE PATIENT: NINA VALENTIN : 1945 MR#: [id number] ADMIT: 08/24/2016 JOB ID: [id number] DATE: 08/29/2016 SUBJECTIVE: The patient is seen in followup for his ileostomy with colonic lavage for presumptive C. diff as well as a right chest tube placed yesterday. He remains critically ill but is slowly making progress. I examined his chest x-ray this morning. There is no residual pneumothorax on the right. His right pleural effusion has decreased. ASSESSMENT/PLAN: At this point, from my perspective, he would continue the vancomycin through the ileostomy until he has completed a 10 day course. The chest tube should remain on suction until he is extubated and then that can be removed by the surgical team.
--- NOTE | 2016-08-29 14:27 | NUR ---
WALTON Roller Mill Tender attempted to call patient's NOK, Rolanda Rushing, at both numbers listed on whiteboard [phone] & [phone] but there was no answer. SW left a voicemail at [phone] requesting a call back. There was no voicemail at the other number listed above.
--- NOTE | 2016-08-29 16:24 | DRSVH ---
PROCEDURE: X-RAY CHEST ONE VIEW, PORTABLE ([id number]) INDICATIONS: SHORTNESS OF BREATH TECHNIQUE: One view of the chest was acquired. COMPARISON: [facility], CR, XR CHEST 1VW (PORTABLE), 08/29/2016, 5:45. [facility], CR, XR CHEST 1VW (PORTABLE), 08/28/2016, 16:52. FINDINGS: Surgical changes and devices: Endotracheal and nasogastric tube positioning normal, central line from right sided approach extends into the right superior mediastinum area. Pleural drain on the right c rosses the diaphragm inferiorly. Lungs and pleura: No pleural effusions or pneumothorax. Lungs are abnormal with reduced inspiratory volume on the right, and persistent patchy alveolar infiltration pattern at the right lung base. De nse opacification persistent left lower lobe. Overall, no definite change. Mediastinum: Mediastinal contours appear normal. Heart size is normal. Bones and chest wall: No suspicious bony lesions. Overlying soft tissues appear unremarkable. IMPRESSION: Stable appearance of the chest with lines and tubes in normal position. Bibasilar pneumo shayan, no acute disease. Dictated by: Serjio Murillo M.D. on 08/29/2016 at 16:21 Approved by: Serjio Murillo M.D. on 08/29/2016 at 16:23
--- NOTE | 2016-08-29 18:21 | NUR ---
Sedation/RESP/Hemodynamics/Ileostomy/temp Patient on Fentanyl at 40 mcg/hr and Propofol at 15 mcg/kg/min at beginning of shift. Turned Propofol to 5 and patient started thrashing head side to side. Turned Propofol up to 7 and patient is more calm. Eyes open spontaneously, but gaze is upward. Noted scleral edema. Turned patient to right side and sats dropped to 85%. Vent was turned up to 100% FIO2 at a rate of 15. Placed patient on back and sats recovered. Vent was weaned back to to 30% FIO2-- sats are 100% now. Lung sounds decreased L>R. CXR was obtained to ensure chest tube placement, which confirmed was OK. UOP, 1450 this shift. Infused Vanco into ileostomy tube as instructed. No stool output in ileostomy, but noted about 260 ml yellow liquid with brown flecks during vanco infusion. FMS with scant output. Bear hugger remains on and Temporal temps at 35.2-35.5. Continuing with poc.
[2016-08-29] MEDS ORDERED: 0.9% Sodium Chloride 250 ML ONE (21:35)
[2016-08-30] VITALS (12 sets, daily range): BP systolic 127–192; BP diastolic 56–91; PULSE 72–91; RESP 15; O2SAT 95–100
[2016-08-30] MEDS: Hydrocortisone 50 mg/mL 2 mL Inj IVPUSH SCH ×4 (00:15→23:52)
[2016-08-30] MEDS: Albumin 25% 25 GM in IV Premix 1 EACH IV SCH ×2 (00:15→08:39)
[2016-08-30] MEDS: Chlorhexidine 0.12% 15 mL Oral Solution MT SCH ×7 (00:15→23:52)
--- NOTE | 2016-08-30 00:27 | NUR ---
Central Line At 0020 it was discovered that the central line had become dislodged and removed from the patient. Spoke with Dr. Fonseca who said day shift will decide whether or not a central line IJ/PICC will be needed any further along with guidance from Nephrology. PIV attempting to be placed at this time. Addendum: 08/30/16 at 0626 by RMOAINE MENDOZA RN 20G right forearm IV placed.
[2016-08-30] MEDS: LACTATED RINGER S IRRIGATION SCH ×3 (04:29→21:59)
[2016-08-30] MEDS: VANCOMYCIN IRRIGATION SCH ×3 (04:29→21:59)
[2016-08-30 04:31] LABS: BASOPHILS % (AUTO) 0 % (0-3); EOSINOPHILS % (AUTO) 0 % (0-5); MONOCYTES % (AUTO) 3.8 % (4-12); Mean Corpuscular Hemoglobin 30.1 pg (27.0-35.0); Mean Corpuscular Volume 87.2 fL (81-100); Platelet Count 57 bil/L (150-400)
--- NOTE | 2016-08-30 04:32 | ABG ---
DateTimeAnalyzed 04:27:00 -_ pH ____7.440 - 7.350 7.450 pCO2 ___26.1__ -mmHg 35.0 45.0 pO2 ___99.4__ -mmHg 69.0 116 HCO3- ___17.4__ -mmol/L 22.0 26.0 ABE ___-5.5__ -mmol/L -2.0 2.0 tHb ____8.4__ -g/dL O2Hb ___96.7__ -% COHb ____0.9__ -% MetHb ____1.2__ -% sO2 ___98.8__ -% 25.0 FIO2 ___30.0__ -% PEEP ____5.0__ -cmH2O Set_RR ___15.0__ -b/min Vt __510.0__ -L Drawn By AF - Date/Time Notified____ 04:32:00 -_ Spontaneous_RR ___15.0__ -b/min Oxygen Device 1 VENTILATOR - Notified By AF - B 765 -mmHg tO2 ___11.6__ -Vol% Stiven test N/A -
[2016-08-30] MEDS: Propofol Inj 1,000,000 MCG in IV Premix 1 EACH IV SCH ×3 (04:38→22:02)
[2016-08-30] MEDS: fentaNYL 2,500 mCg/250 mL 2,500 MCG in IV Premix 1 EACH IV PRN (04:38)
[2016-08-30 05:36] LABS: Phosphorus 6.9 mg/dL (2.5-4.9)
[2016-08-30] MEDS: Pantoprazole 4 mg/mL 10 mL Inj IVPUSH SCH ×2 (08:38→17:21)
[2016-08-30] MEDS: Ertapenem Inj 500 MG in 0.9% Sodium Chloride 50 ML IV SCH (08:39)
--- NOTE | 2016-08-30 10:09 | DRSVH ---
PROCEDURE: X-RAY CHEST ONE VIEW, PORTABLE ([id number]) INDICATIONS: intubated TECHNIQUE: One view of the chest was acquired. COMPARISON: [facility], CR, XR CHEST 1VW (PORTABLE), 08/29/2016, 15:45. FINDINGS: Surgical changes and devices: Right central venous catheter has been removed. Right thoracostomy tube , endotracheal tube, and NG tube are unchanged. Lungs and pleura: Lung volumes are low. Basilar consolidation or atelectasis is unchanged the bilater al lung bases. There may be a left pleural effusion as well which is stable. Mediastinum: Mediastinal contours appear normal. Heart size is normal. Bones and chest wall: No suspicious bony lesions. Overlying soft tissues appear unremarkable. IMPRESSION: Unchanged bilateral basilar consolidation or atelectasis and left pleural effusion. Dictated by: Maryan Villagomez M.D. on 08/30/2016 at 10:07 Approved by: Maryan Villagomez M.D. on 08/30/2016 at 10:08
--- NOTE | 2016-08-30 10:10 | NUR ---
NUTRITION FOLLOW UP Assess: Pt is a 70 YO male admitted w/ sepsis and hypotension d/t probable acute hypercarbic respiratory failure. Pt was intubated at [facility] where he resides, and remains intubated and sedated. Pt has CKD Stage III, and history of 3 renal transplants. A loop ileostomy was placed on 08/24. Pt remains hypothermic w/ Marycarmen hugger. Pt tested positive for influenza, C diff, bacteremia, and Norovirus. Small pneumothorax corrected with chest tube. Received order to advance enteral from from trophic rate today. PMHx: Full medical hx unavailable d/t pt status at time of admission. Recent C diff colitis, influenza A, transient encephalopathy, urinary retention, FLOYD on CKD Stage III, possible healthcare acquired pneumonia, renal transplant, A fib, MRSA. LABS: Reviewed. BUN 87, Cr 2.79, Phos 6.9. MEDICATIONS: Solu-cortef, fentanyl. Propofol rate currently 9.4 ml/hr providing 248 kcal. DIET: NPO x 6 days GI symptoms/stool: Ileostomy 280 ml output (08/29) via MS. SKIN: Eze 7, deep tissue injuries to L & R heels per WC. Heels elevated. ANTHROPOMETRICS: Current Wt: 99.6 kg BMI: 31.0 kg/m2 IBW: 73 kg Admit Wt: 83.2 kg (BMI 26.3 kg/m2) ESTIMATED NEEDS: vented Calories: 0566-4055 kcal/day (20-25 kcal/kg Admit BW) Protein: 65-85 g/day (0.8-1.0 g/kg Admit BW) Fluids: ~2200 ml/day (Approx 1 ml/kcal/d) NUTRITION DIAGNOSIS: 1) Inadequate oral intake related to inability to consume sufficient energy as evidenced by current NPO status - PERSISTS. 2) Altered nutrition related lab values related to Stage III CKD as evidenced by elevated BUN, Creatinine and Phosphorous lab values and low Magnesium levels - IMPROVED. INTERVENTION: 1) Eneral feeding to advance as follows. Advance Nepro to 15 ml/hr. Advance 10 ml q 6 hrs tp goal rate 45 ml/hr, providing a total of 2030 kcal (1782 formula + 248 propofol) and 80g protein, meeting 100% of protein and calorie needs. 3) Adjust enteral feeding rate as needed based on propofol rate. MONITOR/EVALUATE: Enteral feeding advance / tolerance, labs, wt, GI, nutrition status, POC. Will continue to monitor per high nutritional risk guidelines.
--- NOTE | 2016-08-30 10:37 | NUR ---
JOSSY Verbal consent from sister Rolanda Rushing Radha Wilhelm, PHOTOLITH OPERATOR, ACM
[2016-08-30] MEDS ORDERED: Potassium Chloride 20 mEq/15 mL 15mL Oral Soln TUBE ONE (12:10)
--- NOTE | 2016-08-30 12:15 | PCM.PNMED ---
Subjective Date of Service Aug 30, 2016 Subjective BP now elevated. good UOP. intubated, sedated. no acute issue overnight. Exam Vital Signs Vital Sign - Last Date Time Temp Pulse Resp B/P Pulse Ox O2 Delivery O2 Flow Rate FiO2 08/30/16 12:01 84 190/90 100 30 08/30/16 08:30 Ventilator 08/30/16 08:30 37.2 15 Intake and Output 08/29/16 08/29/16 08/30/16 Cumulative From/Thru 15:00 23:00 07:00 08/24/16 04:11 - 08/30/16 06:20 Intake Total 1173 ml 1356 ml 73645 ml Output Total 1885 ml 1050 ml 33163 ml Balance -712 ml 306 ml 43344 ml Intake Oral 0 ml IV Total 938 ml 1172 ml 21486 ml Tube Feeding 175 ml 94 ml 516 ml Packed Cells 609 ml Tube Irrigant 60 ml 90 ml 300 ml Output Urine Total 1450 ml 1000 ml 7555 ml Stool Total 260 ml 0 ml 1405 ml Gastric Drainage Total 405 ml Drainage Total 175 ml 50 ml 645 ml # Bowel Movements 1 Exam General appearance: Intubated, sedated. HEENT: Atraumatic. Anicteric sclerae. ET tube in place. Moist mucous membranes. Neck: Supple. No lymphadenopathy. Heart: Regular rhythm. Normal S1 and S2. No murmurs, rubs, or gallops. Lungs: Diffuse coarse crackles. right chest tube in place. Abdomen: Soft. Ileostomy bag secured on the right lower quadrant. Mild distention. Decreased bowel sounds. Extremities: no edema on the lower extremity. Lab and Diagnostics Result Diagram: 08/30/1641908/30/16419 X-Rays, CTs and MRIs Initial chest x-ray is unremarkable. 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 Asymmetric opacity involves the superior segment of the left lower lobe, suspicious for aspiration or early pneumonia. 2. Findings consistent with proximal sigmoid colon diverticulitis, with microperforation. No findings to suggest associated abscess. 3. Status post renal transplant, with atrophic [place] kidneys. No significant discrepancy with preliminary [facility] report. Additional Diagnostics DateTimeAnalyzed 03:57:00 -_ pH ____7.353 - 7.350 7.450 pCO2 ___42.6__ -mmHg 35.0 45.0 pO2 100 -mmHg 69.0 116 HCO3- ___23.1__ -mmol/L 22.0 26.0 ABE ___-1.8__ -mmol/L -2.0 2.0 tHb ___10.3__ -g/dL O2Hb ___95.1__ -% COHb ____1.3__ -% MetHb ____1.2__ -% sO2 ___97.5__ -% 25.0 FIO2 ___50.0__ -% PEEP ____5.0__ -cmH2O Set_RR ___18.0__ -b/min Vt __560.0__ -L Drawn By LT - Date/Time Notified____ 04:03:00 -_ Spontaneous_RR ___20.0__ -b/min Notified By LT - Notified Whom _LEIBRAND - B 749 -mmHg tO2 ___13.9__ -Vol% Stiven test _Positive - Assessment & Plan 1. Acute kidney injury on chronic kidney disease in the setting of kidney transplant. 2. Severe septic shock. 3. Acute hypoxic respiratory failure. right pneumothorax s/p right chest tube placement on 08/28. 4. Klebsiella and providencia bacteremia, 5. Klebsiella and proteus complicated urinary tract infection. 5. 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 7. Anion gap metabolic acidosis secondary to uremia and lactic acidosis. 8. Hypokalemia. 9. Hyperphosphatemia. PLAN: taper off IV hydrocortisone. d/c IV albumin. continue phoslo. add KCL 40 meq solution x 1. hold cyclosporine and cellcept. repeat BMP in am, monitor volume status on the daily basis. GI Prophylaxis: H2 mary ann VTE Prophylaxis: Sub-Q Heparin (Unfractionated) VTE Mechanical Devices: Intermittant Pneumatic CD Resuscitation Status: CPR: Attempt Resuscitation Rosa Brown MD Aug 30, 2016 12:14
--- NOTE | 2016-08-30 13:05 | NUR ---
Social Work: Initial Assessment: Data & Assessment: Warehouse Record Clerk spoke with patient sister, Rolanda Rushing [phone], to complete initial assessment, review SW role, and discuss discharge planning. Patient is on vent and able to complete assessment. Patient does not have a current Advance directive and patient's sister declined information. Patient is a 70 y/o male that admitted due to pneumonia, UTI and Diverticulitis. Patient's re-admit score is high at 7. Patient's PCP is Dr. Kobe Bledsoe. Patient' primary insurance is Medicare and [facility] Supp as secondary. Patient does not have VA or LTC benefits. Patient is [facility] a [facility]. Patient was previously on service with [facility]. Patient has a walker, cane and BSC. Patient's dc plan will be determined pending clinical course. SW will continue to follow and keep patient's family updated on patient's progress. Plan: Depending on pt's medical progress, pt will either d/c home, possibly with , or return to [facility] if needed. Warehouse Record Clerk will continue to follow pt's progress and continue updating pt's family. TATUM Rivers Addendum: 08/30/16 at 1316 by CHICHO NINO Amended: Links added.
--- NOTE | 2016-08-30 13:52 | NUR ---
Restraints Discontinued Restraints discontinued at 0800hrs as pt has made no effort to move his arms or pull at tube. I will continue to monitor though.
--- NOTE | 2016-08-30 16:11 | PCM.PNMED ---
Subjective Date of Service Aug 30, 2016 Subjective Patient was seen and examined today at bedside. Patient is intubated and sedated. Exam Vital Signs Vital Sign - Last Date Time Temp Pulse Resp B/P Pulse Ox O2 Delivery O2 Flow Rate FiO2 08/30/16 12:30 36.5 73 15 192/88 100 Mechanical Ventilator 30 Intake and Output 08/29/16 08/29/16 08/30/16 Cumulative From/Thru 15:00 23:00 07:00 08/24/16 04:11 - 08/30/16 06:20 Intake Total 1173 ml 1356 ml 34106 ml Output Total 1885 ml 1050 ml 16208 ml Balance -712 ml 306 ml 06753 ml Intake Oral 0 ml IV Total 938 ml 1172 ml 79826 ml Tube Feeding 175 ml 94 ml 516 ml Packed Cells 609 ml Tube Irrigant 60 ml 90 ml 300 ml Output Urine Total 1450 ml 1000 ml 7555 ml Stool Total 260 ml 0 ml 1405 ml Gastric Drainage Total 405 ml Drainage Total 175 ml 50 ml 645 ml # Bowel Movements 1 Exam Physical Exam: GEN: Patient is intubated and sedated HEENT: PERRLA, mass on left parietal area CV: +S1/S2, RRR, no murmurs auscultated Respiratory: Coarse breath sounds, no wheezes rales or rhonchi, bilateral breath sounds equal, right chest tube in place GI: +bowel sounds x4, soft, compressible, FMS tube in place : Urinary catheter in place with clear urine Skin: Mottled in the upper extremities bilaterally EXT: no c/c/e IVs and Medications Medications Reviewed: Medications were reviewed in detail Medications Current Medications Ertapenem/Sodium Chloride 50 ml @ 100 mls/hr Q24 IV Last administered on 08:39; Admin Dose 100 MLS/HR; Start 08/30/16 at 08:30 Calcium Acetate 667 mg Q8H TUBE Last administered on 08/30/16 12:52; Admin Dose 667 MG; Start 08/29/16 at 11:25 Lab and Diagnostics Result Diagram: 08/30/1641908/30/16419 X-Rays, CTs and MRIs Initial chest x-ray is unremarkable. 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 Asymmetric opacity involves the superior segment of the left lower lobe, suspicious for aspiration or early pneumonia. 2. Findings consistent with proximal sigmoid colon diverticulitis, with microperforation. No findings to suggest associated abscess. 3. Status post renal transplant, with atrophic [place] kidneys. No significant discrepancy with preliminary [facility] report. Additional Diagnostics DateTimeAnalyzed 03:57:00 -_ pH ____7.353 - 7.350 7.450 pCO2 ___42.6__ -mmHg 35.0 45.0 pO2 100 -mmHg 69.0 116 HCO3- ___23.1__ -mmol/L 22.0 26.0 ABE ___-1.8__ -mmol/L -2.0 2.0 tHb ___10.3__ -g/dL O2Hb ___95.1__ -% COHb ____1.3__ -% MetHb ____1.2__ -% sO2 ___97.5__ -% 25.0 FIO2 ___50.0__ -% PEEP ____5.0__ -cmH2O Set_RR ___18.0__ -b/min Vt __560.0__ -L Drawn By LT - Date/Time Notified____ 04:03:00 -_ Spontaneous_RR ___20.0__ -b/min Notified By LT - Notified Whom _LEIBRAND - B 749 -mmHg tO2 ___13.9__ -Vol% Stiven test _Positive - Assessment & Plan Mr. Brar is a 70 year old gentleman with a complex medical history including a reported x3 renal transplants, recipient of chronic immunosuppressants and fci glucocorticoid use, in addition to numerous hip replacements, that was found to be confused at [facility], and was intubated secondary to presumed acute hypercarbic respiratory failure resulting from septic shock likely thought to be due to C. difficile, suspected colonic microperforation, and/or UTI. He was admitted for evaluation and treatment of septic shock secondary to reasons discussed, acute hypoxemic respiratory failure, and acute on chronic kidney disease. - Hospital day 6 - Ventilator day 6 - POD 5: loop ileostomy - POD 1: Chest tube Acute hypoxemic respiratory failure, present on admission. Ongoing - Secondary to septic shock - Remains intubated and sedated - Pulmonary/ICU consulted; appreciate time and recommendations Anemia, acute, present on admission. Under evaluation - Normocytic, normochromic - Drop in Hb noted 08/27 to 7.2; repeat 6.5 - s/p 2U pRBC 08/27 - Guaiac stat 08/28: POSITIVE - CT brain 08/28: No acute abnormalities - CT C/A/P 08/28: Moderate b/l pleural effusions and bibasilar consolidations; small right PTX; anasarca - Repeat HH in pm @1600 - Transfuse threshold Hb 7.0 Septic shock with encephalopathy, acute, present on admission. Ongoing - On admit: WBC 18.2, HR 138; LA 2.3 + reported AMS - Treat underlying cause(s) - DC NS 100 Septicemia, acute, present on admission. Under therapy - Blood Cx 08/24: + Klebsiella oxytoca, Providencia stuartii - Abx: Ertapenem - ID has been consulted, appreciate time and recommendations - Monitor labs, PCT Right sided pneumothorax, acute, unknown chronicity. Monitor - CT C/A/P with small R PTX - Chest tube placed 08/28 - Monitor - May need to remain until extubation Acute on chronic kidney disease, present on admission. Stable - On admit: Cr 2.98; baseline reported to be approx 2 - Avoid nephrotoxic meds when possible - Nephrology has been consulted, appreciate time and recs - Oliguric; Bumex IV x2 doses ordered for 08/28 - Albumin stop date 08/29 UTI, acute, present on admission. Under evaluation - On admit: UA + nitrite, moderate leuk est, + WBC, with many bacteria - Repeat UA 08/26: Cloudy, mod LE, > 50 WBC, mod bacteria - UCx: + Klebsiella, + Proteus - ID as above Suspected C. difficile infection with resultant sepsis, acute, present on admission. Under investigation - Recent stool PCR July 2016 + C. diff - Stool PCR 08/25: + C. diff, + norovirus - Difficult to discern if active infection as C. diff PCR can remain positive as long as one year - S/p loop ileostomy placement 08/24 with irrigation drain - Tx: Vancomycin irrigation through ileostomy per general surgery - General surgery following; appreciate time and recommendations; recommend approx 10d course of irrigation - Irrigation start date: 08/24--> 09/03 stop date - Precautions in place - ID consulted, as noted above Hypocalcemia, acute, not present on admission. Under therapy - Initially corrected with decreased albumin - Correction 08/27: 7.7, still low - 1g calcium gluco given - Monitor Influenza A H3 infection, acute, present on admission. Treated - Peramivir completed Suspected LLL PNA, acute, present on admission. Under evaluation - Likely secondary to influenza, noted above - Monitor with CXR, labs, PCT History of renal transplant and long-term immunosuppression, chronic. Presumed stable - Holding cyclosporine and CellCept - Nephro consulted, as noted above Suspected adrenal insufficiency, chronic. 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 Will likely return to [facility] when stable for DC, if survives hospitalization. Abx needs are uncertain at this time, will keep HAND TUBE BENDER updated on any needs for continued IV abx. The patient lost his central line yesterday. We will replace the central line today. At this time the patient still remains in critical condition and his status changes daily. Palliative care has been consulted and should follow up with the family for a discussion about long-term care goals. GI Prophylaxis: H2 mary ann VTE Prophylaxis: Sub-Q Heparin (Unfractionated) VTE Mechanical Devices: Intermittant Pneumatic CD Resuscitation Status: CPR: Attempt Resuscitation Chika Cornejo DO Aug 30, 2016 16:11
--- NOTE | 2016-08-30 16:33 | PROG NOTE ---
[address] [address] PROGRESS NOTE PATIENT: NINA VALENTIN : 1945 MR#: [id number] ADMIT: 08/24/2016 JOB ID: [id number] DATE: 08/30/2016 PULMONARY CRITICAL CARE FOLLOWUP NOTE: PROBLEM LIST: 1. Acute hypoxic respiratory failure. 2. Septic shock secondary to Klebsiella and Proteus urinary tract infections, and Providencia bacteremia. 3. Status post renal transplant x3. 4. Recurrent Clostridium difficile colitis. 5. Left lower lobe pneumonia. 6. Right pneumothorax secondary to mechanical ventilation. SUBJECTIVE: None. OBJECTIVE: Temperature 36.5 with T-max being 37.2, pulse 73-102, respiratory rate 15, blood pressure 192/88, O2 sat on FiO2 of 30%, PEEP of 5 is 100%. I and O shows 2.6 liters in, 3.4 liters out. General appearance: Sedated, though essentially unresponsive. Does at times seemingly get agitated with tachycardia and hypertensive episodes responding to IV propofol. Otherwise he is essentially unresponsive. No cough reflex on suctioning. Chest: Fairly good breath sounds bilaterally. Very coarse crackles throughout both lung jama. No use of accessory muscles. With a tidal volume of 510, PEEP of 5, respiratory rate of 15, and FiO2 of 30%, pO2 is 99, pCO2 of 26, pH 7.44. LABORATORY VALUES: Show a white count of 8300 with 92 polymorphonuclears, no bands, 3 lymphocytes. Hemoglobin 8.5 and stable. Platelet count 57 and decreasing. Sodium 144, potassium 3.6, chloride 107, CO2 is 17, BUN 87 and slowly rising. Creatinine 2.79 and stable. Lactic acid is 1.2. Calcium 8.7. Phosphorus 6.9, magnesium 2. Chest x-ray shows low lung volumes. Opacification unchanged at bilateral lung bases. ASSESSMENT: 1. Hypoxemic respiratory failure. Oxygenating much better today on FiO2 of 30% and O2 sats running in the high 90s. Arterial blood gases show reasonable oxygenation, though he has both a metabolic acidosis as well as a primary respiratory alkalosis, some of which may be due to compensation. Peak pressures are on the low side. Pulmonary compliance seems better today. 2. Right pneumothorax. Minimal drainage of about 100 mL of serosanguineous fluid. No air leak. 3. Arrhythmias. Continues to have ectopy. However hemodynamics have been relatively stable for the moment. 4. Renal failure. Relatively stable creatinine. BUN climbing a little bit, though marginally. Renal service has seen the patient and is planning on tapering off the IV steroids, discontinuing the IV albumin, adding potassium. PLAN: 1. Continue current vent settings except decrease respiratory rate to 13. 2. Continue IV fluids. As per renal. 3. Continue tube feeding. 4. Consider EEG. TIME: Time spent in critical care 25 minutes.
--- NOTE | 2016-08-30 17:12 | PCM.PROC ---
Procedure Note Date of Service: Aug 30, 2016 Procedure: PROCEDURE PERFORMED Right internal jugular central line placement. ANESTHESIA None used patient currently sedated and intubated ESTIMATED BLOOD LOSS 10 mL. SPECIMENS None. COMPLICATIONS None. INDICATIONS FOR PROCEDURE The patient is a 70-year-old male who is currently intubated and has multiple infections. The patient is in need of largebore IV access and CVP monitoring for hemodynamic instability. Patient previously had an IJ placed however access was lost and anyone was needed. DESCRIPTION OF PROCEDURE IN DETAIL The right side of the neck was chosen because the dome of the right lung and pleura is lower, there is a straight line to the atrium and the large thoracic duct is not endangered. The patient was lying in the trendelenburg position with head turned 45 degrees away from the insertion site. The skin was thoroughly sponged with chlorhexidine and allowed to dry. All persons involved were shielded with hairnets, facemasks and sterile gowns. With sterile-gloved hands the right neck area was draped with the large disposable sterile field provided in the kit. The carotid artery was palpated and visualized under ultrasound and avoided. The triangle formed by the clavicle and the two heads of the sternocleidomastoid muscle was identified. A finder needle was advanced at a 20-degree angle toward the ipsilateral nipple, lateral to the carotid pulse and slightly superior to the apex of the triangle until the flash chamber was seen to fill with blood. The ultrasound was used during this procedure for full visualization throughout the procedure. The needle was then held in place while the guide wire was advanced. The needle was then removed. A skin dilator was advanced over the guidewire and removed, then the triple-lumen catheter was advanced over the guide wire into proper position. The guide wire was removed and discarded. The ports were aspirated which showed good blood return indicating proper position into the vein and then carefully flushed with normal saline. The catheter was stabilized and a stat lock was put in place.. A sterile bio-occlusive dressing was placed over the catheter, including the insertion site. The patient tolerated the procedure well. Provider and Cartographic Aide: Dr. Javi Wright assisted the procedure Post Procedure Plan: Stat x-ray was ordered for confirmation of placement Chika Cornejo DO Aug 30, 2016 17:12
[2016-08-30] MEDS: Vasopressin Inj 20 UNIT in 0.9% Sodium Chloride 100 ML IV SCH ×2 (17:26→20:43)
--- NOTE | 2016-08-30 17:48 | DRSVH ---
PROCEDURE: X-RAY CHEST ONE VIEW, PORTABLE ([id number]) INDICATIONS: central line placement TECHNIQUE: One view of the chest was acquired. COMPARISON: [facility], CR, XR CHEST 1VW (PORTABLE), 08/30/2016, 4:53. FINDINGS: Surgical changes and devices: There is a right central venous catheter, tip of which is projected ove r the lower SVC. Endotracheal tube and NG tube are unchanged. Right thoracostomy tube is unchanged. Lungs and pleura: Bilateral basilar radiopacities and pleural effusions are unchanged. Mediastinum: Mediastinal contours appear normal. Heart size is normal. Bones and chest wall: No suspicious bony lesions. Overlying soft tissues appear unremarkable. IMPRESSION: New right central venous catheter as above. Dictated by: Maryan Villagomez M.D. on 08/30/2016 at 17:45 Approved by: Maryan Villagomez M.D. on 08/30/2016 at 17:46
--- NOTE | 2016-08-30 18:52 | NUR ---
P: Hemodynamics, Resp, Neuro, Nutrition, Social I,E: Pt has been hypertensive today, I have increased his fentanyl and propofol in case he was having discomfort or anxiety and this has helped a little, but his BP remains 170-180's MD's are aware. He was tachycardic this am with rates in the 100's especially with movement and interventions. this afternoon he has had frequent episodes of pauses and bradycardia, junctional, which are transient and do not affect his BP. MD's are also aware of this. UOP was 1450cc today. Pt remains on the vent. He has had several episodes of dropping his sats to thej high 80's for no obvious reason (not related to turning or suctioning etc.). This resolved usually with increasing his )2 briefly and or suctioning, although pt does not have a cough at all. he also has no gag reflex. This morning when he was more awake, he would open his eyes but not track. He does not follow commands. This afternoon he had an episode where his hands and his shoulders were shaking/tremulous. I was not sure what this was from and tried a bolus of propofol which did stop this episode. Dr. Torres was notified about this. Pt has been tolerating the tube feeds and Insole Beveler has written to titrate rate up to a goal of 45cc. Pt is now at 30cc/hr. FMS has had scant output today, but this tube was flushed and a new bag applied. He continues to leak serous fluid from skin tears or intervention sites. I spoke with his sister today and gave her an update and encouraged her to come on Thursday so that she can meet with the team to discuss plan of care. Dr. Manuel was in today and I advised her of this also.
[2016-08-30] MEDS: Norepineph 8,000 mCg/250 mL NS 8,000 MCG in IV Premix 1 EACH IV SCH (20:43)
[2016-08-30] MEDS ORDERED: 0.9% Sodium Chloride 500 ML ONE ×2 (20:43→20:49)
[2016-08-30] MEDS: Sodium Chloride LOK Flush 10 mL Syringe IVFLUSH PRN ×2 (22:05)
[2016-08-31] VITALS (11 sets, daily range): BP systolic 105–165; BP diastolic 57–86; PULSE 66–87; RESP 13–15; O2SAT 97–100
--- NOTE | 2016-08-31 05:21 | ABG ---
DateTimeAnalyzed 05:15:00 -_ pH ____7.481 - 7.350 7.450 pCO2 ___26.0__ -mmHg 35.0 45.0 pO2 106 -mmHg 69.0 116 HCO3- ___19.2__ -mmol/L 22.0 26.0 ABE ___-3.2__ -mmol/L -2.0 2.0 tHb ____8.2__ -g/dL O2Hb ___96.1__ -% COHb ____1.1__ -% MetHb ____1.2__ -% sO2 ___98.4__ -% 25.0 FIO2 ___45.0__ -% PEEP ____5.0__ -cmH2O Set_RR ___15.0__ -b/min Vt __510.0__ -L Drawn By MM - Date/Time Notified____ 05:21:00 -_ Oxygen Device 1 VENTILATOR - Notified By MM - B 769 -mmHg tO2 ___11.3__ -Vol% Stiven test N/A -
[2016-08-31] MEDS: LACTATED RINGER S IRRIGATION SCH ×3 (05:30→20:17)
[2016-08-31] MEDS: VANCOMYCIN IRRIGATION SCH ×3 (05:30→20:17)
[2016-08-31] MEDS: Chlorhexidine 0.12% 15 mL Oral Solution MT SCH ×5 (05:31→20:17)
[2016-08-31 05:59] LABS: Mean Corpuscular Hemoglobin 29.5 pg (27.0-35.0); Mean Corpuscular Volume 86.7 fL (81-100)
--- NOTE | 2016-08-31 06:29 | NUR ---
[facility]/[place]/Arrhythmia CVP and [place] Hemodynamic monitoring resumed once Right Triple IJ replaced. CVP & ART Line tubing replaced. ART Line tubing would not detach until the prong of the male adapter broke off in the female adapter. Tubing had to be replaced at the hub of the ART Line. Message left for IV Therapy regarding redressing this line with new chlorhexidine impregnated dressing as well as replacing the right IJ Central Line Dressing. Early referral made to [facility]. Case reference #[id number] and I spoke with Bev who mentioned that someone would call back. No call has yet to be received. TELE: Increase in amount of PVCs and changing rhythm from Afib with IVCD to Junctional to few runs of PVCs and Trigeminy. Rhythm now Afib 70-80s with occasional PVC. Dr. Fonseca made aware of trigeminy and will continue to monitor.
[2016-08-31 07:11] LABS: Magnesium 1.9 mg/dL (1.6-2.6); Phosphorus 6.6 mg/dL (2.5-4.9)
[2016-08-31] MEDS ORDERED: KCl 40 mEq/100 mL (CENTRAL) 40 MEQ in IV Premix 1 EACH IV ONE (07:50)
[2016-08-31] MEDS: Pantoprazole 4 mg/mL 10 mL Inj IVPUSH SCH ×2 (08:08→15:59)
[2016-08-31] MEDS: Propofol Inj 1,000,000 MCG in IV Premix 1 EACH IV SCH ×2 (08:09→18:43)
[2016-08-31] MEDS: Hydrocortisone 50 mg/mL 2 mL Inj IVPUSH SCH ×2 (08:09→15:59)
[2016-08-31] MEDS: Ertapenem Inj 500 MG in 0.9% Sodium Chloride 50 ML IV SCH (08:53)
--- NOTE | 2016-08-31 09:33 | DRSVH ---
PROCEDURE: X-RAY CHEST ONE VIEW, PORTABLE ([id number]) INDICATIONS: Intubated TECHNIQUE: One view of the chest was acquired. COMPARISON: [facility], CR, XR CHEST 1VW (PORTABLE), 08/30/2016, 17:00. FINDINGS: Surgical changes and devices: Endotracheal tube with the tip seen approximately 6 cm above the vinny . Enteric tube with the tip projecting in the stomach. Right chest tube unchanged. Right internal ju gular central venous catheter with the tip projecting in the mid SVC. Lungs and pleura: Retrocardiac consolidation is again noted and grossly unchanged. Low lung volumes. Left mid lung perihilar linear opacities possibly atelectasis. Probable medial lower lobe consolidati on. No pneumothorax seen. Mediastinum: Mediastinal contours appear normal. Heart size is normal. Bones and chest wall: No suspicious bony lesions. Overlying soft tissues appear unremarkable. IMPRESSION: Low lung volumes and scattered atelectasis. Dense retrocardiac consolidation as before. M ildly increased left midlung streaky and linear opacities Dictated by: Mark Santana M.D. on 08/31/2016 at 9:13 Approved by: Mark Santana M.D. on 08/31/2016 at 9:30
[2016-08-31] MEDS: SODIUM CHLORIDE 0.45% IV SCH ×3 (10:55→20:23)
[2016-08-31] MEDS: POTASSIUM CHLORIDE IV SCH ×3 (10:55→20:23)
[2016-08-31] MEDS ORDERED: KCl 40 mEq/100 mL IV Premix (K < 3 & Creat 2.1 - 2.9) IV ONE ×2 (11:15→13:00)
--- NOTE | 2016-08-31 12:13 | PCM.PNMED ---
Subjective Date of Service Aug 31, 2016 Subjective Yesterday/Overnight: Increase in propofol secondary to increases in BP and perceived agitation. No acute events. Today: No acute events or distress noted at time of evaluation. Remains intubated and sedated. ROS could not be obtained. Fentanyl at 50, propofol at 40. Labs: Hb 8.0; K 2.9, Na 146, Cr 2.60, Phos 6.6; albu 3.3; PCT 11.14 Exam Vital Signs Vital Sign - Last Date Time Temp Pulse Resp B/P Pulse Ox O2 Delivery O2 Flow Rate FiO2 08/31/16 05:33 37.4 66 15 105/58 98 Mechanical Ventilator 30 Intake and Output 08/30/16 08/30/16 08/31/16 Cumulative From/Thru 15:00 23:00 07:00 08/24/16 04:11 - 08/31/16 05:56 Intake Total 558 ml 1241 ml 65103 ml Output Total 1600 ml 1075 ml 02039 ml Balance -1042 ml 166 ml 00937 ml Intake Oral 0 ml IV Total 285 ml 799 ml 51284 ml Tube Feeding 90 ml 362 ml 968 ml Packed Cells 609 ml Tube Irrigant 183 ml 80 ml 563 ml Output Urine Total 1450 ml 1050 ml 95175 ml Stool Total 0 ml 1405 ml Gastric Drainage Total 405 ml Drainage Total 150 ml 25 ml 820 ml # Bowel Movements 1 Exam General: Intubated and sedated; no acute distress HENT: Atraumatic; sclera anicteric; ETT in place; mucus membranes moist Neck: Soft, obese Cardiac: Regular rate at time of examination; no murmurs appreciated Respiratory: Adequate air flow all jama; faint coarse sounds appreciated; difficult to appreciate secondary to habitus Chest: Right chest tube in place and secured Abdomen: Soft, nondistended; ileostomy bag secured on right with drain in place for irrigation Extremities: No edema with scattered areas of breakdown resultant from previous edema Pulses: Radial equal and bilateral Skin: Warm, dry; scaly and dry Neuro: Cannot obtain secondary to sedation and intubation; nonresponsive Psych: Cannot obtain secondary to sedation and intubation Lab and Diagnostics Result Diagram: 08/31/1640 08/31/16 0540 Microbiology C DIFF TOXIN A AND B BY PCR Final 08/25/16-2128 Organism 1 POS FOR CDIF TOXIN C DIF TOXIN A&B PCR DETECTED TIME CALLED: 1649 DATE CALLED: 08/25/16 FLOOR/DOCTOR: LIONELU/YANN Stevenson CALLED BY: ION PCR testing alone cannot distinquish C. difficile disease from a carrier state, and therefore correlation with clinical findings is required. Specimen: [id number] Collected: 08/24/16 Status: ZHANNA Req#: [id number] Received: 08/24/16123 Source: BLOOD Sp Desc : AER Subm Dr: Stiven Aguilera MD Ordered: CHRISTIE Comments: Collected by Nurse/Unit? Y/N N Comment: if not done in ED Procedure Result Verified Site Microbiology CHRISTOPHER CULTURE BLOOD Final 08/29/16-723 Organism 1 PROVIDENCIA STUARTII GRAM STAIN RESULT GRAM NEGATIVE RODS BC BOTTLE Isolated from Aerobic Bottle of Set Drawn DATE CALLED: 08/25/16 TIME CALLED: 1314 CALLED BY: CORINNE FLOOR/DOCTOR: SAV Stevenson BC READ BACK Y TYPE OF DRAW PERIPHERAL DRAW TIME OF POSITIVITY 1304 ISOLATED FROM FOUR OF FIVE BOTTLES COLLECTED 08/24 1. PROVIDENCIA STUARTII M.I.C Interp --------- ------ * AMIKACIN <=2 S * AMPICILLIN >=32 R * AMPICILLIN/SULBACTAM >=32 R * CEFAZOLIN >=64 R * CEFEPIME <=1 S * CEFOXITIN 32 R * CEFTRIAXONE 8 R * ERTAPENEM <=0.5 S * GENTAMICIN R * MEROPENEM <=0.25 S * TOBRAMYCIN R * PIPERACILLIN/TAZOBACTAM 8 S Specimen: [id number] Collected: 08/24/16 Status: COMP Req#: [id number] Received: 08/24/16 Source: BLOOD Sp Desc : AER Subm Dr: Prakash Starks MD Ordered: BC Comments: Collected by Nurse/Unit? Y/N Y Comment: From different sites Procedure Result Verified Site Microbiology CHRISTOPHER CULTURE BLOOD Final 08/31/16-611 Organism 1 KLEBSIELLA OXYTOCA GRAM STAIN RESULT GRAM VARIABLE RODS BC BOTTLE Isolated from Aerobic Bottle of Set Drawn DATE CALLED: 08/24/16 TIME CALLED: 2017 CALLED BY: PURA FLOOR/DOCTOR: TAY/STEFANIE Retana,RN BC READ BACK YES TYPE OF DRAW NURSE COLLLECT TYPE NOT SPECIFIED TIME OF POSITIVITY 1944 KLEBSIELLA OXYTOCA ISOLATED FROM FIVE OF FIVE BOTTLES COLLECTED 08/24 1. KLEBSIELLA OXYTOCA M.I.C Interp --------- ------ * AMIKACIN <=2 S * AMPICILLIN >=32 R * AMPICILLIN/SULBACTAM 16 I * CEFAZOLIN >=64 R * CEFEPIME <=1 S * CEFOXITIN <=4 S * CEFTRIAXONE <=1 S * CIPROFLOXACIN <=0.25 S * ERTAPENEM <=0.5 S * GENTAMICIN <=1 S * MEROPENEM <=0.25 S * TOBRAMYCIN <=1 S * TRIMETHOPRIM/SULFAMETHOXAZOLE <=20 S Specimen: [id number] Collected: 08/24/16 Status: COMP Req#: [id number] Received: 08/24/16 Source: URINE CC Sp Desc : PP Subm Dr: Prakash Starks MD Ordered: URINE CULT Procedure Result Verified Site Microbiology CHRISTOPHER CULT URINE Final 08/27/16 Organism 1 KLEBSIELLA OXYTOCA U COLONY COUNT/QUANTITY >100,000 CFU/ml Organism 2 PROTEUS MIRABILIS U COLONY COUNT/QUANTITY >100,000 CFU/ml 1. KLEBSIELLA OXYTOCA M.I.C Interp --------- ------ * AMOXICILLIN/CLAVULATE 8 S * AMPICILLIN >=32 R * CEFAZOLIN 8 R * CEFEPIME <=1 S * CEFTRIAXONE <=1 S * CEFUROXIME SODIUM 4 S * CIPROFLOXACIN <=0.25 S * ERTAPENEM <=0.5 S * GENTAMICIN <=1 S * IMIPENEM <=1 S * LEVOFLOXACIN <=0.12 S * NITROFURANTOIN 32 S * TETRACYCLINE <=1 S * TOBRAMYCIN <=1 S * TRIMETHOPRIM/SULFAMETHOXAZOLE <=20 S 2. PROTEUS MIRABILIS M.I.C Interp --------- ------ * AMPICILLIN >=32 R * CEFAZOLIN >=64 R * CEFEPIME <=1 S * CEFTRIAXONE <=1 S * CEFUROXIME SODIUM >=64 R * CIPROFLOXACIN >=4 R * ERTAPENEM <=0.5 S * GENTAMICIN <=1 S * LEVOFLOXACIN >=8 R * NITROFURANTOIN 128 R * TETRACYCLINE >=16 R CONTINUED ON NEXT PAGE RUN DATE: 08/27/16 [facility] LIVE PAGE 2 RUN TIME: 075 Specimen Inquiry PHYSICIAN Patient: NINA BRAR [id number] (Continued) Specimen: [id number] Collected: 08/24/16 Received: 08/24/16 (Continued) Procedure Result Verified Site CHRISTOPHER CULT URINE Final (continued) 08/27/16075 2. PROTEUS MIRABILIS (continued) M.I.C Interp --------- ------ * TOBRAMYCIN <=1 S * TRIMETHOPRIM/SULFAMETHOXAZOLE >=320 R X-Rays, CTs and MRIs Initial chest x-ray is unremarkable. 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 Asymmetric opacity involves the superior segment of the left lower lobe, suspicious for aspiration or early pneumonia. 2. Findings consistent with proximal sigmoid colon diverticulitis, with microperforation. No findings to suggest associated abscess. 3. Status post renal transplant, with atrophic [place] kidneys. No significant discrepancy with preliminary [facility] report. Additional Diagnostics DateTimeAnalyzed 03:57:00 -_ pH ____7.353 - 7.350 7.450 pCO2 ___42.6__ -mmHg 35.0 45.0 pO2 100 -mmHg 69.0 116 HCO3- ___23.1__ -mmol/L 22.0 26.0 ABE ___-1.8__ -mmol/L -2.0 2.0 tHb ___10.3__ -g/dL O2Hb ___95.1__ -% COHb ____1.3__ -% MetHb ____1.2__ -% sO2 ___97.5__ -% 25.0 FIO2 ___50.0__ -% PEEP ____5.0__ -cmH2O Set_RR ___18.0__ -b/min Vt __560.0__ -L Drawn By LT - Date/Time Notified____ 04:03:00 -_ Spontaneous_RR ___20.0__ -b/min Notified By LT - Notified Whom _LEIBRAND - B 749 -mmHg tO2 ___13.9__ -Vol% Stiven test _Positive - Assessment & Plan Mr. 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 difficile, suspected colonic microperforation, and/or UTI. He was admitted for evaluation and treatment of septic shock secondary to reasons discussed, acute hypoxemic respiratory failure, and acute on chronic kidney disease. - Hospital day 8 - Ventilator day 8 - POD 7: loop ileostomy - POD 3: Chest tube Acute hypoxemic respiratory failure, present on admission. Ongoing - Secondary to septic shock - Remains intubated and sedated - Pulmonary/ICU consulted; appreciate time and recommendations Anemia, acute, present on admission. Under evaluation - Normocytic, normochromic - Drop in Hb noted 08/27 to 7.2; repeat 6.5 - s/p 2U pRBC 08/27 - Guaiac stat 08/28: POSITIVE - CT brain 08/28: No acute abnormalities - CT C/A/P 08/28: Moderate b/l pleural effusions and bibasilar consolidations; small right PTX; anasarca - Transfuse threshold Hb 7.0 Septic shock with encephalopathy, acute, present on admission. Ongoing - On admit: WBC 18.2, HR 138; LA 2.3 + reported AMS - Treat underlying cause(s) - Consideration of EEG during week to eval neuro status Septicemia, acute, present on admission. Under therapy - Blood Cx 08/24: + Klebsiella oxytoca, Providencia stuartii - Abx: Ertapenem - ID has been consulted, appreciate time and recommendations - Monitor labs, PCT Hypokalemia, acute, not present on admission. Under therapy - Likely secondary to decreased renal function and need for increased diuretics - 08/31: K 2.9 - 80mEq K ordered; lab to follow infusion completion - Nephro recs include slow infusion Right sided pneumothorax, acute, unknown chronicity. Monitor - CT C/A/P with small R PTX - Chest tube placed 08/28 - Monitor - May need to remain until extubation Acute on chronic kidney disease, present on admission. Stable - On admit: Cr 2.98; baseline reported to be approx 2 - Avoid nephrotoxic meds when possible - Nephrology has been consulted, appreciate time and recs - Oliguric; Bumex IV x2 doses completed 08/28 - Albumin stop date 08/29 UTI, acute, present on admission. Under evaluation - On admit: UA + nitrite, moderate leuk est, + WBC, with many bacteria - Repeat UA 08/26: Cloudy, mod LE, > 50 WBC, mod bacteria - UCx: + Klebsiella, + Proteus - ID as above Suspected C. difficile infection with resultant sepsis, acute, present on admission. Under investigation - Recent stool PCR July 2016 + C. diff - Stool PCR 08/25: + C. diff, + norovirus - Difficult to discern if active infection as C. diff PCR can remain positive as long as one year - S/p loop ileostomy placement 08/24 with irrigation drain - Tx: Vancomycin irrigation through ileostomy per general surgery - General surgery following; appreciate time and recommendations; recommend approx 10d course of irrigation - Irrigation start date: 08/24--> 09/03 stop date - Precautions in place - ID consulted, as noted above Hypocalcemia, acute, not present on admission. Resolved - Initially corrected with decreased albumin - Monitor Influenza A H3 infection, acute, present on admission. Treated - Peramivir completed Suspected LLL PNA, acute, present on admission. Stable - Likely secondary to influenza, noted above - Monitor with CXR, labs, PCT History of renal transplant and long-term immunosuppression, chronic. Presumed stable - Holding cyclosporine and CellCept - Nephro consulted, as noted above Suspected adrenal insufficiency, chronic. Under therapy - Secondary to transplants and terminal superintendent glucocorticoid use - Stress dose steroids: SoluCortef 100mg q8h; continue - Consideration of taper when stabilized History of positive MRSA screen - Screen 08/24: NEGATIVE - No treatment/precautions indicated for MRSA at this time - DVT: None secondary to acute anemia - GI: PPI - Diet: Initiate trickle feeds 08/27; maintain trickle - PRN fever/bowel/antiemetics/pain - Code: FULL CODE Dispo: Likely to remain > 2d, as he remains intubated and sedated. Will likely return to [facility] when stable for DC, if survives hospitalization. 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 Goals of care discussion tentative 09/01 with the palliative team. Pain Evaluation: Adequate Pain Control GI Prophylaxis: H2 mary ann VTE Prophylaxis: Sub-Q Heparin (Unfractionated) VTE Mechanical Devices: Intermittant Pneumatic CD Resuscitation Status: CPR: Attempt Resuscitation Attending Statement Patient seen and examined. Patient's chart was reviewed and case was discussed with Dr. Promise Boyd. I agree with the above note Maude Boyd DO Aug 31, 2016 08:08 Shekhar Reyes MD Aug 31, 2016 19:46
--- NOTE | 2016-08-31 14:54 | PCM.PNMED ---
Subjective Date of Service Aug 31, 2016 Subjective good UOP. stable BP. remains intubated and sedated. Exam Vital Signs Vital Sign - Last Date Time Temp Pulse Resp B/P Pulse Ox O2 Delivery O2 Flow Rate FiO2 08/31/16 13:01 79 136/70 100 35 08/31/16 11:45 Ventilator 08/31/16 11:45 37.0 13 Intake and Output 08/30/16 08/30/16 08/31/16 Cumulative From/Thru 15:00 23:00 07:00 08/24/16 04:11 - 08/31/16 05:56 Intake Total 558 ml 1241 ml 79102 ml Output Total 1600 ml 1075 ml 48256 ml Balance -1042 ml 166 ml 41531 ml Intake Oral 0 ml IV Total 285 ml 799 ml 76493 ml Tube Feeding 90 ml 362 ml 968 ml Packed Cells 609 ml Tube Irrigant 183 ml 80 ml 563 ml Output Urine Total 1450 ml 1050 ml 88586 ml Stool Total 0 ml 1405 ml Gastric Drainage Total 405 ml Drainage Total 150 ml 25 ml 820 ml # Bowel Movements 1 Exam General appearance: Intubated, sedated. HEENT: Atraumatic. Anicteric sclerae. ET tube in place. Moist mucous membranes. Neck: Supple. No lymphadenopathy. Heart: irregular rhythm. Normal S1 and S2. No murmurs, rubs, or gallops. Lungs: decreased breath sound on right lung. right chest tube in place. Abdomen: Soft. Ileostomy bag secured on the right lower quadrant. Mild distention. Decreased bowel sounds. Extremities: no edema on the lower extremity. Lab and Diagnostics Result Diagram: 08/31/16 0540 08/31/16 0540 X-Rays, CTs and MRIs Initial chest x-ray is unremarkable. 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 Asymmetric opacity involves the superior segment of the left lower lobe, suspicious for aspiration or early pneumonia. 2. Findings consistent with proximal sigmoid colon diverticulitis, with microperforation. No findings to suggest associated abscess. 3. Status post renal transplant, with atrophic [place] kidneys. No significant discrepancy with preliminary [facility] report. Additional Diagnostics DateTimeAnalyzed 03:57:00 -_ pH ____7.353 - 7.350 7.450 pCO2 ___42.6__ -mmHg 35.0 45.0 pO2 100 -mmHg 69.0 116 HCO3- ___23.1__ -mmol/L 22.0 26.0 ABE ___-1.8__ -mmol/L -2.0 2.0 tHb ___10.3__ -g/dL O2Hb ___95.1__ -% COHb ____1.3__ -% MetHb ____1.2__ -% sO2 ___97.5__ -% 25.0 FIO2 ___50.0__ -% PEEP ____5.0__ -cmH2O Set_RR ___18.0__ -b/min Vt __560.0__ -L Drawn By LT - Date/Time Notified____ 04:03:00 -_ Spontaneous_RR ___20.0__ -b/min Notified By LT - Notified Whom _LEIBRAND - B 749 -mmHg tO2 ___13.9__ -Vol% Stiven test _Positive - Assessment & Plan 1. Acute kidney injury on chronic kidney disease in the setting of kidney transplant. 2. Severe septic shock. 3. Acute hypoxic respiratory failure. Right pneumothorax s/p right chest tube placement on 08/28. 4. Klebsiella and providencia bacteremia, 5. Klebsiella and proteus complicated urinary tract infection. 5. 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 7. Anion gap metabolic acidosis secondary to uremia and lactic acidosis. 8. Hypokalemia. 9. Hyperphosphatemia. 10. Afib PLAN: taper off IV hydrocortisone 50 mg q 8 hr. continue phoslo. start maintenance IVF 1/2NS + KCL 40 meq 80 ml/hr. hold cyclosporine and cellcept. repeat BMP in am. GI Prophylaxis: H2 mary ann VTE Prophylaxis: Sub-Q Heparin (Unfractionated) VTE Mechanical Devices: Intermittant Pneumatic CD Resuscitation Status: CPR: Attempt Resuscitation Rosa Brown MD Aug 31, 2016 14:54
[2016-08-31] MEDS: Vasopressin Inj 20 UNIT in 0.9% Sodium Chloride 100 ML IV SCH ×2 (15:40→20:05)
--- NOTE | 2016-08-31 16:30 | PROG NOTE ---
[address] [address] PROGRESS NOTE PATIENT: NINA VALENTIN : 1945 MR#: [id number] ADMIT: 08/24/2016 JOB ID: [id number] DATE: 08/31/2016 PULMONARY CRITICAL CARE FOLLOWUP NOTE: PROBLEM LIST: 1. Acute hypoxic respiratory failure. 2. Septic shock secondary to Klebsiella and Proteus urinary tract infections and Providencia and Klebsiella bacteremia. 3. Chronic renal failure status post renal transplant x3. 4. Recurrent C. difficile colitis. 5. Left lower lobe pneumonia. 6. Right pneumothorax secondary to mechanical ventilation. 7. Elevation of right hemidiaphragm. OBJECTIVE: None. Temperature 37, with T-max being 37.4, though he has been as low as 34.8. Pulse 66-87 with variable ventricular rate. Respiratory rate 13-15 with ventilator set at 13. O2 sat on FiO2 of 35%, PEEP of 5 is 98% to 100%. I and O shows 1.9 L in, 2.6 L out, which 2.45 of those, 2.65 L is urine. General appearance: Sedated. Minimally responsive. Chest shows fair breath sounds on the left. Essentially absent breath sounds at the right base. Better breath sounds in the right upper lung field. Heart slightly irregular. Heart tones seem normal. Abdomen is soft. Nondistended. Quiet. Extremities may be trace to 1+ pretibial edema on the left. Booty present on the right foot. Skin warm. [place]. White cell count is 8100 without a differential. Hemoglobin 8, down from about 8.5 which had been stable for about four days. Platelet count dropping, currently 47,000, from a peak of 239,000. He is not receiving heparin. Heparin antibodies are pending. Sodium 146, potassium 2.9. Chloride 109 CO2 is 18, BUN 93, and stable. Creatinine 2.6 and stable. Lactic acid 1.2. Calcium 8.6 with an albumin of 3.3, alkaline phos moderately elevated at 219 and rising. Transaminases and total bilirubin are normal. Phosphorus moderately elevated, 6.6, upper limits of normal being 4.9. Magnesium normal at 1.9. Chest x-ray shows a significant elevation of the right hemidiaphragm. Chest tube in reasonably good position. Endotracheal tube looks a bit high to me. Low lung volumes. Plate-like atelectasis in the left mid lung field. Chest tube with minimal drainage. No apparent air leak. Right lung remains expanded. ASSESSMENT: 1. Hypoxemic respiratory failure. Will probably consider backing off on sedation tomorrow. Apparently, he does get quite anxious when the propofol is stopped. Will try again tomorrow as we are making no progress whatsoever with this gentleman, barely reactive to emergencies. 2. Hypoxemic respiratory failure. Right hemidiaphragm looks elevated to me. Will review it with Radiology. Chest tube not draining much. I frankly do not think it is fluid, based on a CT scan of August 28, 2016. May need to consider bronchoscopy to evaluate the right lower lobe. 3. Arrhythmias. Have not been a significant problem over the last few days. Has had episodes where he goes fast, slow, and in between with variable blocks. Blood pressure, however, is remaining relatively stable for the past 48 hours. 4. Renal failure. Chronic renal failure. Renal function remains relatively poor. 5. Currently receiving vancomycin through the ileal loop for the possible C. difficile enterocolitis. Receiving ertapenem for the bacterial infectious processes. Will check with the team about why he is still receiving hydrocortisone, presumably for his renal transplant. Will check with Renal about whether we can decrease that dose as his usual dose looks like it was about 8 mg of prednisone a day. 6. ARDS. Vent mechanics look okay. Peak inspiratory pressure with a tidal volume of 510, PEEP of 5 is 25 with a plateau of 20. PEEP is set at 5, measured at 5. FiO2 is 0.7. I suspect we can decrease that to get him off toxic levels of oxygen. Would consider decreasing O2 sat to 55% or so. 7. Arterial blood gases on FiO2 of 45% shows a pO2 of 106, pCO2 26, pH 7.48. O2 sat currently 70%. Will need to check with RT regarding the apparent inconsistency. In any case, we have given him mild respiratory alkalemia and need to back off on rate or volume. PLAN: 1. Discuss ventilator and blood gases with RT. 2. Consider bronchoscopy in the morning. 3. Decrease minute ventilation. 4. Decrease sedation in the morning. Time spent so far in critical care, 48 minutes.
--- NOTE | 2016-08-31 16:59 | NUR ---
P: Hemodynamics, Neuro, Nutrition, Social I,E: Pt VS have been stable today, he has not needed the bear hugger for temp. UOP adequate. only a small amount of liquid stool via FMS. Pt opens his eyes for sedation vacation bot does not track and has an upward gaze. He does not respond to pain, he has no gag and no cough. Tube feeds are at goal at 45cc per hour, small residuals. Pt's sisters visited today and they spoke with case management and Dr. Boyd.
[2016-08-31] MEDS ORDERED: Sodium Chloride LOK Flush 10 mL Syringe IVFLUSH PRN (19:55)
[2016-08-31] MEDS: Norepineph 8,000 mCg/250 mL NS 8,000 MCG in IV Premix 1 EACH IV SCH (20:05)
[2016-08-31] MEDS: Artificial Tears 15 mL Ophthalmic Solution BOTH_EYES PRN (20:33)
[2016-09-01] VITALS (12 sets, daily range): BP systolic 139–165; BP diastolic 69–118; PULSE 66–118; RESP 13–16; O2SAT 93–100
[2016-09-01] MEDS: Chlorhexidine 0.12% 15 mL Oral Solution MT SCH ×6 (00:35→20:36)
[2016-09-01] MEDS: Hydrocortisone 50 mg/mL 2 mL Inj IVPUSH SCH ×3 (00:35→16:02)
[2016-09-01] MEDS: Artificial Tears 15 mL Ophthalmic Solution BOTH_EYES PRN (02:22)
[2016-09-01] MEDS: fentaNYL 2,500 mCg/250 mL 2,500 MCG in IV Premix 1 EACH IV PRN (02:22)
[2016-09-01 03:50] LABS: BASOPHILS % (AUTO) 0.2 % (0-3); EOSINOPHILS % (AUTO) 0 % (0-5); MONOCYTES % (AUTO) 5.2 % (4-12); Mean Corpuscular Hemoglobin 29.6 pg (27.0-35.0); Mean Corpuscular Volume 87.8 fL (81-100); NEUTROPHILS % (AUTO) 89.8 % (40-74)
[2016-09-01 04:06] LABS: Platelet Count 35 bil/L (150-400)
[2016-09-01] MEDS: LACTATED RINGER S IRRIGATION SCH ×3 (04:21→20:36)
[2016-09-01] MEDS: VANCOMYCIN IRRIGATION SCH ×3 (04:21→20:36)
--- NOTE | 2016-09-01 04:42 | ABG ---
DateTimeAnalyzed 04:37:00 -_ pH ____7.372 - 7.350 7.450 pCO2 ___33.8__ -mmHg 35.0 45.0 pO2 ___58.5__ -mmHg 69.0 116 HCO3- ___19.2__ -mmol/L 22.0 26.0 ABE ___-5.0__ -mmol/L -2.0 2.0 tHb ____8.7__ -g/dL O2Hb ___87.7__ -% COHb ____1.1__ -% MetHb ____1.1__ -% sO2 ___89.7__ -% 25.0 FIO2 ___30.0__ -% PEEP ____5.0__ -cmH2O Set_RR ___15.0__ -b/min Vt __510.0__ -L Drawn By AF - Date/Time Notified____ 04:41:00 -_ Oxygen Device 1 VENTILATOR - Notified By AF - Notified Whom ____Nurse - B 766 -mmHg tO2 ___10.8__ -Vol% Stiven test N/A -
[2016-09-01 04:48] LABS: Magnesium 1.8 mg/dL (1.6-2.6); Phosphorus 5.7 mg/dL (2.5-4.9)
--- NOTE | 2016-09-01 05:31 | NUR ---
PaO2 Morning ABG showed low PaO2, call placed to night MD. Order received to increase FiO2 from 30% to 45% FiO2.
[2016-09-01] MEDS: Pantoprazole 4 mg/mL 10 mL Inj IVPUSH SCH ×2 (09:14→16:02)
--- NOTE | 2016-09-01 09:37 | DRSVH ---
PROCEDURE: X-RAY CHEST ONE VIEW, PORTABLE ([id number]) INDICATIONS: intubated TECHNIQUE: One view of the chest was acquired. COMPARISON: [facility], CR, XR CHEST 1VW (PORTABLE), 08/30/2016, 17:00. [facility], CR, XR CHEST 1VW (PORTABLE), 08/31/2016, 3:18. FINDINGS: Surgical changes and devices: Stable position of ETT, nasogastric tube, right IJ CVL and right pleura l drain. Lungs and pleura: Subsegmental atelectasis within the mid left lung has resolved. Mid/basilar airspa ce opacities redemonstrated similar prior examination. Small left effusion is present. No pneumothor ax. Mediastinum: Mediastinal contours appear normal. Heart size is normal. Bones and chest wall: No suspicious bony lesions. Overlying soft tissues appear unremarkable. IMPRESSION: 1. Stable support lines and tubes. 2. Small left pleural effusion and persistent mid and basilar airspace opacities consistent with atel ectasis versus pneumonia. Dictated by: Carter Apple RRA Interpreted: Rich Romero MD on 09/01/2016 at 9:35 Transcribed by: ERICA on 09/01/2016 at 9:36 Approved by: Rich Romero M.D. on 09/01/2016 at 10:53
[2016-09-01] MEDS: Ertapenem Inj 500 MG in 0.9% Sodium Chloride 50 ML IV SCH (09:42)
[2016-09-01] MEDS ORDERED: KCl 40 mEq/100 mL Premix (K 3 - 3.7 & Creat < 2) IV ONE (10:15)
[2016-09-01] MEDS: POTASSIUM CHLORIDE IV SCH (12:25)
[2016-09-01] MEDS: SODIUM CHLORIDE 0.45% IV SCH (12:25)
--- NOTE | 2016-09-01 12:32 | PCM.PNMED ---
Subjective Date of Service Sep 01, 2016 Subjective Yesterday/Overnight: Family was present in room, tearful. Many questions about usp plans and options. Today: Increase in FiO2 from 0.30 to 0.45 based on am ABG and low sO2. No acute distress noted.Propofol 20, fentanyl 50. ABG: pH 7.32, pCO2 34, pO2 59, HCO3 19.2, sO2 90 Net IO + 22L; 24hUOP 1800 Info: Remains afebrile. Labs: Plt 35, Cr 2.51; K 3.5; Phos 5.7; PCT dropped to 2.98 Exam Vital Signs Vital Sign - Last Date Time Temp Pulse Resp B/P Pulse Ox O2 Delivery O2 Flow Rate FiO2 09/01/16 04:44 74 139/69 93 35 09/01/16 04:00 36.4 16 Mechanical Ventilator Intake and Output 08/31/16 08/31/16 09/01/16 Cumulative From/Thru 15:00 23:00 07:00 08/24/16 04:11 - 09/01/16 05:27 Intake Total 1635 ml 2417 ml 76156 ml Output Total 870 ml 760 ml 19136 ml Balance 765 ml 1657 ml 36376 ml Intake Oral 0 ml IV Total 947 ml 1850 ml 70258 ml Tube Feeding 568 ml 447 ml 1983 ml Packed Cells 609 ml Tube Irrigant 120 ml 120 ml 803 ml Output Urine Total 750 ml 700 ml 79163 ml Stool Total 20 ml 0 ml 1425 ml Gastric Drainage Total 405 ml Drainage Total 100 ml 60 ml 980 ml # Bowel Movements 1 Exam General: Intubated and sedated; no acute distress HENT: Atraumatic; sclera anicteric; ETT in place; mucus membranes moist Neck: Soft, obese Cardiac: Regular rate at time of examination; no murmurs appreciated Respiratory: Adequate air flow all jama; faint coarse sounds appreciated; difficult to appreciate secondary to habitus Chest: Right chest tube in place and secured Abdomen: Soft, nondistended; ileostomy bag secured on right with drain in place for irrigation Extremities: No edema with scattered areas of breakdown resultant from previous edema Pulses: Radial equal and bilateral Skin: Warm, dry; scaly and dry Neuro: Cannot obtain secondary to sedation and intubation; nonresponsive Psych: Cannot obtain secondary to sedation and intubation Lab and Diagnostics Result Diagram: 2/33909/01/16 034 Microbiology C DIFF TOXIN A AND B BY PCR Final 08/25/16-2128 Organism 1 POS FOR CDIF TOXIN C DIF TOXIN A&B PCR DETECTED TIME CALLED: 1649 DATE CALLED: 08/25/16 FLOOR/DOCTOR: SAV Stevenson CALLED BY: ION PCR testing alone cannot distinquish C. difficile disease from a carrier state, and therefore correlation with clinical findings is required. Specimen: [id number] Collected: 08/24/16 Status: COMP Req#: [id number] Received: 08/24/16 Source: BLOOD Sp Desc : AER Subm Dr: Stiven Aguilera MD Ordered: Comments: Collected by Nurse/Unit? Y/N N Comment: if not done in ED Procedure Result Verified Site Microbiology CHRISTOPHER CULTURE BLOOD Final 08/29/16-723 Organism 1 PROVIDENCIA STUARTII GRAM STAIN RESULT GRAM NEGATIVE RODS BC BOTTLE Isolated from Aerobic Bottle of Set Drawn DATE CALLED: 08/25/16 TIME CALLED: 1314 CALLED BY: CORINNE FLOOR/DOCTOR: SAV Stevenson BC READ BACK Y TYPE OF DRAW PERIPHERAL DRAW TIME OF POSITIVITY 1304 ISOLATED FROM FOUR OF FIVE BOTTLES COLLECTED 08/24 1. PROVIDENCIA STUARTII M.I.C Interp --------- ------ * AMIKACIN <=2 S * AMPICILLIN >=32 R * AMPICILLIN/SULBACTAM >=32 R * CEFAZOLIN >=64 R * CEFEPIME <=1 S * CEFOXITIN 32 R * CEFTRIAXONE 8 R * ERTAPENEM <=0.5 S * GENTAMICIN R * MEROPENEM <=0.25 S * TOBRAMYCIN R * PIPERACILLIN/TAZOBACTAM 8 S Specimen: [id number] Collected: 08/24/16 Status: ZHANNA Mireles#: [id number] Received: 08/24/16 Source: BLOOD Sp Desc : AER Subm Dr: Prakash Starks MD Ordered: CHRISTIE Comments: Collected by Nurse/Unit? Y/N Y Comment: From different sites Procedure Result Verified Site Microbiology CHRISTOPHER CULTURE BLOOD Final 08/31/16-611 Organism 1 KLEBSIELLA OXYTOCA GRAM STAIN RESULT GRAM VARIABLE RODS BC BOTTLE Isolated from Aerobic Bottle of Set Drawn DATE CALLED: 08/24/16 TIME CALLED: 2018 CALLED BY: PURA FLOOR/DOCTOR: CCU/STEFANIE C,RN BC READ BACK YES TYPE OF DRAW NURSE COLLLECT TYPE NOT SPECIFIED TIME OF POSITIVITY 1944 KLEBSIELLA OXYTOCA ISOLATED FROM FIVE OF FIVE BOTTLES COLLECTED 08/24. KLEBSIELLA OXYTOCA M.I.C Interp --------- ------ * AMIKACIN <=2 S * AMPICILLIN >=32 R * AMPICILLIN/SULBACTAM 16 I * CEFAZOLIN >=64 R * CEFEPIME <=1 S * CEFOXITIN <=4 S * CEFTRIAXONE <=1 S * CIPROFLOXACIN <=0.25 S * ERTAPENEM <=0.5 S * GENTAMICIN <=1 S * MEROPENEM <=0.25 S * TOBRAMYCIN <=1 S * TRIMETHOPRIM/SULFAMETHOXAZOLE <=20 S Specimen: [id number] Collected: 08/24/16 Status: COMP Req#: [id number] Received: 08/24/16 Source: URINE CC Sp Desc : DOLLY Shaffer Dr: Prakash Starks MD Ordered: URINE CULT Procedure Result Verified Site Microbiology CHRISTOPHER CULT URINE Final 08/27/16-075 Organism 1 KLEBSIELLA OXYTOCA U COLONY COUNT/QUANTITY >100,000 CFU/ml Organism 2 PROTEUS MIRABILIS U COLONY COUNT/QUANTITY >100,000 CFU/ml 1. KLEBSIELLA OXYTOCA M.I.C Interp --------- ------ * AMOXICILLIN/CLAVULATE 8 S * AMPICILLIN >=32 R * CEFAZOLIN 8 R * CEFEPIME <=1 S * CEFTRIAXONE <=1 S * CEFUROXIME SODIUM 4 S * CIPROFLOXACIN <=0.25 S * ERTAPENEM <=0.5 S * GENTAMICIN <=1 S * IMIPENEM <=1 S * LEVOFLOXACIN <=0.12 S * NITROFURANTOIN 32 S * TETRACYCLINE <=1 S * TOBRAMYCIN <=1 S * TRIMETHOPRIM/SULFAMETHOXAZOLE <=20 S 2. PROTEUS MIRABILIS M.I.C Interp --------- ------ * AMPICILLIN >=32 R * CEFAZOLIN >=64 R * CEFEPIME <=1 S * CEFTRIAXONE <=1 S * CEFUROXIME SODIUM >=64 R * CIPROFLOXACIN >=4 R * ERTAPENEM <=0.5 S * GENTAMICIN <=1 S * LEVOFLOXACIN >=8 R * NITROFURANTOIN 128 R * TETRACYCLINE >=16 R CONTINUED ON NEXT PAGE RUN DATE: 08/27/16 [facility] LIVE PAGE 2 RUN TIME: 754 Specimen Inquiry PHYSICIAN Patient: NINA BRAR [id number] (Continued) Specimen: [id number] Collected: 08/24/16 Received: 08/24/16-422 (Continued) Procedure Result Verified Site CHRISTOPHER CULT URINE Final (continued) 08/27/16-075 2. PROTEUS MIRABILIS (continued) M.I.C Interp --------- ------ * TOBRAMYCIN <=1 S * TRIMETHOPRIM/SULFAMETHOXAZOLE >=320 R X-Rays, CTs and MRIs Initial chest x-ray is unremarkable. 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 Asymmetric opacity involves the superior segment of the left lower lobe, suspicious for aspiration or early pneumonia. 2. Findings consistent with proximal sigmoid colon diverticulitis, with microperforation. No findings to suggest associated abscess. 3. Status post renal transplant, with atrophic [place] kidneys. No significant discrepancy with preliminary [facility] report. Additional Diagnostics DateTimeAnalyzed 03:57:00 -_ pH ____7.353 - 7.350 7.450 pCO2 ___42.6__ -mmHg 35.0 45.0 pO2 100 -mmHg 69.0 116 HCO3- ___23.1__ -mmol/L 22.0 26.0 ABE ___-1.8__ -mmol/L -2.0 2.0 tHb ___10.3__ -g/dL O2Hb ___95.1__ -% COHb ____1.3__ -% MetHb ____1.2__ -% sO2 ___97.5__ -% 25.0 FIO2 ___50.0__ -% PEEP ____5.0__ -cmH2O Set_RR ___18.0__ -b/min Vt __560.0__ -L Drawn By LT - Date/Time Notified____ 04:03:00 -_ Spontaneous_RR ___20.0__ -b/min Notified By LT - Notified Whom _LEIBRAND - B 749 -mmHg tO2 ___13.9__ -Vol% Stiven test _Positive - Assessment & Plan Mr. Brar is a 70 year old gentleman with a complex medical history including a reported x3 renal transplants, recipient of chronic immunosuppressants and usp glucocorticoid use, in addition to numerous hip replacements, that was found to be confused at [facility], and was intubated secondary to presumed acute hypercarbic respiratory failure resulting from septic shock likely thought to be due to C. difficile, suspected colonic microperforation, and/or UTI. He was admitted for evaluation and treatment of septic shock secondary to reasons discussed, acute hypoxemic respiratory failure, and acute on chronic kidney disease. - Hospital day 9 - Ventilator day 9 - POD 8: loop ileostomy - POD 4: Chest tube Acute hypoxemic respiratory failure, present on admission. Ongoing - Secondary to septic shock - Remains intubated and sedated - Pulmonary/ICU consulted; appreciate time and recommendations Anemia, acute, present on admission. Currently stable - Normocytic, normochromic - Drop in Hb noted 08/27 to 7.2; repeat 6.5 - s/p 2U pRBC 08/27 - Guaiac stat 08/28: POSITIVE - CT brain 08/28: No acute abnormalities - CT C/A/P 08/28: Moderate b/l pleural effusions and bibasilar consolidations; small right PTX; anasarca - Transfuse threshold Hb 7.0; monitor daily Septic shock with encephalopathy, acute, present on admission. Ongoing - On admit: WBC 18.2, HR 138; LA 2.3 + reported AMS - Treat underlying cause(s) - Consideration of EEG during week to eval neuro status - Decrease propofol as tolerated, with slow titration off; decrease x5mcg/hr to 15mcg/hr and monitor Septicemia, acute, present on admission. Under therapy with improvements - Blood Cx 08/24: + Klebsiella oxytoca, Providencia stuartii - Abx: Ertapenem - ID has been consulted, appreciate time and recommendations - Monitor labs, PCT Hypokalemia, acute, not present on admission. Under therapy - Likely secondary to decreased renal function and need for increased diuretics - 08/31: K 2.9 - D1/2 + K @80 per nephro Right sided pneumothorax, acute, unknown chronicity. Monitor - CT C/A/P with small R PTX - Chest tube placed 08/28 - Monitor - May need to remain until extubation Acute on chronic kidney disease, present on admission. Stable, with improvement - On admit: Cr 2.98; baseline reported to be approx 2 - Avoid nephrotoxic meds when possible - Nephrology has been consulted, appreciate time and recs - Oliguric; Bumex IV x2 doses completed 08/28 - Albumin stop date 08/29 UTI, acute, present on admission. Under evaluation - On admit: UA + nitrite, moderate leuk est, + WBC, with many bacteria - Repeat UA 08/26: Cloudy, mod LE, > 50 WBC, mod bacteria - UCx: + Klebsiella, + Proteus - ID as above Suspected C. difficile infection with resultant sepsis, acute, present on admission. Under investigation - Recent stool PCR July 2016 + C. diff - Stool PCR 08/25: + C. diff, + norovirus - Difficult to discern if active infection as C. diff PCR can remain positive as long as one year - S/p loop ileostomy placement 08/24 with irrigation drain - Tx: Vancomycin irrigation through ileostomy per general surgery + Florastor - General surgery following; appreciate time and recommendations; recommend approx 10d course of irrigation - Irrigation start date: 08/24--> 09/03 potential stop date - Will decide cessation of vanco prior to DC ertapenem in coming days - Precautions in place - ID consulted, as noted above Thrombocytopenia, acute, not present on admission. Ongoing - On admit: Plt 239; 09/01: Plt 35 - Consideration of plt transfusion, 6-pack/1 unit - Holding heparin; HIT panel pending Hypocalcemia, acute, not present on admission. Resolved - Initially corrected with decreased albumin - Monitor Influenza A H3 infection, acute, present on admission. Treated - Peramivir completed Suspected LLL PNA, acute, present on admission. Stable - Likely secondary to influenza, noted above - Monitor with CXR, labs, PCT History of renal transplant and long-term immunosuppression, chronic. Presumed stable - Holding cyclosporine and CellCept - Nephro consulted, as noted above Suspected adrenal insufficiency, chronic. Under therapy - Secondary to transplants and usp glucocorticoid use - Stress dose steroids: SoluCortef 100mg q8h; continue - Consideration of taper when stabilized History of positive MRSA screen - Screen 08/24: NEGATIVE - No treatment/precautions indicated for MRSA at this time - DVT: None secondary to acute anemia - GI: PPI - Diet: Initiate trickle feeds 08/27; maintain trickle - PRN fever/bowel/antiemetics/pain - Code: FULL CODE Dispo: Likely to remain > 2d, as he remains intubated and sedated. Will likely return to [facility] when stable for DC, if survives hospitalization. Abx needs are uncertain at this time, will keep DRUG SAFETY SCIENTIST updated on any needs for continued IV abx. Goals of care discussion tentative 09/01 with the palliative team. Pain Evaluation: Adequate Pain Control GI Prophylaxis: H2 mary ann VTE Prophylaxis: Sub-Q Heparin (Unfractionated) VTE Mechanical Devices: Intermittant Pneumatic CD Resuscitation Status: CPR: Attempt Resuscitation Attending Statement Patient seen and examined. Chart reviewed and case discussed with Dr. Promise Boyd. Met with Dr. Amy Reagan and the patient's 2 sisters today and advance care planning meeting which lasted approximately 30 minutes. I agree with the above note Maude Boyd DO Sep 01, 2016 07:32 Shekhar Reyes MD Sep 01, 2016 19:32
--- NOTE | 2016-09-01 13:04 | NUR ---
NUTRITION FOLLOW UP Assess: Pt is a 70 YO male admitted w/ sepsis and hypotension d/t probable acute hypercarbic respiratory failure. Pt was intubated at [facility] where he resides, and remains intubated and sedated. Plans to attempt weaning Propofol today. Pt has CKD Stage III, and history of 3 renal transplants. A loop ileostomy was placed on 08/24. Pt hypothermia seems resolved. TF at goal rate, and tolerating well w/ minimal residual noted. Pt is positive 22 L; plans to consult nephrology regarding fluid removal. PMHx: Full medical hx unavailable d/t pt status at time of admission. Recent C diff colitis, influenza A, transient encephalopathy, urinary retention, FLOYD on CKD Stage III, possible healthcare acquired pneumonia, renal transplant, A fib, MRSA. LABS: Na 146, Cl 110, BUN 92, Channel Marketing Program Manager 2.51, Gluc 174, Phos 5.7, Alk Phos 256, Alb 3.0, Procalcitonin 2.98 MEDICATIONS: Phos-Lo, Fentanyl. Propofol rate currently 7.1 ml/hr providing 187 kcal. DIET: NPO x 8 days NUTRITION SUPPORT: Nepro @ goal rate of 45 ml/hr providing 1969 kcal (1782 formula + 187 Propofol) and 80g protein GI symptoms/stool: Ileostomy 20 ml output (08/31) SKIN: Eze 9, deep tissue injuries to L & R heels per WC. Heels elevated. ANTHROPOMETRICS: Current Wt: 99.6 kg BMI: 31.5 kg/m2 IBW: 73 kg Admit Wt: 83.2 kg (BMI 26.3 kg/m2) ESTIMATED NEEDS: FLOYD on CKD (Needs recalculated 09/01) Calories: 9390-5467 kcal/day (25-35 kcal/kg Admit BW) Protein: 65-85 g/day (0.8-1.0 g/kg Admit BW) Fluids: ~2200 ml/day (Approx 1 ml/kcal/d) NUTRITION DIAGNOSIS: 1) Inadequate oral intake related to inability to consume sufficient energy as evidenced by current NPO status - PERSISTS. 2) Altered nutrition related lab values related to Stage III CKD as evidenced by elevated BUN, Creatinine and Phosphorous lab values and low Magnesium levels - IMPROVED. INTERVENTION: 1) Increase Nepro to 48 ml/hr to provide a total of 2088 kcal (1901 formula + 187 Propofol) and 85g protein, meeting 100% of protein and calorie needs. 2) Adjust enteral feeding rate as needed based on daily propofol rate. MONITOR/EVALUATE: Enteral feeding tolerance, GI, labs, wt, nutrition status, POC. Will continue to monitor per high nutritional risk guidelines. Addendum: 09/01/16 at [address] Student documentation reviewed and I agree with above note. DAVIN.
[2016-09-01] MEDS ORDERED: Furosemide 10 mg/mL 10 mL Inj IVPUSH ONE (13:10)
--- NOTE | 2016-09-01 14:17 | PCM.PNMED ---
Subjective Date of Service Sep 01, 2016 Subjective Patient is well-known to me from multiple previous admissions. He was readmitted for sepsis, respiratory failure, recurrent C. difficile colitis and acute kidney injury. He is currently on a ventilator and sedated. His controlling blood pressure is considerably different than his cough blood pressure. Last 24 hours his intake is 2876 in the last 24 hours and 1800 and urine output. His current vent settings are K5 percent and +5 PEEP. His hemodynamics cardiac output and cardiac index of 5.7 and 2.77 respectively. His SVR is 922. I have had a long discussion with the ICU staff. Exam Vital Signs Vital Sign - Last Date Time Temp Pulse Resp B/P Pulse Ox O2 Delivery O2 Flow Rate FiO2 09/01/16 12:33 100 158/118 100 45 09/01/16 04:00 36.4 16 Mechanical Ventilator Intake and Output 08/31/16 08/31/16 09/01/16 Cumulative From/Thru 15:00 23:00 07:00 08/24/16 04:11 - 09/01/16 05:27 Intake Total 1635 ml 2417 ml 66433 ml Output Total 870 ml 760 ml 15853 ml Balance 765 ml 1657 ml 65663 ml Intake Oral 0 ml IV Total 947 ml 1850 ml 85265 ml Tube Feeding 568 ml 447 ml 1983 ml Packed Cells 609 ml Tube Irrigant 120 ml 120 ml 803 ml Output Urine Total 750 ml 700 ml 24964 ml Stool Total 20 ml 0 ml 1425 ml Gastric Drainage Total 405 ml Drainage Total 100 ml 60 ml 980 ml # Bowel Movements 1 Exam She is sedated on the ventilator. His sclera are pale. Neck is supple without adenopathy thyromegaly or jugular venous distention. Lungs are clear to auscultation. Heart was regular and rhythmic O's soft systolic murmur. Abdomen is mildly distended with diminished bowel sounds. There were no masses noted. Extremities showed some mild generalized edema but no clubbing or cyanosis was noted. Skin turgor was good and there is no evidence of any rashes. Lab and Diagnostics Result Diagram: 09/01/16 03409/01/16 034 Microbiology C DIFF TOXIN A AND B BY PCR Final 08/25/16-2128 Organism 1 POS FOR CDIF TOXIN C DIF TOXIN A&B PCR DETECTED TIME CALLED: 1649 DATE CALLED: 08/25/16 FLOOR/DOCTOR: CCU/YANN Stevenson CALLED BY: ION PCR testing alone cannot distinquish C. difficile disease from a carrier state, and therefore correlation with clinical findings is required. Specimen: [id number] Collected: 08/24/16 Status: ZHANNA Req#: [id number] Received: 08/24/16-1236 Source: BLOOD Sp Desc : AER Subm Dr: Stiven Aguilera MD Ordered: CHRISTIE Comments: Collected by Nurse/Unit? Y/N N Comment: if not done in ED Procedure Result Verified Site Microbiology CHRISTOPHER CULTURE BLOOD Final 08/29/16-0724 Organism 1 PROVIDENCIA STUARTII GRAM STAIN RESULT GRAM NEGATIVE RODS BOTTLE Isolated from Aerobic Bottle of Set Drawn DATE CALLED: 08/25/16 TIME CALLED: 1314 CALLED BY: CORINNE FLOOR/DOCTOR: SAV Stevenson READ BACK Y TYPE OF DRAW PERIPHERAL DRAW TIME OF POSITIVITY 1304 ISOLATED FROM FOUR OF FIVE BOTTLES COLLECTED 08/24 1. PROVIDENCIA STUARTII M.I.C Interp --------- ------ * AMIKACIN <=2 S * AMPICILLIN >=32 R * AMPICILLIN/SULBACTAM >=32 R * CEFAZOLIN >=64 R * CEFEPIME <=1 S * CEFOXITIN 32 R * CEFTRIAXONE 8 R * ERTAPENEM <=0.5 S * GENTAMICIN R * MEROPENEM <=0.25 S * TOBRAMYCIN R * PIPERACILLIN/TAZOBACTAM 8 S Specimen: [id number] Collected: 08/24/16 Status: COMP Req#: [id number] Received: 08/24/16 Source: BLOOD Sp Desc : AER Subm Dr: Prakash Starks MD Ordered: BC Comments: Collected by Nurse/Unit? Y/N Y Comment: From different sites Procedure Result Verified Site Microbiology CHRISTOPHER CULTURE BLOOD Final 08/31/16-611 Organism 1 KLEBSIELLA OXYTOCA GRAM STAIN RESULT GRAM VARIABLE RODS BC BOTTLE Isolated from Aerobic Bottle of Set Drawn DATE CALLED: 08/24/16 TIME CALLED: 2017 CALLED BY: PURA FLOOR/DOCTOR: TAY/STEFANIE Retana,RN BC READ BACK YES TYPE OF DRAW NURSE COLLLECT TYPE NOT SPECIFIED TIME OF POSITIVITY 1944 KLEBSIELLA OXYTOCA ISOLATED FROM FIVE OF FIVE BOTTLES COLLECTED 08/24 1. KLEBSIELLA OXYTOCA M.I.C Interp --------- ------ * AMIKACIN <=2 S * AMPICILLIN >=32 R * AMPICILLIN/SULBACTAM 16 I * CEFAZOLIN >=64 R * CEFEPIME <=1 S * CEFOXITIN <=4 S * CEFTRIAXONE <=1 S * CIPROFLOXACIN <=0.25 S * ERTAPENEM <=0.5 S * GENTAMICIN <=1 S * MEROPENEM <=0.25 S * TOBRAMYCIN <=1 S * TRIMETHOPRIM/SULFAMETHOXAZOLE <=20 S Specimen: [id number] Collected: 08/24/16 Status: ZHANNA Mireles#: [id number] Received: 08/24/16 Source: URINE CC Sp Desc : PP Subm Dr: Prakash Starks MD Ordered: URINE CULT Procedure Result Verified Site Microbiology CHRISTOPHER CULT URINE Final 08/27/16351 Organism 1 KLEBSIELLA OXYTOCA U COLONY COUNT/QUANTITY >100,000 CFU/ml Organism 2 PROTEUS MIRABILIS U COLONY COUNT/QUANTITY >100,000 CFU/ml 1. KLEBSIELLA OXYTOCA M.I.C Interp --------- ------ * AMOXICILLIN/CLAVULATE 8 S * AMPICILLIN >=32 R * CEFAZOLIN 8 R * CEFEPIME <=1 S * CEFTRIAXONE <=1 S * CEFUROXIME SODIUM 4 S * CIPROFLOXACIN <=0.25 S * ERTAPENEM <=0.5 S * GENTAMICIN <=1 S * IMIPENEM <=1 S * LEVOFLOXACIN <=0.12 S * NITROFURANTOIN 32 S * TETRACYCLINE <=1 S * TOBRAMYCIN <=1 S * TRIMETHOPRIM/SULFAMETHOXAZOLE <=20 S 2. PROTEUS MIRABILIS M.I.C Interp --------- ------ * AMPICILLIN >=32 R * CEFAZOLIN >=64 R * CEFEPIME <=1 S * CEFTRIAXONE <=1 S * CEFUROXIME SODIUM >=64 R * CIPROFLOXACIN >=4 R * ERTAPENEM <=0.5 S * GENTAMICIN <=1 S * LEVOFLOXACIN >=8 R * NITROFURANTOIN 128 R * TETRACYCLINE >=16 R CONTINUED ON NEXT PAGE RUN DATE: 08/27/16 [facility] LIVE PAGE 2 RUN TIME: 075 Specimen Inquiry PHYSICIAN Patient: NINA VALENTIN [id number] (Continued) Specimen: [id number] Collected: 08/24/16 Received: 08/24/16 (Continued) Procedure Result Verified Site CHRISTOPHER CULT URINE Final (continued) 08/27/16 2. PROTEUS MIRABILIS (continued) M.I.C Interp --------- ------ * TOBRAMYCIN <=1 S * TRIMETHOPRIM/SULFAMETHOXAZOLE >=320 R X-Rays, CTs and MRIs Initial chest x-ray is unremarkable. 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 Asymmetric opacity involves the superior segment of the left lower lobe, suspicious for aspiration or early pneumonia. 2. Findings consistent with proximal sigmoid colon diverticulitis, with microperforation. No findings to suggest associated abscess. 3. Status post renal transplant, with atrophic [place] and [place] kidneys. No significant discrepancy with preliminary [facility] report. Additional Diagnostics DateTimeAnalyzed 03:57:00 -_ pH ____7.353 - 7.350 7.450 pCO2 ___42.6__ -mmHg 35.0 45.0 pO2 100 -mmHg 69.0 116 HCO3- ___23.1__ -mmol/L 22.0 26.0 ABE ___-1.8__ -mmol/L -2.0 2.0 tHb ___10.3__ -g/dL O2Hb ___95.1__ -% COHb ____1.3__ -% MetHb ____1.2__ -% sO2 ___97.5__ -% 25.0 FIO2 ___50.0__ -% PEEP ____5.0__ -cmH2O Set_RR ___18.0__ -b/min Vt __560.0__ -L Drawn By LT - Date/Time Notified____ 04:03:00 -_ Spontaneous_RR ___20.0__ -b/min Notified By LT - Notified Whom _LEIBRAND - B 749 -mmHg tO2 ___13.9__ -Vol% Stiven test _Positive - Assessment & Plan - Consideration of plt transfusion, 6-pack/1 unit - Holding heparin; HIT panel pending Hypocalcemia, acute, not present on admission. Resolved - Initially corrected with decreased albumin - Monitor Influenza A H3 infection, acute, present on admission. Treated - Peramivir completed Suspected LLL PNA, acute, present on admission. Stable - Likely secondary to influenza, noted above - Monitor with CXR, labs, PCT History of renal transplant and long-term immunosuppression, chronic. Presumed stable - Holding cyclosporine and CellCept - Nephro consulted, as noted above Suspected adrenal insufficiency, chronic. 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 Will likely return to [facility] when stable for DC, if survives hospitalization. Abx needs are uncertain at this time, will keep BEER COOLER updated on any needs for continued IV abx. Impression #1 acute kidney injury secondary to sepsis and C. difficile colitis # 2 non-anion gap metabolic acidosis #3 hypertension with hypertensive heart disease and hypertensive nephrosclerosis #4 status post cadaveric renal transplant Recommendations #1 I discussed with the floor staff I like to give him 100 mg of furosemide IV over 30 minutes and see how he responds to this. Based on this response we will adjust his diuretics and fluids accordingly. GI Prophylaxis: H2 mary ann VTE Prophylaxis: Sub-Q Heparin (Unfractionated) VTE Mechanical Devices: Intermittant Pneumatic CD Resuscitation Status: CPR: Attempt Resuscitation Kobe Marcos DO Sep 01, 2016 14:17
--- NOTE | 2016-09-01 14:44 | PCM.PNMED ---
Subjective Date of Service Sep 01, 2016 Subjective Patient did okay over the weekend. Currently at 22 L positive since admission. No fevers and hypothermia has resolved. Blood pressures labile. Exam Vital Signs Vital Sign - Last Date Time Temp Pulse Resp B/P Pulse Ox O2 Delivery O2 Flow Rate FiO2 09/01/16 12:33 100 158/118 100 45 09/01/16 04:00 36.4 16 Mechanical Ventilator Intake and Output 08/31/16 08/31/16 09/01/16 Cumulative From/Thru 15:00 23:00 07:00 08/24/16 04:11 - 09/01/16 05:27 Intake Total 1635 ml 2417 ml 19518 ml Output Total 870 ml 760 ml 21762 ml Balance 765 ml 1657 ml 67578 ml Intake Oral 0 ml IV Total 947 ml 1850 ml 36332 ml Tube Feeding 568 ml 447 ml 1983 ml Packed Cells 609 ml Tube Irrigant 120 ml 120 ml 803 ml Output Urine Total 750 ml 700 ml 82459 ml Stool Total 20 ml 0 ml 1425 ml Gastric Drainage Total 405 ml Drainage Total 100 ml 60 ml 980 ml # Bowel Movements 1 Exam General: Intubated and sedated; no acute distress HENT: Atraumatic; sclera anicteric; ETT in place; mucus membranes moist Neck: Soft, obese Cardiac: Regular rate at time of examination; no murmurs appreciated Respiratory: Adequate air flow all jama; breath sounds are greater on right than left Chest: Right chest tube in place and secured Abdomen: ileostomy bag secured on right with drain in place for irrigation Extremities: No edema with scattered areas of breakdown Pulses: Radial equal and bilateral Skin: Warm, dry; scaly and dry Neuro: Cannot obtain secondary to sedation and intubation; nonresponsive Psych: Cannot obtain secondary to sedation and intubation IVs and Medications Medications Reviewed: Medications were reviewed in detail Lab and Diagnostics Result Diagram: 09/01/16 03409/01/16 034 Microbiology C DIFF TOXIN A AND B BY PCR Final 08/25/16-2128 Organism 1 POS FOR CDIF TOXIN C DIF TOXIN A&B PCR DETECTED TIME CALLED: 1649 DATE CALLED: 08/25/16 FLOOR/DOCTOR: CCU/YANN Stevenson CALLED BY: ION PCR testing alone cannot distinquish C. difficile disease from a carrier state, and therefore correlation with clinical findings is required. Specimen: [id number] Collected: 08/24/16 Status: COMP Req#: [id number] Received: 08/24/16 Source: BLOOD Sp Desc : AER Subm Dr: Stiven Aguilera MD Ordered: CHRISTIE Comments: Collected by Nurse/Unit? Y/N N Comment: if not done in ED Procedure Result Verified Site Microbiology CHRISTOPHER CULTURE BLOOD Final 08/29/16-07 Organism 1 PROVIDENCIA STUARTII GRAM STAIN RESULT GRAM NEGATIVE RODS BC BOTTLE Isolated from Aerobic Bottle of Set Drawn DATE CALLED: 08/25/16 TIME CALLED: 1314 CALLED BY: VS FLOOR/DOCTOR: TAY/YANN Stevenson READ BACK Y TYPE OF DRAW PERIPHERAL DRAW TIME OF POSITIVITY 1304 ISOLATED FROM FOUR OF FIVE BOTTLES COLLECTED 08/24 1. PROVIDENCIA STUARTII M.I.C Interp --------- ------ * AMIKACIN <=2 S * AMPICILLIN >=32 R * AMPICILLIN/SULBACTAM >=32 R * CEFAZOLIN >=64 R * CEFEPIME <=1 S * CEFOXITIN 32 R * CEFTRIAXONE 8 R * ERTAPENEM <=0.5 S * GENTAMICIN R * MEROPENEM <=0.25 S * TOBRAMYCIN R * PIPERACILLIN/TAZOBACTAM 8 S Specimen: [id number] Collected: 08/24/16 Status: ZHANNA Req#: [id number] Received: 08/24/16 Source: BLOOD Sp Desc : AER Edmund Dr: Prakash Starks MD Ordered: BC Comments: Collected by Nurse/Unit? Y/N Y Comment: From different sites Procedure Result Verified Site Microbiology CHRISTOPHER CULTURE BLOOD Final 08/31/16-611 Organism 1 KLEBSIELLA OXYTOCA GRAM STAIN RESULT GRAM VARIABLE RODS BC BOTTLE Isolated from Aerobic Bottle of Set Drawn DATE CALLED: 08/24/16 TIME CALLED: 2017 CALLED BY: PURA FLOOR/DOCTOR: CCU/STEFANIE C,RN BC READ BACK YES TYPE OF DRAW NURSE COLLLECT TYPE NOT SPECIFIED TIME OF POSITIVITY 1944 KLEBSIELLA OXYTOCA ISOLATED FROM FIVE OF FIVE BOTTLES COLLECTED 08/24 1. KLEBSIELLA OXYTOCA M.I.C Interp --------- ------ * AMIKACIN <=2 S * AMPICILLIN >=32 R * AMPICILLIN/SULBACTAM 16 I * CEFAZOLIN >=64 R * CEFEPIME <=1 S * CEFOXITIN <=4 S * CEFTRIAXONE <=1 S * CIPROFLOXACIN <=0.25 S * ERTAPENEM <=0.5 S * GENTAMICIN <=1 S * MEROPENEM <=0.25 S * TOBRAMYCIN <=1 S * TRIMETHOPRIM/SULFAMETHOXAZOLE <=20 S Specimen: [id number] Collected: 08/24/16 Status: ZHANNA Mireles#: [id number] Received: 08/24/16 Source: URINE CC Sp Desc : DOLLY Shaffer Dr: Prakash Starks MD Ordered: URINE CULT Procedure Result Verified Site Microbiology CHRISTOPHER CULT URINE Final 08/27/16 Organism 1 KLEBSIELLA OXYTOCA U COLONY COUNT/QUANTITY >100,000 CFU/ml Organism 2 PROTEUS MIRABILIS U COLONY COUNT/QUANTITY >100,000 CFU/ml 1. KLEBSIELLA OXYTOCA M.I.C Interp --------- ------ * AMOXICILLIN/CLAVULATE 8 S * AMPICILLIN >=32 R * CEFAZOLIN 8 R * CEFEPIME <=1 S * CEFTRIAXONE <=1 S * CEFUROXIME SODIUM 4 S * CIPROFLOXACIN <=0.25 S * ERTAPENEM <=0.5 S * GENTAMICIN <=1 S * IMIPENEM <=1 S * LEVOFLOXACIN <=0.12 S * NITROFURANTOIN 32 S * TETRACYCLINE <=1 S * TOBRAMYCIN <=1 S * TRIMETHOPRIM/SULFAMETHOXAZOLE <=20 S 2. PROTEUS MIRABILIS M.I.C Interp --------- ------ * AMPICILLIN >=32 R * CEFAZOLIN >=64 R * CEFEPIME <=1 S * CEFTRIAXONE <=1 S * CEFUROXIME SODIUM >=64 R * CIPROFLOXACIN >=4 R * ERTAPENEM <=0.5 S * GENTAMICIN <=1 S * LEVOFLOXACIN >=8 R * NITROFURANTOIN 128 R * TETRACYCLINE >=16 R CONTINUED ON NEXT PAGE RUN DATE: 08/27/16 [facility] LIVE PAGE 2 RUN TIME: 0755 Specimen Inquiry PHYSICIAN Patient: NINA VALENTIN [id number] (Continued) Specimen: [id number] Collected: 08/24/16 Received: 08/24/16 (Continued) Procedure Result Verified Site CHRISTOPHER CULT URINE Final (continued) 08/27/16-075 2. PROTEUS MIRABILIS (continued) M.ILeninC Interp --------- ------ * TOBRAMYCIN <=1 S * TRIMETHOPRIM/SULFAMETHOXAZOLE >=320 R X-Rays, CTs and MRIs Initial chest x-ray is unremarkable. 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 Asymmetric opacity involves the superior segment of the left lower lobe, suspicious for aspiration or early pneumonia. 2. Findings consistent with proximal sigmoid colon diverticulitis, with microperforation. No findings to suggest associated abscess. 3. Status post renal transplant, with atrophic [place] kidneys. No significant discrepancy with preliminary [facility] report. Additional Diagnostics DateTimeAnalyzed 03:57:00 -_ pH ____7.353 - 7.350 7.450 pCO2 ___42.6__ -mmHg 35.0 45.0 pO2 100 -mmHg 69.0 116 HCO3- ___23.1__ -mmol/L 22.0 26.0 ABE ___-1.8__ -mmol/L -2.0 2.0 tHb ___10.3__ -g/dL O2Hb ___95.1__ -% COHb ____1.3__ -% MetHb ____1.2__ -% sO2 ___97.5__ -% 25.0 FIO2 ___50.0__ -% PEEP ____5.0__ -cmH2O Set_RR ___18.0__ -b/min Vt __560.0__ -L Drawn By LT - Date/Time Notified____ 04:03:00 -_ Spontaneous_RR ___20.0__ -b/min Notified By LT - Notified Whom _LEIBRAND - B 749 -mmHg tO2 ___13.9__ -Vol% Stiven test _Positive - Assessment & Plan Problem List 1. Acute hypoxic respiratory failure 2. Encephalopathy 3. Septic shock 4. Chronic kidney disease status post renal transplant 3 5. Recurrent C. difficile colitis 6. Bilateral lower lobe pneumonia 7. Right pneumothorax status post chest tube Plan: Neurological: Patient remains obtunded. Reducing propofol causes patient agitation. EKG ordered for today. Plan is to decrease propofol slowly throughout the day and increase fentanyl as needed. Cardiac: Currently stable although pressures are labile and patient is beginning to have some arrhythmias with approximately1.5 seconds. Question is that the art-line is possibly running into interference. Currently not giving a pulse-wave. RESPIRATORY: Blood gas improved. He also started 7.3, PCO2 33, 58.5 PO2, bicarbonate is 19.2. Patient has ARDS although vent settings are otherwise okay. Patient's right diaphragm elevation has resolved. Chest x-ray this morning shows a right consolidation. Considering bronchoscopy. Renal: Patient has chronic kidney disease is currently up 22 L since admission. Discussion with nephrology who is following the patient will receive 100 mg of Lasix today. Currently putting out okay urine around 2 L a day. We will continue to follow. Disposition: Patient was not waking up. To decrease her propofol and intent to make the patient more responsive. EEG will be ordered. Time spent: One hour GI Prophylaxis: H2 mary ann VTE Prophylaxis: Sub-Q Heparin (Unfractionated) VTE Mechanical Devices: Intermittant Pneumatic CD Resuscitation Status: CPR: Attempt Resuscitation Attending Statement The patient was seen and examined together with Dr. Harvey on 09/01/2016 and I agree with the history, exam and plan as outlined in the note above. Slade Harvey DO Sep 01, 2016 14:14 Baljeet Torres MD Oct 01, 2016 10:30
[2016-09-01] MEDS ORDERED: 0.9% Sodium Chloride 250 ML ONE (15:56)
--- NOTE | 2016-09-01 16:55 | PCM.PALLBR ---
Palliative Care Recommendation Summary of palliative recommendations: Pt last seen by Palliative Care team on Jul 25, 2016 to clarify goals as he had had frequent admits (12/2015, 02/2016, 04/2016, 06/2016, and Jul 2016 admission). At that time, we completed a POLST -Symptom management (Pain/other): per Attending and CCU Firer Boiler Dr. Torres -DPOA/Advanced Directives/POLST: 1. Current Code: FULL in chart, HOWEVER, 2. The Patient completed a POLST 07/25/[address] Crum. AT that time, he confirmed his wish to be FULL code with all interventions. He also stated that it is important to him that he is not kept alive on machines if his brain is no longer awake and able to interact meaningfully with others. He values having a good brain. 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 He is content to be restricted to a wheelchair, but would abhor needing to be fed by others or fed (permanently) by a tube. 3. HCPOA: no prior paperwork. He has a good relationship with his sisters, but doesn't really want to pick one of them to be HCPOA. He would rather they follow his directives on a POLST and act as advisors to a medical team, using the POLST he signed 07/25/2016. 3. Patient is not capacitated to make his health care decision due to severe illness, therefore his sisters must look to his directive and make decisions based on what his stated wishes were. 09/01 Family Conference Team Meeting (FCTM): Held with Dr. Crum, and his two sisters Rolanda and Stephany. Dr. Reyes joined us mid-discussion. 1. Dr. Crum gave each sister a copy of Jul 2016 POLST that patient filled out with Dr. Crum when he was capacitated. We discussed his wishes at length. 2. Both sisters are worried that he may not survive this illness with his brain returning to his baseline. They fondly recall his intellect, his tendency to plan ahead, how he always had his bills paid on time electronically using his computer and his fierce independence, despite dealing with chronic illness. They have each spent time in the past, helping him at home when he was recuperating after past hospitalizations. 3. Sisters are in agreement that they will follow advise from providers about brother's mental status once he is off sedation. In the meantime, though, they ask that if he suddenly declines that we do not escalate care with pressors. Please call them urgently if medical/nursing team thinks he is dying. They would both like to be at bedside. Family/emotional support: Rolanda Rushing (sister) at [phone] or [phone] and Maida Isaura (sister) at [phone] Patient's prior stated goals (in his own words on Jul 25 2016): 1. It is important to him that he is not kept alive on machines if his brain is no longer awake and able to interact meaningfully with others. He values having a good brain. 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 2. He would be content to be restricted to a wheelchair, but would abhor needing to be fed by others or fed (permanently) by a tube. Additional Medical Diagnoses with primary management by Hospitalist team include : 1. Acute hypoxic respiratory failure 2. Encephalopathy 3. Septic shock 4. Chronic kidney disease status post renal transplant 3 5. Recurrent C. difficile colitis 6. Bilateral lower lobe pneumonia 7. Right pneumothorax status post chest tube Plan: Neurological: Patient remains obtunded. Plan is to decrease propofol slowly throughout the day and increase fentanyl as needed. Cardiac: Currently stable although pressures are labile and patient is beginning to have some arrhythmias with approximately1.5seconds. Question is that the art-line is possibly running into interference. Currently not giving a pulse-wave. Respiratory: Blood gas improved: 7.3, PCO2 33, 58.5 PO2, bicarbonate is 19.2. Patient has ARDS although vent settings are otherwise okay. Patient's right diaphragm elevation has resolved. Considering bronchoscopy. Renal: Patient has chronic kidney disease is currently up 22 L since admission. Discussion with nephrology who is following the patient will receive 100 mg of Lasix today. Currently putting out okay urine around 2 L a day. We will continue to follow. Disposition: Patient was not waking up. To decrease her propofol and intent to make the patient more responsive. EEG will be ordered. Problems: Resuscitation Status Resuscitation Status: CPR: Attempt Resuscitation POLST Updates/Changes Previous POLST?: Yes POLST Last Review Date: Jul 25, 2016 POLST Review Outcome: No Change Time: 65 minutes; >50% face to face with patient and/or family, providing counselling regarding plans and recommendations, and in care coordination with his/her medical teams. I also spent an additional 60 minutes counseling for advanced care planning with the patient/the patients family/the surrogate decision maker. Total time: 125min Palliative Brief Note Date of Service Sep 01, 2016 . History of Present Illness Mr. Brar is a 70 year old gentleman with a complex medical history including a reported x3 renal transplants, recipient of chronic immunosuppressants and intermission coordinator glucocorticoid use, in addition to numerous hip replacements, that was found to be confused at [facility], and was intubated secondary to presumed acute hypercarbic respiratory failure resulting from septic shock likely thought to be due to C. difficile, suspected colonic microperforation, and/or UTI. He was admitted for evaluation and treatment of septic shock secondary to reasons discussed, acute hypoxemic respiratory failure, and acute on chronic kidney disease. Hospital Course: Today is Hospital day 9, Ventilator day 9, POD 8 s/p loop ileostomy, POD 3 chest tube placement for R pneumothorax. His clinical situation was discussed extensively in CCU rounds today with Pulmonary Jar Capper, RT, and PC. He is not on any vasopressors. He has had acute blood loss from unknown source with no site found after mitchell-scanning him on 08/28, his platelets are 35. He is being treated for C. difficile (likely carrier) in stool , Proteus and Klebsiella in urine, Klebsiella in blood. Infectious disease is following and recommends ertapenem 1 g once a day. Patient is also on vancomycin irrigations of the colon through the loop ileostomy. Patient has already received peramivir. White count is normalizing 9.4 but PMNs are up and pro-calcitonin is down to 2.98. His clinical situation was discussed extensively in CCU rounds today with Pulmonary Jar Capper, Hospitalist Attending Dr. Cornejo, ID and PC. Overnight, ABG came back with pO2 58 and his FIO2 was increased from 30% to 45%. Repeat ABG pending. Past Medical History 1. End-stage renal disease, unknown etiology. 2. s/p Kidney Cancer 3. Chronic kidney disease stage 3 in the setting of kidney transplant. Baseline serum Cr is about 2. 4. Hypertension. 5. Dyslipidemia. 6. Bilateral knee osteoarthritis. 7. Diverticulosis. 8. Recent history of diverticulitis and C. difficile colitis. 9. Recent history of pneumonia. 10. Diverticulosis 11. Chronic tachycardia 12. Recent influenza A. 13. Recent. Transient encephalopathy. 14. Recent Urinary retention, resolved. 15. Recent Possible healthcare associated pneumonia, with reactive airways. 16. Chronic Renal Insufficiency s/p three renal transplants and currently on immunosuppressive therapy. 17. Paroxysmal Atrial fibrillation with rapid ventricular response, better rate control. Resolved. 18. Nasal swab positive for MRSA. 19. Hypertension Surgical History 1. Status post kidney transplant x3. 2. Multiple hip replacements x7 according to the patient due to osteoporosis. 3. Splenectomy. 4. The patient had three kidney transplants. First kidney transplant was in 1960s, lasted less than two months. The second kidney transplant was done in and the second one lasted quite some time. The patient received the third kidney transplant in 1993. Family History: Brother of kidney failure, Mother of cancer of billiary tract, Father of stomach cancer. Social History: was still working up to 9 months ago when he started to get frequent illness. 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 Patient has been living at [facility] for rehab recently. Was living home alone prior to SNF. Current daily smoker, used alcohol. Patient's Baseline Function: In Jul 2016, pt stated to Palliative Care's Dr. Crum that prior to going to [facility] for rehab at end of 2015, he was living in a single story home alone, and had no problems getting around his house with a W/C. At that time, Pt stated he typically uses a wheel chair, does not drive. Allergies: Reviewed: iodine,povidone Exam: Item Value Date Time Ventilatory Support Breath Rate 13 bpm 09/01/16 1529 Fraction of Inspired Oxygen (FiO2) 45 % 09/01/16 152 Bedside Pulse Oximetry 95 % 09/01/16 1529 Ventilator Total Breath Rate 16 bpm 09/01/16 1529 Plateau Pressure 18 cm H20 09/01/16 1529 Ventilator Tidal Volume Setting 510 cc 09/01/16 152 Ventilator Support Mode PRVC 09/01/16 152 Positive End Expiratory Pressure 5.0 cm H2O 09/01/16 1529 Inspiratory Airway Pressure 27 cm H2O 09/01/16 1529 General: Sedated and intubated, does not awaken to touch or suctioning of ETT. HEENT: Exophytic mass on left side of skull. Pupils are pinpoint and nonreactive , IJ in place Chest Wall: CT on right Cardio: Very difficult to hear with the contact precaution stethoscope but appears to sound regular rate and rhythm Respiratory: decreased breath sounds on right, no wheezing, Abdomen: soft, NT, Incisions look clean and dry, device in LLQ (to instill vanco ) Extremities: Patient strained, edema : sl edema of scrotum, raphael catheter in place. Skin: Warm, no rashes. Neuro: Pupils as above; sedated Psych: Sedated Lab and Diagnostics 09/01/16 0340 . Adriana Crum MD Sep 01, 2016 16:55
[2016-09-01] MEDS ORDERED: Propofol 10 mg/mL 20 mL Inj IVPUSH PRN (18:15)
--- NOTE | 2016-09-01 18:16 | NUR ---
EEG Opening eyes with a fixed gaze. Not following commands. EEG ordered and completed. Propofol off at 1500. Seroquel ordered PRN. Pt's sisters met with Palliative team today. Pt remains full code. Artline BP reading is not accurate with BP cuff, MD aware.
[2016-09-01] MEDS: Dexmedetomidine 400 mCg/100 mL 400 MCG in IV Premix 1 EACH IV SCH (21:00)
[2016-09-02] VITALS (13 sets, daily range): BP systolic 112–160; BP diastolic 64–98; PULSE 68–99; RESP 13–16; O2SAT 100
[2016-09-02] MEDS: Hydrocortisone 50 mg/mL 2 mL Inj IVPUSH SCH ×3 (00:37→16:50)
[2016-09-02] MEDS: POTASSIUM CHLORIDE IV SCH ×2 (00:38→11:27)
[2016-09-02] MEDS: SODIUM CHLORIDE 0.45% IV SCH ×2 (00:38→11:27)
[2016-09-02] MEDS: Chlorhexidine 0.12% 15 mL Oral Solution MT SCH ×6 (00:38→20:34)
[2016-09-02] MEDS: LACTATED RINGER S IRRIGATION SCH ×2 (04:03→11:28)
[2016-09-02] MEDS: VANCOMYCIN IRRIGATION SCH ×2 (04:03→11:28)
[2016-09-02 04:35] LABS: Mean Corpuscular Hemoglobin 29.6 pg (27.0-35.0); Mean Corpuscular Volume 88.4 fL (81-100)
[2016-09-02 04:36] LABS: BASOPHILS % (AUTO) 0.1 % (0-3); EOSINOPHILS % (AUTO) 0.1 % (0-5); MONOCYTES % (AUTO) 4.7 % (4-12); NEUTROPHILS % (AUTO) 90.1 % (40-74); Platelet Count 36 bil/L (150-400)
--- NOTE | 2016-09-02 04:44 | ABG ---
DateTimeAnalyzed 04:38:00 -_ pH ____7.405 - 7.350 7.450 pCO2 ___31.5__ -mmHg 35.0 45.0 pO2 107 -mmHg 69.0 116 HCO3- ___19.3__ -mmol/L 22.0 26.0 ABE ___-4.2__ -mmol/L -2.0 2.0 tHb ____9.2__ -g/dL O2Hb ___96.5__ -% COHb ____1.0__ -% MetHb ____1.0__ -% sO2 ___98.5__ -% 25.0 FIO2 ___45.0__ -% PRVC 13 - PEEP ____5.0__ -cmH2O Set_RR ___13.0__ -b/min Vt __510.0__ -L Drawn By MM - Date/Time Notified____ 04:44:00 -_ Oxygen Device 1 VENTILATOR - Notified By MM - Notified Whom RN - B 760 -mmHg tO2 ___12.7__ -Vol% Stiven test N/A -
[2016-09-02 05:16] LABS: Magnesium 1.7 mg/dL (1.6-2.6)
[2016-09-02] MEDS: Pantoprazole 4 mg/mL 10 mL Inj IVPUSH SCH ×2 (08:47→16:50)
--- NOTE | 2016-09-02 10:30 | DRSVH ---
PROCEDURE: X-RAY ABDOMEN WITH ERECT AND/OR DECUBITUS VIEWS ([id number]) INDICATIONS: BOWEL OBSTRUCTION TECHNIQUE: 2 views of the abdomen were acquired. COMPARISON: None. FINDINGS: Surgical changes and devices: Nasogastric tube present tip projected over the mid stomach. Bilateral hip arthroplasties. Multiple surgical clips. Bowel: Stomach is mildly distended and otherwise paucity gas seen throughout the bowel in the abdomen and pelvis. Soft tissues: No masses; visualized solid organ contours appear normal in size. No suspicious abdom inal calcifications. Bones: No suspicious bony abnormalities. IMPRESSION: Nonspecific bowel gas pattern. If patient's symptoms persist, recommend repeat imaging or CT. Dictated by: Carter FELTON Interpreted: Edmund Infante MD on 09/02/2016 at 10:29 Transcribed by: ROSALIO on 09/02/2016 at 10:30 Approved by: Dre Infante M.D. on 09/02/2016 at 16:21
--- NOTE | 2016-09-02 10:37 | DRSVH ---
PROCEDURE: X-RAY CHEST ONE VIEW, PORTABLE ([id number]) INDICATIONS: intubated TECHNIQUE: One view of the chest was acquired. COMPARISON: [facility], CR, XR CHEST 1VW (PORTABLE), 09/01/2016, 8:09. FINDINGS: Surgical changes and devices: Stable position of ETT, nasogastric tube, right IJ CVL and right pleura l drain. Lungs and pleura: Mid/basilar airspace opacities redemonstrated similar prior examination. Small lef t effusion is present. No pneumothorax. Mediastinum: Mediastinal contours appear normal. Heart size is normal. Bones and chest wall: No suspicious bony lesions. Overlying soft tissues appear unremarkable. IMPRESSION: 1. Support lines and tubes as above. 2. Small bilateral pleural effusions and persistent mid/basilar airspace opacities consistent with at electasis versus pneumonia or patchy pulmonary edema. Correlate clinically. Dictated by: Carter OLMSTEADA Interpreted: Mary Foote MD on 09/02/2016 at 10:35 Transcribed by: JACKELYN on 09/02/2016 at 10:37 Approved by: Mary Foote M.D. on 09/02/2016 at 15:00
--- NOTE | 2016-09-02 11:08 | PCM.PNMED ---
Subjective Date of Service Sep 02, 2016 Subjective Patient's renal function continues to improve. He has had a dramatic response to the 100 mg of furosemide yesterday. He still remains ventilator dependent. His he is having less stool being produced. Imaging shows an increased colonic size and concerned about a possible liver toxic megacolon. His blood pressure is good and his intake yesterday was 3708 Exam Vital Signs Vital Sign - Last Date Time Temp Pulse Resp B/P Pulse Ox O2 Delivery O2 Flow Rate FiO2 09/02/16 08:32 75 157/84 100 45 09/02/16 04:30 Ventilator 09/02/16 04:30 36.5 14 Intake and Output 09/01/16 09/01/16 09/02/16 Cumulative From/Thru 15:00 23:00 07:00 08/24/16 04:11 - 09/01/16 18:13 Intake Total 1291 ml 97142 ml Output Total 920 ml 08365 ml Balance 371 ml 40226 ml Intake Oral 0 ml IV Total 1291 ml 68916 ml Tube Feeding 1983 ml Packed Cells 609 ml Tube Irrigant 803 ml Output Urine Total 900 ml 04082 ml Stool Total 20 ml 1445 ml Gastric Drainage Total 405 ml Drainage Total 0 ml 980 ml # Bowel Movements 1 Exam On exam the patient remains ventilatory dependent. His lungs showed scattered rhonchi but more pronounced on the right as compared to the left. Soft systolic murmur. Abdomen soft. Tenderness rebound guarding masses or hepatosplenomegaly. Extremities without any evidence of any clubbing cyanosis andsome very mild edema. Lab and Diagnostics Result Diagram: 09/02/1641409/02/16414 Microbiology C DIFF TOXIN A AND B BY PCR Final 08/25/16 Organism 1 POS FOR CDIF TOXIN C DIF TOXIN A&B PCR DETECTED TIME CALLED: 1650 DATE CALLED: 08/25/16 FLOOR/DOCTOR: CCU/YANN Stevenson CALLED BY: ION PCR testing alone cannot distinquish C. difficile disease from a carrier state, and therefore correlation with clinical findings is required. Specimen: [id number] Collected: 08/24/16 Status: COMP Req#: [id number] Received: 08/24/16-1236 Source: BLOOD Sp Desc : AER Subm Dr: Stiven Aguilera MD Ordered: CHRISTIE Comments: Collected by Nurse/Unit? Y/N N Comment: if not done in ED Procedure Result Verified Site Microbiology CHRISTOPHER CULTURE BLOOD Final 08/29/16-07 Organism 1 PROVIDENCIA STUAII GRAM STAIN RESULT GRAM NEGATIVE RODS BC BOTTLE Isolated from Aerobic Bottle of Set Drawn DATE CALLED: 08/25/16 TIME CALLED: 1314 CALLED BY: VS FLOOR/DOCTOR: TAY/YANN Stevenson BC READ BACK Y TYPE OF DRAW PERIPHERAL DRAW TIME OF POSITIVITY 1304 ISOLATED FROM FOUR OF FIVE BOTTLES COLLECTED 08/24 1. PROVIDENCIA STRUFUSII M.I.C Interp --------- ------ * AMIKACIN <=2 S * AMPICILLIN >=32 R * AMPICILLIN/SULBACTAM >=32 R * CEFAZOLIN >=64 R * CEFEPIME <=1 S * CEFOXITIN 32 R * CEFTRIAXONE 8 R * ERTAPENEM <=0.5 S * GENTAMICIN R * MEROPENEM <=0.25 S * TOBRAMYCIN R * PIPERACILLIN/TAZOBACTAM 8 S Specimen: [id number] Collected: 08/24/16 Status: COMP Req#: [id number] Received: 08/24/16 Source: BLOOD Sp Desc : AER Subm Dr: Prakash Starks MD Ordered: BC Comments: Collected by Nurse/Unit? Y/N Y Comment: From different sites Procedure Result Verified Site Microbiology CHRISTOPHER CULTURE BLOOD Final 08/31/16-611 Organism 1 KLEBSIELLA OXYTOCA GRAM STAIN RESULT GRAM VARIABLE RODS BC BOTTLE Isolated from Aerobic Bottle of Set Drawn DATE CALLED: 08/24/16 TIME CALLED: 2017 CALLED BY: PURA FLOOR/DOCTOR: CCU/STEFANIE C,RN BC READ BACK YES TYPE OF DRAW NURSE COLLLECT TYPE NOT SPECIFIED TIME OF POSITIVITY 1944 KLEBSIELLA OXYTOCA ISOLATED FROM FIVE OF FIVE BOTTLES COLLECTED 08/24 1. KLEBSIELLA OXYTOCA M.I.C Interp --------- ------ * AMIKACIN <=2 S * AMPICILLIN >=32 R * AMPICILLIN/SULBACTAM 16 I * CEFAZOLIN >=64 R * CEFEPIME <=1 S * CEFOXITIN <=4 S * CEFTRIAXONE <=1 S * CIPROFLOXACIN <=0.25 S * ERTAPENEM <=0.5 S * GENTAMICIN <=1 S * MEROPENEM <=0.25 S * TOBRAMYCIN <=1 S * TRIMETHOPRIM/SULFAMETHOXAZOLE <=20 S Specimen: [id number] Collected: 08/24/16 Status: COMP Req#: [id number] Received: 08/24/16 Source: URINE CC Sp Desc : DOLLY Shaffer Dr: Prakash Starks MD Ordered: URINE CULT Procedure Result Verified Site Microbiology CHRISTOPHER CULT URINE Final 08/27/16 Organism 1 KLEBSIELLA OXYTOCA U COLONY COUNT/QUANTITY >100,000 CFU/ml Organism 2 PROTEUS MIRABILIS U COLONY COUNT/QUANTITY >100,000 CFU/ml 1. KLEBSIELLA OXYTOCA M.I.C Interp --------- ------ * AMOXICILLIN/CLAVULATE 8 S * AMPICILLIN >=32 R * CEFAZOLIN 8 R * CEFEPIME <=1 S * CEFTRIAXONE <=1 S * CEFUROXIME SODIUM 4 S * CIPROFLOXACIN <=0.25 S * ERTAPENEM <=0.5 S * GENTAMICIN <=1 S * IMIPENEM <=1 S * LEVOFLOXACIN <=0.12 S * NITROFURANTOIN 32 S * TETRACYCLINE <=1 S * TOBRAMYCIN <=1 S * TRIMETHOPRIM/SULFAMETHOXAZOLE <=20 S 2. PROTEUS MIRABILIS M.I.C Interp --------- ------ * AMPICILLIN >=32 R * CEFAZOLIN >=64 R * CEFEPIME <=1 S * CEFTRIAXONE <=1 S * CEFUROXIME SODIUM >=64 R * CIPROFLOXACIN >=4 R * ERTAPENEM <=0.5 S * GENTAMICIN <=1 S * LEVOFLOXACIN >=8 R * NITROFURANTOIN 128 R * TETRACYCLINE >=16 R CONTINUED ON NEXT PAGE RUN DATE: 08/27/16 [facility] LIVE PAGE 2 RUN TIME: 7305 Specimen Inquiry PHYSICIAN Patient: NINA VALENTIN [id number] (Continued) Specimen: [id number] Collected: 08/24/16 Received: 08/24/16 (Continued) Procedure Result Verified Site CHRISTOPHER CULT URINE Final (continued) 08/27/16-075 2. PROTEUS MIRABILIS (continued) M.I.C Interp --------- ------ * TOBRAMYCIN <=1 S * TRIMETHOPRIM/SULFAMETHOXAZOLE >=320 R X-Rays, CTs and MRIs Initial chest x-ray is unremarkable. 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 Asymmetric opacity involves the superior segment of the left lower lobe, suspicious for aspiration or early pneumonia. 2. Findings consistent with proximal sigmoid colon diverticulitis, with microperforation. No findings to suggest associated abscess. 3. Status post renal transplant, with atrophic [place] kidneys. [facility]. Additional Diagnostics DateTimeAnalyzed 03:57:00 -_ pH ____7.353 - 7.350 7.450 pCO2 ___42.6__ -mmHg 35.0 45.0 pO2 100 -mmHg 69.0 116 HCO3- ___23.1__ -mmol/L 22.0 26.0 ABE ___-1.8__ -mmol/L -2.0 2.0 tHb ___10.3__ -g/dL O2Hb ___95.1__ -% COHb ____1.3__ -% MetHb ____1.2__ -% sO2 ___97.5__ -% 25.0 FIO2 ___50.0__ -% PEEP ____5.0__ -cmH2O Set_RR ___18.0__ -b/min Vt __560.0__ -L Drawn By LT - Date/Time Notified____ 04:03:00 -_ Spontaneous_RR ___20.0__ -b/min Notified By LT - Notified Whom _LEIBRAND - B 749 -mmHg tO2 ___13.9__ -Vol% Stiven test _Positive - Assessment & Plan Impression #1 acute on chronic kidney injury secondary to see due to colitis and volume depletion which appears to be resolving #2 hyperkalemia #3 metabolic acidosis Recommendations #1 I agree with putting him on a scheduled dose of IV furosemide approximately 60 mg per dose. I would do this once or twice a day as needed. Also concerned about the increasing clotting size and consider the possibility of toxic megacolon. GI Prophylaxis: H2 mary ann VTE Prophylaxis: Sub-Q Heparin (Unfractionated) VTE Mechanical Devices: Intermittant Pneumatic CD Resuscitation Status: CPR: Attempt Resuscitation Kobe Marcos DO Sep 02, 2016 11:08
--- NOTE | 2016-09-02 11:25 | PCM.PNMED ---
Subjective Date of Service Sep 02, 2016 Subjective Patient improvement overnight. Encephalopathy resolving. Patient was put on Precedex, Seroquel, and one bolus of propofol last evening to control agitation overnight. Patient more awake this morning and able to respond to simple questions. States no pain. Exam Vital Signs Vital Sign - Last Date Time Temp Pulse Resp B/P Pulse Ox O2 Delivery O2 Flow Rate FiO2 09/02/16 08:32 75 157/84 100 45 09/02/16 04:30 Ventilator 09/02/16 04:30 36.5 14 Intake and Output 09/01/16 09/01/16 09/02/16 Cumulative From/Thru 15:00 23:00 07:00 08/24/16 04:11 - 09/01/16 18:13 Intake Total 1291 ml 90338 ml Output Total 920 ml 19626 ml Balance 371 ml 46953 ml Intake Oral 0 ml IV Total 1291 ml 68157 ml Tube Feeding 1983 ml Packed Cells 609 ml Tube Irrigant 803 ml Output Urine Total 900 ml 84803 ml Stool Total 20 ml 1445 ml Gastric Drainage Total 405 ml Drainage Total 0 ml 980 ml # Bowel Movements 1 Exam General: Intubated; no acute distress; follow small commands HENT: Atraumatic; sclera anicteric; ETT in place; mucus membranes moist Neck: Soft, obese Cardiac: Regular rate at time of examination; no murmurs appreciated Respiratory: Adequate air flow all jama; breath sounds are greater on right than left Chest: Right chest tube in place and secured Abdomen: Nondistended, patient states nontender, ostomy looks clean Extremities: No edema with scattered areas of breakdown Pulses: Radial equal and bilateral Skin: Warm, dry; scaly and dry Neuro: Cannot obtain secondary to sedation and intubation; nonresponsive Psych: Cannot obtain secondary to sedation and intubation IVs and Medications Medications Reviewed: Medications were reviewed in detail Lab and Diagnostics Result Diagram: 09/02/1641409/02/16414 Microbiology C DIFF TOXIN A AND B BY PCR Final 08/25/16-2128 Organism 1 POS FOR CDIF TOXIN C DIF TOXIN A&B PCR DETECTED TIME CALLED: 1650 DATE CALLED: 08/25/16 FLOOR/DOCTOR: LIONELU/YANN Stevenson CALLED BY: ION PCR testing alone cannot distinquish C. difficile disease from a carrier state, and therefore correlation with clinical findings is required. Specimen: [id number] Collected: 08/24/16 Status: COMP Req#: [id number] Received: 08/24/16 Source: BLOOD Sp Desc : AER Subm Dr: Stiven Aguilera MD Ordered: Comments: Collected by Nurse/Unit? Y/N N Comment: if not done in ED Procedure Result Verified Site Microbiology CHRISTOPHER CULTURE BLOOD Final 08/29/16-0724 Organism 1 PROVIDENCIA STUARTII GRAM STAIN RESULT GRAM NEGATIVE RODS BC BOTTLE Isolated from Aerobic Bottle of Set Drawn DATE CALLED: 08/25/16 TIME CALLED: 1314 CALLED BY: VS FLOOR/DOCTOR: TAY/YANN Stevenson READ BACK Y TYPE OF DRAW PERIPHERAL DRAW TIME OF POSITIVITY 1304 ISOLATED FROM FOUR OF FIVE BOTTLES COLLECTED 08/24 1. PROVIDENCIA STUARTII M.I.C Interp --------- ------ * AMIKACIN <=2 S * AMPICILLIN >=32 R * AMPICILLIN/SULBACTAM >=32 R * CEFAZOLIN >=64 R * CEFEPIME <=1 S * CEFOXITIN 32 R * CEFTRIAXONE 8 R * ERTAPENEM <=0.5 S * GENTAMICIN R * MEROPENEM <=0.25 S * TOBRAMYCIN R * PIPERACILLIN/TAZOBACTAM 8 S Specimen: [id number] Collected: 08/24/16 Status: COMP Req#: [id number] Received: 08/24/16 Source: BLOOD Sp Desc : AER Subm Dr: Prakash Starks MD Ordered: Comments: Collected by Nurse/Unit? Y/N Y Comment: From different sites Procedure Result Verified Site Microbiology CHRISTOPHER CULTURE BLOOD Final 08/31/16-611 Organism 1 KLEBSIELLA OXYTOCA GRAM STAIN RESULT GRAM VARIABLE RODS BC BOTTLE Isolated from Aerobic Bottle of Set Drawn DATE CALLED: 08/24/16 TIME CALLED: 2017 CALLED BY: PURA FLOOR/DOCTOR: CCU/STEFANIE C,RN BC READ BACK YES TYPE OF DRAW NURSE COLLLECT TYPE NOT SPECIFIED TIME OF POSITIVITY 1944 KLEBSIELLA OXYTOCA ISOLATED FROM FIVE OF FIVE BOTTLES COLLECTED 08/24 1. KLEBSIELLA OXYTOCA M.I.C Interp --------- ------ * AMIKACIN <=2 S * AMPICILLIN >=32 R * AMPICILLIN/SULBACTAM 16 I * CEFAZOLIN >=64 R * CEFEPIME <=1 S * CEFOXITIN <=4 S * CEFTRIAXONE <=1 S * CIPROFLOXACIN <=0.25 S * ERTAPENEM <=0.5 S * GENTAMICIN <=1 S * MEROPENEM <=0.25 S * TOBRAMYCIN <=1 S * TRIMETHOPRIM/SULFAMETHOXAZOLE <=20 S Specimen: [id number] Collected: 08/24/16 Status: ZHANNA Mireles#: [id number] Received: 08/24/16 Source: URINE CC Sp Desc : PP Subm Dr: Prakash Starks MD Ordered: URINE CULT Procedure Result Verified Site Microbiology CHRISTOPHER CULT URINE Final 08/27/16 Organism 1 KLEBSIELLA OXYTOCA U COLONY COUNT/QUANTITY >100,000 CFU/ml Organism 2 PROTEUS MIRABILIS U COLONY COUNT/QUANTITY >100,000 CFU/ml 1. KLEBSIELLA OXYTOCA M.I.C Interp --------- ------ * AMOXICILLIN/CLAVULATE 8 S * AMPICILLIN >=32 R * CEFAZOLIN 8 R * CEFEPIME <=1 S * CEFTRIAXONE <=1 S * CEFUROXIME SODIUM 4 S * CIPROFLOXACIN <=0.25 S * ERTAPENEM <=0.5 S * GENTAMICIN <=1 S * IMIPENEM <=1 S * LEVOFLOXACIN <=0.12 S * NITROFURANTOIN 32 S * TETRACYCLINE <=1 S * TOBRAMYCIN <=1 S * TRIMETHOPRIM/SULFAMETHOXAZOLE <=20 S 2. PROTEUS MIRABILIS M.I.C Interp --------- ------ * AMPICILLIN >=32 R * CEFAZOLIN >=64 R * CEFEPIME <=1 S * CEFTRIAXONE <=1 S * CEFUROXIME SODIUM >=64 R * CIPROFLOXACIN >=4 R * ERTAPENEM <=0.5 S * GENTAMICIN <=1 S * LEVOFLOXACIN >=8 R * NITROFURANTOIN 128 R * TETRACYCLINE >=16 R CONTINUED ON NEXT PAGE RUN DATE: 08/27/16 [facility] LIVE PAGE 2 RUN TIME: 0755 Specimen Inquiry PHYSICIAN Patient: NINA VALENTIN [id number] (Continued) Specimen: [id number] Collected: 08/24/16 Received: 08/24/16 (Continued) Procedure Result Verified Site CHRISTOPHER CULT URINE Final (continued) 08/27/16-0755 2. PROTEUS MIRABILIS (continued) M.I.C Interp --------- ------ * TOBRAMYCIN <=1 S * TRIMETHOPRIM/SULFAMETHOXAZOLE >=320 R X-Rays, CTs and MRIs Initial chest x-ray is unremarkable. 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 Asymmetric opacity involves the superior segment of the left lower lobe, suspicious for aspiration or early pneumonia. 2. Findings consistent with proximal sigmoid colon diverticulitis, with microperforation. No findings to suggest associated abscess. 3. Status post renal transplant, with atrophic [place] kidneys. No significant discrepancy with preliminary [facility] report. Additional Diagnostics DateTimeAnalyzed 03:57:00 -_ pH ____7.353 - 7.350 7.450 pCO2 ___42.6__ -mmHg 35.0 45.0 pO2 100 -mmHg 69.0 116 HCO3- ___23.1__ -mmol/L 22.0 26.0 ABE ___-1.8__ -mmol/L -2.0 2.0 tHb ___10.3__ -g/dL O2Hb ___95.1__ -% COHb ____1.3__ -% MetHb ____1.2__ -% sO2 ___97.5__ -% 25.0 FIO2 ___50.0__ -% PEEP ____5.0__ -cmH2O Set_RR ___18.0__ -b/min Vt __560.0__ -L Drawn By LT - Date/Time Notified____ 04:03:00 -_ Spontaneous_RR ___20.0__ -b/min Notified By LT - Notified Whom _LEIBRAND - B 749 -mmHg tO2 ___13.9__ -Vol% Stiven test _Positive - Assessment & Plan Problem List 1. Acute hypoxic respiratory failure 2. Encephalopathy 3. Septic shock 4. Chronic kidney disease status post renal transplant 3 5. Recurrent C. difficile colitis 6. Bilateral lower lobe pneumonia 7. Right pneumothorax status post chest tube Plan: Neurological: Patient improved without sedation. He has been on Seroquel 25 at bedtime last night with the use of Precedex overnight he did quite well. This a.m. he is responding. Continue to follow his neurological status. We await the EEG that performed yesterday. Cardiac: Currently stable although pressures are somewhat labile. Overall patient is doing much better. RESPIRATORY: Blood gases improved with pH of 7.4, PCO2 of 31.5, PO2 of 107, bicarbonate 19.3, with saturation 98. Patient is more alert and well tentatively planned for spontaneous breathing trial tomorrow. Evidence of bibasilar consolidations which likely represent atelectasis but could also represent pneumonia. However patient's sepsis is resolving we will continue to follow this with chest x-rays. Renal: Patient given 100 mg IV of Lasix yesterday with urine output totaling approximately 3 L yesterday. Patient still severely overloaded and discussion with nephrology today, we will continue the 100 mg of Lasix IV push. Also discussed consolidating FLUID and medications. GI: Patient's FMS output does not match the amount of tube feeds flushes and medications given. Why patient is not moving his bowels is not completely answered. Stomach was enlarged on the abdominal x-ray this a.m. discussion with surgery, recommended trying Gastrografin. Disposition: Patient is doing much better still dependent on the ventilator. Sepsis resolving, hypotension resolved, hyponatremia resolving, acute anemia resolving, acute kidney injury resulting, encephalopathy resolving. Still no timetable for patient will be extubated. Time spent: One hour GI Prophylaxis: H2 mary ann VTE Prophylaxis: Sub-Q Heparin (Unfractionated) VTE Mechanical Devices: Intermittant Pneumatic CD Resuscitation Status: CPR: Attempt Resuscitation Attending Statement The patient was seen and examined together with Dr. Harvey on 09/02/2016 and I agree with the history, exam and plan as outlined in the note above. Slade Harvey DO Sep 02, 2016 11:25 Baljeet Torres MD Sep 19, 2016 09:38
[2016-09-02] MEDS: Ertapenem Inj 500 MG in 0.9% Sodium Chloride 50 ML IV SCH (11:28)
--- NOTE | 2016-09-02 11:30 | PROG NOTE ---
[address] [address] PROGRESS NOTE PATIENT: NINA VALENTIN : 1945 MR#: [id number] ADMIT: 08/24/2016 JOB ID: [id number] DATE: 09/02/2016 INFECTIOUS DISEASE FOLLOW UP NOTE: REASON FOR FOLLOWUP: Polymicrobial bacteremia with septic shock. INTERVAL HISTORY: Over the past three days, I have been out of town and have not seen the patient. Upon my return he seems relatively stable in the ICU in this case. This case was discussed extensively during ICU rounds and at the bedside with the ICU nurse. The patient seems to be slightly more awake than he was a few days ago in that he will open his eyes but does not seem to track and certainly does not follow any commands. He has remained off vasopressor agents and is on relatively low ventilator settings with 45 FiO2 and 5 of PEEP. He is continuing to receive vancomycin through the ileal loop but interestingly his rectal output is basically stopped which is of interest as we are continuing to instill 500 of Vanco every 8 hours into that ileal loop. His renal function continues to steadily improve. which is fortuitous given his underlying renal failure and the fact he is on his third transplanted kidney. PHYSICAL EXAMINATION: Reveals an afebrile gentleman, in no acute distress. He has remained consistently afebrile now 36.5, pulse 75, respiratory rate is ventilator dependent. Blood pressure 157/84. He is saturating 100% on 45 and 5 of PEEP. His eyes are without scleral icterus. His eyes are open but he tends to look to the left and does not look towards a voice, but he does open his eyes when he is stimulated. Oral endotracheal tube, oral gastric tube in good position. The right neck central line has a great deal of blood under the dressing but it appears uninfected. His neck is without adenopathy. His lungs are notable for a few crackles at both bases but basically clear. Cardiac tones without new murmur. The patient's abdomen is soft and nontender. The ileal loop is present and vanco is being infused every 8 hours. He is making a reasonably good urine output through his Richey. There is no suprapubic or penile abnormalities noted. His extremities are without significant edema or cellulitis. LABORATORIES: Include white count 8600, platelet count 36,000. Creatinine 2.11. LFTs basically normal except for an alk phos of 331, which has been rising quite steeply in recent days. Total bilirubin now is 0.8. Albumin 3.1. Procalcitonin has come down from a peak of 71 to 1.9 today. Micro studies are notable for the initial polymicrobial bacteremia with Klebsiella and Providencia as well as the initial influenza A and C. difficile. Since then, we have very little in the way of follow up cultures though we do have a urine culture which is negative. IMAGING: Includes today's KUB which shows a nonspecific bowel pattern. Yesterday's chest x-ray showed stable left pleural effusion and persistent bibasilar opacities consistent with atelectasis or pneumonia. IMPRESSION: The patient remains critically ill but his course is one of slow improvement, especially with respect to his renal function and his infection as measured by his procalcitonin and other objective parameters. The main concern now, of course, is that he has not awakened very much despite resolution of his septic shock and improvement in his respiratory status. As to how long to treat this polymicrobial multi-drug resistant infection, I think two days is likely a reasonable course which would take us through September 08. RECOMMENDATIONS: 1. Will continue with ertapenem through September 08. 2. Will continue with vanco irrigation. 3. I agree with the plans to reinvolve Dr. Misha De La Rosa with respect to how long we should continue with the ileal loop irrigation of the bowel and a possible explanation as to why there is no longer any return through the rectum. 4. Will continue to closely follow this patient with you.
--- NOTE | 2016-09-02 13:06 | NUR ---
NUTRITION FOLLOW UP Assess: Pt is a 70 YO male admitted w/ sepsis and hypotension d/t probable acute hypercarbic respiratory failure. Pt was intubated at [facility] where he resides, and remains intubated and sedated. Pt has CKD Stage III, and history of 3 renal transplants. A loop ileostomy was placed on 08/24. Pt having limited output via ileostomy. CT yesterday revealed pt has large colon that does not appear blocked, but is not moving TF formula and fluids through system. Plan to hold TF, and consult GI surgery to assess reason for colonic immobility. Pt is positive 24 L despite removal of 3 L yesterday. Propofol discontinued. PMHx: Full medical hx unavailable d/t pt status at time of admission. Recent C diff colitis, influenza A, transient encephalopathy, urinary retention, FLOYD on CKD Stage III, possible healthcare acquired pneumonia, renal transplant, A fib, MRSA. LABS: Na 147, K 3.4, Cl 111, BUN 88, Concert Pianist 2.11, Gluc 140, Phos 5.0, Alk Phos 331, Alb 3.1, Procalc 1.90 MEDICATIONS: Phos-Lo, Fentanyl DIET: NPO x 9 days NUTRITION SUPPORT: Nepro @ goal rate of 45 ml/hr providing 1969 kcal (1782 formula + 187 Propofol) and 80g protein GI symptoms/stool: Ileostomy 20 ml output (09/01) SKIN: Eze 9, deep tissue injuries to L & R heels per WC. Heels elevated. ANTHROPOMETRICS: Current Wt: 99.6 kg BMI: 31.5 kg/m2 IBW: 73 kg Admit Wt: 83.2 kg (BMI 26.3 kg/m2) ESTIMATED NEEDS: FLOYD on CKD (Needs recalculated 09/01) Calories: 2527-0506 kcal/day (25-35 kcal/kg Admit BW) Protein: 65-85 g/day (0.8-1.0 g/kg Admit BW) Fluids: ~2200 ml/day (Approx 1 ml/kcal/d) NUTRITION DIAGNOSIS: 1) Inadequate oral intake related to inability to consume sufficient energy as evidenced by current NPO status - PERSISTS. 2) Altered nutrition related lab values related to Stage III CKD as evidenced by elevated BUN, Creatinine and Phosphorous lab values and low Magnesium levels - IMPROVED. INTERVENTION: 1) Recommend restarting TF of Nepro when medically appropriate following GI surgery consultation. 2) If propofol restarted, adjust enteral feeding rate as needed based on daily propofol rate. MONITOR/EVALUATE: GI, TF restart, labs, wt, nutrition status, POC. Will continue to monitor per high nutritional risk guidelines. Addendum: 09/02/16 at [address] I have read and agree with above student documentation. Lucila Winchester RD, CD
[2016-09-02] MEDS: fentaNYL 2,500 mCg/250 mL 2,500 MCG in IV Premix 1 EACH IV PRN (13:37)
[2016-09-02] MEDS: Furosemide 10 mg/mL 10 mL Inj IVPUSH SCH ×2 (13:53→20:35)
--- NOTE | 2016-09-02 14:38 | PCM.PNMED ---
Subjective Date of Service Sep 02, 2016 Subjective Today: Patient is more alert today compared to previous days. Able to respond to yes/no questioning appropriately. Denies pain. Admits to ETT as uncomfortable. No acute distress noted. Sedation at minimum. Exam Vital Signs Vital Sign - Last Date Time Temp Pulse Resp B/P Pulse Ox O2 Delivery O2 Flow Rate FiO2 09/02/16 13:24 82 146/83 100 45 09/02/16 04:30 Ventilator 09/02/16 04:30 36.5 14 Intake and Output 09/01/16 09/01/16 09/02/16 Cumulative From/Thru 15:00 23:00 07:00 08/24/16 04:11 - 09/01/16 18:13 Intake Total 1291 ml 07812 ml Output Total 920 ml 15376 ml Balance 371 ml 08800 ml Intake Oral 0 ml IV Total 1291 ml 88950 ml Tube Feeding 1983 ml Packed Cells 609 ml Tube Irrigant 803 ml Output Urine Total 900 ml 48536 ml Stool Total 20 ml 1445 ml Gastric Drainage Total 405 ml Drainage Total 0 ml 980 ml # Bowel Movements 1 Exam General: Intubated and minimally sedated; no acute distress; awake and alert Skin: Patient has ecchymoses on the back and various areas of his extremities with poor skin turgor and subcutaneous edema. HENT: Atraumatic; sclera anicteric; ETT in place; mucus membranes moist Neck: Soft, obese Cardiac: Regular rate at time of examination; no murmurs appreciated Respiratory: Adequate air flow all jama; faint coarse sounds appreciated; difficult to appreciate secondary to habitus Chest: Right chest tube in place and secured Abdomen: Soft, nondistended; ileostomy bag secured on right with drain in place for irrigation; minimal output noted Extremities: Mild edema Pulses: Radial equal and bilateral Skin: Warm, dry; scaly and dry Neuro: Cannot obtain full assessment secondary to sedation and intubation; Awake and alert, responsive Psych: Cannot fully obtain secondary to sedation and intubation Lab and Diagnostics Result Diagram: 09/02/1641409/02/16414 Microbiology C DIFF TOXIN A AND B BY PCR Final 08/25/16-2128 Organism 1 POS FOR CDIF TOXIN C DIF TOXIN A&B PCR DETECTED TIME CALLED: 0 DATE CALLED: 08/25/16 FLOOR/DOCTOR: CCU/YANN Stevenson CALLED BY: ION PCR testing alone cannot distinquish C. difficile disease from a carrier state, and therefore correlation with clinical findings is required. Specimen: [id number] Collected: 08/24/16 Status: ZHANNA Mireles#: [id number] Received: 08/24/16 Source: BLOOD Sp Desc : AER Subm Dr: Stiven Aguilera MD Ordered: Comments: Collected by Nurse/Unit? Y/N N Comment: if not done in ED Procedure Result Verified Site Microbiology CHRISTOPHER CULTURE BLOOD Final 08/29/16-723 Organism 1 PROVIDENCIA STUARTII GRAM STAIN RESULT GRAM NEGATIVE RODS BC BOTTLE Isolated from Aerobic Bottle of Set Drawn DATE CALLED: 08/25/16 TIME CALLED: 1314 CALLED BY: CORINNE FLOOR/DOCTOR: TAY/YANN Stevenson BC READ BACK Y TYPE OF DRAW PERIPHERAL DRAW TIME OF POSITIVITY 1304 ISOLATED FROM FOUR OF FIVE BOTTLES COLLECTED 08/24 1. PROVIDENCIA STUARTII M.I.C Interp --------- ------ * AMIKACIN <=2 S * AMPICILLIN >=32 R * AMPICILLIN/SULBACTAM >=32 R * CEFAZOLIN >=64 R * CEFEPIME <=1 S * CEFOXITIN 32 R * CEFTRIAXONE 8 R * ERTAPENEM <=0.5 S * GENTAMICIN R * MEROPENEM <=0.25 S * TOBRAMYCIN R * PIPERACILLIN/TAZOBACTAM 8 S Specimen: [id number] Collected: 08/24/16 Status: COMP Req#: [id number] Received: 08/24/16 Source: BLOOD Sp Desc : AER Subm Dr: Prakash Starks MD Ordered: BC Comments: Collected by Nurse/Unit? Y/N Y Comment: From different sites Procedure Result Verified Site Microbiology CHRISTOPHER CULTURE BLOOD Final 08/31/16-611 Organism 1 KLEBSIELLA OXYTOCA GRAM STAIN RESULT GRAM VARIABLE RODS BC BOTTLE Isolated from Aerobic Bottle of Set Drawn DATE CALLED: 08/24/16 TIME CALLED: 2017 CALLED BY: PURA FLOOR/DOCTOR: ATY/STEFANIE Retana,RN BC READ BACK YES TYPE OF DRAW NURSE COLLLECT TYPE NOT SPECIFIED TIME OF POSITIVITY 1944 KLEBSIELLA OXYTOCA ISOLATED FROM FIVE OF FIVE BOTTLES COLLECTED 08/24 1. KLEBSIELLA OXYTOCA M.I.C Interp --------- ------ * AMIKACIN <=2 S * AMPICILLIN >=32 R * AMPICILLIN/SULBACTAM 16 I * CEFAZOLIN >=64 R * CEFEPIME <=1 S * CEFOXITIN <=4 S * CEFTRIAXONE <=1 S * CIPROFLOXACIN <=0.25 S * ERTAPENEM <=0.5 S * GENTAMICIN <=1 S * MEROPENEM <=0.25 S * TOBRAMYCIN <=1 S * TRIMETHOPRIM/SULFAMETHOXAZOLE <=20 S Specimen: [id number] Collected: 08/24/16 Status: ZHANNA Mireles#: [id number] Received: 08/24/16 Source: URINE CC Sp Desc : DOLLY Shaffer Dr: Prakash Starks MD Ordered: URINE CULT Procedure Result Verified Site Microbiology CHRISTOPHER CULT URINE Final 08/27/16 Organism 1 KLEBSIELLA OXYTOCA U COLONY COUNT/QUANTITY >100,000 CFU/ml Organism 2 PROTEUS MIRABILIS U COLONY COUNT/QUANTITY >100,000 CFU/ml 1. KLEBSIELLA OXYTOCA M.I.C Interp --------- ------ * AMOXICILLIN/CLAVULATE 8 S * AMPICILLIN >=32 R * CEFAZOLIN 8 R * CEFEPIME <=1 S * CEFTRIAXONE <=1 S * CEFUROXIME SODIUM 4 S * CIPROFLOXACIN <=0.25 S * ERTAPENEM <=0.5 S * GENTAMICIN <=1 S * IMIPENEM <=1 S * LEVOFLOXACIN <=0.12 S * NITROFURANTOIN 32 S * TETRACYCLINE <=1 S * TOBRAMYCIN <=1 S * TRIMETHOPRIM/SULFAMETHOXAZOLE <=20 S 2. PROTEUS MIRABILIS M.I.C Interp --------- ------ * AMPICILLIN >=32 R * CEFAZOLIN >=64 R * CEFEPIME <=1 S * CEFTRIAXONE <=1 S * CEFUROXIME SODIUM >=64 R * CIPROFLOXACIN >=4 R * ERTAPENEM <=0.5 S * GENTAMICIN <=1 S * LEVOFLOXACIN >=8 R * NITROFURANTOIN 128 R * TETRACYCLINE >=16 R CONTINUED ON NEXT PAGE RUN DATE: 08/27/16 [facility] LIVE PAGE 2 RUN TIME: 075 Specimen Inquiry PHYSICIAN Patient: NINA BRAR [id number] (Continued) Specimen: [id number] Collected: 08/24/16 Received: 08/24/16 (Continued) Procedure Result Verified Site CHRISTOPHER CULT URINE Final (continued) 08/27/16075 2. PROTEUS MIRABILIS (continued) M.I.C Interp --------- ------ * TOBRAMYCIN <=1 S * TRIMETHOPRIM/SULFAMETHOXAZOLE >=320 R X-Rays, CTs and MRIs Initial chest x-ray is unremarkable. 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 Asymmetric opacity involves the superior segment of the left lower lobe, suspicious for aspiration or early pneumonia. 2. Findings consistent with proximal sigmoid colon diverticulitis, with microperforation. No findings to suggest associated abscess. 3. Status post renal transplant, with atrophic [place] kidneys. No significant discrepancy with preliminary [facility] report. Cardiac Echo Impressions Echocardiogram Report Name: NINA BRAR RStudy Date: 08/24/2016 Height: 67 in Hospital Exam Location: [facility] Weight: 174 lb Gender: Male BSA: 1.9 m2 : 1945 Age: 70 yrs BP: 138/78 mmHg Reason For Study: EVAL VENTRICULAR FUNCTION/VALVES Ordering Physician: HOSPITALIST [facility] Performed By: Elsy babin Referring Physician: DR. TOMYM LOZANO, DR. Juliana MORRIS Interpretation Summary Afib with RVR. Normal LV size; moderate concentric LVH; normal wall motion and LV systolic function. EF is 60-65%. Moderate MAC; mitral valve leaflets are normal; there is mild MR. Aortic valve leaflets are normal; there is mild AI. There is mild TR; estimated PA systolic pressure is 35 mm Hg assuming RA pressure of 10 mm Hg. Compared to prior study performed 07/05/2016 afib is newly described. Heart rate is faster (up from 105 bpm to around 120 bpm). Otherwise no changes have occurredx. Additional Diagnostics DateTimeAnalyzed 03:57:00 -_ pH ____7.353 - 7.350 7.450 pCO2 ___42.6__ -mmHg 35.0 45.0 pO2 100 -mmHg 69.0 116 HCO3- ___23.1__ -mmol/L 22.0 26.0 ABE ___-1.8__ -mmol/L -2.0 2.0 tHb ___10.3__ -g/dL O2Hb ___95.1__ -% COHb ____1.3__ -% MetHb ____1.2__ -% sO2 ___97.5__ -% 25.0 FIO2 ___50.0__ -% PEEP ____5.0__ -cmH2O Set_RR ___18.0__ -b/min Vt __560.0__ -L Drawn By LT - Date/Time Notified____ 04:03:00 -_ Spontaneous_RR ___20.0__ -b/min Notified By LT - Notified Whom _LEIBRAND - B 749 -mmHg tO2 ___13.9__ -Vol% Stiven test _Positive - Assessment & Plan Mr. 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 difficile, suspected colonic microperforation, and/or UTI. He was admitted for evaluation and treatment of septic shock secondary to reasons discussed, acute hypoxemic respiratory failure, and acute on chronic kidney disease. Overnight: No acute events. XR abdomen revealed a large gastric bubble. XR was ordered secondary to suspected discrepancies with intake, tube feeds, and output in ileostomy and FMS. - Hospital day 10 - Ventilator day 10 - POD 9: loop ileostomy - POD 5: Chest tube Acute hypoxemic respiratory failure, present on admission. Ongoing - Secondary to septic shock - Remains intubated and sedated - Utilize precedex + seroquel. Would recommend increase drug holidays to assess patient's neurological status. As patient clearly stated in previous by mouth as well as T form that he did not want life support if his mental capacity was compromised. - Pulmonary/ICU consulted; appreciate time and recommendations Anemia, acute, present on admission. Currently stable - Normocytic, normochromic - Drop in Hb noted 08/27 to 7.2; repeat 6.5 - s/p 2U pRBC 08/27 - Guaiac stat 08/28: POSITIVE - CT brain 08/28: No acute abnormalities - CT C/A/P 08/28: Moderate b/l pleural effusions and bibasilar consolidations; small right PTX; anasarca - Transfuse threshold Hb 7.0; monitor daily Septic shock with encephalopathy, acute, present on admission. Ongoing - On admit: WBC 18.2, HR 138; LA 2.3 + reported AMS - Treat underlying cause(s) - Awaiting 09/01 EEG results - Keep sedation at minimum to evaluate neuro status; appears to be improving Septicemia, acute, present on admission. Under therapy with improvements - Blood Cx 08/24: + Klebsiella oxytoca, Providencia stuartii - Abx: Ertapenem: Stop date 09/08 - ID has been consulted, appreciate time and recommendations - Monitor labs, PCT Hypokalemia, acute, not present on admission. Under therapy - Likely secondary to decreased renal function and need for increased diuretics - 08/31: K 2.9 - D1/2 + K @80 per nephro Right sided pneumothorax, acute, unknown chronicity. Monitor - CT C/A/P with small R PTX - Chest tube placed 08/28 - Monitor - May need to remain until extubation Acute on chronic kidney disease, present on admission. Stable, with improvement - On admit: Cr 2.98; baseline reported to be approx 2 - Avoid nephrotoxic meds when possible - Nephrology has been consulted, appreciate time and recs - Oliguric; Bumex IV x2 doses completed 08/28 - Albumin stop date 08/29 - Lasix 60mg IV BID UTI, acute, present on admission. Under evaluation - On admit: UA + nitrite, moderate leuk est, + WBC, with many bacteria - Repeat UA 08/26: Cloudy, mod LE, > 50 WBC, mod bacteria - UCx: + Klebsiella, + Proteus - ID as above Suspected C. difficile infection with resultant sepsis, acute, present on admission. Under investigation - Recent stool PCR July 2016 + C. diff - Stool PCR 08/25: + C. diff, + norovirus - Difficult to discern if active infection as C. diff PCR can remain positive as long as one year - S/p loop ileostomy placement 08/24 with irrigation drain - Tx: Vancomycin irrigation through ileostomy per general surgery + Florastor - General surgery following; appreciate time and recommendations; recommend approx 10d course of irrigation - Irrigation start date: 08/24--> Continue irrigation x10 days after stop date of ertapenem - Precautions in place - ID consulted, as noted above Thrombocytopenia, acute, not present on admission. Ongoing - On admit: Plt 239; 09/01: Plt 35 - Consideration of plt transfusion, 6-pack/1 unit - Holding heparin; HIT panel pending Hypocalcemia, acute, not present on admission. Resolved - Initially corrected with decreased albumin - Monitor Influenza A H3 infection, acute, present on admission. Treated - Peramivir completed Suspected LLL PNA, acute, present on admission. Stable - Likely secondary to influenza, noted above - Monitor with CXR, labs, PCT History of renal transplant and long-term immunosuppression, chronic. Presumed stable - Holding cyclosporine and CellCept - Nephro consulted, as noted above Suspected adrenal insufficiency, chronic. 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 Counseling could not be completed, as patient is intubated and sedated. Dispo: Likely to remain > 2d, as he remains intubated and sedated. Will likely return to [facility] when stable for DC, if survives hospitalization. Abx needs are uncertain at this time, will keep PARTY HOST updated on any needs for continued IV abx. Patient appears to be improving. Mental status is of utmost importance, and what he values most in his recovery. Pain Evaluation: Adequate Pain Control GI Prophylaxis: H2 mary ann VTE Prophylaxis: Sub-Q Heparin (Unfractionated) VTE Mechanical Devices: Intermittant Pneumatic CD Resuscitation Status: CPR: Attempt Resuscitation Attending Statement Patient seen and examined. Chart reviewed and case discussed at length with Dr. Promise Boyd. I agree with the above note. Maude Boyd DO Sep 02, 2016 14:38 Shekhar Reyes MD Sep 02, 2016 19:36
--- NOTE | 2016-09-02 15:24 | PCM.PALLBR ---
Palliative Care Recommendation Summary of palliative recommendations: Pt previously seen by Palliative Care team on Jul 25, 2016 to clarify goals as he had had frequent admits (12/2015, 02/2016, 04/2016, 06/2016, and Jul 2016 admission). At that time, we completed a POLST -Symptom management (Pain/other): per Attending and CCU It Generalist Dr. Torres -DPOA/Advanced Directives/POLST: 1. Current Code: FULL in chart, HOWEVER, 2. The Patient completed a POLST 07/25/[address] Crum. AT that time, he confirmed his wish to be FULL code with all interventions. He also stated that it is important to him that he is not kept alive on machines if his brain is no longer awake and able to interact meaningfully with others. He values having a good brain. 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 He is content to be restricted to a wheelchair, but would abhor needing to be fed by others or fed (permanently) by a tube. 3. HCPOA: no prior paperwork. He has a good relationship with his sisters, but doesn't really want to pick one of them to be HCPOA. He would rather they follow his directives on a POLST and act as advisors to a medical team, using the POLST he signed 07/25/2016. 3. Patient is not capacitated to make his health care decision due to severe illness, therefore his sisters must look to his directive and make decisions based on what his stated wishes were. 09/01 Family Conference Team Meeting (FCTM): Held with Dr. Crum, and his two sisters Rolanda and Stephany. Dr. Reyes joined us mid-discussion. 1. Dr. Crum gave each sister a copy of Jul 2016 POLST that patient filled out with Dr. Crum when he was capacitated. We discussed his wishes at length. 2. Both sisters are worried that he may not survive this illness with his brain returning to his baseline. They fondly recall his intellect, his tendency to plan ahead, how he always had his bills paid on time electronically using his computer and his fierce independence, despite dealing with chronic illness. They have each spent time in the past, helping him at home when he was recuperating after past hospitalizations. 3. Sisters are in agreement that they will follow advise from providers about brother's mental status once he is off sedation. In the meantime, though, they ask that if he suddenly declines that we do not escalate care with pressors. Please call them urgently if medical/nursing team thinks he is dying. They would both like to be at bedside. Family/emotional support: Rolanda Rushing (sister) at [phone] or [phone] and Maida Isaura (sister) at [phone] Patient's prior stated goals (in his own words on Jul 25 2016): 1. It is important to him that he is not kept alive on machines if his brain is no longer awake and able to interact meaningfully with others. He values having a good brain. 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 2. He would be content to be restricted to a wheelchair, but would abhor needing to be fed by others or fed (permanently) by a tube. Additional Medical Diagnoses with primary management by Hospitalist team include : 1. Acute hypoxic respiratory failure 2. Encephalopathy 3. Septic shock 4. Chronic kidney disease status post renal transplant 3 5. Recurrent C. difficile colitis 6. Bilateral lower lobe pneumonia 7. Right pneumothorax status post chest tube Plan: Neurological: Patient remains obtunded. Plan is to decrease propofol slowly throughout the day and increase fentanyl as needed. Cardiac: Currently stable although pressures are labile and patient is beginning to have some arrhythmias with approximately1.5seconds. Question is that the art-line is possibly running into interference. Currently not giving a pulse-wave. Respiratory: Blood gas improved: 7.3, PCO2 33, 58.5 PO2, bicarbonate is 19.2. Patient has ARDS although vent settings are otherwise okay. Patient's right diaphragm elevation has resolved. Considering bronchoscopy. Renal: Patient has chronic kidney disease is currently up 22 L since admission. Discussion with nephrology who is following the patient will receive 100 mg of Lasix today. Currently putting out okay urine around 2 L a day. We will continue to follow. Disposition: Patient was not waking up. To decrease her propofol and intent to make the patient more responsive. EEG will be ordered. Problems: Resuscitation Status Resuscitation Status: CPR: Attempt Resuscitation POLST Updates/Changes Previous POLST?: Yes POLST Last Review Date: Jul 25, 2016 POLST Review Outcome: No Change Total time 35 minutes; >50% face to face with patient and/or family, providing counselling regarding plans and recommendations, and in care coordination with his/her medical teams. Palliative Brief Note Date of Service Sep 02, 2016 . History of Present Illness Mr. Brar is a 70 year old gentleman with a complex medical history including a reported x3 renal transplants, recipient of chronic immunosuppressants and senior living glucocorticoid use, in addition to numerous hip replacements, that was found to be confused at [facility], and was intubated secondary to presumed acute hypercarbic respiratory failure resulting from septic shock likely thought to be due to C. difficile, suspected colonic microperforation, and/or UTI. He was admitted for evaluation and treatment of septic shock secondary to reasons discussed, acute hypoxemic respiratory failure, and acute on chronic kidney disease. Hospital Course: Today is Hospital day 10, Ventilator day 10, POD 9 s/p loop ileostomy, POD 3 chest tube placement for R pneumothorax. His clinical situation was discussed extensively in CCU rounds today with Pulmonary [employer], RT, and PC. He is not on any vasopressors. His acute blood loss from unknown source seems to be resolving and no site found after mitchell-scanning him on 08/28, his platelets remain low at 36. He is being treated for C. difficile (likely carrier) in stool, Proteus and Klebsiella in urine, Klebsiella in blood. Infectious disease is following and recommends ertapenem 1 g once a day. Patient continues on vancomycin irrigations of the colon through the loop ileostomy (started 08/24) which are to continue for 10 days after stop of ertapenem. Contact precautions in place. He seems to be waking up somewhat with decreased sedation, opens eyes, nods yes/no appropriately to simple questions. Past Medical History 1. End-stage renal disease, unknown etiology. 2. s/p Kidney Cancer 3. Chronic kidney disease stage 3 in the setting of kidney transplant. Baseline serum Cr is about 2. 4. Hypertension. 5. Dyslipidemia. 6. Bilateral knee osteoarthritis. 7. Diverticulosis. 8. Recent history of diverticulitis and C. difficile colitis. 9. Recent history of pneumonia. 10. Diverticulosis 11. Chronic tachycardia 12. Recent influenza A. 13. Recent. Transient encephalopathy. 14. Recent Urinary retention, resolved. 15. Recent Possible healthcare associated pneumonia, with reactive airways. 16. Chronic Renal Insufficiency s/p three renal transplants and currently on immunosuppressive therapy. 17. Paroxysmal Atrial fibrillation with rapid ventricular response, better rate control. Resolved. 18. Nasal swab positive for MRSA. 19. Hypertension Surgical History 1. Status post kidney transplant x3. 2. Multiple hip replacements x7 according to the patient due to osteoporosis. 3. Splenectomy. 4. The patient had three kidney transplants. First kidney transplant was in 1960s, lasted less than two months. The second kidney transplant was done in and the second one lasted quite some time. The patient received the third kidney transplant in 1993. Family History: Brother of kidney failure, Mother of cancer of billiary tract, Father of stomach cancer. Social History: was still working up to 9 months ago when he started to get frequent illness. 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 Patient has been living at [facility] for [facility] recently. Was living home alone prior to SNF. Current daily smoker, used alcohol. Patient's Baseline Function: In Jul 2016, pt stated to Palliative Care's Dr. Crum that prior to going to [facility] for rehab at end of 2015, he was living in a single story home alone, and had no problems getting around his house with a W/C. At that time, Pt stated he typically uses a wheel chair, does not drive. Allergies: Reviewed: iodine,povidone Exam: General: intubated, intermittently awake and nods yes/no. HEENT: Exophytic mass on left side of skull. Pupils are pinpoint and nonreactive , IJ in place Chest Wall: CT on right Cardio: Very difficult to hear with the contact precaution stethoscope but appears to sound regular rate and rhythm Respiratory: decreased breath sounds on right, no wheezing, Abdomen: soft, NT, Incisions look clean and dry, device in LLQ (to instill vanco ) Extremities: Patient strained, edema : sl edema of scrotum, raphael catheter in place. Skin: Warm, no rashes. Neuro: Pupils as above; sedated Psych: Sedated Hospital day 10 - Ventilator day 10 - POD 9: loop ileostomy - POD 5: Chest tube Adriana Crum MD Sep 02, 2016 15:24
--- NOTE | 2016-09-02 16:38 | PROG NOTE ---
[address] [address] PROGRESS NOTE PATIENT: NINA VALENTIN : 1945 MR#: [id number] ADMIT: 08/24/2016 JOB ID: [id number] DATE: 09/02/2016 SUBJECTIVE: The patient is seen in followup for his loop ileostomy requiring lavage for C. difficile colitis as well as his right chest tube pneumothorax. There is apparently some discussion this morning about megacolon based on plain film that was obtained overnight. I reviewed the film. This showed some gastric distention but otherwise an unremarkable gas pattern. His ileostomy continued to have essentially no output. His chest tube had 150 cc of output overnight. From a surgical standpoint, there are no changes needed in the near future. I would continue tube feeds through the NG tube. I anticipate his ostomy to have some output in the next couple of days. The chest tube should remain until he is extubated at which I will be happy to work on getting that out.
[2016-09-02] MEDS ORDERED: 0.9% Sodium Chloride 250 ML ONE (16:40)
--- NOTE | 2016-09-02 18:47 | NUR ---
Mentation Pt opened eyes to voice commands. Remain with a fixed gaze and does not follow commands. Pt did move right arm while changing dressing. Precedex at 0.3mcg and Fentanyl at 50mcg. Lasix given today, 2200cc output. TF stopped last night. Nothing out of FMS or loop ileostomy. Vent unchanged. Artline draining blood at site, IV therapy notified and changed dressing. Changed chest tube and LLQ ABD dressings.
[2016-09-02] MEDS: Sodium Chloride LOK Flush 10 mL Syringe IVFLUSH PRN ×3 (20:35)
[2016-09-02] MEDS: Artificial Tears 15 mL Ophthalmic Solution BOTH_EYES PRN (20:35)
[2016-09-02] MEDS: Dexmedetomidine 400 mCg/100 mL 400 MCG in IV Premix 1 EACH IV SCH (20:45)
[2016-09-03] VITALS (8 sets, daily range): BP systolic 121–154; BP diastolic 68–84; PULSE 85–99; RESP 10–13; O2SAT 98–100
[2016-09-03] MEDS: LACTATED RINGER S IRRIGATION SCH ×4 (00:16→20:40)
[2016-09-03] MEDS: VANCOMYCIN IRRIGATION SCH ×4 (00:16→20:40)
[2016-09-03] MEDS: Hydrocortisone 50 mg/mL 2 mL Inj IVPUSH SCH ×2 (00:16→09:27)
[2016-09-03] MEDS: Chlorhexidine 0.12% 15 mL Oral Solution MT SCH ×7 (00:17→23:54)
--- NOTE | 2016-09-03 03:23 | NUR ---
Dislocated Right Shoulder During the patient's bath it was noticed that patient's shoulder was out of place and that any movement caused the patient to grimace. Arm braced in a sling position across the patient's chest and shoulder reduced and loud popping sound heard. Pt's heart rate increased from 80 to 140s for a period of time and was shortly recovered from this. Dr. Elizalde paged regarding the events and order received for a stat Right Shoulder 2 View Xray to be performed portably. Several hours later once no results were obtained from [facility] imaging service I spoke with diagnostic imaging who informed me that stat xrays don't get sent to [facility] and that a CT would need to be performed if it was needed to be read stat. Dr. Elizalde informed of patient's status and lack of radiologist to read the report. Pulses palpable and ART Line has good waveform in the right extremity. CMS present on all 4 extremities.
[2016-09-03] MEDS: Sodium Chloride LOK Flush 10 mL Syringe IVFLUSH PRN ×3 (03:35)
[2016-09-03] MEDS: Artificial Tears 15 mL Ophthalmic Solution BOTH_EYES PRN (03:35)
[2016-09-03 04:10] LABS: BASOPHILS % (AUTO) 0.1 % (0-3); EOSINOPHILS % (AUTO) 0.1 % (0-5); MONOCYTES % (AUTO) 2.9 % (4-12); Mean Corpuscular Hemoglobin 30.1 pg (27.0-35.0); Mean Corpuscular Volume 88.7 fL (81-100); NEUTROPHILS % (AUTO) 92.2 % (40-74); Platelet Count 43 bil/L (150-400)
--- NOTE | 2016-09-03 04:32 | ABG ---
DateTimeAnalyzed 04:26:00 -_ pH ____7.461 - 7.350 7.450 pCO2 ___28.3__ -mmHg 35.0 45.0 pO2 ___84.5__ -mmHg 69.0 116 HCO3- ___19.9__ -mmol/L 22.0 26.0 ABE ___-2.8__ -mmol/L -2.0 2.0 tHb ____9.3__ -g/dL O2Hb ___94.7__ -% COHb ____1.1__ -% MetHb ____1.2__ -% sO2 ___96.9__ -% 25.0 FIO2 ___45.0__ -% PRVC 13 - PEEP ____5.0__ -cmH2O Set_RR ___13.0__ -b/min Vt __510.0__ -L Drawn By MM - Date/Time Notified____ 04:31:00 -_ Oxygen Device 1 VENTILATOR - Notified By MM - Notified Whom rn - B 749 -mmHg tO2 ___12.5__ -Vol% Stiven test N/A -
[2016-09-03 04:45] LABS: Magnesium 1.5 mg/dL (1.6-2.6); Phosphorus 4.4 mg/dL (2.5-4.9)
[2016-09-03] MEDS ORDERED: KCl 40 mEq/100 mL (CENTRAL) 20 MEQ in IV Premix 1 EACH IV ONE (08:10)
[2016-09-03] MEDS ORDERED: Magnesium Sulf 4 Gm/100 mL H2O 4 GM in IV Premix 1 EACH IV ONE (08:10)
--- NOTE | 2016-09-03 08:39 | PROG NOTE ---
[address] [address] PROGRESS NOTE PATIENT: NINA VALENTIN : 1945 MR#: [id number] ADMIT: 08/24/2016 JOB ID: [id number] DATE: 09/03/2016 INFECTIOUS DISEASE FOLLOW UP NOTE: REASON FOR FOLLOWUP: Polymicrobial gram-negative sepsis, C. difficile and influenza. INTERVAL HISTORY: Overnight, the patient has been relatively stable. He continues to be afebrile and to produce good quantities of urine. His blood pressure is stable and on the ventilator he is at 45 FiO2 and 5 of PEEP. He is intermittently awake, though this morning when I examined him he is completely somnolent and does not respond even during the examination. The nurses state that earlier though he was following some commands, but is often quite lethargic or not responsive. PHYSICAL EXAMINATION: Reveals a consistently afebrile gentleman. Currently his temperature is 36.5, pulse 77, is ventilator dependent. Blood pressure 127/70 without vasopressors. As mentioned he is on 45 in 5, is oxygenating very well. Urine output is excellent. Examination of the head shows the exophytic left skull base lesion as seen previously. Eyes without notable abnormalities oral endotracheal tube. Oral gastric tube in good position. A right chest tube is present and it was placed for a small pneumothorax noted on his chest CT over the weekend. The lungs are notable for a few coarse sounds on the right but quite clear on the left at this point. Cardiac tones: Irregular rate and rhythm with some ventricular ectopy noted on the monitor. No significant murmur. His abdomen soft and nontender. The ileal irrigation system is present on the right and is functioning. The patient does have a Richey catheter. As noted, he is producing good quantities of clear yellow urine. Lower extremities unchanged. LABORATORIES: Include white count 9300, platelet count 43,000. Creatinine down to 1.86 so this is steadily improving day by day as his creatinine was 3 basically when he came in. LFTs are essentially normal except for an alk phos which continues to climb and is currently 387. Procalcitonin today is down to 1.35. This is from an initial level of 71 so tremendous improvement. Micro studies were again reviewed. We have nothing new. Recall that he did have C. difficile and Rupali virus in his stool, influenzae A and nasopharyngeal secretions, Providencia and Klebsiella in blood. Yesterday's chest x-ray continues to show basilar air space opacities, which are little changed over the past several days. IMPRESSION: This patient continues to slowly improve from his polymicrobial gram-negative septic shock with respiratory and renal failure. He is now profoundly weakened, however, by this long hospitalization coming on the heels of numerous other long hospitalizations over the past year or so and his eventual extubation is probably still many days away. Nonetheless his renal function has dramatically improved and he is finally starting to wake up somewhat. RECOMMENDATIONS: 1. Will continue with ertapenem through September 08. 2. Will continue with the vanco irrigation through his colon, or if the ileal loop is taken down, we could switch to oral therapy at some point, but in any event, his vanco should probably continue through at least September 17. 3. Dr. De La Rosa's notes were carefully reviewed. 4. This case discussed in person with the ICU team.
--- NOTE | 2016-09-03 09:02 | DRSVH ---
PROCEDURE: X-RAY RIGHT SHOULDER, MINIMUM TWO VIEWS ([id number]) INDICATIONS: Pain. Obvious Deformity. Question Dislocation? TECHNIQUE: 3 views of the shoulder were acquired. COMPARISON: [facility], CR, XR CHEST 1VW (PORTABLE), 09/03/2016, 4:47. FINDINGS: Bones: No fractures or dislocations. No suspicious bony lesions. Visualized ribs appear intact. M oderate joint narrowing with periarticular osteophyte formation of the acromioclavicular and glenohum eral joint. Osteopenia. Soft tissues: No suspicious soft tissue calcifications. Right pleural drain noted involving the elizabeth g base. IMPRESSION: No definite fracture or dislocation. Dictated by: Carter FELTON Interpreted: Livia Barnett MD on 09/03/2016 at 9:01 Transcribed by: TALI on 09/03/2016 at 9:02 Approved by: Livia Barnett M.D. on 09/03/2016 at 10:38
[2016-09-03] MEDS: Furosemide 10 mg/mL 10 mL Inj IVPUSH SCH ×2 (09:27→20:41)
[2016-09-03] MEDS: Ertapenem Inj 500 MG in 0.9% Sodium Chloride 50 ML IV SCH (09:27)
[2016-09-03] MEDS: Pantoprazole 4 mg/mL 10 mL Inj IVPUSH SCH ×2 (09:27→16:30)
[2016-09-03] MEDS: Dexmedetomidine 400 mCg/100 mL 400 MCG in IV Premix 1 EACH IV SCH (09:56)
--- NOTE | 2016-09-03 10:02 | PCM.PNMED ---
Subjective Date of Service Sep 03, 2016 Subjective ICU/pulmonary Patient is doing okay this morning. Overnight patient had a dislocated shoulder. He previously has palpation did not elicit pain however today. This is causing patient discomfort. He is primary team is contacting orthopedics for evaluation and to reset the shoulder. This was attempted on site by the nurse with some success from report the patient was dislocated this morning. Patient has somewhat more somnolent this morning compared to yesterday and we are currently for patient to become more alert. Exam Vital Signs Vital Sign - Last Date Time Temp Pulse Resp B/P Pulse Ox O2 Delivery O2 Flow Rate FiO2 09/03/16 04:48 77 127/70 100 45 09/03/16 03:18 36.5 13 09/03/16 00:00 Mechanical Ventilator Intake and Output 09/02/16 09/02/16 09/03/16 Cumulative From/Thru 15:00 23:00 07:00 08/24/16 04:11 - 09/03/16 05:11 Intake Total 3520 ml 1628 ml 2354 ml 87405 ml Output Total 2100 ml 2250 ml 2350 ml 93802 ml Balance 1420 ml -622 ml 4 ml 08508 ml Intake Oral 0 ml IV Total 2326 ml 1628 ml 2254 ml 47255 ml Tube Feeding 994 ml 2977 ml Packed Cells 609 ml Tube Irrigant 200 ml 100 ml 1103 ml Output Urine Total 1950 ml 2200 ml 2300 ml 05540 ml Stool Total 0 ml 0 ml 1445 ml Gastric Drainage Total 405 ml Chest Tube Drainage Total 50 ml 50 ml Drainage Total 150 ml 50 ml 1180 ml # Bowel Movements 0 1 Exam General: Intubated; more somnolent compared to yesterday HENT: Atraumatic; sclera anicteric; ETT in place; mucus membranes moist Neck: Soft, obese Cardiac: Regular rate at time of examination; no murmurs appreciated Respiratory: Adequate air flow all jama; breath sounds are greater on right than left Chest: Right chest tube in place and secured Abdomen: Nondistended, patient states nontender, ostomy looks clean Extremities: No edema with scattered areas of breakdown; right shoulder dislocated, tenderness to palpation Pulses: Radial equal and bilateral Skin: Warm, dry; scaly and dry Neuro: Cannot obtain secondary to sedation and intubation; nonresponsive Psych: Cannot obtain secondary to sedation and intubation IVs and Medications Medications Reviewed: Medications were reviewed in detail Lab and Diagnostics Result Diagram: 09/03/16 0345 09/03/16 0345 Microbiology Assessment & Plan Problem List 1. Acute hypoxic respiratory failure 2. Encephalopathy 3. Septic shock 4. Chronic kidney disease status post renal transplant 3 5. Recurrent C. difficile colitis 6. Bilateral lower lobe pneumonia 7. Right pneumothorax status post chest tube Plan: Neurological: Patient more somnolent today. Still receiving Seroquel 25mg at bedtime and Precedex as needed. Continue to follow. Does respond to palpation right shoulder due to pain. Cardiac: Currently stable although pressures are much improved. RESPIRATORY: ABG this morning is 7.461, PCO2 28.3, PO2 of 84.5, bicarbonate 19.9 , saturation 96.9. Patient is currently breathing at 13, RT is instructed to reproduce respiratory rate by 2.3. Otherwise vent settings are appropriate. If the patient becomes more responsive and we will attempt spontaneous breathing trial, otherwise we will wait until tomorrow. X-ray this morning is poor, poor inspiratory volume. Renal: Nephrology following and will reduce the Solu-Medrol today, as well as considering starting cyclosporine again. Patient currently on 60 mg of Lasix twice a day with no additional fluid accumulation overnight. Additional fluids being consolidated or stopped. Creatinine has improved down to 1.8 this morning which is significant compared to recent creatinine levels. GI: Surgery evaluated yesterday in recommend continuing tube feeds. Report from the night team included a report of possible toxic megacolon. However as a stomach that is dilated and not colon. Disposition: Patient is equivocal to yesterday. Mental status is mildly declined however the rest of his condition has improved slightly. Still questionable infection and patient remains on antibiotics this time Time spent: 30 minutes GI Prophylaxis: H2 mary ann VTE Prophylaxis: Sub-Q Heparin (Unfractionated) VTE Mechanical Devices: Intermittant Pneumatic CD Resuscitation Status: CPR: Attempt Resuscitation Attending Statement The patient was seen and examined together with Dr. Harvey on 09/03/2016 and I agree with the history, exam and plan as outlined in the note above. Slade Harvey DO Sep 03, 2016 10:02 Baljeet Torres MD Oct 01, 2016 10:33
--- NOTE | 2016-09-03 10:26 | PCM.PNMED ---
Subjective Date of Service Sep 03, 2016 Subjective Once again the patient's renal function continues to improve. His blood pressures are somewhat fluctuating and his cuff pressures do not correlate with his recurrent line. Last 24 hours he has had 5148 in and 4150 out and in the last 8 hours she said 2300 urine output. This morning his sodium is 147, potassium 2.7, chloride 109, CO2 22, BUN/creatinine are 89 and 1.86. Hemoglobin is 8.6 and a magnesium of 1.5. His phosphorus is 4.4. Exam Vital Signs Vital Sign - Last Date Time Temp Pulse Resp B/P Pulse Ox O2 Delivery O2 Flow Rate FiO2 09/03/16 09:40 103 129/68 100 45 09/03/16 03:18 36.5 13 09/03/16 00:00 Mechanical Ventilator Intake and Output 09/02/16 09/02/16 09/03/16 Cumulative From/Thru 15:00 23:00 07:00 08/24/16 04:11 - 09/03/16 05:11 Intake Total 3520 ml 1628 ml 2354 ml 65980 ml Output Total 2100 ml 2250 ml 2350 ml 24754 ml Balance 1420 ml -622 ml 4 ml 38323 ml Intake Oral 0 ml IV Total 2326 ml 1628 ml 2254 ml 00106 ml Tube Feeding 994 ml 2977 ml Packed Cells 609 ml Tube Irrigant 200 ml 100 ml 1103 ml Output Urine Total 1950 ml 2200 ml 2300 ml 36328 ml Stool Total 0 ml 0 ml 1445 ml Gastric Drainage Total 405 ml Chest Tube Drainage Total 50 ml 50 ml Drainage Total 150 ml 50 ml 1180 ml # Bowel Movements 0 1 Exam HEENT examination was remarkable for pale sclera. Lungs showed scattered rhonchi but otherwise are clear. Heart was regular with soft systolic murmur. Abdomen is soft without any tenderness, rebound, guarding, masses, or hepatosplenomegaly. Extremity showed some mild generalized edema. There were no rashes noted. Lab and Diagnostics Result Diagram: 09/03/1634409/03/16344 Microbiology Assessment & Plan Impression #1 acute kidney injury secondary to C. difficile colitis and dehydration. This appears to be resolving at this time. #2 hyperkalemia #3 hypomagnesemia and #4 status post cadaveric renal transplant. Recommendations #1 I would like to decrease his hydrocortisone to 60 mg once a day, I would also like to add free water via his NG tube 300 mils every 6 hours and 1-2 days and restart his immunosuppression. GI Prophylaxis: H2 mary ann VTE Prophylaxis: Sub-Q Heparin (Unfractionated) VTE Mechanical Devices: Intermittant Pneumatic CD Resuscitation Status: CPR: Attempt Resuscitation Kobe Marcos DO Sep 03, 2016 10:26
--- NOTE | 2016-09-03 10:41 | DRSVH ---
PROCEDURE: X-RAY CHEST ONE VIEW, PORTABLE ([id number]) INDICATIONS: intubated TECHNIQUE: One view of the chest was acquired. COMPARISON: [facility], CR, XR CHEST 1VW (PORTABLE), 09/02/2016, 3:22. FINDINGS: Surgical changes and devices: Stable position of ETT, nasogastric tube, right IJ CVL and right pleura l drain. Lungs and pleura: Mid/basilar airspace opacities redemonstrated similar prior examination. Small bib asilar pleural effusions also unchanged. No pneumothorax. Mediastinum: Mediastinal contours appear normal. Heart size is normal. Bones and chest wall: No suspicious bony lesions. Overlying soft tissues appear unremarkable. IMPRESSION: Stable chest x-ray. Dictated by: Carter FELTON Interpreted: Rich Romero MD on 09/03/2016 at 10:39 Transcribed by: ERICA on 09/03/2016 at 10:40 Approved by: Rich Romero M.D. on 09/03/2016 at 12:37
--- NOTE | 2016-09-03 12:33 | NUR ---
NUTRITION FOLLOW UP Assess: Pt is a 70 YO male admitted w/ sepsis and hypotension d/t probable acute hypercarbic respiratory failure. Pt was intubated at [facility] where he resides, and remains intubated and sedated. Pt has CKD Stage III, and history of 3 renal transplants. A loop ileostomy was placed on 08/24. Pt having no output via ileostomy. GI was consulted, and determined pt has gastric distention that is unremarkable, not megacolon. GI believes output in ostomy should increase in next couple days. Recommended restarting TF. Phosphorous values have normalized; potassium levels are low. Nephrology consulted, and began Lasix yesterday w/ 2.2 L output. Pt remains 23 L positive. Propofol discontinued. PMHx: Full medical hx unavailable d/t pt status at time of admission. Recent C diff colitis, influenza A, transient encephalopathy, urinary retention, FLOYD on CKD Stage III, possible healthcare acquired pneumonia, renal transplant, A fib, MRSA. LABS: Na 147, K 2.8, Cl 109, BUN 89, Watchmaking Teacher 1.86, Gluc 111, Mg 1.5, Alk Phos 387, Alb 2.8, Procalcitonin 1.35 MEDICATIONS: Phos-Lo, Fentanyl, Lasix DIET: NPO x 10 days NUTRITION SUPPORT: TF stopped for GI consult GI symptoms/stool: Ileostomy 0 ml output (09/02) SKIN: Eze 9, deep tissue injuries to L & R heels per WC. Heels elevated. ANTHROPOMETRICS: Current Wt: 102.8 kg BMI: 32.5 kg/m2 IBW: 73 kg Admit Wt: 83.2 kg (BMI 26.3 kg/m2) ESTIMATED NEEDS: FLOYD on CKD (Needs recalculated 09/01) Calories: 0348-9622 kcal/day (25-35 kcal/kg Admit BW) Protein: 65-85 g/day (0.8-1.0 g/kg Admit BW) Fluids: ~2200 ml/day (Approx 1 ml/kcal/d) NUTRITION DIAGNOSIS: 1) Inadequate oral intake related to inability to consume sufficient energy as evidenced by current NPO status. - IMPROVED W/ TF. 2) Altered nutrition related lab values related to Stage III CKD as evidenced by elevated BUN, Creatinine and Phosphorous lab values and low Magnesium levels - IMPROVED. INTERVENTION: 1) D/t phosphorous WNL and low potassium, will recommend changing TF formula from Nepro to Jevity 1.5. Start Jevity 1.5 @ 30 ml/hr. Once tolerated, increase 10 ml q 4 hrs to goal rate of 63 ml/hr to provide 2079 kcal and 88g protein, meeting 100% of kcal and protein needs. 2) Per MD order, flush w/ 300 ml free water q 6 hrs. 3) If propofol restarted, adjust TF rate as needed based on daily propofol rate. MONITOR/EVALUATE: TF formula change/shereen, GI, labs, wt, nutrition status, POC. Will continue to monitor per high nutritional risk guidelines. Addendum: 09/03/16 at [address] Student documentation reviewed and I agree with the above assessment. Marcella Bojorquez, MS, RDN, CD Addendum: 09/04/16 at [address] Pt's TF of Jevity 1.5 at goal rate of 63 ml/hr, and is tolerating well w/ minimal residual. No bowel movement noted. Addendum: 09/04/16 at [address] Student documentation reviewed and I agree with the above addendum. Marcella Bojorquez, MS, RDN, CD
[2016-09-03] MEDS ORDERED: D5 0.45% NaCl + KCl 40 mEq/L 1,000 ML IV SCH (12:45)
[2016-09-03] MEDS: 0.9% NaCl + KCl 20 mEq/L 1,000 ML IV SCH (12:45)
--- NOTE | 2016-09-03 13:35 | DRSVH ---
PROCEDURE: X-RAY RIGHT SHOULDER, MINIMUM TWO VIEWS ([id number]) INDICATIONS: dislocation TECHNIQUE: 3 views of the shoulder were acquired. COMPARISON: [facility], CR, XR SHOULDER MIN 2VW RT, 09/02/2016, 23:46. [facility], CR, XR CHEST 1VW (PORTABLE), 09/02/2016, 3:22. FINDINGS: Bones: Linear lucency is present extending to the distal clavicle. There is acromioclavicular and gl enohumeral joint degeneration. Soft tissues: No suspicious soft tissue calcifications. IMPRESSION: 1. Linear lucency extending through the distal clavicle which could be related to clavicular fracture . Correlate to point tenderness. If indicated clavicle series could be performed. Dictated by: Carter FELTON Interpreted: Maryan Villagomez MD on 09/03/2016 at 13:33 Transcribed by: RICHY on 09/03/2016 at 13:34 Approved by: Maryan Villagomez M.D. on 09/03/2016 at 15:42
--- NOTE | 2016-09-03 14:10 | PCM.PALLBR ---
Palliative Care Recommendation Summary of palliative recommendations: Pt previously seen by Palliative Care team on Jul 25, 2016 to clarify goals as he had had frequent admits (12/2015, 02/2016, 04/2016, 06/2016, and Jul 2016 admission). Case discussed extensively in CCU rounds this morning. EEG completed, interpretation pending. At that time, we completed a POLST -Symptom management (Pain/other): per Attending and CCU Rabbit Breeder Dr. Torres -DPOA/Advanced Directives/POLST: 1. Current Code: FULL in chart, HOWEVER, 2. The Patient completed a POLST 07/25/[address] Crum. AT that time, he confirmed his wish to be FULL code with all interventions. He also stated that it is important to him that he is not kept alive on machines if his brain is no longer awake and able to interact meaningfully with others. He values having a good brain. 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 He is content to be restricted to a wheelchair, but would abhor needing to be fed by others or fed (permanently) by a tube. 3. HCPOA: no prior paperwork. He has a good relationship with his sisters, but doesn't really want to pick one of them to be HCPOA. He would rather they follow his directives on a POLST and act as advisors to a medical team, using the POLST he signed 07/25/2016. 3. Patient is not capacitated to make his health care decision due to severe illness, therefore his sisters must look to his directive and make decisions based on what his stated wishes were. 09/01 Family Conference Team Meeting (FCTM): Held with Dr. Crum, and his two sisters Rolanda and Stephany. Dr. Reyes joined us mid-discussion. 1. Dr. Crum gave each sister a copy of Jul 2016 POLST that patient filled out with Dr. Crum when he was capacitated. We discussed his wishes at length. 2. Both sisters are worried that he may not survive this illness with his brain returning to his baseline. They fondly recall his intellect, his tendency to plan ahead, how he always had his bills paid on time electronically using his computer and his fierce independence, despite dealing with chronic illness. They have each spent time in the past, helping him at home when he was recuperating after past hospitalizations. 3. Sisters are in agreement that they will follow advise from providers about brother's mental status once he is off sedation. In the meantime, though, they ask that if he suddenly declines that we do not escalate care with pressors. Please call them urgently if medical/nursing team thinks he is dying. They would both like to be at bedside. Family/emotional support: Rolanda Сергей (sister) at [phone] or [phone] and Maida Isaura (sister) at [phone] Patient's prior stated goals (in his own words on Jul 25 2016): 1. It is important to him that he is not kept alive on machines if his brain is no longer awake and able to interact meaningfully with others. He values having a good brain. 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 2. He would be content to be restricted to a wheelchair, but would abhor needing to be fed by others or fed (permanently) by a tube. Additional Medical Diagnoses with primary management by Hospitalist team include : 1. Acute hypoxic respiratory failure 2. Encephalopathy 3. Septic shock 4. Chronic kidney disease status post renal transplant 3 5. Recurrent C. difficile colitis 6. Bilateral lower lobe pneumonia 7. Right pneumothorax status post chest tube Plan: Neurological: Patient more somnolent today. Still receiving cervical 25 at bedtime and Precedex as needed. Continue to follow. Does respond to palpation right shoulder due to pain. Cardiac: Currently stable although pressures are much improved. RESPIRATORY: ABG this morning is 7.461, PCO2 28.3, PO2 of 84.5, bicarbonate 19.9 , saturation 96.9. Patient is currently breathing at 13, RT is instructed to reproduce respiratory rate by 2.3. Otherwise vent settings are appropriate. If the patient becomes more responsive and we will attempt spontaneous breathing trial, otherwise we will wait until tomorrow. X-ray this morning is poor, poor inspiratory volume. Renal: Nephrology following and will reduce the Solu-Medrol today, as well as considering starting cyclosporine again. Patient currently on 60 mg of Lasix twice a day with no additional fluid accumulation overnight. Additional fluids being consolidated or stopped. Creatinine has improved down to 1.8 this morning which is significant compared to recent creatinine levels. GI: Surgery evaluated yesterday in recommend continuing tube feeds. Report from the night team included a report of possible toxic megacolon. However as a stomach that is dilated and not colon. Disposition: Patient is equivocal to yesterday. Mental status is mildly declined however the rest of his condition has improved slightly. Still questionable infection and patient remains on antibiotics this time Problems: Resuscitation Status Resuscitation Status: CPR: Attempt Resuscitation POLST Updates/Changes Previous POLST?: Yes POLST Last Review Date: Jul 25, 2016 POLST Review Outcome: No Change Total time 35 minutes; >50% face to face with patient and/or family, providing counselling regarding plans and recommendations, and in care coordination with his/her medical teams. I also spent an additional [ ] minutes counseling for advanced care planning with the patient/the patients family/the surrogate decision maker. Palliative Brief Note Date of Service Sep 03, 2016 . History of Present Illness Mr. Brar is a 70 year old gentleman with a complex medical history including a reported x3 renal transplants, recipient of chronic immunosuppressants and correction glucocorticoid use, in addition to numerous hip replacements, that was found to be confused at [facility], and was intubated secondary to presumed acute hypercarbic respiratory failure resulting from septic shock likely thought to be due to C. difficile, suspected colonic microperforation, and/or UTI. He was admitted for evaluation and treatment of septic shock secondary to reasons discussed, acute hypoxemic respiratory failure, and acute on chronic kidney disease. Hospital Course: Today is Hospital day 11, Ventilator day 11, POD 10 s/p loop ileostomy, POD 4 chest tube placement for R pneumothorax. His clinical situation was discussed extensively in CCU rounds today with Pulmonary Upholsterer Apprentice, RT, and PC. He is not on any vasopressors. His acute blood loss from unknown source seems to be resolving and no site found after mitchell-scanning him on 08/28, his platelets remain low at 36. He is being treated for C. difficile (likely carrier) in stool, Proteus and Klebsiella in urine, Klebsiella in blood. Infectious disease is following and recommends ertapenem 1 g once a day. Patient continues on vancomycin irrigations of the colon through the loop ileostomy (started 08/24) which are to continue for 10 days after stop of ertapenem. Contact precautions in place. On 09/01 and 09/02, he seemed to wake up somewhat with decreased sedation, opens eyes, nods yes/no appropriately to simple questions.Overnight patient had a dislocated shoulder. This was causing patient discomfort. He is primary team is contacting orthopedics for evaluation and to reset the shoulder. This was attempted on site by the nurse with some success from report the patient was dislocated this morning. 09/03: Patient has somewhat more somnolent this morning compared to yesterday and we are currently for patient to become more alert. Past Medical/Surgical History: see my 09/02 note. Family History: Brother of kidney failure, Mother of cancer of billiary tract, Father of stomach cancer. Social History: was still working up to 9 months ago when he started to get frequent illness. 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 Was living home alone prior to SNF. Current daily smoker, used alcohol. Patient's Baseline Function: In Jul 2016, pt stated to Palliative Care's Dr. Crum that prior to going to [facility] for rehab at end of 2015, he was living in a single story home alone, and had no problems getting around his house with a W/C. At that time, Pt stated he typically uses a wheel chair, does not drive. Allergies: Reviewed: iodine,povidone Exam: General: intubated, some sedtion. HEENT: moist mucus membranes, pale sclera. Lungs: showed scattered rhonchi but otherwise are clear. Heart: S1,S2,+II/ systolic murmur. occasional irregular beat, PVCs on telemetry. Abdomen: obese, soft, nontender. Extremities: mild generalized edema. Skin: no rashes noted. Lab and Diagnostics Result Diagram: 09/03/16 0345 09/03/16 0345 Adriana Crum MD Sep 03, 2016 14:10
--- NOTE | 2016-09-03 14:22 | PCM.CONORT ---
Subjective Date of Surgery: Sep 03, 2016 Surgeon Admitting Provider:Aidee Holden DO Attending Provider:Aidee Holden DO Primary Care Physician:Kobe Tom MD Other Provider:Johnnie Ibarra Anesthesia Reason for Consultation: Possible right shoulder dislocation Allergy Allergies: Coded Allergies: iodine (Unverified Allergy, Severe, purple blistering, 07/24/16) povidone (Unverified Allergy, Severe, purple blistering, 07/24/16) Medications Home Meds Incl Beta Blockers: Yes (metropolol) Allopurinol (Allopurinol) 100 Mg Tablet 200 MG PO QAM (Reported) Last Taken: Unknown Dose on Unknown Date & Time Aspirin (Aspirin) 81 Mg Tablet 81 MG PO HS (Reported) Last Taken: Unknown Dose on Unknown Date & Time Calcitriol (Rocaltrol) 0.25 Mcg Capsule 0.25 MCG PO QAM (Reported) Last Taken: Unknown Dose on Unknown Date & Time Cholecalciferol (Vitamin D3 ) (Vitamin D) 50,000 Unit Capsule 50,000 UNIT PO monthly (Reported) Last Taken: Unknown Dose on 08/10/16 Cyclosporine, Modified (Gengraf) 25 Mg Cap 50 MG PO BID (Reported) Last Taken: Unknown Dose on Unknown Date & Time Enalapril Maleate ( Enalapril Maleate) 5 Mg Tablet 2.5 MG PO DAILY Prescribed by: SHAISTA SMITH MD Last Taken: Unknown Dose on Unknown Date & Time Furosemide (Furosemide) 20 Mg Tab 10 MG PO DAILY (Reported) Last Taken: Unknown Dose on Unknown Date & Time Gabapentin (Gabapentin) 100 Mg Capsule 100 MG PO BID (Reported) Last Taken: Unknown Dose on Unknown Date & Time Magnesium Oxide/Mag Aa Chelate (ng-Owgu-Vrgxzun Tablet) 133 Mg Tablet 133 MG PO TID (Reported) Last Taken: Unknown Dose on Unknown Date & Time Metoprolol Tartrate ( Metoprolol Tartrate) 25 Mg Tablet 50 MG PO BID Prescribed by: JOANNA MONTOYA MD Last Taken: Unknown Dose on Unknown Date & Time Multivitamin (Once Daily) 1 Each Tablet 1 EACH PO HS (Reported) Last Taken: Unknown Dose on Unknown Date & Time Mycophenolate Mofetil ( Mycophenolate Mofetil) 250 Mg Capsule 750 MG PO BID (Reported) Last Taken: Unknown Dose on Unknown Date & Time Nortriptyline (Nortriptyline ) 10 Mg Capsule 10 MG PO BID (Reported) Last Taken: Unknown Dose on Unknown Date & Time Omeprazole (Omeprazole) 20 Mg Capsule.dr 20 MG PO HS (Reported) Last Taken: Unknown Dose on Unknown Date & Time Pravastatin (Pravachol) 40 Mg Tablet 40 MG PO HS (Reported) Last Taken: Unknown Dose on Unknown Date & Time PredniSONE (PredniSONE) 1 Mg Tab 3 MG PO QAM (Reported) Last Taken: Unknown Dose on Unknown Date & Time Prednisone (PredniSONE) 5 Mg Tab 5 MG PO QAM (Reported) Last Taken: Unknown Dose on Unknown Date & Time History History of ENT Problems?: Yes HEENT History: Positive for:: Cataracts (lens replaced) Denies:: Dysphagia Sinus Problem Hx of Heart Problems?: Yes Cardiovascular History: Positive for:: Atrial Fibrillation (rate controlled) Hypertension Irregular Heartbeat ("skips a beat once in a while") Denies:: Cardiac Surgery Chest Pain Congestive Heart Failure Edema Heart Murmur Pacemaker Thrombophlebitis Other Cardiac History: Pt intubated at this time Septic shock on pressors Hx of Respiratory Problem?: Yes Respiratory History: Positive for:: Dyspnea Denies:: Asthma COPD Chest Surgery Emphysema Hemoptysis Pneumonia Tuberculosis Other Resp Pertinent History: Pt intubated at this time possible early aspiration pneumonitis Hx Neurologic Problems?: Yes Neurological History: Positive for:: Headaches Denies:: Alzheimer's Disease CVA Dementia Dizziness Parkinson's Disease Seizures Other Neurological Pertinent: Pt intubated at this time. No family available Hx of GI Problems?: Yes Gastrointestinal History: Positive for:: Gastroesphageal Reflux Heartburn Denies:: Diverticulitis Gastrointestinal Bleeding Hepatitis Hiatal Hernia Rectal Bleeding Other GI Pertinent History: Diverticulitis with possible microperforation. C. diff colitis Hx of Problems?: Yes Genitourinary History: Positive for:: HX of Hemodialysis (secondary to renal cancer and transplantation) Urinary Tract Infection Denies:: Kidney Stones HX of Peritoneal Dialysis: No Other Pertinent History: Pt intubated at this time Male Hx: Denies:: Prostate Problems Scrotal Mass Testicular Surgery Hx Musculoskeletal Problems?: Yes Musculoskeletal History: Positive for:: Back Injury ("four bad discs") Joint Replacement (bilateral hips) Denies:: Musculoskeletal Trauma Other History/Comment Remberto Brar is a 70-year-old patient who presents to the hospital for altered mental status and respiratory failure. Orthopedics was consulted with regards to possible right shortness location. The patient is currently intubated and sedated and unable to respond to commands. The patient denies any fever, chills , nausea, vomiting, chest pain, shortness of breath, or calf tenderness. Previous treatment has included: None. Work/hobbies/sports include: None listed Hx of Psycho/Social Problems?: No Psycho Social History: Positive for:: Anxiety Hx Depression Denies:: Bipolar Disorder Suicide Attempt Other Psych Pertinent History: Pt intubated Hx Surgeries?: Yes (joint replacements, kidney transplants) Hx Any Other Health Problems?: Yes Other History: Positive for:: Cancer (renal cancer, skin cancer) Hospitalization (joint replacements, kidney transplants) Denies:: Thyroid Disease History Blood Transfusions: Positive for:: Accept Blood Products? Blood Transfusions Denies:: Blood Transfuse Reaction Hx Diabetes: NoBedside Blood Glucose: 74 Other Pertinent History: Pt intubated at this time. no family with pt. Occupation: None Hx Alcohol Use: YesHx Substance Use: No Smoking Status: Current Every Day Smoker Have You Smoked inLast 12 mo: Yes Objective Exam Vital Signs & I/O Vital Sign- Last 8 Hours Date Time Temp Pulse Resp B/P Pulse Ox O2 Delivery O2 Flow Rate FiO2 09/03/16 13:44 103 121/80 100 45 09/03/16 12:30 Ventilator 09/03/16 09:40 103 129/68 100 45 09/03/16 08:30 Ventilator Intake and Output- Last 8 Hour 09/03/16 Cumulative From/Thru 07:00 08/24/16 04:11 - 09/03/16 05:11 Intake Total 2354 ml 93765 ml Output Total 2350 ml 59359 ml Balance 4 ml 15523 ml Intake Oral 0 ml IV Total 2254 ml 79457 ml Tube Feeding 2977 ml Packed Cells 609 ml Tube Irrigant 100 ml 1103 ml Output Urine Total 2300 ml 94013 ml Stool Total 0 ml 1445 ml Gastric Drainage Total 405 ml Chest Tube Drainage Total 50 ml Drainage Total 50 ml 1180 ml # Bowel Movements 0 1 Lab & Micro Results Laboratory Tests Test 09/03/16 03:45 White Blood Count 9.3th/mm3 (3.8-10.1) Red Blood Count 3.19mil/mm3 (4.40-5.80) Hemoglobin 9.6g/dL (13.8-17.2) Hematocrit 28.3% (41.0-50.0) Mean Corpuscular Volume 88.7fL (81-100) Mean Corpuscular Hemoglobin 30.1pg (27.0-35.0) Mean Corpuscular Hemoglobin Concent 33.9% (32.0-37.0) Red Cell Distribution Width 16.6% (12.3-15.4) Platelet Count 43bil/L (150-400) Neutrophils (%) (Auto) 92.2% (40-74) Lymphocytes (%) (Auto) 3.4% (14-46) Monocytes (%) (Auto) 2.9% (4-12) Eosinophils (%) (Auto) 0.1% (0-5) Basophils (%) (Auto) 0.1% (0-3) Sodium Level 147mEq/L (134-144) Potassium Level 2.8mEq/L (3.5-5.2) Chloride Level 109mEq/L (97-108) Carbon Dioxide Level 22mmol/L (18-29) Blood Urea Nitrogen 89mg/dL (8-27) Creatinine 1.86mg/dL (0.76-1.27) Estimat Glomerular Filtration Rate 38mL/min (>59) Glucose Level 111mg/dL (60-99) Calcium Level 8.5mg/dL (8.5-10.1) Phosphorus Level 4.4mg/dL (2.5-4.9) Magnesium Level 1.5mg/dL (1.6-2.6) Total Bilirubin 0.9mg/dL (0.0-1.2) Aspartate Amino Transf (AST/SGOT) 29U/L (0-50) Alanine Aminotransferase (ALT/SGPT) 23U/L (0-44) Alkaline Phosphatase 387U/L (25-160) Total Protein 4.2g/dL (6.4-8.4) Albumin 2.8g/dL (3.4-5.0) Procalcitonin 1.35ng/mL (0.00-0.08) Microbiology 08/24/16 Blood Culture - Final, Complete Providencia Stuartii 08/24/16 Gram Stain - Final, Complete 08/24/16 Culture & Sensitivity - Final, Complete No growth. 08/24/16 Anaerobic Culture - Final, Complete No anaerobes isolated 08/28/16 Stool Occult Blood (CHRISTOPHER) - Final, Complete 08/24/16 Adenovirus DNA (PCR) - Final, Complete Not Detected 08/24/16 Coronavirus 229E PCR - Final, Complete Not Detected 08/24/16 Coronavirus HKU1 PCR - Final, Complete Not Detected 08/24/16 Coronavirus NL63 PCR - Final, Complete Not Detected 08/24/16 Coronavirus OC43 PCR - Final, Complete Not Detected 08/24/16 Influenza Type A (PCR) - Final, Complete Influenza A H3 08/24/16 Influenza Type B (PCR) - Final, Complete Not Detected 08/24/16 Human Metapneumovirus (PCR) (CHRISTOPHER) - Final, Complete Not Detected 08/24/16 Rhinovirus (PCR)(CHRISTOPHER) - Final, Complete Not Detected 08/24/16 Parainfluenza Virus Type 1 (PCR) - Final, Complete Not Detected 08/24/16 Parainfluenza Virus Type 2 (PCR) - Final, Complete Not Detected 08/24/16 Parainfluenza Virus Type 3 (PCR) - Final, Complete Not Detected 08/24/16 Parainfluenza Virus Type 4 (NAAT) - Final, Complete Not Detected 08/24/16 Respiratory Syncytial Virus (PCR)DC - Final, Complete Not Detected 08/24/16 Chlamydia pneumoniae (PCR) - Final, Complete Not Detected 08/24/16 Mycoplasma pneumoniae DNA Detection - Final, Complete 08/26/16 Urine Culture - Final, Complete No growth (<1,000 organisms/mL) Result Diagram: 09/03/16 0345 09/03/16 0345 Review of Systems: Constitutional: Negative, except as otherwise mentioned in the history above. Ophthalmologic: Negative, except as otherwise mentioned in the history above. Cardiovascular: Negative, except as otherwise mentioned in the history above. Respiratory: Negative, except as otherwise mentioned in the history above. Gastrointestinal: Negative, except as otherwise mentioned in the history above. Genitourinary: Negative, except as otherwise mentioned in the history above. Musculoskeletal: Negative, except as otherwise mentioned in the history above. Neurological: Negative, except as otherwise mentioned in the history above. Psychiatric: Negative, except as otherwise mentioned in the history above. Hematologic/Lymphatic: Negative, except as otherwise mentioned in the history above. Allergic/Immunologic: Negative, except as otherwise mentioned in the history above. H&P Surgical Exam Exam General: Other (intubated on vent) Musculoskeletal: CONST: WD,WN, intubated and sedated, not requiring to commands OCULAR: no conjunctivitis/icterus ENT: no deformities, scars or lesions CARDIAC: Pulse is regular. No cyanosis,clubbing,edema RESP: regular,unlabored MSK: Unable to assess light touch median, ulnar, radial, lateral antebrachial, axillary nerve distribution. Unable to assess AIN, PIN, u, r, ax motor. 2+ r pulse Right SHOULDER - scars, - swelling, - atrophy or asymmetry. Superficial erythema macules scattered over entire area ROM R/ L Strength/Pain Deferred -painful arc, - pain with passive stretch, - pseudoparalysis, - crepitus Signs Neer's: - Hawkin's: - Belly- Off: - O'Briens: - Apprehension: - Jerk: - Drawer: - Sulcus: - Speed's:- Yergason: - Scapular Winging: - Crossbody Adduction: - Additional Information Two-view x-ray of the right shoulder shows no acute fracture or dislocation, later lucency noted in the distal clavicle, moderate glenohumeral joint arthritis noted. H&P Preop Plan Impression Right shoulder pain, rule out possible shoulder dislocation Problems: Risks & Benefits * We have reviewed the risks and benefits as well as the alternatives to surgery. All questions were answered to the patient's satisfaction and a counseling note to that effect. The patient has provided informed consent. * I have counseled the patient regarding the deleterious effects that smoking during the perioperative period can have upon wound healing, infection rates, and the overall rate of complications. Plan Reviewed x-rays, no current shoulder dislocation noted Recommend passive and active range of motion per physical therapy Continue medical management per primary No need for sling This patient persists with shoulder pain, patient may be evaluated as an outpatient basis. Please keep the affected extremity elevated when possible. You may use ice and/or heat as needed for comfort. Please feel free to call with any further questions, comments, and/or concerns. Shekhar Hoffman MD Sep 03, 2016 14:22 Shekhar Hoffman MD Sep 03, 2016 14:22
--- NOTE | 2016-09-03 19:14 | NUR ---
Precedex Titrating Precedex, now at 0.2mcg and Fentanyl at 50mcg. Pt opening eyes but continues to not follow commands. Rate decreased to 10. Dc'd right Artline, failing. No BM. Receiving lasix, 2300cc out. Changed chest tube dressing and LLQ dressing. Bilateral arm weeping. EEG has not been evaluated by Neurology. Ortho consulted about possible right shoulder dislocation, ortho cleared pt.
--- NOTE | 2016-09-03 20:05 | PCM.PNMED ---
Subjective Date of Service Sep 03, 2016 Subjective Overnight: Nursing noted pain with movement of right shoulder, and was noted to have 'popping' sound when moved. Sling was placed. Stat XR obtained. Today: Remains intubated and minimally sedated. Grimacing noted when palpating right shoulder area. No acute distress noted at rest. BP, HR stable. Increase in HR noted when examining right shoulder. Patient is less responsive today than yesterday. However, he was under slightly more sedation today than yesterday. Exam Vital Signs Vital Sign - Last Date Time Temp Pulse Resp B/P Pulse Ox O2 Delivery O2 Flow Rate FiO2 09/03/16 17:40 103 134/84 100 45 09/03/16 16:30 Ventilator 09/03/16 03:18 36.5 13 Intake and Output 09/02/16 09/02/16 09/03/16 Cumulative From/Thru 15:00 23:00 07:00 08/24/16 04:11 - 09/03/16 05:11 Intake Total 3520 ml 1628 ml 2354 ml 35057 ml Output Total 2100 ml 2250 ml 2350 ml 89858 ml Balance 1420 ml -622 ml 4 ml 96476 ml Intake Oral 0 ml IV Total 2326 ml 1628 ml 2254 ml 51958 ml Tube Feeding 994 ml 2977 ml Packed Cells 609 ml Tube Irrigant 200 ml 100 ml 1103 ml Output Urine Total 1950 ml 2200 ml 2300 ml 94474 ml Stool Total 0 ml 0 ml 1445 ml Gastric Drainage Total 405 ml Chest Tube Drainage Total 50 ml 50 ml Drainage Total 150 ml 50 ml 1180 ml # Bowel Movements 0 1 Exam General: Intubated and minimally sedated; no acute distress; eyes open, not following commands Skin: Patient has ecchymoses on the back and various areas of his extremities with poor skin turgor and subcutaneous edema. HENT: Atraumatic; sclera anicteric; ETT in place; mucus membranes moist Neck: Soft, obese Cardiac: Regular rate at time of examination; no murmurs appreciated Respiratory: Adequate air flow all jama; faint coarse sounds appreciated; difficult to appreciate secondary to habitus Chest: Right chest tube in place and secured Abdomen: Soft, nondistended; ileostomy bag secured on right with drain in place for irrigation; minimal output noted Extremities: Mild edema bilateral lower extremities; Right shoulder tender to palpation, notable abnormality of joint, appearance of anteriorly dislocated humeral head early this morning however later in the day it appeared to have popped back into place.; asymmetric shoulder examination Pulses: Radial equal and bilateral Skin: Warm, dry; scaly and dry Neuro: Cannot obtain full assessment secondary to sedation and intubation Psych: Cannot fully obtain secondary to sedation and intubation Lab and Diagnostics Result Diagram: 09/03/1634409/03/16344 Microbiology See numerous microbiology lab reports. X-Rays, CTs and MRIs PROCEDURE: X-RAY RIGHT SHOULDER, MINIMUM TWO VIEWS ([id number]) INDICATIONS: dislocation TECHNIQUE: 3 views of the shoulder were acquired. COMPARISON: [facility], CR, XR SHOULDER MIN 2VW RT, 09/02/2016, 23: 46. [facility], CR, XR CHEST 1VW (PORTABLE), 09/02/2016, 3:22. FINDINGS: Bones: Linear lucency is present extending to the distal clavicle. There is acromioclavicular and glenohumeral joint degeneration. Soft tissues: No suspicious soft tissue calcifications. IMPRESSION: 1. Linear lucency extending through the distal clavicle which could be related to clavicular fracture. Correlate to point tenderness. If indicated clavicle series could be performed. Dictated by: Carter Apple [facility] Interpreted: Maryan Villagomez MD on 09/03/2016 at 13:33 Transcribed by: RICHY on 09/03/2016 at 13:34 Approved by: Maryan Villagomez M.D. on 09/03/2016 at 15:42 PROCEDURE: X-RAY CHEST ONE VIEW, PORTABLE ([id number]) INDICATIONS: intubated TECHNIQUE: One view of the chest was acquired. COMPARISON: [facility], CR, XR CHEST 1VW (PORTABLE), 09/02/2016, 3: 22. FINDINGS: Surgical changes and devices: Stable position of ETT, nasogastric tube, right IJ CVL and right pleural drain. Lungs and pleura: Mid/basilar airspace opacities redemonstrated similar prior examination. Small bibasilar pleural effusions also unchanged. No pneumothorax. Mediastinum: Mediastinal contours appear normal. Heart size is normal. Bones and chest wall: No suspicious bony lesions. Overlying soft tissues appear unremarkable. IMPRESSION: Stable chest x-ray. Dictated by: Carter Apple RRA Interpreted: Rich Romero MD on 09/03/2016 at 10:39 Transcribed by: ERICA on 09/03/2016 at 10:40 Approved by: Rich Romero M.D. on 09/03/2016 at 12:37 Cardiac Echo Impressions Echocardiogram Report Name: NINA BRAR RStudy Date: 08/24/2016 Height: 67 in Hospital Exam Location: [facility] Weight: 174 lb Gender: Male BSA: 1.9 m2 : 1945 Age: 70 yrs BP: 138/78 mmHg Reason For Study: EVAL VENTRICULAR FUNCTION/VALVES Ordering Physician: HOSPITALIST [facility] Performed By: Elsy babin Referring Physician: DR. TOMMY LOZANO, DR. Juliana MORRIS Interpretation Summary Afib with RVR. Normal LV size; moderate concentric LVH; normal wall motion and LV systolic function. EF is 60-65%. Moderate MAC; mitral valve leaflets are normal; there is mild MR. Aortic valve leaflets are normal; there is mild AI. There is mild TR; estimated PA systolic pressure is 35 mm Hg assuming RA pressure of 10 mm Hg. Compared to prior study performed 07/05/2016 afib is newly described. Heart rate is faster (up from 105 bpm to around 120 bpm). Otherwise no changes have occurredx. Assessment & Plan Mr. 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 difficile, suspected colonic microperforation, and/or UTI. He was admitted for evaluation and treatment of septic shock secondary to reasons discussed, acute hypoxemic respiratory failure, and acute on chronic kidney disease. - Hospital day 11 - Ventilator day 11 - POD 10: loop ileostomy - POD 6: Chest tube Acute hypoxemic respiratory failure, present on admission. Ongoing - Secondary to septic shock - Remains intubated and sedated - Utilize precedex + seroquel. Would recommend increase drug holidays to assess patient's neurological status. As patient clearly stated in previous by mouth as well as POLST form that he did not want life support if his mental capacity was compromised. - Pulmonary/ICU consulted; appreciate time and recommendations Right shoulder pain, acute, not known to be present on admission. Ongoing - Grimacing noted with right shoulder movement - Reports of dislocation 09/03 - XR right shoulder 09/03: Linear lucency extending through the distal clavicle which could be related to clavicular fracture. - Ortho consulted; appreciated time and recs: No dislocation found; no interventions; no sling necessary; continue PT - Monitor at this time Patient had acute blood loss Anemia, acute, present on admission. Currently stable - Normocytic, normochromic - Drop in Hb noted 08/27 to 7.2; repeat 6.5 - s/p 2U pRBC 08/27 - Guaiac stat 08/28: POSITIVE - CT brain 08/28: No acute abnormalities - CT C/A/P 08/28: Moderate b/l pleural effusions and bibasilar consolidations; small right PTX; anasarca - Transfuse threshold Hb 7.0; monitor daily Septic shock with encephalopathy, acute, present on admission. Ongoing - On admit: WBC 18.2, HR 138; LA 2.3 + reported AMS - Treat underlying cause(s) - Awaiting 09/01 EEG results - Keep sedation at minimum to evaluate neuro status; appears to be improving Septicemia, acute, present on admission. Under therapy with improvements - Blood Cx 08/24: + Klebsiella oxytoca, Providencia stuartii - Abx: Ertapenem: Stop date 09/08 - ID has been consulted, appreciate time and recommendations - Monitor labs, PCT Hypokalemia, acute, not present on admission. Under therapy - Likely secondary to decreased renal function and need for increased diuretics - 08/31: K 2.9 - D1/2 + K @80 per nephro Right sided pneumothorax, acute, unknown chronicity. Monitor - CT C/A/P with small R PTX - Chest tube placed 08/28 - Monitor - May need to remain until extubation Acute on chronic kidney disease, present on admission. Stable, with improvement - On admit: Cr 2.98; baseline reported to be approx 2 - Avoid nephrotoxic meds when possible - Nephrology has been consulted, appreciate time and recs - Oliguric; Bumex IV x2 doses completed 08/28 - Albumin stop date 08/29 - Lasix 60mg IV BID UTI, acute, present on admission. Under evaluation - On admit: UA + nitrite, moderate leuk est, + WBC, with many bacteria - Repeat UA 08/26: Cloudy, mod LE, > 50 WBC, mod bacteria - UCx: + Klebsiella, + Proteus - ID as above Suspected C. difficile infection with resultant sepsis, acute, present on admission. Under investigation - Recent stool PCR July 2016 + C. diff - Stool PCR 08/25: + C. diff, + norovirus - Difficult to discern if active infection as C. diff PCR can remain positive as long as one year - S/p loop ileostomy placement 08/24 with irrigation drain - Tx: Vancomycin irrigation through ileostomy per general surgery + Florastor - General surgery following; appreciate time and recommendations; recommend approx 10d course of irrigation - Irrigation start date: 08/24--> Continue irrigation x10 days after stop date of ertapenem - Precautions in place - ID consulted, as noted above Thrombocytopenia, acute, not present on admission. Ongoing - On admit: Plt 239; 09/03 43 - Consideration of plt transfusion, 6-pack/1 unit - HIT panel negative - Monitor platelets; if improved 09/04, consider re-initiation of heparin SQ Hypocalcemia, acute, not present on admission. Resolved - Initially corrected with decreased albumin - Monitor Influenza A H3 infection, acute, present on admission. Treated - Peramivir completed Suspected LLL PNA, acute, present on admission. Stable - Likely secondary to influenza, noted above - Monitor with CXR, labs, PCT History of renal transplant and long-term immunosuppression, chronic. Presumed stable - Holding cyclosporine and CellCept- Nephro to resume in coming days - Nephro consulted, as noted above Suspected adrenal insufficiency, chronic. 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 Counseling could not be completed, as patient is intubated and sedated. Dispo: Likely to remain >2 days, as he remains intubated and sedated. Will likely return to [facility] when stable for DC, if survives hospitalization. Abx needs at DC are uncertain at this time, will keep PHYSICAL LABORATORY ASSISTANT updated on any needs for continued IV abx at DC, DC timeline quite uncertain at this time. Patient appears to be slowly improving. Mental status is of utmost importance, and what he values most in his recovery. Pain Evaluation: Adequate Pain Control GI Prophylaxis: H2 mary ann VTE Prophylaxis: Sub-Q Heparin (Unfractionated) VTE Mechanical Devices: Intermittant Pneumatic CD Resuscitation Status: CPR: Attempt Resuscitation Attending Statement Patient seen and examined. Patient's case discussed with Dr. Promise Boyd at length. Chart reviewed and I agree with the above note. Maude Boyd DO Sep 03, 2016 20:05 Shekhar Reyes MD Sep 03, 2016 20:29
[2016-09-04] VITALS (12 sets, daily range): BP systolic 87–135; BP diastolic 52–86; PULSE 95–121; RESP 10–14; O2SAT 92–100
[2016-09-04 00:29] LABS: Magnesium 2.1 mg/dL (1.6-2.6)
[2016-09-04] MEDS ORDERED: 0.9% Sodium Chloride 250 ML ONE (01:29)
[2016-09-04] MEDS: 0.9% NaCl + KCl 20 mEq/L 1,000 ML IV SCH ×2 (01:44→14:43)
[2016-09-04] MEDS ORDERED: KCl 40 mEq/100 mL IV Premix (K < 3 & Creat 2.1 - 2.9) IV ONE (01:45)
[2016-09-04] MEDS: Chlorhexidine 0.12% 15 mL Oral Solution MT SCH ×5 (04:13→20:35)
[2016-09-04] MEDS: VANCOMYCIN IRRIGATION SCH ×3 (04:14→20:34)
[2016-09-04] MEDS: LACTATED RINGER S IRRIGATION SCH ×3 (04:14→20:34)
[2016-09-04 06:03] LABS: BASOPHILS % (AUTO) 0.2 % (0-3); EOSINOPHILS % (AUTO) 0.6 % (0-5); MONOCYTES % (AUTO) 2.1 % (4-12); Mean Corpuscular Hemoglobin 29.8 pg (27.0-35.0); Mean Corpuscular Volume 89.9 fL (81-100); Platelet Count 45 bil/L (150-400)
[2016-09-04] MEDS: Dexmedetomidine 400 mCg/100 mL 400 MCG in IV Premix 1 EACH IV SCH (06:23)
--- NOTE | 2016-09-04 06:39 | NUR ---
P) Temp/Respiratory/LOC Pt. cold tonight, tried to warm with warm blankets without success, T 35.8c Axillary. Lungs with coarse breath sounds L>R, productive cough with clear to whitish phlegm, opens eyes and appears to be trying to track occasionally, does not follow any commands, does move feet when they are being washed but no movement of hands, arms or legs noted. I) Bear hugger applied for warming, turning q2h and floating heels, cont. rotation. E) Resting quietly between care.
[2016-09-04] MEDS ORDERED: Hydrocortisone 50 mg/mL 2 mL Inj IVPUSH SCH (08:30)
[2016-09-04] MEDS: Furosemide 10 mg/mL 10 mL Inj IVPUSH SCH (08:30)
[2016-09-04 08:34] LABS: Phosphorus 4.2 mg/dL (2.5-4.9)
--- NOTE | 2016-09-04 08:48 | DRSVH ---
PROCEDURE: X-RAY CHEST ONE VIEW, PORTABLE ([id number]) INDICATIONS: intubated TECHNIQUE: One view of the chest was acquired. COMPARISON: [facility], CR, XR CHEST 1VW (PORTABLE), 09/03/2016, 4:47. [facility], CR, XR SHOULDER MIN 2VW RT, 09/03/2016, 11:51. FINDINGS: Surgical changes and devices: Stable position of ETT, nasogastric tube, right IJ CVL and right pleura l drain. Lungs and pleura: Mid/basilar airspace opacities redemonstrated similar prior examination. Small bib asilar pleural effusions also unchanged. No pneumothorax. Mediastinum: Mediastinal contours appear normal. Heart size is normal. Bones and chest wall: No suspicious bony lesions. Overlying soft tissues appear unremarkable. IMPRESSION: Stable chest compared to the last examination. Dictated by: Carter Apple RRA Interpreted: Rich Romero MD on 09/04/2016 at 8:46 Transcribed by: ERICA on 09/04/2016 at 8:47 Approved by: Rich Romero M.D. on 09/04/2016 at 9:05
[2016-09-04] MEDS: Sodium Chloride LOK Flush 10 mL Syringe IVFLUSH PRN ×2 (09:00→09:01)
[2016-09-04] MEDS: Ertapenem Inj 500 MG in 0.9% Sodium Chloride 50 ML IV SCH (09:00)
[2016-09-04] MEDS ORDERED: 0.9% Sodium Chloride 500 ML IV ONE ×2 (09:00→11:30)
[2016-09-04] MEDS: Pantoprazole 4 mg/mL 10 mL Inj IVPUSH SCH ×2 (09:16→17:45)
[2016-09-04] MEDS ORDERED: Meropenem Inj 1,000 MG in IV Premix 1 EACH IV SCH (09:30)
--- NOTE | 2016-09-04 09:53 | PCM.PNMED ---
Subjective Date of Service Sep 04, 2016 Subjective From a renal point of view the patient's creatinine is improving however his creatinine nitrogen has gone up. Last 24 hours he has had 4416 in and 4650 out. His blood pressures been somewhat labile and there is a strong suspicion that he may be developing another infection and septic picture. I have had a long discussion with the ICU team concerning the patient's care. In light of his hypotension and probable sepsis I feel at 500 mL bolus of normal saline is a reasonable trial and see if he has a response with his blood pressure. Exam Vital Signs Vital Sign - Last Date Time Temp Pulse Resp B/P Pulse Ox O2 Delivery O2 Flow Rate FiO2 09/04/16 07:58 96 87/53 100 45 09/04/16 04:00 35.8 12 Mechanical Ventilator Intake and Output 09/03/16 09/03/16 09/04/16 Cumulative From/Thru 15:00 23:00 07:00 08/24/16 04:11 - 09/04/16 06:31 Intake Total 2062 ml 3043 ml 79286 ml Output Total 2300 ml 1430 ml 69213 ml Balance -238 ml 1613 ml 97631 ml Intake Oral 0 ml IV Total 2062 ml 2278 ml 75206 ml Tube Feeding 615 ml 3592 ml Packed Cells 609 ml Tube Irrigant 150 ml 1253 ml Output Urine Total 2300 ml 1350 ml 27291 ml Stool Total 1445 ml Gastric Drainage Total 405 ml Chest Tube Drainage Total 50 ml Drainage Total 50 ml 1230 ml Other 30 ml 30 ml # Bowel Movements 1 Exam She remains sedated and on a ventilator. HEENT examination is remarkable for pale sclera and what appears to be some scleral icterus however his liver function studies are normal. Lungs showed scattered rhonchi and index expiratory wheezes more pronounced on the left as compared to the right. Heart is regular rhythmic with a soft systolic murmur. Timentin has tympany to percussion but no tenderness noted. His bowel sounds are diminished. Extremities showed some mild generalized edema which I feel may be more due to leaky capillaries. Lab and Diagnostics Result Diagram: 09/04/1653909/04/16539 Microbiology See numerous microbiology lab reports. X-Rays, CTs and MRIs PROCEDURE: X-RAY RIGHT SHOULDER, MINIMUM TWO VIEWS ([id number]) INDICATIONS: dislocation TECHNIQUE: 3 views of the shoulder were acquired. COMPARISON: [facility], CR, XR SHOULDER MIN 2VW RT, 09/02/2016, 23: 46. [facility], CR, XR CHEST 1VW (PORTABLE), 09/02/2016, 3:22. FINDINGS: Bones: Linear lucency is present extending to the distal clavicle. There is acromioclavicular and glenohumeral joint degeneration. Soft tissues: No suspicious soft tissue calcifications. IMPRESSION: 1. Linear lucency extending through the distal clavicle which could be related to clavicular fracture. Correlate to point tenderness. If indicated clavicle series could be performed. Dictated by: Carter FELTON Interpreted: Maryan Villagomez MD on 09/03/2016 at 13:33 Transcribed by: RICHY on 09/03/2016 at 13:34 Approved by: Maryan Villagomez M.D. on 09/03/2016 at 15:42 PROCEDURE: X-RAY CHEST ONE VIEW, PORTABLE ([id number]) INDICATIONS: intubated TECHNIQUE: One view of the chest was acquired. COMPARISON: [facility], CR, XR CHEST 1VW (PORTABLE), 09/02/2016, 3: 22. FINDINGS: Surgical changes and devices: Stable position of ETT, nasogastric tube, right IJ CVL and right pleural drain. Lungs and pleura: Mid/basilar airspace opacities redemonstrated similar prior examination. Small bibasilar pleural effusions also unchanged. No pneumothorax. Mediastinum: Mediastinal contours appear normal. Heart size is normal. Bones and chest wall: No suspicious bony lesions. Overlying soft tissues appear unremarkable. IMPRESSION: Stable chest x-ray. Dictated by: Carter FELTON Interpreted: Rich Romero MD on 09/03/2016 at 10:39 Transcribed by: ERICA on 09/03/2016 at 10:40 Approved by: Rich Romero M.D. on 09/03/2016 at 12:37 Cardiac Echo Impressions Echocardiogram Report Name: NINA VALENTIN RStudy Date: 08/24/2016 Height: 67 in Hospital Exam Location: [facility] Weight: 174 lb Gender: Male BSA: 1.9 m2 : 1945 Age: 70 yrs BP: 138/78 mmHg Reason For Study: EVAL VENTRICULAR FUNCTION/VALVES Ordering Physician: HOSPITALIST [facility] Performed By: Elsy babin Referring Physician: DR. TOMMY LOZANO, DR. Juliana MORRIS Interpretation Summary Afib with RVR. Normal LV size; moderate concentric LVH; normal wall motion and LV systolic function. EF is 60-65%. Moderate MAC; mitral valve leaflets are normal; there is mild MR. Aortic valve leaflets are normal; there is mild AI. There is mild TR; estimated PA systolic pressure is 35 mm Hg assuming RA pressure of 10 mm Hg. Compared to prior study performed 07/05/2016 afib is newly described. Heart rate is faster (up from 105 bpm to around 120 bpm). Otherwise no changes have occurredx. Assessment & Plan Impression #1 acute on chronic kidney injury secondary to C. difficile colitis, sepsis, and intravascular volume depletion. #2 prerenal azotemia most likely due to contribution of hydrocortisone and probable sepsis #3 hypokalemia number for hypomagnesemia Recommendations #1 is detailed above would like to give him a trial of 500 saline and see his blood pressure response. Obviously we need to replace his potassium and his magnesium. I feel that the outlook is poor with this unfortunate patient. We will hold his immunosuppressives for 1-2 days until he is more stable. GI Prophylaxis: H2 mary ann VTE Prophylaxis: Sub-Q Heparin (Unfractionated) VTE Mechanical Devices: Intermittant Pneumatic CD Resuscitation Status: CPR: Attempt Resuscitation Tommy Marcos DO Sep 04, 2016 09:53
[2016-09-04 10:04] LABS: APPEARANCE,URINE CLEAR (CLEAR,HAZY); COLOR,URINE YELLOW (YELLOW); OCCULT BLOOD,URINE NEGATIVE (NEGATIVE); UROBILINOGEN,URINE NORMAL (NORMAL)
[2016-09-04] MEDS ORDERED: Potassium Chloride 40 mEq/100 mL Premix IV ONE (10:22)
--- NOTE | 2016-09-04 10:23 | PROCED ---
[address] [address] EEG PATIENT: NINA VALENTIN : 1945 MR#: [id number] ADMIT: 08/24/2016 JOB ID: [id number] DATE: 09/01/2016 HISTORY: The patient is a 70-year-old man with altered mental status. TECHNICAL DESCRIPTION: This digital EEG was recorded using 25 scalp and ear, and two EKG electrodes. It was reviewed in bipolar and referential montages following reformatting in the [employer] System. During the recording, the patient was noted to be comatose. This EEG is characterized by polymorphic mixture of delta and occasionally faster frequencies into the theta range, but predominantly delta with generalized slowing. The generalized delta waves do appear to occur in triphasic patterns at times. No clear posterior dominant rhythm. There appeared to be abundant myogenic and movement artifact. There was no significant change in the electrocardiogram associated with attempts at arousal including calling patient's name, clapping near the left ear, deep pressure of the left index finger, although there appeared to be myogenic and movement artifact. These activities did not result in any clear electrocortical change. This study was limited by abundant myogenic and movement artifact. The EKG rhythm strip revealed a heart rate of 60-120 beats per minute with occasional premature ventricular complexes. IMPRESSION: This electroencephalogram performed in the comatose state is abnormal. It is suggestive of moderate cerebrocortical dysfunction/encephalopathy. This may be seen in a wide variety of different clinical conditions, including toxic, metabolic, hypoxic, inflammatory, autoimmune and infectious states. It may also be seen in the setting of certain sedating medications. Given the intermittent premature ventricular complexes, if clinically indicated, consider a 12-lead electrocardiogram. Consider a repeat EEG off all sedatives if possible. Clinical correlation is advised. MTDD
--- NOTE | 2016-09-04 10:24 | PROG NOTE ---
[address] [address] PROGRESS NOTE PATIENT: NINA VALENTIN : 1945 MR#: [id number] ADMIT: 08/24/2016 JOB ID: [id number] DATE: 09/04/2016 INTERVAL HISTORY: Overnight, things have worsened substantially for this patient. Recall that he has been in the ICU with a polymicrobial gram-negative sepsis, as well as C. difficile colitis and possibly influenza. He has been quite ill for 11 full days on the ventilator but was starting to show some improvement over the past couple of days, though was still not ready to be extubated. Yesterday and during the night, however, he developed hypotension, which has required multiple fluid boluses, and vasopressor agents are being considered this morning. In addition, his white count bumped and his mental status, which had been quite fragile in that he was just marginally awake on the ventilator, has declined and to the point he is no longer responsive. This case was discussed extensively on ICU rounds this morning, and I have discussed it individually with the ICU attending, as well as the Yellow team attending, Dr. Reyes, and the blending machine feeder, Dr. Marcos. In reviewing the patient's meds it looks like he was switched from hydrocortisone 50 q.8 h. replacement yesterday to q.24 h. and therefore, has gone without this medicine for 24 hours. Recall that this patient has been on steroids for renal transplant immune suppression for a very extended period of time prior to this occasion, and I wonder if this may play some role in his hypotension. In discussing the case with the nurses, there has been no apparent change in the condition of his central line nor his respiratory secretions. His ventilatory status has been stable. PHYSICAL EXAMINATION: Reveals an afebrile gentleman, who is actually hypothermic. Temp 35.8, pulse 96, blood pressure 87/53 and currently 78/40 at the exact time I examined him. He is on 45% and 5 of PEEP and still saturating very well. His eyes are rolled back today and he does not track, follow, or appear to be aware. He has no conjunctival or scleral abnormalities. His sinuses appear to be nontender. Oral cavity with endotracheal tube and orogastric tube. Right neck IJ appears benign, though there is some blood into the dressing. No cervical adenopathy is noted. His neck is supple. Lungs with scattered crackles at the bases but not impressive. Cardiac tones irregularly irregular and on the monitor, he clearly has AFib. His abdomen is slightly distended. The ileal loop is still present and being flushed with vancomycin. The patient's scrotum has been progressively enlarging and is now quite huge. The scrotum is tender and that is the only reaction I get from the patient which is with manipulation and examination of the scrotum but there is no skin breakdown or obvious cellulitis. A Richey catheter is present. The patient's extremities are cool. There are three about 1 cm circular areas of a dried, flaky skin which could be consistent with ring worm or cutaneous fungal process on his right lower extremity. A chest tube is present on the right and appears benign. LABORATORIES: Include white count which has jumped overnight to 13,000 and 94% segs. His creatinine is actually the best it has been during his whole hospital stay at 1.7 and that is actually better than his baseline, incredibly. BUN 91. LFT normal, except an alk phos of 348. Recall this patient does not have a gallbladder. Albumin 2.5. Procalcitonin continues to steadily decline from a peak of 71, now down to 1.1, and that is probably consistent with his degree of renal insufficiency. Micro studies include a single blood culture that was just drawn this morning because of his hypotension. Review of all prior culture shows nothing new. We have C. diff in the stool, as well as influenza A in sputum from admission, and providencia and klebsiella in the blood cultures from admission, as well as klebsiella and proteus in urine. IMAGING: Today shows a chest x-ray, which is basically stable compared to prior though, and that is the radiologist's reading, though I think there may be a little bit more infiltrate at the left base but certainly not too impressive. IMPRESSION: This patient has taken a turn for the worse overnight. There are many possible sources of superinfection here including a central line. The possibility of a nosocomial pancreatitis, possibility of fungemia especially with the rather fungal-looking lesions on his right leg, nosocomial urinary tract infection, or nosocomial pneumonia. All of these will need to be worked up and will need to broaden his antibiotics, but I think what has really happened was his steroids were tapered too fast and produced shock. Arguing against an infection is the fact his procalcitonin and renal function continue to improve. Acalculous cholecystitis is not a possibility, as he does not have a gallbladder but I think, most likely, this is a too rapid tapering of steroids resulting in shock. Until that is proven, however, we must continue to aggressively work him up for nosocomial infection and treat him accordingly. RECOMMENDATIONS: 1. I have discussed this case with the ICU pharmacist, as well as Dr. Reyes, and we are going to be moving up his steroid dose immediately. 2. The patient will be receiving fluid boluses and if that is unsuccessful, vasopressor agents will be started. 3. I have ordered fungal blood cultures to be drawn through the line, as well as serum lipase, and sputum Gram stain and culture. 4. Urinalysis with culture could reasonably be ordered but I think this will be of low yield. 5. Will stop the ertapenem the patient has been receiving which I think has been highly successful for his gram-negative bacteremia treatment, and switch to daptomycin, meropenem and micafungin. 6. My plan would be to continue with these broad antibiotics for about 48 hours. If all of our followup cultures are negative and the blood pressure returns abruptly to normal with reinstitution of prior steroid dosing, then we can just stop all the antibiotics again, as I think he is nearing the point where we might reasonably think about stopping antibiotics anyway, as his polymicrobial gram-negative bacteremia has been adequately treated.
[2016-09-04] MEDS ORDERED: KCl 40 mEq/100 mL (CENTRAL) 40 MEQ in IV Premix 1 EACH IV ONE (10:25)
[2016-09-04] MEDS ORDERED: Hydrocortisone 50 mg/mL 2 mL Inj IVPUSH ONE (10:50)
--- NOTE | 2016-09-04 10:56 | PCM.PNMED ---
Subjective Date of Service Sep 04, 2016 Subjective Overnight patient remained somnolent on Precedex. He has more week couple days ago. This morning pressure started to drop with map of 55. Yesterday he is unclear whether the steroids were decreased. Patient's white count is increasing, however pro calcitonin is decreasing. Numerous electrolyte abnormalities. Creatinine and kidney function seems to be improving. Patient was putting out approximate 1400 mL from his chest tube assist red serosanguineous fluid Exam Vital Signs Vital Sign - Last Date Time Temp Pulse Resp B/P Pulse Ox O2 Delivery O2 Flow Rate FiO2 09/04/16 08:00 37.0 98 11 89/52 94 Mechanical Ventilator 45 Intake and Output 09/03/16 09/03/16 09/04/16 Cumulative From/Thru 15:00 23:00 07:00 08/24/16 04:11 - 09/04/16 06:31 Intake Total 2062 ml 3043 ml 38618 ml Output Total 2300 ml 1430 ml 52271 ml Balance -238 ml 1613 ml 11684 ml Intake Oral 0 ml IV Total 2062 ml 2278 ml 69279 ml Tube Feeding 615 ml 3592 ml Packed Cells 609 ml Tube Irrigant 150 ml 1253 ml Output Urine Total 2300 ml 1350 ml 51310 ml Stool Total 1445 ml Gastric Drainage Total 405 ml Chest Tube Drainage Total 50 ml Drainage Total 50 ml 1230 ml Other 30 ml 30 ml # Bowel Movements 1 Exam General: Intubated; more somnolent compared to yesterday HENT: ETT in place; mucus membranes moist Neck: Soft, obese Cardiac: Regular rate at time of examination; no murmurs appreciated Respiratory: Adequate air flow all jama; breath sounds are greater on right than left Chest: Right chest tube in place and secured with 1400 mL Pleur-evac Abdomen: Nondistended, patient states nontender, ostomy looks clean Extremities: No edema in the lower extremities although there is swelling in the upper extremities. Questionable dislocation of the shoulder seems to occur when patient has moved or rolled. Erythematous rings were noted on the right lower extremity this morning. Each is about the size of a quarter. Pulses: Radial equal and bilateral Skin: Warm, dry; scaly and dry Neuro: Patient is drowsy and not following commands. Psych: Cannot obtain secondary to intubation IVs and Medications Medications Reviewed: Medications were reviewed in detail Lab and Diagnostics Result Diagram: 09/04/1640 09/04/16539 Microbiology See numerous microbiology lab reports. Assessment & Plan 1. Acute hypoxic respiratory failure 2. Encephalopathy 3. Septic shock 4. Chronic kidney disease status post renal transplant 3 5. Recurrent C. difficile colitis 6. Bilateral lower lobe pneumonia 7. Right pneumothorax status post chest tube Neuro: Patient remains somnolent and appears to become more somnolent. This could be due to sepsis or due to weaning of steroids. We will drop the fentanyl and the Precedex today and attempt to agitate and weight the patient. Willing control pain as necessary without sedating the patient. Cardio: Patient's blood pressures again became labile today. Maps in the 50s. Attempts to waken agitate the patient before restarting on pressors. This could be likely due to worsening sepsis possibly with a new pseudomonas versus acute withdrawal of steroids. Patient was previously weaned down on steroids postop to once a day yesterday as discussed in yesterday's note. We will restart the patient had 50 mg of Solu-Cortef 3 times a day with an initial dose of 100 mg IV. Respiratory: Chest x-ray remains the same as it has over the last week. Still has bilateral consolidations. Pro-calcitonin is decreasing but white count is increasing. Sputum cultures were ordered today to assess for pseudomonas. Since patient is awake we will assess her spontaneous breathing trial yet again. Renal: Nephrology is following. Due to hypotension Lasix was stopped today. Patient also given some fluid is it appears the patient may be intravascularly depleted despite having a recorded net of 24 L since admission. Patient given 500 mL bolus will assess. Infection: Patient appears to be feeling more septic versus adrenal insufficiency. White count is increasing pro-calcitonin is decreasing chest x- ray continues to be equivocal to what it has been over the last week. Sputum culture and blood cultures ordered again today. Blood cultures to be drawn peripherally and through central lines. Patient also possibly has some fungal infection of the right lower extremity presenting as round erythematous with clear center about the size of a quarter. Nutrition: Currently at tube feed goals. Albumin is 2.5. GI: Patient still has FMS and ileostomy with some output although this is less than expected. Last abdominal x-ray showed a distended stomach. Surgery following. Currently at tube feed goals . Disposition: We will wait for the patient weight And Assess Him for sbt. Overall He Is about the Same As It Was Earlier in the Week, Possibly Worse with Mentation Again Decreasing Blood Pressures Become More Labile. Suspect That This Is Related to Both Possible New Infection Versus adrenal insufficiency. We will reassess a day. Time spent: 1.5 hours GI Prophylaxis: H2 mary ann VTE Prophylaxis: Sub-Q Heparin (Unfractionated) VTE Mechanical Devices: Intermittant Pneumatic CD Resuscitation Status: CPR: Attempt Resuscitation Attending Statement The patient was seen and examined together with Dr. Harvey on 09/04/2016 and I agree with the history, exam and plan as outlined in the note above. Slade Harvey DO Sep 04, 2016 10:56 Baljeet Torres MD Oct 01, 2016 10:31
[2016-09-04] MEDS: DAPTOmycin Inj 600 MG in 0.9% Sodium Chloride 50 ML IV SCH (10:59)
--- NOTE | 2016-09-04 11:03 | PCM.PALLBR ---
Palliative Care Recommendation Summary of palliative recommendations: Of note, on 09/04, He is not on any vasopressors and on 09/01 his designated decision makers, his sisters Rolanda and Stephany met with Palliative care and decided that if his blood pressure went down again, they did not want him to go back on pressors, but think about transitioning to comfort care. They are trying to follow the guidelines of his 07/25/[address] Crum spoke to Rolanda by telephone 09/04. She and her sister plan to come visit tomorrow Tuesday 09/05 to get a medical update from the team. No appointment time set for a meeting yet. 1. Pt previously seen by Palliative Care team on Jul 25, 2016 to clarify goals as he had had frequent admits (12/2015, 02/2016, 04/2016, 06/2016, and Jul 2016 admission). Case discussed extensively in CCU rounds this morning. 2. At that time, we completed a POLST 3. Current Code: Limited interventions per meeting with sisters on 09/01. 4. The Patient completed a POLST 07/25/[address] Crum. Ay that time, he confirmed his wish to be FULL code with all interventions. He also stated that it is important to him that he is not kept alive on machines if his brain is no longer awake and able to interact meaningfully with others. He values having a good brain. 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 He is content to be restricted to a wheelchair, but would abhor needing to be fed by others or fed (permanently) by a tube. 5.HCPOA: no prior paperwork. He has a good relationship with his sisters, but doesn't really want to pick one of them to be HCPOA. He would rather they follow his directives on a POLST and act as advisors to a medical team, using the POLST he signed 07/25/2016. 6. Capacity?: Patient is not capacitated to make his health care decision due to severe illness, therefore his sisters must look to his directive and make decisions based on what his stated wishes were. 09/01 Family Conference Team Meeting (FCTM): Held with Dr. Crum, and his two sisters Rolanda and Stephany. Dr. Eric joined us mid-discussion. 1. Dr. Crum gave each sister a copy of Jul 2016 POLST that patient filled out with Dr. Crum when he was capacitated. We discussed his wishes at length. 2. Both sisters are worried that he may not survive this illness with his brain returning to his baseline. They fondly recall his intellect, his tendency to plan ahead, how he always had his bills paid on time electronically using his computer and his fierce independence, despite dealing with chronic illness. They have each spent time in the past, helping him at home when he was recuperating after past hospitalizations. 3. Sisters are in agreement that they will follow advise from providers about brother's mental status once he is off sedation. In the meantime, though, they ask that if he suddenly declines that we do not escalate care with pressors. Please call them urgently if medical/nursing team thinks he is dying. They would both like to be at bedside. Family/emotional support: Rolanda Rushing (sister) at [phone] or [phone] and Maida Delarosa (sister) at [phone] Patient's prior stated goals (in his own words on Jul 25 2016): 1. It is important to him that he is not kept alive on machines if his brain is no longer awake and able to interact meaningfully with others. He values having a good brain. 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 2. He would be content to be restricted to a wheelchair, but would abhor needing to be fed by others or fed (permanently) by a tube. Additional Medical Diagnoses with primary management by Hospitalist team include : 1. Acute hypoxic respiratory failure 2. Encephalopathy 3. Septic shock 4. Chronic kidney disease status post renal transplant 3 5. Recurrent C. difficile colitis 6. Bilateral lower lobe pneumonia 7. Right pneumothorax status post chest tube Problems: Resuscitation Status Resuscitation Status: CPR: Attempt Resuscitation POLST Updates/Changes Previous POLST?: Yes POLST Last Review Date: Sep 01, 2016 POLST Discussed with: Spouse/Other (two sisters who are now his designated decision makers as he is not capacitated) POLST Review Outcome: No Change . Symptom management: Dyspnea Total time 35 minutes; >50% face to face with patient and/or family, providing counselling regarding plans and recommendations, and in care coordination with his/her medical teams. Palliative Brief Note Date of Service Sep 04, 2016 . History of Present Illness Mr. Brar is a 70 year old gentleman with a complex medical history including a reported x3 renal transplants, recipient of chronic immunosuppressants and snf glucocorticoid use, in addition to numerous hip replacements, that was found to be confused at [facility], and was intubated secondary to presumed acute hypercarbic respiratory failure resulting from septic shock likely thought to be due to C. difficile, suspected colonic microperforation, and/or UTI. He was admitted for evaluation and treatment of septic shock secondary to reasons discussed, acute hypoxemic respiratory failure, and acute on chronic kidney disease. Hospital Course: Today is Hospital day 12, Ventilator day 12, POD 11 s/p loop ileostomy, POD 7 chest tube placement for R pneumothorax. His clinical situation was discussed extensively in CCU rounds today with Pulmonary [employer] Professional, RT, ID and Attending Dr. Reyes. He is not on any vasopressors and on 09/01 his designated decision makers, his sisters Rolanda and Stephany met with Palliative care and decided that if his blood pressure went down again, they did not want to go back on pressors, but think about transitioning to comfort care. His acute blood loss from unknown source resolved and no bleeding site found after mitchell-scan 08/28. His platelets remain low, but trending upwards today at 45K. He is being treated for C. difficile (likely carrier) in stool, Proteus and Klebsiella in urine, Klebsiella in blood. Infectious disease is following and recommends ertapenem 1 g once a day. Patient continues on vancomycin irrigations of the colon through the loop ileostomy (started 08/24) which are to continue for 10 days after stop of ertapenem. Contact precautions in place. On and 09/02, he seemed to wake up somewhat with decreased sedation, opens eyes , nods yes/no appropriately to simple questions.On night of 09/03 it was noticed that patient had a dislocated right shoulder,causing patient discomfort. Orthopedics was contacted. On 09/04: Patient has somewhat more somnolent and developed hypotension which continued overnight and he has had several fluid boluses for this. In addition, his WBC pau from 9.3 to 13.1and he is no longer responsive. Medical team strongly suspects he may be developing another infection and he will be mitchell-cultured today. Dr. Duenas plans to change his antibiotics to broader coverage for next 48 hours. He will stop ertapenem, and switch to daptomycin, meropenem and micafungin. EEG completed, however the results are ambiguous. It is abnormal and shows encephalopathy, but in a way that could point to a number of different etiologies, not just anoxic encephalopathy. Past Medical/Surgical/Family/Social history: see my 09/02 note. Patient's Baseline Function: In Jul 2016, pt stated to Palliative Care's Dr. Crum that prior to going to [facility] for rehab at end 2015, he was living in a single story home alone, and had no problems getting around his house with a W/C. At that time, Pt stated he typically uses a wheel chair, does not drive. Allergies: Reviewed: iodine,povidone Exam: General: intubated, some sedation. HEENT: moist mucus membranes, pale sclera. His eyes are rolled back today and he does not track. Lungs: at bases, scattered crackles Heart: S1,S2,+II/ systolic murmur, irregularly, irregular. Abdomen: obese, soft, nontender. Extremities: mild generalized edema. Skin: no rashes noted. Neuro: unresponsive. Labs: 09/04/16 0540 EEG 09/03: moderate cerebral cortical dysfunction/encephalopathy. This may be seen in a wide variety of different clinical conditions, including toxic, metabolic, hypoxic, inflammatory, autoimmune and infectious states. It may also be seen in the setting of certain sedating medications. The generalized delta waves do appear to occur in triphasic patterns at times. If clinically indicated, a 12-lead electrocardiogram may be warranted. I would recommend a repeat EEG off all sedatives if this has not been performed. (Dr. Gutierrez) Adriana Crum MD Sep 04, 2016 11:03
--- NOTE | 2016-09-04 11:37 | ABG ---
DateTimeAnalyzed 11:30:00 -_ pH ____7.414 - 7.350 7.450 pCO2 ___33.5__ -mmHg 35.0 45.0 pO2 ___85.2__ -mmHg 69.0 116 HCO3- ___21.0__ -mmol/L 22.0 26.0 ABE ___-2.5__ -mmol/L -2.0 2.0 tHb ____9.5__ -g/dL O2Hb ___94.8__ -% COHb ____1.1__ -% MetHb ____1.3__ -% sO2 ___97.1__ -% 25.0 FIO2 ___45.0__ -% PRVC 510 - PEEP ____5.0__ -cmH2O Set_RR ___10.0__ -b/min Vt __510.0__ -L Drawn By NB - Date/Time Notified____ 11:36:00 -_ Spontaneous_RR ___15.0__ -b/min Oxygen Device 1 VENTILATOR - Notified By NB - Notified Whom DR Boyd - B 744 -mmHg tO2 ___12.8__ -Vol% Stiven test _Positive -
[2016-09-04] MEDS: Micafungin Inj 150 MG in 0.9% Sodium Chloride 100 ML IV SCH (12:35)
--- NOTE | 2016-09-04 13:26 | PCM.PNMED ---
Subjective Date of Service Sep 04, 2016 Subjective Overnight: No acute events; temp dropped to 35.8, Marycarmen hugger applied Today: Remains intubated and sedated; eyes not open, not following commands. Continues to grimace when palpating right shoulder region; appeared to facilitate oral hygiene when swab applied. BP decreased to sys 80s. No acute distress. Patient does open eyes with verbal stimuli sometimes but not always. Exam Vital Signs Vital Sign - Last Date Time Temp Pulse Resp B/P Pulse Ox O2 Delivery O2 Flow Rate FiO2 09/04/16 12:00 37.6 121 13 109/65 100 Mechanical Ventilator 09/04/16 08:00 45 Intake and Output 09/03/16 09/03/16 09/04/16 Cumulative From/Thru 15:00 23:00 07:00 08/24/16 04:11 - 09/04/16 06:31 Intake Total 2062 ml 3043 ml 48181 ml Output Total 2300 ml 1430 ml 44170 ml Balance -238 ml 1613 ml 07212 ml Intake Oral 0 ml IV Total 2062 ml 2278 ml 45236 ml Tube Feeding 615 ml 3592 ml Packed Cells 609 ml Tube Irrigant 150 ml 1253 ml Output Urine Total 2300 ml 1350 ml 19894 ml Stool Total 1445 ml Gastric Drainage Total 405 ml Chest Tube Drainage Total 50 ml Drainage Total 50 ml 1230 ml Other 30 ml 30 ml # Bowel Movements 1 Exam General: Intubated and minimally sedated; no acute distress; eyes not open, not following commands Skin: Patient has ecchymoses on the back and various areas of his extremities with poor skin turgor and diffuse subcutaneous edema. HEENT: Multiple small scabs across forehead and scalp; sclera anicteric, mild corneal edema; ETT in place; mucus membranes moist; keratinous horn present on upper left forehead without evidence bleed Neck: Soft, obese; RIJ in place, bandages clean/dry/intact Cardiac: Regular rate at time of examination; no murmurs appreciated Respiratory: Adequate air flow all jama; faint coarse sounds appreciated; difficult to appreciate secondary to habitus Chest: Right chest tube in place and secured Abdomen: Soft, nondistended; ileostomy bag secured on right with drain in place for irrigation; minimal output noted Extremities: Mild edema bilateral lower extremities; Right shoulder tender to palpation, notable abnormality of joint, appearance of anteriorly dislocated humeral head early this morning however later in the day it appeared to have popped back into place; asymmetric shoulder examination; Two sites erythematous rings noted anterior right ankle and right tibial tuberosity Pulses: Radial equal and bilateral; faint : Significant scrotal edema present, without skin breakdown noted Skin: Warm, dry; scaly and dry Neuro: Cannot obtain full assessment secondary to sedation and intubation; not following commands or answering questions Psych: Cannot fully obtain secondary to sedation and intubation Lab and Diagnostics Result Diagram: 09/04/1653909/04/16539 Microbiology See numerous microbiology lab reports. X-Rays, CTs and MRIs PROCEDURE: X-RAY CHEST ONE VIEW, PORTABLE ([id number]) INDICATIONS: intubated TECHNIQUE: One view of the chest was acquired. COMPARISON: [facility], CR, XR CHEST 1VW (PORTABLE), 09/03/2016, 4: 47. [facility], CR, XR SHOULDER MIN 2VW RT, 09/03/2016, 11:51. FINDINGS: Surgical changes and devices: Stable position of ETT, nasogastric tube, right IJ CVL and right pleural drain. Lungs and pleura: Mid/basilar airspace opacities redemonstrated similar prior examination. Small bibasilar pleural effusions also unchanged. No pneumothorax. Mediastinum: Mediastinal contours appear normal. Heart size is normal. Bones and chest wall: No suspicious bony lesions. Overlying soft tissues appear unremarkable. IMPRESSION: Stable chest compared to the last examination. Dictated by: Carter Apple RRA Interpreted: Rich Romero MD on 09/04/2016 at 8:46 Transcribed by: ERICA on 09/04/2016 at 8:47 Approved by: Rich Romero M.D. on 09/04/2016 at 9:05 Cardiac Echo Impressions Echocardiogram Report Name: NINA BRAR RStudy Date: 08/24/2016 Height: 67 in Hospital Exam Location: [facility] Weight: 174 lb Gender: Male BSA: 1.9 m2 : 1945 Age: 70 yrs BP: 138/78 mmHg Reason For Study: EVAL VENTRICULAR FUNCTION/VALVES Ordering Physician: HOSPITALIST [facility] Performed By: Elsy babin Referring Physician: DR. TOMMY LOZANO, DR. Juliana MORRIS Interpretation Summary Afib with RVR. Normal LV size; moderate concentric LVH; normal wall motion and LV systolic function. EF is 60-65%. Moderate MAC; mitral valve leaflets are normal; there is mild MR. Aortic valve leaflets are normal; there is mild AI. There is mild TR; estimated PA systolic pressure is 35 mm Hg assuming RA pressure of 10 mm Hg. Compared to prior study performed 07/05/2016 afib is newly described. Heart rate is faster (up from 105 bpm to around 120 bpm). Otherwise no changes have occurredx. Assessment & Plan Mr. 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 difficile, suspected colonic microperforation, and/or UTI. He was admitted for evaluation and treatment of septic shock secondary to reasons discussed, acute hypoxemic respiratory failure, and acute on chronic kidney disease. - Hospital day 12 - Ventilator day 12 - POD 11: loop ileostomy - POD 7: Chest tube Recent issues: Decrease in BP noted overnight; decreased steroid admin initiated 09/03; suspected that decrease in steroids decreased BP readings, and decrease in BP is likely due to adrenal insufficiency rather than sepsis. Changes to management as noted below Acute hypoxemic respiratory failure, present on admission. Ongoing - Secondary to septic shock - Remains intubated and sedated - DC precedex and fentanyl gtt; pushes for pain control if noted - Attempt to arouse patient as much as possible to assess neuro status - Pulmonary/ICU consulted; appreciate time and recommendations - Dr. De La Rosa from general surgery is managing chest tube. Septic shock with encephalopathy, acute, present on admission. Ongoing - On admit: WBC 18.2, HR 138; LA 2.3 + reported AMS - Treat underlying cause(s) - Awaiting 09/01 EEG results - Keep sedation at minimum to evaluate neuro status - SBT when appropriate - Per family wishes: No escalation of care, no addition of pressor agents - New Cx obtained 09/04 for concern of decreasing BP and increase in WBC: BCx, UCx - Fluid boluses NS provided; improved Right shoulder pain, acute, not known to be present on admission. Ongoing - Grimacing noted with right shoulder movement; continues - Phys exam reveals an unstable joint - XR right shoulder 09/03: Linear lucency extending through the distal clavicle which could be related to clavicular fracture. - Ortho consulted; appreciated time and recs: No dislocation found; no interventions; no sling necessary; continue PT - Monitor at this time Septicemia, acute, present on admission. Under therapy with improvements - Blood Cx 08/24: + Klebsiella oxytoca, Providencia stuartii - Abx: Ertapenem, stopped 09/04 - New abx: Daptomycin, meropenem, micafungin; start date 09/[address] Duenas. - Plan to continue next 48 hours - ID has been consulted, appreciate time and recommendations - Monitor labs, PCT Hypokalemia, acute, not present on admission. Under therapy - Likely secondary to decreased renal function and need for increased diuretics - 08/31: K 2.9 - NS + K @80 per nephro Right sided pneumothorax, acute, unknown chronicity. Monitor - CT C/A/P with small R PTX - Chest tube placed 08/28. Dr. De La Rosa is managing chest tube. - Monitor - May need to remain until extubation Suspected adrenal insufficiency, chronic. 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 Resolved - On admit: Cr 2.98; baseline reported to be approx 2 - Avoid nephrotoxic meds when possible - Nephrology has been consulted, appreciate time and recs - Oliguric; Bumex IV x2 doses completed 08/28 - Albumin stop date 08/29 - Lasix 60mg IV BID: Held 09/04 secondary to decreased BP - Once BP is stabilized, resume lasix UTI, acute, present on admission. Under evaluation - On admit: UA + nitrite, moderate leuk est, + WBC, with many bacteria - Repeat UA 08/26: Cloudy, mod LE, > 50 WBC, mod bacteria - UCx: + Klebsiella, + Proteus - ID as above Suspected C. difficile infection with resultant sepsis, acute, present on admission. Under investigation - Recent stool PCR July 2016 + C. diff - Stool PCR 08/25: + C. diff, + norovirus - Difficult to discern if active infection as C. diff PCR can remain positive as long as one year - S/p loop ileostomy placement 08/24 with irrigation drain - Tx: Vancomycin irrigation through ileostomy per general surgery + Florastor - General surgery following; appreciate time and recommendations; recommend approx 10d course of irrigation - Irrigation start date: 08/24--> Continue irrigation x10 days after stop date of antibiotics - Precautions in place - ID consulted, as noted above Suspected acute blood loss anemia, not present on admission. Currently stable - Normocytic, normochromic - Drop in Hb noted 08/27 to 7.2; repeat 6.5 - s/p 2U pRBC 08/27 - Guaiac stat 08/28: POSITIVE - CT brain 08/28: No acute abnormalities - CT C/A/P 08/28: Moderate b/l pleural effusions and bibasilar consolidations; small right PTX; anasarca - Transfuse threshold Hb 7.0; monitor daily Thrombocytopenia, acute, not present on admission. Ongoing - On admit: Plt 239; 09/03 43 - Consideration of plt transfusion, 6-pack/1 unit - HIT panel negative - Monitor platelets; if improved 09/04, consider re-initiation of heparin SQ Hypocalcemia, acute, not present on admission. Resolved - Initially corrected with decreased albumin - Monitor Influenza A H3 infection, acute, present on admission. Treated - Peramivir completed Suspected LLL PNA, acute, present on admission. Stable - Likely secondary to influenza, noted above - Monitor with CXR, labs, PCT History of renal transplant and long-term immunosuppression, chronic. Presumed stable - Holding cyclosporine and CellCept- Nephro to resume in coming days - Nephro consulted, as noted above History of positive MRSA screen - Screen 08/24: NEGATIVE - No treatment/precautions indicated for MRSA at this time - DVT: As platelet count is stable or improved we have started heparin 5000 units subcutaneous every 12 hours. - GI: Continue PPI - Diet: Tube feedings, with free water flushes 300mL q6 - PRN fever/bowel/antiemetics/pain - Code: LIMITED: NO PRESSORS, if care escalates, contact family first - Time spent: Approximately 70 minutes of critical care was spent on patient case, with greater than 50% utilized for coordination of care. Counseling could not be completed, as patient is intubated and sedated. Dispo: Likely to remain >2 days, as he remains intubated and sedated. Will likely return to [facility] when stable for DC, if survives hospitalization. Abx needs at DC are uncertain at this time, will keep PHARMACEUTICAL SPECIALTY REPRESENTATIVE updated on any needs for continued IV abx at DC, DC timeline quite uncertain at this time. Patient appears to be slowly improving. Mental status is of utmost importance, and what he values most in his recovery. Family wishes that care not be escalated without contacting them first, and they do not wish for pressor agents to be utilized. Pain Evaluation: Adequate Pain Control GI Prophylaxis: H2 mary ann VTE Prophylaxis: Sub-Q Heparin (Unfractionated) VTE Mechanical Devices: Intermittant Pneumatic CD Resuscitation Status: CPR: Attempt Resuscitation Attending Statement Patient seen and examined. Chart reviewed and case discussed with Dr. Promise Boyd at length. I agree with the above note. Maude Boyd DO Sep 04, 2016 13:26 Shekhar Reyes MD Sep 04, 2016 19:34
[2016-09-04] MEDS: fentaNYL 2,500 mCg/250 mL 2,500 MCG in IV Premix 1 EACH IV PRN (14:36)
[2016-09-04] MEDS: Hydrocortisone 50 mg/mL 2 mL Inj IVPUSH SCH ×2 (14:42→20:35)
--- NOTE | 2016-09-04 18:14 | NUR ---
Continues on vent support, no changes to vent settings this shift. Appears comfortable and in no distress on Precedex and low-dose Fentanyl gtt. BP/HR variable. TFs at goal, 170-210 4-hr residuals. No stool, abd slightly distended, soft. No flatus noted. No output via ileo-loop, Vanco continues. A-fib, IVCD. Afebrile. BCs, UA, sputum sent/repeated. Potassium replaced, follow-up 4.6. Frequent turning/repositioning, gross anasarca, weeping skin, scattered multiple bruises, thin & fragile, scattered blistering, scrotal edema massive. No visitors, no inquiries.
[2016-09-04] MEDS: Meropenem Inj 1,000 MG in 0.9% Sodium Chloride 50 ML IV SCH (20:35)
[2016-09-04] MEDS: Heparin 5,000 Unit/mL Inj SUBQ SCH (20:35)
[2016-09-05] VITALS (8 sets, daily range): BP systolic 111–156; BP diastolic 60–86; PULSE 94–108; RESP 12–26; O2SAT 81–100
[2016-09-05] MEDS: Chlorhexidine 0.12% 15 mL Oral Solution MT SCH ×3 (00:36→09:20)
[2016-09-05] MEDS: Dexmedetomidine 400 mCg/100 mL 400 MCG in IV Premix 1 EACH IV SCH (04:08)
[2016-09-05] MEDS: VANCOMYCIN IRRIGATION SCH (04:09)
[2016-09-05] MEDS: 0.9% NaCl + KCl 20 mEq/L 1,000 ML IV SCH (04:09)
[2016-09-05] MEDS: LACTATED RINGER S IRRIGATION SCH (04:09)
--- NOTE | 2016-09-05 05:50 | ABG ---
DateTimeAnalyzed 05:44:00 -_ pH ____7.368 - 7.350 7.450 pCO2 ___35.3__ -mmHg 35.0 45.0 pO2 151 -mmHg 69.0 116 HCO3- ___19.8__ -mmol/L 22.0 26.0 ABE ___-4.4__ -mmol/L -2.0 2.0 tHb ____9.0__ -g/dL O2Hb ___97.1__ -% COHb ____0.9__ -% MetHb ____1.1__ -% sO2 ___99.1__ -% 25.0 FIO2 ___45.0__ -% PRVC 510 - PEEP ____5.0__ -cmH2O Set_RR ___10.0__ -b/min Vt __510.0__ -L Drawn By MT - Date/Time Notified____ 05:49:00 -_ Spontaneous_RR ___15.0__ -b/min Oxygen Device 1 VENTILATOR - Notified By MT - Notified Whom Fry - B 751 -mmHg tO2 ___12.6__ -Vol% Stiven test _Positive -
[2016-09-05 05:56] LABS: BASOPHILS % (AUTO) 0.1 % (0-3); EOSINOPHILS % (AUTO) 0 % (0-5); MONOCYTES % (AUTO) 2.2 % (4-12); Mean Corpuscular Hemoglobin 29.6 pg (27.0-35.0); Mean Corpuscular Volume 92.2 fL (81-100); NEUTROPHILS % (AUTO) 94.1 % (40-74); Platelet Count 56 bil/L (150-400)
--- NOTE | 2016-09-05 06:08 | NUR ---
Edema Pt has weeping/anasarca edema throughout body, especially on arms and R abdomen. Pt cleaned thouroughly with bed bath and chlorhexidine. Will continue to monitor. Care ongoing
[2016-09-05 06:19] LABS: Magnesium 1.9 mg/dL (1.6-2.6); Phosphorus 4.1 mg/dL (2.5-4.9)
--- NOTE | 2016-09-05 08:37 | DRSVH ---
PROCEDURE: X-RAY CHEST ONE VIEW, PORTABLE ([id number]) INDICATIONS: intubated TECHNIQUE: One view of the chest was acquired. COMPARISON: [facility], CR, XR CHEST 1VW (PORTABLE), 09/04/2016, 4:30. FINDINGS: Surgical changes and devices: Stable position of ETT, nasogastric tube, right IJ CVL and right pleura l drain. Lungs and pleura: Mid/basilar airspace opacities redemonstrated similar prior examination and slightl y increased involving the mid left lung. Small bibasilar pleural effusions also unchanged. No pneumo thorax. Mediastinum: Mediastinal contours appear normal. Heart size is normal. Bones and chest wall: No suspicious bony lesions. Overlying soft tissues appear unremarkable. IMPRESSION: Slight increase in airspace opacity within the mid left lung otherwise persistent bibasil ar airspace opacities unchanged. Dictated by: Carter Apple RRA Interpreted: Mary Foote MD on 09/05/2016 at 8:35 Transcribed by: JACKELYN on 09/05/2016 at 8:36 Approved by: Mary Foote M.D. on 09/05/2016 at 16:00
[2016-09-05] MEDS ORDERED: 0.9% Sodium Chloride 250 ML ONE (09:08)
[2016-09-05] MEDS: DAPTOmycin Inj 600 MG in 0.9% Sodium Chloride 50 ML IV SCH (09:17)
[2016-09-05] MEDS: Pantoprazole 4 mg/mL 10 mL Inj IVPUSH SCH (09:17)
[2016-09-05] MEDS: Meropenem Inj 1,000 MG in 0.9% Sodium Chloride 50 ML IV SCH (09:18)
[2016-09-05] MEDS: Micafungin Inj 150 MG in 0.9% Sodium Chloride 100 ML IV SCH (09:18)
[2016-09-05] MEDS: Hydrocortisone 50 mg/mL 2 mL Inj IVPUSH SCH (09:19)
[2016-09-05] MEDS: Heparin 5,000 Unit/mL Inj SUBQ SCH (09:20)
--- NOTE | 2016-09-05 09:28 | ABG ---
DateTimeAnalyzed 09:23:00 -_ pH ____7.332 - 7.350 7.450 pCO2 ___39.8__ -mmHg 35.0 45.0 pO2 ___44.9__ -mmHg 69.0 116 HCO3- ___20.5__ -mmol/L 22.0 26.0 ABE ___-4.5__ -mmol/L -2.0 2.0 tHb ____8.9__ -g/dL O2Hb ___76.7__ -% COHb ____1.1__ -% MetHb ____1.0__ -% sO2 ___78.3__ -% 25.0 FIO2 ___45.0__ -% PRVC 510 - PEEP ____5.0__ -cmH2O Set_RR ___10.0__ -b/min Vt __510.0__ -L Drawn By as - Date/Time Notified____ 09:27:00 -_ Spontaneous_RR ___13.0__ -b/min Oxygen Device 1 VENTILATOR - Notified By ams - Notified Whom ___dr champion - B 751 -mmHg tO2 ____9.6__ -Vol% Stiven test _Positive -
--- NOTE | 2016-09-05 10:42 | PCM.PNMED ---
Subjective Date of Service Sep 05, 2016 Subjective Patient intubated. Mildly responsive at times opens eyes. No purposeful movement on command. No screws in the fingers. Patient to observe done well overnight with increase in steroids blood pressure rebounded. Patient does have new gram-negative bacteremia which we are presuming his pseudomonas as he has been covered for just about every other gram-negative sanjay. No problem with temperature Exam Vital Signs Vital Sign - Last Date Time Temp Pulse Resp B/P Pulse Ox O2 Delivery O2 Flow Rate FiO2 09/05/16 09:14 81 45 09/05/16 07:30 105 152/79 09/05/16 04:35 36.7 12 Mechanical Ventilator Intake and Output 09/04/16 09/04/16 09/05/16 Cumulative From/Thru 15:00 23:00 07:00 08/24/16 04:11 - 09/05/16 06:34 Intake Total 4251 ml 78228 ml Output Total 940 ml 63963 ml Balance 3311 ml 18772 ml Intake Oral 0 ml IV Total 2895 ml 26459 ml Tube Feeding 756 ml 4348 ml Packed Cells 609 ml Tube Irrigant 600 ml 1853 ml Output Urine Total 300 ml 28304 ml Stool Total 1445 ml Gastric Drainage Total 580 ml 985 ml Chest Tube Drainage Total 50 ml Drainage Total 60 ml 1290 ml Other 30 ml # Bowel Movements 0 1 Exam General: Intubated; more somnolent compared to yesterday HENT: ETT in place; mucus membranes moist Neck: Soft, obese Cardiac: Regular rate at time of examination; no murmurs appreciated Respiratory: Rhonchi and crackles present. Chest: Right chest tube in place and secured with 1700 mL Pleur-evac Abdomen: Nondistended, patient states nontender, ostomy looks clean Extremities: Same as previous day. Pulses: Radial equal and bilateral Skin: Warm, dry; scaly and dry Neuro: Patient is drowsy and intermittently following commands. Cannot open his eyes very well Psych: Cannot obtain secondary to intubation IVs and Medications Medications Reviewed: Medications were reviewed in detail Lab and Diagnostics Result Diagram: 09/05/1652909/05/16529 Microbiology See numerous microbiology lab reports. X-Rays, CTs and MRIs PROCEDURE: X-RAY CHEST ONE VIEW, PORTABLE ([id number]) INDICATIONS: intubated TECHNIQUE: One view of the chest was acquired. COMPARISON: [facility], CR, XR CHEST 1VW (PORTABLE), 09/03/2016, 4: 47. [facility], CR, XR SHOULDER MIN 2VW RT, 09/03/2016, 11:51. FINDINGS: Surgical changes and devices: Stable position of ETT, nasogastric tube, right IJ CVL and right pleural drain. Lungs and pleura: Mid/basilar airspace opacities redemonstrated similar prior examination. Small bibasilar pleural effusions also unchanged. No pneumothorax. Mediastinum: Mediastinal contours appear normal. Heart size is normal. Bones and chest wall: No suspicious bony lesions. Overlying soft tissues appear unremarkable. IMPRESSION: Stable chest compared to the last examination. Dictated by: Carter Apple RRA Interpreted: Rich Romero MD on 09/04/2016 at 8:46 Transcribed by: ERICA on 09/04/2016 at 8:47 Approved by: Rich Romero M.D. on 09/04/2016 at 9:05 Cardiac Echo Impressions Echocardiogram Report Name: NINA VALENTIN RStudy Date: 08/24/2016 Height: 67 in Hospital Exam Location: [facility] Weight: 174 lb Gender: Male BSA: 1.9 m2 : 1945 Age: 70 yrs BP: 138/78 mmHg Reason For Study: EVAL VENTRICULAR FUNCTION/VALVES Ordering Physician: HOSPITALIST [facility] Performed By: Elsy babin Referring Physician: DR. TOMMY LOZANO, DR. Juliana MORRIS Interpretation Summary Afib with RVR. Normal LV size; moderate concentric LVH; normal wall motion and LV systolic function. EF is 60-65%. Moderate MAC; mitral valve leaflets are normal; there is mild MR. Aortic valve leaflets are normal; there is mild AI. There is mild TR; estimated PA systolic pressure is 35 mm Hg assuming RA pressure of 10 mm Hg. Compared to prior study performed 07/05/2016 afib is newly described. Heart rate is faster (up from 105 bpm to around 120 bpm). Otherwise no changes have occurredx. Assessment & Plan 1. Acute hypoxic respiratory failure 2. Encephalopathy 3. Septic shock 4. Chronic kidney disease status post renal transplant 3 5. Recurrent C. difficile colitis 6. Bilateral lower lobe pneumonia 7. Right pneumothorax status post chest tube Neuro: Patient is off sedation but remains somnolent. Attempts to open eyes but having difficulty. Sedation and fentanyl and being weaned off completely this morning. EEG was read by Dr. Gutierrez with nonspecific findings. In the differential is toxic encephalopathy with the patient's long-term use propofol and fentanyl this could likely be contributing. We will follow up depending on outcome of family wishes Cardio: Blood pressure has recovered since the reinitiation of steroids. Heart rate is good. Respiratory: Chest x-ray is more or less equivalent compared to yesterday. There is a new left increasing consolidation in the mid lobe. Cultures as below. Patient is decompensating when turned with recent desaturation to the mid 70s. ABG this morning was okay with PO2 in the 150s. Patient decompensated before the FiO2 to be decreased and it remains at this time at 0.45. Of note, patient does not have gag reflex and is unable to cough with attempts to stimulate him. Patient is now day 13 of of intubation and discussed with the family will be required before moving to a trach. Renal: Nephrology is following. Kidney function is greatly improving with creatinine today 1.76. Please see nephrology note. Infection: Blood cultures that were ordered yesterday of already returned gram- negative sanjay in the blood. This is presumably Pseudomonas and patient was switched to daptomycin, meropenem, and micafungin by ID. White count is increasing is pro-calcitonin is pending. Nutrition: Currently at tube feed goals. GI: Patient has not been receiving bowel regimen and will be started on 30 g of MiraLAX. Then moved to 17 g 3 times a day Disposition: Patient is not improving. Remains in a mostly somnolent state with intermittent attempts to open the eyes. Discussion with the family as planned for today we will await Dr. Romano's discussion results. As family does not wish for escalation of care we are stuck with this treatment plan. Time spent: 1.5 hours GI Prophylaxis: H2 mary ann VTE Prophylaxis: Sub-Q Heparin (Unfractionated) VTE Mechanical Devices: Intermittant Pneumatic CD Resuscitation Status: CPR: Attempt Resuscitation Attending Statement The patient was seen and examined together with Dr. Harvey on 09/05/2016 and I agree with the history, exam and plan as outlined in the note above. Slade Harvey DO Sep 05, 2016 10:42 Baljeet Torres MD Sep 19, 2016 09:49
--- NOTE | 2016-09-05 11:53 | PCM.PNMED ---
Subjective Date of Service Sep 05, 2016 Subjective Patient's overall condition continues to deteriorate. His intake and output yesterday were 70-94 in with 2370 out of which 1650 was urine output. Today his urine L and has been 750 for the first 8 hours. Blood pressure has fluctuated considerably but improved since increasing his hydrocortisone dose. Sodium is 146, potassium 4.3, chloride 111, CO2 21, creatinine were 81.76. His albumin continues to fall out of 2.5 daily. Exam Vital Signs Vital Sign - Last Date Time Temp Pulse Resp B/P Pulse Ox O2 Delivery O2 Flow Rate FiO2 09/05/16 11:23 117 156/86 100 60 09/05/16 08:30 Ventilator 09/05/16 08:30 35.5 18 Intake and Output 09/04/16 09/04/16 09/05/16 Cumulative From/Thru 15:00 23:00 07:00 08/24/16 04:11 - 09/05/16 06:34 Intake Total 4251 ml 34450 ml Output Total 940 ml 28195 ml Balance 3311 ml 66147 ml Intake Oral 0 ml IV Total 2895 ml 21628 ml Tube Feeding 756 ml 4348 ml Packed Cells 609 ml Tube Irrigant 600 ml 1853 ml Output Urine Total 300 ml 37196 ml Stool Total 1445 ml Gastric Drainage Total 580 ml 985 ml Chest Tube Drainage Total 50 ml Drainage Total 60 ml 1290 ml Other 30 ml # Bowel Movements 0 1 Exam Patient remains sedated normal ventilator. His sclerae are pale in his skin has a cadaveric appearance.Lungs showed a few scattered rhonchi but otherwise clear. Heart was regular with a soft systolic murmur. Abdomen is soft though his bowel sounds are somewhat diminished. Extremities show some generalized edema throughout symmetric upper upper extremities bilaterally. Lab and Diagnostics Result Diagram: 09/05/16 0530 09/05/16 05 Microbiology See numerous microbiology lab reports. X-Rays, CTs and MRIs PROCEDURE: X-RAY CHEST ONE VIEW, PORTABLE ([id number]) INDICATIONS: intubated TECHNIQUE: One view of the chest was acquired. COMPARISON: [facility], CR, XR CHEST 1VW (PORTABLE), 09/03/2016, 4: 47. [facility], CR, XR SHOULDER MIN 2VW RT, 09/03/2016, 11:51. FINDINGS: Surgical changes and devices: Stable position of ETT, nasogastric tube, right IJ CVL and right pleural drain. Lungs and pleura: Mid/basilar airspace opacities redemonstrated similar prior examination. Small bibasilar pleural effusions also unchanged. No pneumothorax. Mediastinum: Mediastinal contours appear normal. Heart size is normal. Bones and chest wall: No suspicious bony lesions. Overlying soft tissues appear unremarkable. IMPRESSION: Stable chest compared to the last examination. Dictated by: Carter Apple RRA Interpreted: Rich Romero MD on 09/04/2016 at 8:46 Transcribed by: ERICA on 09/04/2016 at 8:47 Approved by: Rich Romero M.D. on 09/04/2016 at 9:05 Cardiac Echo Impressions Echocardiogram Report Name: NIAN VALENTIN RStudy Date: 08/24/2016 Height: 67 in Hospital Exam Location: [facility] Weight: 174 lb Gender: Male BSA: 1.9 m2 : 1945 Age: 70 yrs BP: 138/78 mmHg Reason For Study: EVAL VENTRICULAR FUNCTION/VALVES Ordering Physician: [facility] Performed By: Elsy babin Referring Physician: DR. TOMMY LOZANO, DR. Juliana MORRIS Interpretation Summary Afib with RVR. Normal LV size; moderate concentric LVH; normal wall motion and LV systolic function. EF is 60-65%. Moderate MAC; mitral valve leaflets are normal; there is mild MR. Aortic valve leaflets are normal; there is mild AI. There is mild TR; estimated PA systolic pressure is 35 mm Hg assuming RA pressure of 10 mm Hg. Compared to prior study performed 07/05/2016 afib is newly described. Heart rate is faster (up from 105 bpm to around 120 bpm). Otherwise no changes have occurredx. Assessment & Plan Impression #1 acute on chronic kidney injury secondary to sepsis, intravascular volume depletion, and C. difficile colitis. #2 status post cadaveric renal transplant Recommendations #1 I feel that his prognosis remains quite grim and any type of functional recovery is quite worried remote GI Prophylaxis: H2 mary ann VTE Prophylaxis: Sub-Q Heparin (Unfractionated) VTE Mechanical Devices: Intermittant Pneumatic CD Resuscitation Status: CPR: Attempt Resuscitation Tommy Marcos DO Sep 05, 2016 11:53
[2016-09-05] MEDS ORDERED: fentaNYL-PF 50 mCg/mL 2 mL Inj IVPUSH PRN (12:10)
[2016-09-05] MEDS ORDERED: LORazepam 100 mg/100 mL NS 100 MG in IV Premix 1 EACH IV SCH (12:10)
[2016-09-05] MEDS ORDERED: Atropine 1% 5 mL Ophthalmic Solution PO PRN (12:10)
--- NOTE | 2016-09-05 12:17 | NUR ---
spiritual care: palliative request Family of pt in CCU has decided to move to comfort measures and take pt off life sustaining equipment. Prayed a prayer of commitment over the pt and offered a blessing. Spiritual care is available for family if needed.
--- NOTE | 2016-09-05 13:47 | NUR ---
Pt at 1312hrs Pt was extubated at 1248hrs to comfort care. meds given as ordered and pt appeared comfortable. at 1312hrs. I notified pt's sister, Rolanda by phone as she had already spoken at length with Dr. Romano this am and was fully aware of the plan. She did not have a home selected at this time, and I advised her just to call the hospital and speak with the nursing public area supervisor when she had a chance. Organ donation line was contacted.
--- NOTE | 2016-09-05 14:24 | PCM.PALLBR ---
Palliative Care Recommendation Summary of palliative recommendations: Consistent with the patient's previously stated wishes, and the wishes of his sisters, transition to comfort care today with compassionate extubation. Following extubation, patient rapidly and peacefully. Additional Medical Diagnoses with primary management by Hospitalist team include : 1. Acute hypoxic respiratory failure 2. Encephalopathy 3. Septic shock 4. Chronic kidney disease status post renal transplant 3 5. Recurrent C. difficile colitis 6. Bilateral lower lobe pneumonia 7. Right pneumothorax status post chest tube Problems: Disposition here in hospital following extubation and comfort care Resuscitation Status Resuscitation Status: DNR/DNI:Do Not Resuscitate/Intubate POLST Updates/Changes Previous POLST?: Yes POLST Last Review Date: Sep 01, 2016 POLST Discussed with: Spouse/Other (two sisters who are now his designated decision makers as he is not capacitated) POLST Review Outcome: Form Voided . Advanced Care Planning Address: Comfort care Pain: None Total time 55 minutes; >50% face to face with patient and family, providing counselling regarding plans and recommendations, and in care coordination with his medical teams. Of the above time, 35 minutes counseling for advanced care planning with the patient's family members copies to: Kobe Tom MD Palliative Brief Note Date of Service Sep 05, 2016 . Returned to reevaluate patient. Prior to visiting, reviewed his updated records in the EMR in detail. Reviewed his status with other palliative providers, with medical and critical care teams at CCU rounds and with his nurse at bedside. Also spoke with family court justice Dr. Marcos who has followed the patient through the last several hospitalizations. I contacted his sisters by phone, speaking with them and then meeting with them when they came into the hospital later. Today, the patient is obtunded and essentially unresponsive. Minimal grimace to sternal rub. Vital signs noted. Respirations appear atypical and agonal. Skin is pale, sallow, cool and dry. Lungs with diffuse crackles, heart sounds regular, abdomen soft and without rigidity. Extremities with diffuse edema, ecchymoses, weeping. Laboratory and imaging studies reviewed in detail. I sat down and spoke with his sisters at length. They understand that he has been declining. 2 days ago he raised one of his arms towards them and they commented that they had seen other family members do that, saying yolie at the end of life. They have been expecting that he would not survive. They are saddened that he has not recovered, but they understand the nature of his severe illnesses and that it appears that he has no significant chance of meaningful recovery. They requested that we transition to comfort care and allow him to pass away naturally and peacefully. They were uncomfortable staying at his bedside at this time but asked that we have a press operator visit and then let him pass. Rocky Romano MD Sep 05, 2016 14:24
--- NOTE | 2016-09-05 21:03 | PCM.DC.MED ---
Discharge Summary Date of Service Sep 05, 2016 Dates of Hospitalization Date of Hospital Admission Aug 24, 2016 at 06:13 Date of Discharge: Sep 05, 2016 Providers: Admitting Physician: Aidee Holden DO Primary Care Physician: Tommy Lozano MD Attending Physician: Aidee Holden DO Diagnosis at Time of Discharge Diagnosis at Time of Discharge Diagnoses at time of passing: Acute hypoxemic respiratory failure, present on admission. Ongoing at time of passing Septic shock with encephalopathy, acute, present on admission. Ongoing at time of passing Right shoulder pain, acute, not known to be present on admission. Ongoing at time of passing Septicemia, acute, present on admission. Ongoing at time of passing Hypokalemia, acute, not present on admission. Resolved Right sided pneumothorax, acute, unknown chronicity. Monitored at time of passing Suspected adrenal insufficiency, chronic. Under therapy at time of passing Acute on chronic kidney disease, present on admission. Resolved UTI, acute, present on admission. Ongoing at time of passing Suspected C. difficile infection with resultant sepsis, acute, present on admission. Ongoing at time of passing Suspected acute blood loss anemia, not present on admission. Currently stable at time of passing Thrombocytopenia, acute, not present on admission. Ongoing at time of passing Hypocalcemia, acute, not present on admission. Resolved Influenza A H3 infection, acute, present on admission. Treated Suspected LLL PNA, acute, present on admission. Stable History of renal transplant and long-term immunosuppression, chronic. Presumed stable History of positive MRSA screen Consultations Infectious disease Nephrology General surgery Palliative care Pulmonary/critical care Neurology Orthopaedics Cardiology, echo read Procedures XRay, CTs & MRIs PROCEDURE: X-RAY CHEST ONE VIEW, PORTABLE ([id number]) IMPRESSION: Slight increase in airspace opacity within the mid left lung otherwise persistent bibasilar airspace opacities unchanged. Dictated by: Carter FELTON Interpreted: Mary Foote MD on 09/05/2016 at 8:35 Transcribed by: JACKELYN on 09/05/2016 at 8:36 Approved by: Mary Foote M.D. on 09/05/2016 at 16:00 PROCEDURE: X-RAY RIGHT SHOULDER, MINIMUM TWO VIEWS ([id number]) IMPRESSION: 1. Linear lucency extending through the distal clavicle which could be related to clavicular fracture. Correlate to point tenderness. If indicated clavicle series could be performed. Dictated by: Carter FELTON Interpreted: Maryan Villagomez MD on 09/03/2016 at 13:33 Transcribed by: RICHY on 09/03/2016 at 13:34 Approved by: Maryan Villagomez M.D. on 09/03/2016 at 15:42 PROCEDURE: X-RAY ABDOMEN WITH ERECT AND/OR DECUBITUS VIEWS ([id number]) IMPRESSION: Nonspecific bowel gas pattern. If patient's symptoms persist, recommend repeat imaging or CT. Dictated by: Carter FELTON Interpreted: Edmund Infante MD on 09/02/2016 at 10: 29 Transcribed by: ROSALIO on 09/02/2016 at 10:30 Approved by: Dre Infante M.D. on 09/02/2016 at 16:21 PROCEDURE: CT CHEST, ABDOMEN AND PELVIS WITHOUT CONTRAST ([id number]) INDICATIONS: pleural effusions; colitis? blood loss? TECHNIQUE: 5 mm thick sections acquired from the lung apices to the symphysis pubis. 5 mm thick coronal and sagittal reformats acquired, with additional 7 mm coronal MIP reformats through the lungs. For radiation dose reduction, the following was used: automated exposure control, adjustment of mA and/or kV according to patient size. COMPARISON: [facility], CR, XR CHEST 1VW (PORTABLE), 08/28/2016, 5: 09. [facility], CT, CT CHEST ABD PELVIS WO CON, 08/24/2016, 4:55. FINDINGS: Image quality: Excellent. CHEST: Lungs and pleura: There is a small right pneumothorax. Bilateral moderate effusions and bibasilar consolidations and/or atelectasis. No acute pulmonary opacities. No pleural effusions or pneumothorax. Central and peripheral airways are patent are normal in caliber. Mediastinum: There is an endotracheal tube above vinny. A nasogastric is noted with the tip in the stomach. Heart size is normal. No pericardial effusion. Severe coronary artery calcification consistent with atherosclerosis. No mediastinal adenopathy by CT size criteria. Thoracic aorta and central pulmonary arteries are normal in size. Esophagus is normal in caliber. No hiatal hernia. Chest wall: No axillary or supraclavicular adenopathy by size criteria. Thyroid gland is normal. ABDOMEN: Solid organs: Liver is normal in size. The spleen is small. The left kidney is absent. Right kidney is severely atrophic. There is a transplant kidney in the right iliac fossa. No hydronephrosis intensely kidney. Gallbladder is surgically absent. Pancreas is normal in contours. No adrenal nodules. Both kidneys are normal in size, without hydronephrosis or nephrolithiasis. Peritoneum and bowel: Small and large bowel loops are normal in caliber and wall thickness. There is partial colon resection. There is a percutaneous colostomy in the right lower quadrant. There are numerous diverticula in distal colon. No free air. Small to moderate amount of free fluid. No organized fluid collections to suggest intra-abdominal abscess but pelvis is obscured by external metallic artifacts. A rectal probe is noted. Nodes and vessels: No retroperitoneal or mesenteric adenopathy by size criteria. Aorta and inferior vena cava are normal in size. Severe atherosclerotic calcification. Miscellaneous: No ventral hernias. There is diffuse body wall edema. PELVIS: Genitourinary: Bladder is contracted. There is a Richey catheter within the bladder. Miscellaneous: No inguinal hernias or adenopathy. Bones: No suspicious bony lesions. No vertebral body compression fractures. IMPRESSION: 1. A small right pneumothorax. 2. Moderate bilateral effusions with bibasilar consolidation and/or atelectasis. 3. Left kidney is absent. The right kidney is severely atrophic. There is a transplant kidney in the right iliac fossa. No hydronephrosis in the transplant kidney. 4. Small to moderate amount free fluid. No free air. 5. Diffuse body wall edema likely secondary to anasarca. 6. The examination is suboptimal because of absence of IV and oral contrast. Result was discussed with Dr. Cornejo on 08/28/2016 at 1415 hrs. Dictated by: Rich Romero M.D. on 08/28/2016 at 13:43 Approved by: Rich Romero M.D. on 08/28/2016 at 14:38 PROCEDURE: CT CHEST, ABDOMEN AND PELVIS WITHOUT CONTRAST ([id number]) INDICATIONS: 70 year-old male with hypotension and respiratory arrest. TECHNIQUE: After the administration of oral contrast, 5 mm thick sections acquired from the lung apices to the symphysis pubis. 5 mm thick coronal and sagittal reformats acquired, with additional 7 mm coronal MIP reformats through the lungs. For radiation dose reduction, the following was used: automated exposure control, adjustment of mA and/or kV according to patient size. COMPARISON: [facility], CT, CT KUB, 04/19/2016, 16:40. [facility], CT, CT KUB, 02/18/2016, 2:53. FINDINGS: Preliminary interpretation rendered by [facility]. Image quality: Metallic streak artifact from bilateral hip arthroplasty hardware obscures adjacent bony and soft tissue structures. CHEST: Lungs and pleura: There is asymmetric airspace opacity involving the superior segment of the left lower lobe. There is minimal dependent right lung base atelectasis. No pleural effusions or pneumothorax. Central and peripheral airways are patent are normal in caliber. Endotracheal tube is in expected position. Mediastinum: There is mild cardiomegaly, along with widespread coronary artery atherosclerosis. No pericardial effusion. No mediastinal adenopathy by CT size criteria. Thoracic aorta and central pulmonary arteries are normal in size. Esophagus is normal in caliber. No hiatal hernia. Nasogastric tube is in expected position. Chest wall: No axillary or supraclavicular adenopathy by size criteria. Thyroid gland is normal in size. ABDOMEN: Solid organs: Liver and spleen are normal in size. Gallbladder is surgically absent. Pancreas is normal in contours. No adrenal nodules. Right iliac fossa renal transplant is normal in noncontrast appearance. Both [place] kidneys are severely atrophic, without hydronephrosis or nephrolithiasis. Peritoneum and bowel: Small and large bowel loops are normal in caliber and wall thickness. There is ascending, descending and sigmoid colon diverticulosis , with localized inflammatory fat stranding around the proximal sigmoid colon on axial image 82. There is nearby small extraluminal air, without fluid collections to suggest abscess. Nodes and vessels: No retroperitoneal or mesenteric adenopathy by size criteria. Aorta and inferior vena cava are normal in size, with widespread aortoiliac atherosclerosis. Miscellaneous: No ventral hernias. PELVIS: Genitourinary: The bladder is largely obscured by metallic streak artifact, as well as the distal ureters and prostate gland. Richey catheter is present. Miscellaneous: No inguinal hernias or adenopathy. Bones: No suspicious bony lesions. No vertebral body compression fractures. There is lumbar and thoracic spine disc degeneration. IMPRESSION: 1. Asymmetric opacity involves the superior segment of the left lower lobe, suspicious for aspiration or early pneumonia. 2. Findings consistent with proximal sigmoid colon diverticulitis, with microperforation. No findings to suggest associated abscess. 3. Status post renal transplant, with atrophic [place] kidneys. No significant discrepancy with preliminary [facility] report. Dictated by: Farzad Sanchez M.D. on 08/24/2016 at 6:53 Approved by: Farzad Sanchez M.D. on 08/24/2016 at 7:34 PROCEDURE: CT BRAIN WITHOUT CONTRAST ([id number]) INDICATIONS: 70 year-old intubated male found down. IMPRESSION: 1. No acute intracranial abnormalities. Moderate periventricular and deep white matter chronic small vessel ischemic change. 2. 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 3. Left frontal scalp soft tissue mass is of uncertain etiology, smaller since September 2015. Dictated by: Farzad Sanchez M.D. on 08/24/2016 at 6:46 Approved by: Farzad Sanchez M.D. on 08/24/2016 at 6:53 Cardiac Echo Impression Echocardiogram Report Name: NINA VALENTIN RStudy Date: 08/24/2016 Height: 67 in Hospital Exam Location: [facility] Weight: 174 lb Gender: Male BSA: 1.9 m2 : 1945 Age: 70 yrs BP: 138/78 mmHg Reason For Study: EVAL VENTRICULAR FUNCTION/VALVES Ordering Physician: HOSPITALIST [facility] Performed By: Elsy babin Referring Physician: DR. TOMMY LOZANO, DR. Juliana MORRIS Interpretation Summary Afib with RVR. Normal LV size; moderate concentric LVH; normal wall motion and LV systolic function. EF is 60-65%. Moderate MAC; mitral valve leaflets are normal; there is mild MR. Aortic valve leaflets are normal; there is mild AI. There is mild TR; estimated PA systolic pressure is 35 mm Hg assuming RA pressure of 10 mm Hg. Compared to prior study performed 07/05/2016 afib is newly described. Heart rate is faster (up from 105 bpm to around 120 bpm). Otherwise no changes have occurredx. Other Diagnostics EEG: IMPRESSION: This electroencephalogram performed in the comatose state is abnormal. It is suggestive of moderate cerebral cortical dysfunction/encephalopathy. This may be seen in a wide variety of different clinical conditions, including toxic, metabolic, hypoxic, inflammatory, autoimmune and infectious states. It may also be seen in the setting of certain sedating medications. The generalized delta waves do appear to occur in triphasic patterns at times. If clinically indicated, a 12-lead electrocardiogram may be warranted. I would recommend a repeat EEG off all sedatives if this has not been performed. Clinical correlation is advised. Gilberto Gutierrez MD 09/04/16 [id number] Brief History History obtained from note composed by Dr. Duenas, as this patient is well known to the infectious disease department: The patient is an unfortunate, 70-year-old gentleman who resides in a [facility]pc facility. He is well known to me from numerous admissions during which I have had the opportunity to see him during the past couple of years. Most recently, he was in this facility in early July 2016 with recurrent C. diff as well as influenza. He was treated with a variety of antimicrobial agents until we established these diagnoses and eventually finished with oseltamivir and fidaxomicin. Interestingly, he developed delirium due to oseltamivir which is quite rare. He had almost completed his flu therapy and he looked well, so we simply stopped his anti-influence drug and sent him out to complete his 10 days of fidaxomicin. The patient returned yesterday, August 24, to the ED. He had been back at [facility] in [place] and paramedics were called because he had developed confusion and respiratory failure. He was intubated in the field, and brought to the ED where he was found to be in septic shock with hypotension and evidence of sepsis. I was contacted yesterday by Dr. Castro and we discussed this case in detail by telephone. The differential diagnosis was a possible acute abdomen due to perforation related to possible diverticulitis and/or recurrence of C diff. We discussed a wide variety of issues but decided on antibiotics that would cover bowel perforation as well as especially C. diff and the antibiotics chosen were IV tigecycline, IV Flagyl and vancomycin down the NG tube. Dr. Misha De La Rosa was consulted and I also spoke to him yesterday. He took the patient to the operating room to do a loop ileostomy to look at the bowel and irrigate it with vancomycin for possible recurrent C. diff. He also evaluated the sigmoid colon for possible diverticular or other disease during that surgery. During surgery, he found there was no significant inflammation of the colon. He did find some murky fluid in the left lower quadrant consented for cultures. He then identified the terminal ileum and made a loop in an ostomy so that his colon could be irrigated with vancomycin. Hospital Course SUMMARY Mr. Valentin is a 70 year old gentleman with a complex medical history including a reported x3 renal transplants, recipient of chronic immunosuppressants and terminal carman glucocorticoid use, in addition to numerous hip replacements, that was found to be confused at [facility], and was intubated secondary to presumed acute hypercarbic respiratory failure resulting from septic shock likely thought to be due to C. difficile, suspected colonic microperforation, and/or UTI. He was admitted for evaluation and treatment of septic shock secondary to reasons discussed, acute hypoxemic respiratory failure, and acute on chronic kidney disease. Over the course of his hospitalization, little progress was achieved, despite full interventions. A family conference held 09/01 led to a decision by his sisters to not escalate care, including the use of pressor agents. Patient was hospitalized on numerous occasions over the recent months, and in July 2016, patient and Palliative signed a POLST that indicated that he would not want to sustain life and prolonged interventions if his mental status was ever compromised, as he valued his intellect and cognition above all else. On 2016, the family decided to compassionately extubate and pursue comfort care. Patient was extubated at 1248, and patient soon at 1312. Patient noted to appear comfortable at time of passing. - Hospital day total: 13 - Ventilator day total: 13 - POD 12: Loop ileostomy - POD 8: Right sided chest tube Acute hypoxemic respiratory failure, present on admission. Ongoing at time of passing - Secondary to septic shock - Remained intubated and sedated without successful weans - Pulmonary/ICU consulted; appreciated time and recommendations Septic shock with encephalopathy, acute, present on admission. Ongoing at time of passing - On admit: WBC 18.2, HR 138; LA 2.3 + reported AMS - Attempt to treat underlying cause(s) - Per family wishes: No escalation of care, no addition of pressor agents Right shoulder pain, acute, not known to be present on admission. Ongoing at time of passing - Grimacing noted with right shoulder movement during some examinations - Phys exam revealed an unstable joint - XR right shoulder 02/15: Linear lucency extending through the distal clavicle which could be related to clavicular fracture. - Ortho consulted; appreciated time and recs: No dislocation found; no interventions; no sling necessary Septicemia, acute, present on admission. Ongoing at time of passing - Blood Cx 08/24: + Klebsiella oxytoca, Providencia stuartii - Abx: Ertapenem, stopped 09/04 - New abx: Daptomycin, meropenem, micafungin; start date 09/04 - ID had been consulted, appreciate time and recommendations Hypokalemia, acute, not present on admission. Resolved - Likely secondary to decreased renal function and need for increased diuretics - 08/31: K 2.9 - Fluid management was per nephrology team; appreciated time and care Right sided pneumothorax, acute, unknown chronicity. Monitored at time of passing - CT C/A/P with small R PTX - Chest tube placed 08/28. Dr. De La Rosa of general surgery managed chest tube Suspected adrenal insufficiency, chronic. Under therapy at time of passing - Secondary to transplants and [facility] glucocorticoid use - Stress dose steroids utilized Acute on chronic kidney disease, present on admission. Resolved - On admit: Cr 2.98; baseline reported to be approx 2 - Avoided nephrotoxic meds when possible - Nephrology had been consulted, appreciated time and recs - Oliguric; Bumex IV x2 doses completed 08/28 - Albumin stop date 08/29 - Lasix 60mg IV BID was continued UTI, acute, present on admission. Ongoing at time of passing - On admit: UA + nitrite, moderate leuk est, + WBC, with many bacteria - Repeat UA 08/26: Cloudy, mod LE, > 50 WBC, mod bacteria - UCx: + Klebsiella, + Proteus - ID as above Suspected C. difficile infection with resultant sepsis, acute, present on admission. Ongoing at time of passing - Recent stool PCR July 2016 + C. diff - Stool PCR 08/25: + C. diff, + norovirus - Difficult to discern if active infection as C. diff PCR can remain positive as long as one year - S/p loop ileostomy placement 08/24 with irrigation drain - Tx: Vancomycin irrigation through ileostomy per general surgery + Florastor - General surgery followed; appreciated time and recommendations - Irrigation start date: 08/24--> Plan was to continue irrigation x10 days after stop date of antibiotics - Precautions were in place - ID consulted, as noted above Suspected acute blood loss anemia, not present on admission. Currently stable at time of passing - Normocytic, normochromic - Drop in Hb noted 08/27 to 7.2; repeat 6.5 - s/p 2U pRBC 08/27 - Guaiac stat 08/28: POSITIVE - CT brain 08/28: No acute abnormalities - CT C/A/P 08/28: Moderate b/l pleural effusions and bibasilar consolidations; small right PTX; anasarca - Transfuse threshold was Hb 7.0; monitored daily Thrombocytopenia, acute, not present on admission. Ongoing at time of passing - On admit: Plt 239; 09/03 43 - Consideration of plt transfusion, 6-pack/1 unit - HIT panel negative - Heparin SQ used for DVT prophylaxis after HIT panel returned as negative and platelet count improved Hypocalcemia, acute, not present on admission. Resolved - Initially corrected with decreased albumin - Monitored Influenza A H3 infection, acute, present on admission. Treated - Peramivir completed Suspected LLL PNA, acute, present on admission. Stable - Likely secondary to influenza, noted above - Monitored with CXR, labs, PCT History of renal transplant and long-term immunosuppression, chronic. Presumed stable - Held cyclosporine and CellCept secondary to sepsis and multiple infections - Nephro consulted, as noted above History of positive MRSA screen - Screen 08/24: NEGATIVE - No treatment/precautions indicated for MRSA during his stay Exam Vital Signs (Last) Date Time Temp Pulse Resp B/P Pulse Ox O2 Delivery O2 Flow Rate FiO2 09/05/16 11:23 117 156/86 100 60 09/05/16 08:30 Ventilator 09/05/16 08:30 35.5 18 Exam General: No acute distress, appeared comfortable at time of passing Skin: Patient had ecchymoses on the back and various areas of his extremities with poor skin turgor and diffuse subcutaneous edema. HEENT: Multiple small scabs across forehead and scalp; sclera anicteric, mild corneal edema; mucus membranes moist; keratinous horn present on upper left forehead without evidence bleed Neck: Soft, obese; RIJ in place, bandages clean/dry/intact Cardiac: No cardiac tones Respiratory: No respirations, patient was extubated Chest: Right chest tube in place and secured Abdomen: Soft, nondistended; ileostomy bag secured on right with drain in place for irrigation; minimal output noted Extremities: Mild edema bilateral lower extremities; Notable abnormality of right shoulder joint, asymmetric shoulder examination; Two sites of erythematous rings noted anterior right ankle and right tibial tuberosity Pulses: None : Significant scrotal edema present, without skin breakdown noted Skin: Cool, dry; scaly Neuro: No reflexes; no distress Test 08/24/16 08:05 08/25/16 06:18 08/27/16 05:50 08/28/16 01:30 Hemoglobin A1c 6.0% (4.8-5.6) Troponin T 0.296ug/L (0.0-0.011) Metamyelocytes % 1% (0-0) Hematology Comments Rbc Prothrombin Time 15.6sec (8.1-12.5) Prothromb Time International Ratio 1.45ratio Random Vancomycin Level 14.1ug/mL Rx Prealbumin 10mg/dL (20-40) Hold Purple Top Tube Received (Received) Test 08/28/16 06:00 08/28/16 17:30 08/29/16 10:35 08/31/16 05:40 Ionized Calcium (Calculated) 4.11mg/dL (3.5-5.2) Hold Red Top Tube Received (Received) CHAD Unfractionated Heparin Interp Comment (.) CHAD Unfractionated Heparin Low Dose <1% (0-20) CHAD Unfractionat Heparin High Dose <1% (0-20) Heparin-PF4 Ab Optical Density 0.039OD (<0.4) Heparin-PF4 Antibody Interpretation Not indicated Triglycerides Level 56mg/dL (0-149) Test 09/02/16 04:15 09/04/16 09:42 09/04/16 09:49 09/05/16 05:30 Band Neutrophils % 2% (1-5) Lactic Acid Level 1.5mmol/L (0.4-2.0) Urine Color Yellow (YELLOW) Urine Appearance Clear (CLEAR,HAZY) Urine pH 5.0 (5.0-8.0) Urine Specific [place] 1.020 (1.003-1.035) Urine Protein Negativemg/dL (NEG,TRACE) Urine Glucose (UA) Negativemg/dL (NEGATIVE) Urine Ketones Negativemg/dL (NEGATIVE) Urine Occult Blood Negative (NEGATIVE) Urine Nitrite Negative (NEGATIVE) Urine Bilirubin Negative (NEGATIVE) Urine Urobilinogen Normalmg/dL (NORMAL) Urine Leukocyte Esterase Small (NEGATIVE) Urine RBC 0-2/hpf (0-2) Urine WBC 11-50/hpf (0-5) Urine Epithelial Cells Occasional/hpf (NONE-MOD) Urine Crystals None seen (NONE SEEN) Urine Bacteria Few/hpf (NONE-FEW) Urine Hyaline Casts Occasional/lpf (NONE) Urine Granular Casts None seen (NONE SEEN) Urine Waxy Casts None seen (NONE SEEN) Urine Red Blood Cell Casts None seen (NONE SEEN) Urine White Blood Cell Casts None seen (NONE SEEN) Urine Mucus Present (None Seen) Urine Trichomonas None seen (NONE SEEN) Urine Yeast None (NONE SEEN) Urinalysis Comment None Urine Culture Reflexed Indicated Lipase 235U/L (13-60) White Blood Count 14.7th/mm3 (3.8-10.1) Red Blood Count 2.94mil/mm3 (4.40-5.80) Hemoglobin 8.7g/dL (13.8-17.2) Hematocrit 27.1% (41.0-50.0) Mean Corpuscular Volume 92.2fL (81-100) Mean Corpuscular Hemoglobin 29.6pg (27.0-35.0) Mean Corpuscular Hemoglobin Concent 32.1% (32.0-37.0) Red Cell Distribution Width 17.5% (12.3-15.4) Platelet Count 56bil/L (150-400) Neutrophils (%) (Auto) 94.1% (40-74) Lymphocytes (%) (Auto) 2.6% (14-46) Monocytes (%) (Auto) 2.2% (4-12) Eosinophils (%) (Auto) 0% (0-5) Basophils (%) (Auto) 0.1% (0-3) Sodium Level 146mEq/L (134-144) Potassium Level 4.3mEq/L (3.5-5.2) Chloride Level 111mEq/L (97-108) Carbon Dioxide Level 21mmol/L (18-29) Blood Urea Nitrogen 88mg/dL (8-27) Creatinine 1.76mg/dL (0.76-1.27) Estimat Glomerular Filtration Rate 41mL/min (>59) Glucose Level 248mg/dL (60-99) Calcium Level 8.5mg/dL (8.5-10.1) Phosphorus Level 4.1mg/dL (2.5-4.9) Magnesium Level 1.9mg/dL (1.6-2.6) Total Bilirubin 0.5mg/dL (0.0-1.2) Aspartate Amino Transf (AST/SGOT) 30U/L (0-50) Alanine Aminotransferase (ALT/SGPT) 32U/L (0-44) Alkaline Phosphatase 304U/L (25-160) Total Protein 4.1g/dL (6.4-8.4) Albumin 2.5g/dL (3.4-5.0) Procalcitonin 0.89ng/mL (0.00-0.08) Microbiology Results See numerous microbiology lab reports. Discharge Medications Discharge Medications Allopurinol (Allopurinol) 100 Mg Tablet 200 MG PO QAM (Reported) Aspirin (Aspirin) 81 Mg Tablet 81 MG PO HS (Reported) Calcitriol (Rocaltrol) 0.25 Mcg Capsule 0.25 MCG PO QAM (Reported) Cholecalciferol (Vitamin D3) (Vitamin D) 50,000 Unit Capsule 50,000 UNIT PO monthly (Reported) Cyclosporine, Modified (Gengraf) 25 Mg Cap 50 MG PO BID (Reported) Enalapril Maleate (Enalapril Maleate) 5 Mg Tablet 2.5 MG PO DAILY Prescribed by: SHAISTA SMITH MD Furosemide (Furosemide) 20 Mg Tab 10 MG PO DAILY (Reported) Gabapentin (Gabapentin) 100 Mg Capsule 100 MG PO BID (Reported) Magnesium Oxide/Mag Aa Chelate (bm-Mtla-Aklmhmx Tablet) 133 Mg Tablet 133 MG PO TID (Reported) Metoprolol Tartrate (Metoprolol Tartrate) 25 Mg Tablet 50 MG PO BID Prescribed by: JOANNA MONTOYA MD Multivitamin (Once Daily) 1 Each Tablet 1 EACH PO HS (Reported) Mycophenolate Mofetil (Mycophenolate Mofetil) 250 Mg Capsule 750 MG PO BID ( Reported) Nortriptyline (Nortriptyline) 10 Mg Capsule 10 MG PO BID (Reported) Omeprazole (Omeprazole) 20 Mg Capsule.dr 20 MG PO HS (Reported) Pravastatin (Pravachol) 40 Mg Tablet 40 MG PO HS (Reported) PredniSONE (PredniSONE) 1 Mg Tab 3 MG PO QAM (Reported) Prednisone (PredniSONE) 5 Mg Tab 5 MG PO QAM (Reported) Followup Plan Disposition: Attending Statement Patient was seen in and examined and case discussed at length with Dr. Promise Boyd. Chart reviewed and I agree with the above note. Maude Boyd DO Sep 05, 2016 18:47 Shekhar Reyes MD Sep 05, 2016 21:03
== END 2016-09-05 13:12 | disposition expired | DRG 853 ==
LOC: SED 02:59 → PCC 06:13 → CCU 06:42
PROVIDERS: ADMIT Internal Medicine; ATTEND Hospitalist
PROC: 5A1955Z Respiratory Ventilation, Greater than 96 Consecutive Hours (ICD-10-PCS; 2016-08-24)
PROC: 4A033R1 Measurement of Arterial Saturation, Peripheral, Percutaneous Approach (ICD-10-PCS; 2016-08-24)
PROC: 0D1B4Z4 Bypass Ileum to Cutaneous, Percutaneous Endoscopic Approach (ICD-10-PCS; principal; 2016-08-24 16:00)
PROC: 0W9930Z Drainage of Right Pleural Cavity with Drainage Device, Percutaneous Approach (ICD-10-PCS; 2016-08-28)
DX: A41.81 Sepsis due to Enterococcus (principal); J96.01 Acute respiratory failure with hypoxia; R65.21 Severe sepsis with septic shock; J10.08 Influenza due to other identified influenza virus with other specified pneumonia; G93.41 Metabolic encephalopathy; E87.2 Acidosis; A04.7 Enterocolitis due to Clostridium difficile; N17.9 Acute kidney failure, unspecified; N39.0 Urinary tract infection, site not specified; Z94.0 Kidney transplant status; N18.4 Chronic kidney disease, stage 4 (severe); J93.9 Pneumothorax, unspecified; E27.3 Drug-induced adrenocortical insufficiency; D62 Acute posthemorrhagic anemia; F17.210 Nicotine dependence, cigarettes, uncomplicated; I12.9 Hypertensive chronic kidney disease with stage 1 through stage 4 chronic kidney disease, or unspecified chronic kidney disease; I48.0 Paroxysmal atrial fibrillation; E83.51 Hypocalcemia; Z51.5 Encounter for palliative care; B96.1 Klebsiella pneumoniae [K. pneumoniae] as the cause of diseases classified elsewhere; B96.89 Other specified bacterial agents as the cause of diseases classified elsewhere; B97.89 Other viral agents as the cause of diseases classified elsewhere; D69.6 Thrombocytopenia, unspecified; T38.0X5A Adverse effect of glucocorticoids and synthetic analogues, initial encounter; M25.511 Pain in right shoulder